=== PATIENT | male | born 1985 | race Hispanic/Latino ===

== ENCOUNTER 2018-03-24 07:32 | Emergency (ER) | payer SELFPAY ==
[2018-03-24 07:58] LABS: Absolute Lymphocytes (CBC) 1.4 K/uL (0.7-4.9); Absolute Monocytes 0.7 K/uL (0.1-1.3); Absolute Neutrophil 3.6 K/uL (1.8-8.0); Basophils % 1.1 % (0-1.3); Eosinophils % 0.4 % (0-4.4); Hematocrit 45.5 % (39.6-49.0); Lymphocytes % 23.5 % (15.3-44.8); MCH 34.8 pg (27.0-35.0); MCV 99.6 fL (80-100); MPV 9.4 fL (7.6-11.3); Monocytes % 12.2 % (3.3-12.3); RBC Red Blood Cell Count 4.57 M/uL (4.33-5.43)
[2018-03-24 08:22] LABS: ALT/SGPT 139 U/L (12-78); AST/SGOT 212 U/L (15-37); Albumin 3.9 g/dL (3.4-5.0); Alkaline Phosphatase 116 U/L (45-117); BUN Blood Urea Nitrogen 4 mg/dL (7-18); Bicarbonate 25 mmol/L (21-32); Bilirubin Direct < 0.1 mg/dL (0-0.2); Bilirubin Total 0.3 mg/dL (0.2-1.0); Glucose Level 118 mg/dL (74-106); Potassium 3.8 mmol/L (3.5-5.1); Protein, Total 8.6 g/dL (6.4-8.2); Sodium Level 140 mmol/L (136-145)
[2018-03-24 08:27] LABS: Protime INR 0.99
[2018-03-24 08:28] LABS: Barbiturates NEGATIVE (NEGATIVE); Benzodiazepines NEGATIVE (NEGATIVE); Cocaine NEGATIVE (NEGATIVE); METHAMPHETAM NEGATIVE (NEGATIVE); Methadone NEGATIVE (NEGATIVE); Opiates NEGATIVE (NEGATIVE); Phencyclidine NEGATIVE (NEGATIVE); THC Cannibis NEGATIVE (NEGATIVE)
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
[2018-03-24 08:38] LABS: Urine Blood 2+ (NEG); Urine Glucose NEGATIVE (NEG); Urine Protein 2+ (NEG); Urine pH 5.5 (5.0-7.0)
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
[2018-03-24] MEDS ORDERED: chlordiazePOXIDE HCl 25 MG CAP ONE (09:38)
[2018-03-24 10:41] LABS: Anisocytosis 1+; Blood Morphology Comment NOTED (NOT SEEN); Platelet Estimate DECR; Urine White Blood Cell Casts OK
[2018-03-24] MEDS ORDERED: ONDANSETRON 4 MG/2 ML VIAL ONE (18:49)
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
[2018-03-24] MEDS ORDERED: DIAZEPAM 5 MG TABLET ONE (19:11)
[2018-03-24 20:58] VITALS: TEMP 97.8
[2018-03-24 21:00] VITALS: BP 126/87; O2SAT 95
== END 2018-03-24 20:39 | disposition home or self-care (01) ==
LOC: ER 07:32
DX: S02.2XXA Fracture of nasal bones, initial encounter for closed fracture (principal); S02.80XA Fracture of other specified skull and facial bones, unspecified side, initial encounter for closed fracture; F10.229 Alcohol dependence with intoxication, unspecified; Y04.8XXA Assault by other bodily force, initial encounter; Y93.9 Activity, unspecified; Y92.9 Unspecified place or not applicable; I10 Essential (primary) hypertension
CPT/HCPCS: 36415; 70450; 70487; 71260; 72125; 74177; 76377; 80048; 80076; 80307; 80320; 80329; 81003; 85025; 85610; 85730; 86850; 86900; 86901; 96374; 99285; J2405; Q9967

== ENCOUNTER 2018-10-07 02:03 | Emergency (ER) | payer SELFPAY ==
[2018-10-07] MEDS ORDERED: NA CHLORIDE 0.9% 1,000 ML ONE (02:51)
[2018-10-07] MEDS ORDERED: LORazepam 2 MG/ML VIAL ONE ×2 (02:51→03:16)
[2018-10-07 03:11] LABS: Absolute Lymphocytes (CBC) 0.5 K/uL (0.7-4.9); Absolute Monocytes 0.4 K/uL (0.1-1.3); Absolute Neutrophil 4.2 K/uL (1.8-8.0); Basophils % 0.7 % (0-1.3); Eosinophils % 0.2 % (0-4.4); Hematocrit 39.7 % (39.6-49.0); Lymphocytes % 10.3 % (15.3-44.8); MPV 8.7 fL (7.6-11.3); Monocytes % 7.9 % (3.3-12.3); RBC Red Blood Cell Count 4.36 M/uL (4.33-5.43)
[2018-10-07 03:24] LABS: BUN Blood Urea Nitrogen 7 mg/dL (7-18); Bicarbonate 27 mmol/L (21-32); Creatine Phosphokinase 303 U/L (39-308); Glucose Level 89 mg/dL (74-106); Potassium 3.5 mmol/L (3.5-5.1); Sodium Level 139 mmol/L (136-145)
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
--- NOTE | 2018-10-07 03:48 | EDPHYS ---
Physician Documentation [facility] Name: Mehdi Ramos III Age: 33 yrs Sex: Male : 1985 Arrival Date: 10/07/2018 Time: 02:07 Bed 18 Private MD: ED Physician Sajan Harden HPI: 10/07 03:42 This 33 yrs old Male presents to ER via Law Enforcement with complaints of gs Alcohol Withdrawal. 03:42 The patient presents to the emergency department alcohol withdrawal, shakes. Associated gs signs and symptoms: Pertinent positives: tremor, Pertinent negatives: sz. Severity of symptoms: At their worst the symptoms were moderate in the emergency department the symptoms are unchanged. The patient has experienced similar episodes in the past, a few times. The patient has not recently seen a physician. Historical: - Allergies: 02:09 No Known Allergies; la1 - PMHx: 02:09 Alcoholism; Anxiety; Depression; Hypertension; liver enzymes/ jaundice- alcohol abuse; la1 - Immunization history:: Adult Immunizations up to date. - Social history:: Smoking status: Patient uses tobacco products, denies chronic smoking, but will smoke occasionally. - Ebola Screening: : No symptoms or risks identified at this time. ROS: 03:42 All other systems are negative. gs Exam: 03:42 Head/Face: Normocephalic, atraumatic. Eyes: Pupils equal round and reactive to light, gs extra-ocular motions intact. Lids and lashes normal. Conjunctiva and sclera are non-icteric and not injected. Cornea within normal limits. Periorbital areas with no swelling, redness, or edema. ENT: Nares patent. No nasal discharge, no septal abnormalities noted. Tympanic membranes are normal and external auditory canals are clear. Oropharynx with no redness, swelling, or masses, exudates, or evidence of obstruction, uvula midline. Mucous membranes moist. Neck: Trachea midline, no thyromegaly or masses palpated, and no cervical lymphadenopathy. Supple, full range of motion without nuchal rigidity, or vertebral point tenderness. No Meningismus. Chest/axilla: Normal chest wall appearance and motion. Nontender with no deformity. No lesions are appreciated. 03:42 Respiratory: Lungs have equal breath sounds bilaterally, clear to auscultation and percussion. No rales, rhonchi or wheezes noted. No increased work of breathing, no retractions or nasal flaring. Abdomen/GI: Soft, non-tender, with normal bowel sounds. No distension or tympany. No guarding or rebound. No evidence of tenderness throughout. Back: No spinal tenderness. No costovertebral tenderness. Full range of motion. Skin: Warm, dry with normal turgor. Normal color with no rashes, no lesions, and no evidence of cellulitis. MS/ Extremity: Pulses equal, no cyanosis. Neurovascular intact. Full, normal range of motion. 03:42 Constitutional: The patient appears alert, awake. 03:42 Cardiovascular: Rate: tachycardic, Rhythm: regular, Pulses: no pulse deficits are appreciated. 03:42 Neuro: Orientation: to person, place, time \T\ situation. Cranial nerves: CN II- XII are normal as tested, Motor: moves all fours, Sensation: no obvious gross deficits, Gait: is steady, Abnormal movements: resting tremor, is located in the right arm and left arm. Vital Signs: 02:09 BP 166 / 97; Pulse 113; Resp 22; Temp 98.9; Pulse Ox 98% on R/A; Weight 68.04 kg; la1 Height 5 ft. 6 in. (167.64 cm); 04:24 BP 123 / 83; Pulse 82; Resp 14; Pulse Ox 100% ; Pain 0/10; jl3 07:44 BP 129 / 83; Pulse 88; Resp 18; Pulse Ox 100% on R/A; sv 02:09 Body Mass Index 24.21 (68.04 kg, 167.64 cm) la1 MDM: 02:22 Patient medically screened. 03:42 Differential diagnosis: etoh withdrawal. Data reviewed: vital signs, nurses notes. Response to treatment: the patient's symptoms have markedly improved after treatment, the patient's condition has returned to base line, and as a result, I will discharge patient. 03:48 ED course: doesn't want to detox so will not supply valium. 10/07 02:23 Order name: CBC with Diff 10/07 02:23 Order name: Basic Metabolic Panel; Complete Time: 03:28 10/07 02:23 Order name: CPK; Complete Time: 03:28 10/07 03:27 Order name: CBC Smear Scan EDMS Administered Medications: 02:46 Drug: NS 0.9% 1000 ml Route: IV; Rate: 1 bolus; Site: left antecubital; la1 04:26 Follow up: Response: No adverse reaction; IV Status: Completed infusion; IV Intake: jl3 1000ml 02:46 Drug: Ativan 2 mg Route: IVP; Site: left antecubital; la1 03:12 Follow up: Response: No adverse reaction; Anxiety decreased jl3 03:12 Drug: Ativan 2 mg Route: IVP; Site: left antecubital; jl3 04:25 Follow up: Response: No adverse reaction; Anxiety decreased jl3 Disposition: 10/07/18 03:48 Discharged to Home. Impression: Alcohol dependence with withdrawal. - Condition is Stable. - Discharge Instructions: Alcohol Withdrawal, [id number]. - Medication Reconciliation Form, Thank You Letter, Antibiotic Education, Prescription Opioid Use form. - Follow up: Private Physician; When: 1 - 2 days; Reason: Re-evaluation by your physician. Signatures: Dispatcher [employer] Janett Casillas RN RN sv David Lloyd RN RN la1 Indra Cartagena RN RN jl3 Sajan Harden MD MD Corrections: (The following items were deleted from the chart) 07:59 03:48 10/07/2018 03:48 Discharged to Home. Impression: Alcohol dependence with sv withdrawal. Condition is Stable. Forms are Medication Reconciliation Form, Thank You Letter, Antibiotic Education, Prescription Opioid Use. Follow up: Private Physician; When: 1 - 2 days; Reason: Re-evaluation by your physician. gs
[2018-10-07 05:05] LABS: Platelet Estimate DECR; Urine White Blood Cell Casts OK
[2018-10-07 05:06] LABS: Blood Morphology Comment NOT SEEN (NOT SEEN)
[2018-10-07 08:06] VITALS: TEMP 98.9
[2018-10-07 08:07] VITALS: O2SAT 100
[2018-10-07 08:09] VITALS: BP 129/83
== END 2018-10-07 07:59 | disposition home or self-care (01) ==
LOC: ER 02:03
DX: F10.239 Alcohol dependence with withdrawal, unspecified (principal); I10 Essential (primary) hypertension; Z72.0 Tobacco use
CPT/HCPCS: 36415; 80048; 82550; 85025; 96361; 96374; 99284; J7030

== ENCOUNTER 2018-10-31 20:58 | Emergency (ER) | payer SELFPAY ==
[2018-11-01 00:35] LABS: Absolute Lymphocytes (CBC) 1.3 K/uL (0.7-4.9); Absolute Monocytes 0.3 K/uL (0.1-1.3); Absolute Neutrophil 2.1 K/uL (1.8-8.0); Basophils % 0.8 % (0-1.3); Eosinophils % 1.6 % (0-4.4); Hematocrit 42.5 % (39.6-49.0); Lymphocytes % 34.7 % (15.3-44.8); MPV 8.9 fL (7.6-11.3); Monocytes % 8.2 % (3.3-12.3)
[2018-11-01 00:38] LABS: Protime INR 0.9
[2018-11-01 00:47] LABS: Urine Blood TRACE (NEG); Urine Glucose NEGATIVE (NEG); Urine Protein 2+ (NEG); Urine pH 5.5 (5.0-7.0)
[2018-11-01 01:01] LABS: ALT/SGPT 52 U/L (12-78); AST/SGOT 72 U/L (15-37); Albumin 4.2 g/dL (3.4-5.0); Alkaline Phosphatase 131 U/L (45-117); BUN Blood Urea Nitrogen 8 mg/dL (7-18); Bicarbonate 25 mmol/L (21-32); Bilirubin Direct 0.1 mg/dL (0-0.2); Bilirubin Total 0.4 mg/dL (0.2-1.0); Glucose Level 94 mg/dL (74-106); Protein, Total 8.3 g/dL (6.4-8.2); Sodium Level 146 mmol/L (136-145)
[2018-11-01 01:02] LABS: Blood Morphology Comment NOT SEEN (NOT SEEN); Platelet Estimate DECR; Urine White Blood Cell Casts OK
[2018-11-01 01:16] LABS: METHAMPHETAM NEGATIVE (NEGATIVE)
[2018-11-01 01:17] LABS: Barbiturates NEGATIVE (NEGATIVE); Benzodiazepines NEGATIVE (NEGATIVE); Cocaine NEGATIVE (NEGATIVE)
[2018-11-01 01:19] LABS: Methadone NEGATIVE (NEGATIVE); Opiates NEGATIVE (NEGATIVE)
[2018-11-01 01:20] LABS: Phencyclidine NEGATIVE (NEGATIVE); THC Cannibis NEGATIVE (NEGATIVE)
[2018-11-01] MEDS ORDERED: NA CHLORIDE 0.9% 1,000 ML ONE (06:43)
--- NOTE | 2018-11-01 10:18 | ER ---
Nurse's Notes [facility] Name: Mehdi Ramos III Age: 33 yrs Sex: Male : 1985 Arrival Date: 10/31/2018 Time: 21:02 Bed 6 Private MD: Diagnosis: Alcohol abuse;Alcohol abuse with intoxication;Alcohol abuse, uncomplicated Presentation: 10/31 21:02 Presenting complaint: EMS states: pt has been drinking beer all day and wants "to see ca1 if he's diabetic. FSBS is 89. BP 144/82, HR 105. Transition of care: patient was not received from another setting of care. Onset of symptoms was October 31, 2018. Risk Assessment: Do you want to hurt yourself or someone else? Patient reports no desire to harm self or others. Initial Sepsis Screen: Does the patient meet any 2 criteria? No. Patient's initial sepsis screen is negative. Does the patient have a suspected source of infection? No. Patient's initial sepsis screen is negative. Care prior to arrival: Glucose check: 89. 21:02 Method Of Arrival: EMS: [facility] ca1 21:02 Acuity: BRANDON 4 ca1 Triage Assessment: 21:05 General: Appears in no apparent distress. Behavior is fussy, Smells of alcohol. Pain: ca1 Denies pain. Historical: - Allergies: 21:05 No Known Allergies; ca1 - PMHx: 21:05 Alcoholism; Anxiety; Depression; Hypertension; liver enzymes/ jaundice- alcohol abuse; ca1 - Immunization history:: Flu vaccine is up to date. - Social history:: Smoking status: Patient uses tobacco products, denies chronic smoking, but will smoke occasionally, Patient uses alcohol, on a daily basis. - Ebola Screening: : No symptoms or risks identified at this time. Screenin:10 Abuse screen: Denies threats or abuse. Denies injuries from another. Nutritional ca1 screening: No deficits noted. Tuberculosis screening: No symptoms or risk factors identified. 21:10 Fall Risk None identified. ca1 Assessment: 21:10 General: Appears in no apparent distress. Behavior is restless. Pain: Denies pain. ca1 Neuro: Level of Consciousness is awake, alert, obeys commands, Oriented to person, place, time, situation. Cardiovascular: Heart tones S1 S2 present Capillary refill < 3 seconds Patient's skin is warm and dry. Respiratory: Airway is patent Respiratory effort is even, unlabored, Respiratory pattern is regular, symmetrical, Breath sounds are clear bilaterally. GI: Abdomen is flat, non-distended, Bowel sounds present X 4 quads. Abd is soft and non tender X 4 quads. : No deficits noted. No signs and/or symptoms were reported regarding the genitourinary system. EENT: No deficits noted. No signs and/or symptoms were reported regarding the EENT system. Derm: Skin is intact, is healthy with good turgor, Skin is pink, warm \\T\\ dry. Musculoskeletal: Circulation, motion, and sensation intact. Capillary refill < 3 seconds. 22:00 Reassessment: Patient appears in no apparent distress at this time. Pt's eyes closed. ca1 Not in respiratory distress with equal and unlabored breathing. 23:00 Reassessment: Patient appears in no apparent distress at this time. No changes from ca1 previously documented assessment. 23:57 Reassessment: Patient appears in no apparent distress at this time. No changes from ca1 previously documented assessment. 11/01 00:28 Reassessment: Patient appears in no apparent distress at this time. Patient is alert, ca1 oriented x 3, equal unlabored respirations, skin warm/dry/pink. 02:47 Reassessment: Patient appears in no apparent distress at this time. Patient and/or ak1 family updated on plan of care and expected duration. Pain level reassessed. Patient is alert, oriented x 3, equal unlabored respirations, skin warm/dry/pink. pt informed of wait until morning when ETOH level is lowered. pt with pillow and blanket and vitals every 4 hours. will continue to monitor. . 04:27 Reassessment: Patient appears in no apparent distress at this time. No changes from ak1 previously documented assessment. 06:26 Reassessment: Patient appears in no apparent distress at this time. No changes from ak1 previously documented assessment. pt resting with eyes closed, resp even and unlabored. 06:58 Reassessment: report given to Thaddeus Potter RN and Pietro Rudd RN. ak1 07:00 Reassessment: RECD REPORT FROM ADELIA AYALA. 33YO HM P/W ETOH INTOXICATION. VS STABLE, NO bp APPARENT DISTRESS. 07:37 Reassessment: Patient appears in no apparent distress at this time. Patient and/or iw family updated on plan of care and expected duration. Pain level reassessed. Patient is alert, oriented x 3, equal unlabored respirations, skin warm/dry/pink. pt requests to call his mother Julienne . Mother states she can pick pt up at 10:30. Pt requesting something to eat. 09:28 Reassessment: Patient appears in no apparent distress at this time. Patient and/or sg family updated on plan of care and expected duration. Pain level reassessed. Patient is alert, oriented x 3, equal unlabored respirations, skin warm/dry/pink. awaiting pt mother for pickup at 1030, pt stated understanding. 10:15 Reassessment: pt mother here in a white [place]ib[place], pt ambulatory into ER [facility], out into sg the car, pt dc to home with his mom at this time. Vital Signs: 10/31 21:05 BP 133 / 97; Pulse 104; Resp 18; Temp 98.8; Pulse Ox 100% on R/A; Weight 68.04 kg; ca1 Height 5 ft. 6 in. (167.64 cm); Pain 0/10; 21:45 BP 124 / 73; Pulse 100; Resp 17 S; Pulse Ox 96% on R/A; ca1 22:46 BP 104 / 66; Pulse 84; Resp 17 S; Pulse Ox 97% on R/A; ca1 23:40 BP 93 / 62; Pulse 79; Resp 17 S; Pulse Ox 98% on R/A; ca1 04/12 00:28 BP 95 / 62; Pulse 77; Resp 19 S; Pulse Ox 97% on R/A; ca1 00:58 BP 120 / 86; Pulse 75; Resp 17 S; Pulse Ox 100% on R/A; ca1 02:01 BP 115 / 86; Pulse 75; Resp 18; Pulse Ox 98% on R/A; Pain 0/10; mg2 02:49 BP 134 / 97; Pulse 83; Resp 16; Temp 98.8; Pulse Ox 100% on R/A; ak1 04:27 BP 84 / 51; Pulse 73; Resp 14; Pulse Ox 98% ; ak1 06:26 BP 102 / 84; Pulse 78; Resp 14; Pulse Ox 99% on R/A; ak1 07:05 BP 115 / 88; Pulse 85; Resp 14; Pulse Ox 100% ; bp 10/31 21:05 Body Mass Index 24.21 (68.04 kg, 167.64 cm) ca1 ED Course: 10/31 21:02 Patient arrived in ED. ca1 21:04 Triage completed. ca1 21:05 Arm band placed on right wrist. ca1 21:10 Patient has correct armband on for positive identification. Placed in gown. Bed in low ca1 position. Call light in reach. Pulse ox on. NIBP on. Warm blanket given. 22:05 Columba Hutchinson RN is Primary Nurse. ca1 04 00:00 Real Preciado MD is Attending Physician. tw4 06:41 Lab(s) recollected, by me, sent to lab. IV is patent, Flushed left antecubital 20g ak1 placed prior to this nurse taking over pt care. 07:14 Attending Physician role handed off by Real Preciado MD kdr 07:14 Jonathan Blanchard MD is Attending Physician. kdr 08:28 Primary Nurse role handed off by Columba Hutchinson RN sg 08:28 Thaddeus Tellez RN is Primary Nurse. sg 10:20 No provider procedures requiring assistance completed. IV discontinued, intact, iw bleeding controlled, No redness/swelling at site. Pressure dressing applied. Administered Medications: 06:40 Not Given (Physician Discretion; new verbal orders given): Banana Bag - (NS 0.9% 1000 ak1 ml, foLIC Acid 1 mg, Thiamine 100 mg, Multivitamin 1 amp) IV at calculated rate once 06:40 Drug: NS 0.9% 1000 ml Route: IV; Rate: 1 bolus; Site: left antecubital; ak1 Outcome: 10:17 Discharge ordered by . kdr 10:20 Discharged to home ambulatory, with family. iw 10:20 Condition: good 10:20 Discharge instructions given to patient, Instructed on discharge instructions, follow up and referral plans. Demonstrated understanding of instructions, follow-up care. 10:20 Patient left the ED. iw Signatures: Thaddeus Tellez RN RN Jonathan Blanchard MD MD kdr Shahrzad Santiago RN RN iw Adelia Edgar RN RN ak1 Pietro Weems RN RN Real Preciado MD MD tw4 Jacek Tamayo RN RN [facility] [place] Columba Hutchinsno RN RN ca1 Corrections: (The following items were deleted from the chart) 10/31 22:11 21:10 BP 92 / 58; Pulse 77bpm; Resp 17bpm; Spontaneous; Pulse Ox 96% RA; ca1 ca1 11/01 00:01 10/31 21:02 Presenting complaint: EMS states: pt has been drinking beer all day and mg2 wants "to see if he's diabetic. FSBS is 889. BP 144/82, HR 105 ca1
--- NOTE | 2018-11-01 10:18 | EDPHYS ---
Physician Documentation [facility] Name: Mehdi Ramos III Age: 33 yrs Sex: Male : 1985 Arrival Date: 10/31/2018 Time: 21:02 Bed 6 Private MD: ED Physician Jonathan Blanchard HPI: 11/01 06:21 This 33 yrs old Male presents to ER via EMS with complaints of alcohol tw4 intoxication. 06:21 The patient presents to the emergency department after a known overdose, a result of tw4 recreational substance abuse. Context: Method: the patient has a confirmed or suspected ingestion, of alcohol, Time: the patient's OD/poisoning occurred at an unknown time, Extent: and was witnessed no one. Associated signs and symptoms: The patient has no apparent associated signs or symptoms. The patient has not experienced similar symptoms in the past. Pt states that " he wants to get his blood pressure checked to make sure he doesn't diabteres. Historical: - Allergies: 10/31 21:05 No Known Allergies; ca1 - PMHx: 21:05 Alcoholism; Anxiety; Depression; Hypertension; liver enzymes/ jaundice- alcohol abuse; ca1 - Immunization history:: Flu vaccine is up to date. - Social history:: Smoking status: Patient uses tobacco products, denies chronic smoking, but will smoke occasionally, Patient uses alcohol, on a daily basis. - Ebola Screening: : No symptoms or risks identified at this time. ROS: 11/01 06:21 Constitutional: Negative for fever, chills, and weight loss, Cardiovascular: Negative tw4 for chest pain, palpitations, and edema, Respiratory: Negative for shortness of breath, cough, wheezing, and pleuritic chest pain. Abdomen/GI: Negative for abdominal pain, nausea, vomiting, diarrhea, and constipation, MS/Extremity: Negative for injury and deformity. Abdomen/GI: Psych: Positive for alcohol dependence, Negative for suicide gesture, suicidal ideation. Exam: 06:21 Constitutional: This is a well developed, well nourished patient who is awake, alert, tw4 and in no acute distress. Head/Face: Normocephalic, atraumatic. Chest/axilla: Normal chest wall appearance and motion. Nontender with no deformity. No lesions are appreciated. Cardiovascular: Regular rate and rhythm with a normal S1 and S2. No gallops, murmurs, or rubs. Normal PMI, no JVD. No pulse deficits. Respiratory: Lungs have equal breath sounds bilaterally, clear to auscultation and percussion. No rales, rhonchi or wheezes noted. No increased work of breathing, no retractions or nasal flaring. Back: No spinal tenderness. No costovertebral tenderness. Full range of motion. MS/ Extremity: Pulses equal, no cyanosis. Neurovascular intact. Full, normal range of motion. 06:21 Neuro: Orientation: to person, place \\T\\ time. Mentation: able to follow commands, slow to respond, confused, Memory: is normal, Cranial nerves: CN II- XII are normal as tested, Motor: is normal, Sensation: is normal, Gait: is unsteady. Vital Signs: 10/31 21:05 BP 133 / 97; Pulse 104; Resp 18; Temp 98.8; Pulse Ox 100% on R/A; Weight 68.04 kg; ca1 Height 5 ft. 6 in. (167.64 cm); Pain 0/10; 21:45 BP 124 / 73; Pulse 100; Resp 17 S; Pulse Ox 96% on R/A; ca1 22:46 BP 104 / 66; Pulse 84; Resp 17 S; Pulse Ox 97% on R/A; ca1 23:40 BP 93 / 62; Pulse 79; Resp 17 S; Pulse Ox 98% on R/A; ca1 12 00:28 BP 95 / 62; Pulse 77; Resp 19 S; Pulse Ox 97% on R/A; ca1 00:58 BP 120 / 86; Pulse 75; Resp 17 S; Pulse Ox 100% on R/A; ca1 02:01 BP 115 / 86; Pulse 75; Resp 18; Pulse Ox 98% on R/A; Pain 0/10; mg2 02:49 BP 134 / 97; Pulse 83; Resp 16; Temp 98.8; Pulse Ox 100% on R/A; ak1 04:27 BP 84 / 51; Pulse 73; Resp 14; Pulse Ox 98% ; ak1 06:26 BP 102 / 84; Pulse 78; Resp 14; Pulse Ox 99% on R/A; ak1 07:05 BP 115 / 88; Pulse 85; Resp 14; Pulse Ox 100% ; bp 10/31 21:05 Body Mass Index 24.21 (68.04 kg, 167.64 cm) ca1 MDM: 00:01 Patient medically screened. tw4 06:21 Differential diagnosis: Ingestion/exposure to alcohol. Data reviewed: vital signs, tw4 nurses notes. Counseling: I had a detailed discussion with the patient and/or guardian regarding: the historical points, exam findings, and any diagnostic results supporting the discharge/admit diagnosis, lab results, radiology results. 11/01 00:01 Order name: Acetaminophen tw 11/01 00:01 Order name: Basic Metabolic Panel tw 11/01 00:01 Order name: CBC with Diff tw4 11/01 00:01 Order name: ETOH Level tw4 11/01 00:01 Order name: Hepatic Function tw 11/01 00:01 Order name: PT-INR tw 11/01 00:01 Order name: Ptt, Activated tw 11/01 00:01 Order name: Salicylate [facility] 11/01 00:01 Order name: Urine Drug Screen [facility] 11/01 00:15 Order name: Urine Dipstick--Ancillary (enter results) 6 11/01 00:37 Order name: CBC Smear Scan EDMT 11/01 06:25 Order name: Alcohol Level tw 11/01 00:01 Order name: EKG - Nurse/Tech; Complete Time: 00:28 [facility] 11/01 00:01 Order name: IV Saline Lock; Complete Time: 00:20 tw4 11/01 00:01 Order name: Labs collected and sent; Complete Time: 00:20 [facility] 11/01 00:01 Order name: Urine Dipstick-Ancillary (obtain specimen); Complete Time: 00:03 [facility] 11/01 07:35 Order name: Diet Regular; Complete Time: 07:35 iw EC:11 Rate is 73 beats/min. Rhythm is regular. QRS [place] is Normal. OR interval is normal. QRS tw4 interval is normal. QT interval is normal. No Q waves. T waves are Normal. No ST changes noted. Interpreted by me. Reviewed by me. Administered Medications: 06:40 Not Given (Physician Discretion; new verbal orders given): Banana Bag - (NS 0.9% 1000 ak1 ml, foLIC Acid 1 mg, Thiamine 100 mg, Multivitamin 1 amp) IV at calculated rate once 06:40 Drug: NS 0.9% 1000 ml Route: IV; Rate: 1 bolus; Site: left antecubital; ak1 Disposition: 11/01/18 10:17 Discharged to Home. Impression: Alcohol abuse, Alcohol abuse with intoxication, Alcohol abuse, uncomplicated. - Condition is Stable. - Discharge Instructions: Alcohol Use Disorder, Substance Use Disorder, Alcohol Abuse and Nutrition. - Medication Reconciliation Form, Thank You Letter form. - Follow up: Private Physician; When: 2 - 3 days; Reason: If symptoms return, Further diagnostic work-up, Recheck today's complaints, Continuance of care, Re-evaluation by your physician. - Problem is an acute exacerbation. - Symptoms have improved. Signatures: Dispatcher [employer] EDMS Jonathan Blanchard MD MD kdr Shahrzad Santiago RN RN iw Adelia Edgar RN RN ak1 Real Preciado MD MD tw4 Columba Hutchinson RN RN ca1 Corrections: (The following items were deleted from the chart) 10:20 10:17 11/01/2018 10:17 Discharged to Home. Impression: Alcohol abuse; Alcohol abuse iw with intoxication; Alcohol abuse, uncomplicated. Condition is Stable. Forms are Medication Reconciliation Form, Thank You Letter, Antibiotic Education, Prescription Opioid Use. Follow up: Private Physician; When: 2 - 3 days; Reason: If symptoms return, Further diagnostic work-up, Recheck today's complaints, Continuance of care, Re-evaluation by your physician. Problem is an acute exacerbation. Symptoms have improved. kdr
[2018-11-01 10:25] VITALS: TEMP 98.8
[2018-11-01 10:37] VITALS: BP 115/88; O2SAT 100
--- NOTE | 2018-11-02 09:48 | EKG ---
Test Date: 2018-11-01 Test Time: 00:26:01 Supervisor Pastry: DAYNE MEASUREMENT RESULTS: Intervals: Rate: 73 MS: 144 QRSD: 98 QT: 386 QTc: 425 [place]: P: 32 MS: 144 QRS: -15 T: 17 INTERPRETIVE STATEMENTS: Normal sinus rhythm Normal ECG Compared to ECG 08/15/2017 16:13:19 Sinus arrhythmia no longer present Left ventricular hypertrophy no longer present Electronically Signed On 11-02-18 09:43:24 CDT by Constantino Shine
== END 2018-11-01 10:20 | disposition home or self-care (01) ==
LOC: ER 20:58
DX: F10.229 Alcohol dependence with intoxication, unspecified (principal); I10 Essential (primary) hypertension; Z72.0 Tobacco use
CPT/HCPCS: 36415; 80048; 80076; 80307; 80320; 80329; 81003; 85025; 85610; 85730; 93005; 99284; J7030

== ENCOUNTER 2018-11-04 22:10 | Emergency (ER) | payer SELFPAY ==
[2018-11-04 23:20] LABS: Absolute Lymphocytes (CBC) 0.9 K/uL (0.7-4.9); Absolute Monocytes 0.4 K/uL (0.1-1.3); Basophils % 1.2 % (0-1.3); Eosinophils % 1.1 % (0-4.4); Hematocrit 43.5 % (39.6-49.0); Lymphocytes % 19.7 % (15.3-44.8); MPV 8.9 fL (7.6-11.3); Monocytes % 9.7 % (3.3-12.3); RBC Red Blood Cell Count 4.65 M/uL (4.33-5.43)
[2018-11-04 23:24] LABS: Protime INR 0.94
[2018-11-04 23:30] LABS: Barbiturates NEGATIVE (NEGATIVE); Benzodiazepines NEGATIVE (NEGATIVE); Cocaine NEGATIVE (NEGATIVE); METHAMPHETAM NEGATIVE (NEGATIVE); Methadone NEGATIVE (NEGATIVE); Opiates NEGATIVE (NEGATIVE); Phencyclidine NEGATIVE (NEGATIVE); THC Cannibis NEGATIVE (NEGATIVE)
[2018-11-04] MEDS ORDERED: NA CHLORIDE 0.9% 1,000 ML ONE (23:31)
[2018-11-04] MEDS ORDERED: THIAMINE 200 MG/2 ML INJ ONE (23:31)
[2018-11-04] MEDS ORDERED: FOLIC ACID 5 MG/ML VIAL ONE (23:32)
[2018-11-04] MEDS ORDERED: MULTIVITAMINS 10 ML VIAL (INJ) IV ONE (23:32)
[2018-11-04 23:35] LABS: Urine Blood 1+ (NEG); Urine Glucose NEGATIVE (NEG); Urine Protein 2+ (NEG); Urine Specific Gravity <1.005 (1.005-1.030)
[2018-11-04 23:44] LABS: ALT/SGPT 51 U/L (12-78); AST/SGOT 67 U/L (15-37); Albumin 4.4 g/dL (3.4-5.0); Alkaline Phosphatase 115 U/L (45-117); BUN Blood Urea Nitrogen 8 mg/dL (7-18); Bicarbonate 31 mmol/L (21-32); Bilirubin Direct 0.1 mg/dL (0-0.2); Bilirubin Total 0.4 mg/dL (0.2-1.0); Glucose Level 130 mg/dL (74-106); Potassium 4.1 mmol/L (3.5-5.1); Sodium Level 141 mmol/L (136-145)
[2018-11-05 00:17] LABS: Blood Morphology Comment NOT SEEN (NOT SEEN); Platelet Estimate DECR; Urine White Blood Cell Casts OK
[2018-11-05] MEDS ORDERED: CEFAZOLIN/SWI 1gm 1 GM/10 ML SYR ONE (03:38)
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
--- NOTE | 2018-11-05 07:14 | EDPHYS ---
Physician Documentation [facility] Name: Mehdi Ramos III Age: 33 yrs Sex: Male : 1985 Arrival Date: 11/04/2018 Time: 22:13 Bed 5 Private MD: ED Physician Jesus Colon HPI: 11/04 22:51 This 33 yrs old Male presents to ER via EMS with unknown complaint. pkl 22:51 The patient or guardian reports injury, a puncture wound, rock, swelling. The pkl complaints affect the right side face. Context of injury: resulted from a fall, from a standing position, hit right side of face on a rock. Onset: The symptoms/episode began/occurred just prior to arrival. Historical: - Allergies: 22:24 No Known Allergies; rv - Home Meds: 22:24 Unable to obtain [Active]; rv - PMHx: 22:24 Alcoholism; Anxiety; Depression; Hypertension; liver enzymes/ jaundice- alcohol abuse; rv - PSHx: 22:24 Unable to obtain; rv - Immunization history:: Adult Immunizations unknown. - Social history:: Smoking status: unknown. - Ebola Screening: : Patient negative for fever greater than or equal to 101.5 degrees Fahrenheit, and additional compatible Ebola Virus Disease symptoms Patient denies exposure to infectious person Patient denies travel to an Ebola-affected area in the 21 days before illness onset. ROS: 22:51 Eyes: Negative for injury, pain, redness, and discharge, ENT: Negative for injury, pkl pain, and discharge, Neck: Negative for injury, pain, and swelling, Cardiovascular: Negative for chest pain, palpitations, and edema, Respiratory: Negative for shortness of breath, cough, wheezing, and pleuritic chest pain, Abdomen/GI: Negative for abdominal pain, nausea, vomiting, diarrhea, and constipation, Back: Negative for injury and pain, : Negative for injury, bleeding, discharge, and swelling, MS/Extremity: Negative for injury and deformity, Skin: Negative for injury, rash, and discoloration. 22:51 Neuro: Negative for loss of consciousness. Exam: 22:51 Eyes: Pupils equal round and reactive to light, extra-ocular motions intact. Lids and pkl lashes normal. Conjunctiva and sclera are non-icteric and not injected. Cornea within normal limits. Periorbital areas with no swelling, redness, or edema. ENT: Nares patent. No nasal discharge, no septal abnormalities noted. Tympanic membranes are normal and external auditory canals are clear. Oropharynx with no redness, swelling, or masses, exudates, or evidence of obstruction, uvula midline. Mucous membranes moist. Neck: Trachea midline, no thyromegaly or masses palpated, and no cervical lymphadenopathy. Supple, full range of motion without nuchal rigidity, or vertebral point tenderness. No Meningismus. 22:51 Head/face: Noted is hematoma, that is moderate, of the right cheek, puncture wound noted right cheek. 22:51 Neck: Exam negative for obvious evidence of injury or deformity. 22:51 Chest/axilla: Exam negative for acute changes. 22:51 Cardiovascular: Rate: tachycardic, actual rate is 104 bpm, Rhythm: regular. 22:51 Respiratory: the patient does not display signs of respiratory distress, Respirations: normal, Breath sounds: are clear throughout. 22:51 Abdomen/GI: Bowel sounds: normal, Palpation: abdomen is soft and non-tender, in all quadrants. 22:51 Back: Exam negative for acute changes. 22:51 : Exam negative for acute changes. 22:51 Musculoskeletal/extremity: Exam is negative for acute changes. 22:51 Skin: Exam negative for rash. 22:51 Neuro: Orientation: is normal, Mentation: is normal, Cranial nerves: grossly normal, Motor: is normal. Vital Signs: 22:26 BP 121 / 82; Pulse 104; Resp 18 S; Temp 98.4; Pulse Ox 96% on R/A; Weight 72.57 kg; rv 23:25 BP 138 / 92; Pulse 84; Resp 19; Pulse Ox 95% on R/A; ca1 11/05 00:30 BP 118 / 108 LA Supine; Pulse 86; Resp 18 S; Pulse Ox 96% on R/A; rv 01:32 BP 130 / 94 LA Supine; Pulse 97; Resp 18 S; Pulse Ox 95% on R/A; rv 04:00 BP 112 / 80; Pulse 80; Resp 18; Pulse Ox 95% on R/A; ea MDM: 11/04 22:43 Patient medically screened. pkl 11/05 07:11 Data reviewed: vital signs, nurses notes, lab test result(s), EKG, radiologic studies, pkl CT scan. 11/04 22:48 Order name: Acetaminophen; Complete Time: 02:59 pkl 11/04 22:48 Order name: Basic Metabolic Panel; Complete Time: 02:59 pkl 11/04 22:48 Order name: CBC with Diff; Complete Time: 02:59 pkl 11/04 22:48 Order name: ETOH Level; Complete Time: 02:59 pkl 11/04 22:48 Order name: Hepatic Function; Complete Time: 02:59 pkl 11/04 22:48 Order name: PT-INR; Complete Time: 02:59 pkl 11/04 22:48 Order name: Ptt, Activated; Complete Time: 02:59 pkl 11/04 22:48 Order name: Salicylate; Complete Time: 02:59 pkl 11/04 22:48 Order name: Urine Drug Screen; Complete Time: 02:59 pkl 11/04 22:49 Order name: CT Head Brain wo Cont pkl 11/04 22:49 Order name: CT Facial Bones W/O Con pkl 11/04 23:17 Order name: Urine Dipstick--Ancillary (enter results); Complete Time: 02:59 ms 11/04 23:27 Order name: CBC Smear Scan; Complete Time: 02:59 EDMS 11/05 06:05 Order name: ETOH Level; Complete Time: 07:14 ak1 11/04 22:48 Order name: EKG - Nurse/Tech; Complete Time: 23:33 pkl 11/04 22:48 Order name: IV Saline Lock; Complete Time: 23:33 pkl 11/04 22:48 Order name: Labs collected and sent; Complete Time: 23:33 pkl 11/04 22:48 Order name: Urine Dipstick-Ancillary (obtain specimen); Complete Time: 23:33 pkl Administered Medications: 11/04 23:00 Drug: Banana Bag - (NS 0.9% 1000 ml, foLIC Acid 1 mg, Thiamine 100 mg, Multivitamin 1 rv amp) Route: IV; Rate: calculated rate; Site: right antecubital; 11/05 03:29 Follow up: IV Status: Completed infusion; IV Intake: 1000ml ak1 03:29 Drug: Ancef 1 grams Route: IVPB; Site: right antecubital; ak1 Disposition: 04/16/19 07:12 Discharged to Home. Impression: Alcohol intoxication. S/P Fall. Hematoma and puncture wound right cheek. - Condition is Stable. - Prescriptions for Keflex 500 mg Oral Capsule - take 1 capsule by ORAL route every 8 hours for 10 days; 30 capsule. - Medication Reconciliation Form, Thank You Letter, Antibiotic Education, Prescription Opioid Use form. - Follow up: Private Physician; When: 1 - 2 days; Reason: Re-evaluation by your physician. - Problem is new. - Symptoms have improved. Signatures: Dispatcher [employer] EDMS Chula Meehan Pin, MD MD pkl Adelia Edgar RN RN ak1 Ty Arellano RN RN rv Corrections: (The following items were deleted from the chart) 09:00 07:12 11/05/2018 07:12 Discharged to Home. Impression: Alcohol intoxication. S/P Fall. bd Hematoma and puncture wound right cheek. Condition is Stable. Forms are Medication Reconciliation Form, Thank You Letter, Antibiotic Education, Prescription Opioid Use. Follow up: Private Physician; When: 1 - 2 days; Reason: Re-evaluation by your physician. Problem is new. Symptoms have improved. pkl
[2018-11-05 09:09] VITALS: TEMP 98.4
[2018-11-05 09:13] VITALS: O2SAT 95
[2018-11-05 09:14] VITALS: BP 112/80
--- NOTE | 2018-11-05 11:15 | RAD REPORT ---
EXAM DESCRIPTION: CT - Facial Bones W/ Mpr - 11/05/2018 12:04 am CLINICAL HISTORY: The patient is 33 years old and is Male; fall TECHNIQUE: Axial computed tomography images of the head/brain and face with intravenous contrast. Sagittal and coronal reformatted images were created and reviewed. This CT exam was performed using one or more of the following dose reduction techniques: automated exposure control, adjustment of the mA and/or kV according to patient size, and/or use of iterative reconstruction technique. COMPARISON: None. FINDINGS: BRAIN: Prominence of the bifrontal sulci and CSF spaces. No hemorrhage. VENTRICLES: Unremarkable. No ventriculomegaly. BONES/JOINTS: Remote fracture deformity of the bilateral medial orbital mendoza. SOFT TISSUES: Right facial soft tissue swelling and subcutaneous emphysema involving the zygomatic , premaxillary and mesenteric soft tissues. SINUSES: Paranasal sinuses are clear. MASTOID AIR CELLS: Unremarkable as visualized. No mastoid effusion. ORBITS: Unremarkable as visualized. IMPRESSION: 1. No acute intracranial abnormality. 2. No facial fracture. 3. Cerebral volume loss, more than expected for patient's age. 4. Moderate right facial soft tissue swelling extending from the temporal region to the angle of th e mandible with scattered subcutaneous emphysema. 5. Chronic fracture deformities of the bilateral medial orbital mendoza Electronically signed by: Lele Figueroa DO 11/05/2018 12:11 AM CDT Due to temporary technical issues with the PACS/Fluency reporting system, reports are being signed by the in house radiologist as a courtesy to ensure prompt reporting. The interpreting radiologist is f ully responsible for the content of the report.
--- NOTE | 2018-11-05 11:16 | RAD REPORT ---
EXAM DESCRIPTION: CT - Head Brain Wo Cont - 11/05/2018 1:09 am CLINICAL HISTORY: The patient is 33 years old and is Male; fall TECHNIQUE: Axial computed tomography images of the head/brain and face with intravenous contrast. Sagittal and coronal reformatted images were created and reviewed. This CT exam was performed using one or more of the following dose reduction techniques: automated exposure control, adjustment of the mA and/or kV according to patient size, and/or use of iterative reconstruction technique. COMPARISON: None. FINDINGS: BRAIN: Prominence of the bifrontal sulci and CSF spaces. No hemorrhage. VENTRICLES: Unremarkable. No ventriculomegaly. BONES/JOINTS: Remote fracture deformity of the bilateral medial orbital mendoza. SOFT TISSUES: Right facial soft tissue swelling and subcutaneous emphysema involving the zygomatic , premaxillary and mesenteric soft tissues. SINUSES: Paranasal sinuses are clear. MASTOID AIR CELLS: Unremarkable as visualized. No mastoid effusion. ORBITS: Unremarkable as visualized. IMPRESSION: 1. No acute intracranial abnormality. 2. No facial fracture. 3. Cerebral volume loss, more than expected for patient's age. 4. Moderate right facial soft tissue swelling extending from the temporal region to the angle of th e mandible with scattered subcutaneous emphysema. 5. Chronic fracture deformities of the bilateral medial orbital mendoza Electronically signed by: Lele Figueroa DO 11/05/2018 12:11 AM CDT Due to temporary technical issues with the PACS/Fluency reporting system, reports are being signed by the in house radiologist as a courtesy to ensure prompt reporting. The interpreting radiologist is f ully responsible for the content of the report.
== END 2018-11-05 09:00 | disposition home or self-care (01) ==
LOC: ER 22:10
DX: S01.431A Puncture wound without foreign body of right cheek and temporomandibular area, initial encounter (principal); F10.229 Alcohol dependence with intoxication, unspecified; W19.XXXA Unspecified fall, initial encounter; Y93.89 Activity, other specified; Y92.9 Unspecified place or not applicable; I10 Essential (primary) hypertension
CPT/HCPCS: 36415; 70450; 70486; 76377; 80048; 80076; 80307; 80320; 80329; 81003; 85025; 85610; 85730; 96365; 96366; 96375; 99284; J0690; J3411; J7030

== ENCOUNTER 2019-11-15 09:29 | Emergency (ER) | payer SELFPAY ==
[2019-11-15] MEDS ORDERED: LORazepam 2 MG/ML VIAL ONE (09:54)
[2019-11-15] MEDS ORDERED: NA CHLORIDE 0.9% 1,000 ML ONE (09:54)
[2019-11-15 10:00] LABS: Protime INR 0.96
[2019-11-15] MEDS ORDERED: FOLIC ACID 1 MG, MULTIVITAMINS INJ 10 ML, THIAMINE HCL 100 MG in NA CHLORIDE 0.9% 1,000 ML IV ONE (10:00)
[2019-11-15 10:12] LABS: ALT/SGPT 42 U/L (12-78); AST/SGOT 75 U/L (15-37); Albumin 4.1 g/dL (3.4-5.0); Alkaline Phosphatase 114 U/L (45-117); BUN Blood Urea Nitrogen 13 mg/dL (7-18); Bicarbonate 23 mmol/L (21-32); Bilirubin Direct 0.2 mg/dL (0-0.2); Bilirubin Total 0.7 mg/dL (0.2-1.0); Glucose Level 95 mg/dL (74-106); Potassium 3.4 mmol/L (3.5-5.1); Protein, Total 8.2 g/dL (6.4-8.2); Sodium Level 137 mmol/L (136-145)
[2019-11-15 10:14] LABS: Absolute Lymphocytes (CBC) 0.9 K/uL (0.7-4.9); Basophils % 0.3 % (0-1.3); Hematocrit 42.2 % (39.6-49.0); Lymphocytes % 15.5 % (15.3-44.8); MPV 9.4 fL (7.6-11.3); RBC Red Blood Cell Count 4.78 M/uL (4.33-5.43)
[2019-11-15 11:12] LABS: Blood Morphology Comment NOT SEEN (NOT SEEN); Platelet Estimate DECR; Urine White Blood Cell Casts OK
--- NOTE | 2019-11-15 11:43 | ER ---
Nurse's Notes [facility] Name: Mehdi Ramos III Age: 34 yrs Sex: Male : 1985 Arrival Date: 11/15/2019 Time: 09:31 Bed 8 Private MD: Diagnosis: Alcohol dependence;Alcohol abuse with other alcohol-induced disorders Presentation: 11/14 09:42 Chief complaint: Alcohol withdrawl symptoms following 2 week long [place]. Pt reports hb drinking 40 oz bottles of malt liquor per day, last drink was at approx 1800 just prior to entering police custody. [place] PO at bedside, pt handcuffed. Coronavirus screen: Ebola Screen: No symptoms or risks identified at this time. Initial Sepsis Screen: Does the patient meet any 2 criteria? HR > 90 bpm. Yes Does the patient have a suspected source of infection? No. Patient's initial sepsis screen is negative. Risk Assessment: Do you want to hurt yourself or someone else? Patient reports no desire to harm self or others. Onset of symptoms was November 15, 2019. 09:42 Method Of Arrival: Ambulatory hb 09:42 Acuity: BRANDON 3 hb Historical: - Allergies: 09:45 No Known Allergies; hb - PMHx: 09:45 Alcoholism; Anxiety; Depression; Hypertension; liver enzymes/ jaundice- alcohol abuse; hb - PSHx: 09:45 Unable to obtain; hb - Immunization history:: Adult Immunizations up to date. - Social history:: Smoking status: Patient denies any tobacco usage or history of. Screenin:40 Abuse screen: Denies threats or abuse. Nutritional screening: No deficits noted. em Tuberculosis screening: No symptoms or risk factors identified. Fall Risk None identified. Assessment: 09:35 General: Appears in no apparent distress. uncomfortable, Behavior is cooperative, em anxious. Pain: Complains of pain in right eye Pain currently is 5 out of 10 on a pain scale. Neuro: Level of Consciousness is awake, alert, obeys commands, Oriented to person, place, time, situation, Appropriate for age. Cardiovascular: Capillary refill < 3 seconds Patient's skin is warm and dry. Respiratory: Airway is patent Respiratory effort is even, unlabored, Respiratory pattern is regular, symmetrical. GI: Abdomen is flat. Derm: Skin is intact, is healthy with good turgor, Skin is pink, warm \T\ dry. Bruising that is on right eye. Musculoskeletal: Capillary refill < 3 seconds, Range of motion: intact in all extremities. 10:20 Reassessment: Patient appears in no apparent distress at this time. Patient and/or em family updated on plan of care and expected duration. Pain level reassessed. Patient is alert, oriented x 3, equal unlabored respirations, skin warm/dry/pink. Patient states feeling better. Patient states symptoms have improved. 11:10 Reassessment: Patient appears in no apparent distress at this time. Patient and/or ph family updated on plan of care and expected duration. Pain level reassessed. Patient is alert, oriented x 3, equal unlabored respirations, skin warm/dry/pink. Vital Signs: 09:42 BP 161 / 95; Pulse 101; Resp 16; Temp 97.8; Pulse Ox 100% ; Weight 74.84 kg; Height 5 hb ft. 7 in. (170.18 cm); Pain 5/10; 10:30 BP 128 / 85; Pulse 87; Resp 20; Pulse Ox 100% on R/A; em 11:10 BP 115 / 79; Pulse 87; Resp 18; Pulse Ox 100% ; ph 09:42 Body Mass Index 25.84 (74.84 kg, 170.18 cm) hb ED Course: 09:31 Patient arrived in ED. hb 09:31 David Lloyd FNP-C is [facility]. la1 09:31 Glenn Conteh MD is Attending Physician. la1 09:34 Hector Angel, RN is Primary Nurse. em 09:40 Patient has correct armband on for positive identification. Call light in reach. Side em rails up X2. Adult w/ patient. officer at bedside, pt in [place] custody. 09:40 Initial lab(s) drawn, by tn, sent to lab. Inserted saline lock: 20 gauge in right em antecubital area, using aseptic technique. Blood collected. 09:45 Triage completed. hb 09:45 Arm band placed on. hb 10:20 EKG done, by ED staff, reviewed by David KELLEY. 5 11:54 No provider procedures requiring assistance completed. IV discontinued, intact, em bleeding controlled, No redness/swelling at site. Pressure dressing applied. Administered Medications: 09:39 Not Given (Other Intervention Used): Ativan 1 mg IVP once la1 09:50 Drug: NS 0.9% 1000 ml Route: IV; Rate: 1000 ml; Site: right antecubital; em 11:55 Follow up: IV Status: Completed infusion; IV Intake: 1000ml em 09:50 Drug: Ativan 2 mg Route: IVP; Site: right antecubital; em 10:20 Follow up: Response: No adverse reaction; Marked relief of symptoms em 10:08 Drug: Banana Bag - (NS 0.9% 1000 ml, foLIC Acid 1 mg, Thiamine 100 mg, Multivitamin 1 em amp) Route: IV; Rate: calculated rate; Site: right antecubital; 11:56 Follow up: Response: No adverse reaction; IV Status: Order to discontinue infusion; IV em Intake: 400ml Intake: 11:55 IV: 1000ml; Total: 1000ml. em 11:56 IV: 400ml; Total: 1400ml. em Outcome: 11:42 Discharge ordered by . la1 11:54 Discharged to Law Enforcement em 11:54 Condition: stable 11:54 Discharge instructions given to patient, police, Instructed on discharge instructions, follow up and referral plans. Demonstrated understanding of instructions, follow-up care. 11:58 Patient left the ED. em Signatures: Hector Angel RN David Cope, SENIOR PARTNER-C SENIOR PARTNER-[facility] Jacquelyn Lyles RN RN Maya Emery RN RN hb Martinez, [facility]
--- NOTE | 2019-11-15 11:44 | EDPHYS ---
Physician Documentation [facility] Name: Mehdi Ramos III Age: 34 yrs Sex: Male : 1985 Arrival Date: 11/15/2019 Time: 09:31 Bed 8 Private MD: ED Physician Glenn Conteh HPI: 11/14 09:40 This 34 yrs old Male presents to ER via Unassigned with complaints of ETOH la1 Withdraw. 09:40 The patient presents to the emergency department ETOH Withdraw. Associated signs and la1 symptoms: Pertinent positives: anxiety, tremors, Pertinent negatives: diaphoresis. Severity of symptoms: At their worst the symptoms were moderate. The patient has experienced similar episodes in the past, several times. pt reports for the last two weeks he has been drinking 4-5 "40s" at home, had his last drink last night at 1800. Pt is in police custody at this time, brought it for alcohol withdraw. Pt states he feels "awful" and that this is how he feels when he quits drinking. . Historical: - Allergies: 09:45 No Known Allergies; hb - PMHx: 09:45 Alcoholism; Anxiety; Depression; Hypertension; liver enzymes/ jaundice- alcohol abuse; hb - PSHx: 09:45 Unable to obtain; hb - Immunization history:: Adult Immunizations up to date. - Social history:: Smoking status: Patient denies any tobacco usage or history of. ROS: 09:43 Eyes: Negative for injury, pain, redness, and discharge, ENT: Negative for injury, la1 pain, and discharge, Cardiovascular: Negative for chest pain, palpitations, and edema, Respiratory: Negative for shortness of breath, cough, wheezing, and pleuritic chest pain, Abdomen/GI: + for nausea Back: Negative for injury and pain, MS/Extremity: + for tremor Skin: Negative for injury, rash, and discoloration, Neuro: Negative for headache, weakness, numbness, tingling, and seizure. 09:43 Constitutional: Positive for malaise. Exam: 09:44 Head/Face: Normocephalic, atraumatic. ENT: Nares patent. No nasal discharge, no la1 septal abnormalities noted. Tympanic membranes are normal and external auditory canals are clear. Oropharynx with no redness, swelling, or masses, exudates, or evidence of obstruction, uvula midline. Mucous membranes moist. Bruising noted around right eye Neck: Trachea midline,Supple, full range of motion without nuchal rigidity, or vertebral point tenderness. No Meningismus. Chest/axilla: Normal chest wall motion. Cardiovascular: Regular rate and rhythm with a normal S1 and S2. Respiratory: Lungs have equal breath sounds bilaterally, clear to auscultation Abdomen/GI: Soft, non-tender, with normal bowel sounds. Back: No spinal tenderness. No costovertebral tenderness. Full range of motion. Skin: Warm, dry with normal turgor. Normal color with no rashes, no lesions, and no evidence of cellulitis. MS/ Extremity: Pulses equal, no cyanosis. Neurovascular intact. Full, normal range of motion. pt with mild resting tremor. 09:44 Neuro: Awake and alert, GCS 15, oriented to person, place, time, and situation. Cranial nerves II-XII grossly intact. Motor strength 5/5 in all extremities. Sensory grossly intact. Cerebellar exam normal. Psych: Awake, alert, with orientation to person, place and time. pt appers anxious reports sleep disturbances 09:44 Constitutional: The patient appears anxious, appears dry 10:18 ECG was reviewed by the Attending Physician. la1 Vital Signs: 09:42 BP 161 / 95; Pulse 101; Resp 16; Temp 97.8; Pulse Ox 100% ; Weight 74.84 kg; Height 5 hb ft. 7 in. (170.18 cm); Pain 5/10; 10:30 BP 128 / 85; Pulse 87; Resp 20; Pulse Ox 100% on R/A; em 11:10 BP 115 / 79; Pulse 87; Resp 18; Pulse Ox 100% ; ph 09:42 Body Mass Index 25.84 (74.84 kg, 170.18 cm) hb MDM: 09:31 Patient medically screened. la1 10:29 Differential diagnosis: Ingestion/exposure to etoh polypharmacy. Data reviewed: vital la1 signs, nurses notes, lab test result(s), EKG, I have discussed the patient's presentation/case with the attending Emergency Department Physician; and as a result, I will discharge patient. Data interpreted: Pulse oximetry: on room air is 100 %. Interpretation: normal. Counseling: I had a detailed discussion with the patient and/or guardian regarding: the historical points, exam findings, and any diagnostic results supporting the discharge/admit diagnosis, the presence of at least one elevated blood pressure reading (>120/80) during this emergency department visit, lab results, radiology results, the need for outpatient follow up, a family practitioner, to return to the emergency department if symptoms worsen or persist or if there are any questions or concerns that arise at home. Medication response: ativan. Response to treatment: the patient's symptoms have markedly improved after treatment, patient is well hydrated. and as a result, I will discharge patient. Special discussion: Based on the patient's history, exam, and Dx evaluation, there is no indication for emergent intervention or inpatient Tx. It is understood by the patient/guardian that if the Sx's persist or worsen they need to return immediately for re-evaluation. pt educated on need to abstain from ETOH. ED course: pt tremors have greatly improved, pt states he is feeling better at this time, labs are ok with only mild elevation in AST. pt instructed no need to abstain from ETOH, will be released back to police custody.. 11/14 09:37 Order name: Acetaminophen; Complete Time: 10:11/14 09:37 Order name: Basic Metabolic Panel; Complete Time: :11/14 09:37 Order name: CBC with Diff 11/14 09:37 Order name: ETOH Level; Complete Time: 11:11/14 09:37 Order name: Hepatic Function; Complete Time: 10:11/14 09:37 Order name: PT-INR; Complete Time: :11/14 09:37 Order name: Ptt, Activated; Complete Time: :11/14 09:37 Order name: Salicylate; Complete Time: 11:11/14 11:13 Order name: CBC Smear Scan EDMS 11/14 09:37 Order name: EKG; Complete Time: 09:39 11/14 09:37 Order name: EKG - Nurse/Tech; Complete Time: :11/14 09:37 Order name: IV Saline Lock; Complete Time: :46 11/14 09:37 Order name: Labs collected and sent; Complete Time: : EC:18 Rate is 81 beats/min. Rhythm is regular. Left axis deviation noted. HI interval is la1 normal. QRS interval is normal. QT interval is prolonged at 455 msec. No Q waves. T waves are Inverted in leads III, aVR, V1. No ST changes noted. Clinical impression: NSR w/ Non-specific ST/T Changes. Interpreted by me. Reviewed by me. Administered Medications: 09:39 Not Given (Other Intervention Used): Ativan 1 mg IVP once la1 09:50 Drug: NS 0.9% 1000 ml Route: IV; Rate: 1000 ml; Site: right antecubital; em 11:55 Follow up: IV Status: Completed infusion; IV Intake: 1000ml em 09:50 Drug: Ativan 2 mg Route: IVP; Site: right antecubital; em 10:20 Follow up: Response: No adverse reaction; Marked relief of symptoms em 10:08 Drug: Banana Bag - (NS 0.9% 1000 ml, foLIC Acid 1 mg, Thiamine 100 mg, Multivitamin 1 em amp) Route: IV; Rate: calculated rate; Site: right antecubital; 11:56 Follow up: Response: No adverse reaction; IV Status: Order to discontinue infusion; IV em Intake: 400ml Disposition: 11/15/19 11:42 Discharged to Law Enforcement. Impression: Alcohol dependence, Alcohol abuse with other alcohol-induced disorders. - Condition is Stable. - Discharge Instructions: Alcohol Intoxication, Alcohol Withdrawal, Alcohol Use Disorder, Alcohol Abuse and Nutrition. - Medication Reconciliation Form, Thank You Letter form. - Follow up: Private Physician; When: 2 - 3 days; Reason: Recheck today's complaints, Re-evaluation by your physician. - Problem is an ongoing problem. - Symptoms have improved. Addendum: 11/17/2019 09:53 Co-signature as Attending Physician, Glenn Conteh MD I agree with the assessment and c levine plan of care. Signatures: Dispatcher [employer] Glenn Nix MD MD cha Munoz, Edgar, RN RN em David Lloyd, CD MIXER HELPER-C CD MIXER HELPER-Cla1 Maya Emery RN RN Corrections: (The following items were deleted from the chart) 11/14 11:58 11:42 11/15/2019 11:42 Discharged to Law Enforcement. Impression: Alcohol dependence; em Alcohol abuse with other alcohol-induced disorders. Condition is Stable. Forms are Medication Reconciliation Form, Thank You Letter, Antibiotic Education, Prescription Opioid Use. Follow up: Private Physician; When: 2 - 3 days; Reason: Recheck today's complaints, Re-evaluation by your physician. Problem is an ongoing problem. Symptoms have improved. la1
[2019-11-15 12:04] VITALS: TEMP 97.8; O2SAT 100
[2019-11-15 12:07] VITALS: BP 115/79
--- NOTE | 2019-11-16 06:50 | EKG ---
Test Date: 2019-11-15 Test Time: 10:17:47 Train Operations Supervisor: GINNY MEASUREMENT RESULTS: Intervals: Rate: 81 [place]: 148 QRSD: 102 QT: 392 QTc: 455 [place]: P: 33 [place]: 148 QRS: -9 T: 19 INTERPRETIVE STATEMENTS: Normal sinus rhythm Incomplete right bundle branch block Borderline ECG Compared to ECG 11/01/2018 00:26:01 Incomplete right bundle-branch block now present Electronically Signed On 11-16-19 06:48:43 CDT by Constantino Shine
== END 2019-11-15 11:58 ==
LOC: ER 09:29
DX: F10.288 Alcohol dependence with other alcohol-induced disorder (principal); I10 Essential (primary) hypertension
CPT/HCPCS: 36415; 80048; 80076; 80320; 80329; 85025; 85610; 85730; 93005; 96365; 96366; 96375; 99284; J3411; J7030

== ENCOUNTER 2021-07-10 20:34 | Emergency (ER) | payer SELFPAY ==
--- OUTSIDE RECORDS SUMMARY | 2021-07-10 20:39 | XMS REPORT | Continuity of Care Document ---
:1985 Author Organization [facility] t Address [address] [place] [address] Care Team Providers Name Role Phone DR RICHARD COOPER Attending Clinician Unavailable DR JILLIAN Attending Clinician Unavailable JOSE RAMON, Attending Clinician Unavailable DR Jesús COWATR Attending Clinician Unavailable Physician, Primary or Family Admitting Clinician UnavailDR Veronica Borden Admitting Clinician Unavailable DR JILLIAN Admitting Clinician Unavailable DR JOSE RAMON Admitting Clinician Unavailable DR Jesús COWART Admitting Clinician Unavailable Payers Payer Name Policy Type Policy Number Effective Date Expiration Date S ource Problems This patient has no known problems. Allergies, Adverse Reactions, Alerts Allergy Allergy Status Severity Reaction(s) Onset Inactive Treating Comm ents Source Name Type Date Date Clinician No Known DA Active U 2019-07 [facility]- [facility] 00:00: [facility] [address] [facility] No Known DA Active U 2019-07 [facility]- [facility] [address] [facility] No Known DA Active U [facility] 18 [facility] [address] [facility] No Known DA Active U [facility] 418 [facility] [address] [facility] Medications This patient has no known medications. Procedures This patient has no known procedures. Encounters Start End Encounter Admission Attending Care Care Encounter Source Date/Time Date/Time Type Type Clinicians Facility Department ID 2020-05-01 Inpatient HCANW WADE [id number] [facility] 06:33:00 [facility] are [facility] st 2020-04-30 Inpatient HCANW WADE [id number] [facility] 13:14:00 [facility] are [facility] 2019-11-03 2019-11-04 Emergency E RICHARD COOPER [facility] [id number] [place] 21:18:00 15:38:00 [facility] [place] 2019-09-19 2019-09-21 Emergency E JILLIAN, [facility] [id number] [place] 18:38:00 15:50:00 [facility] 2019-09-16 2019-09-16 Emergency E JOSE RAMON, [facility] [id number] [place] 00:16:00 22:00:00 [facility]AT[facility] [place] 2019-07-25 2019-07-27 Emergency E SUPA, [facility] [id number] [place] 15:36:00 11:45:00 [facility] Results Test Description Test Time Test Comments Results Result Comments Source CBC W/AUTO DIFF 2020-05-02 06:30:00 Test Item Value Reference Range Interpretation Comme nts WHITE BLOOD CELL (test code = 5.1 x10 3/uL 3.2-11.5 N WBC) RED BLOOD CELL (test code = 4.82 x10(6)/m 4.20-5.70 N RBC) HEMOGLOBIN (test code = HGB) 14.1 g/dL 12.9-17.3 N HEMATOCRIT (test code = HCT) 43.2 % 38.7-51.0 N MEAN CELL VOLUME (test code = 90 fL 80-100 N MCV) MEAN CELL HGB (test code = MCH) 29.3 pg 26.7-33.3 N MEAN CELL HGB CONCENTRATION 32.6 g/dL 30.0-34.0 N (test code = MCHC) RED CELL DISTRIBUTION WIDTH 12.7 % 11.3-14.5 N (test code = RDW) PLATELET COUNT (test code = 46 x10 3/uL 130-408 LL Critical Value reported PLT) toFirst Name:MARIA ANTONIA REYES Last Name:EDER POTTER READ BACK AND JENNY Baker N.LAB.IBT, on , @ 0401. MEAN PLATELET VOLUME (test code 11.0 fL 8.6-12.6 N = MPV) NEUTROPHIL % (test code = NT%) 67.8 % 40.0-70.0 N IMMATURE GRANULOCYTE % (test 0.4 % 0.0-2.0 N code = IG%) LYMPHOCYTE % (test code = LY%) 22.1 % 20-40 N MONOCYTE % (test code = MO%) 6.7 % 1-10 N EOSINOPHIL % (test code = EO%) 2.8 % 0.0-5.0 N BASOPHIL % (test code = BA%) 0.2 % 0.0-1.0 N NUCLEATED RBC % (test code = 0.0 % 0.0-0.9 N NRBC%) NEUTROPHIL # (test code = NT#) 3.4 x10 3/uL 1.6-7.2 N LYMPHOCYTE # (test code = LY#) 1.12 x10 3/uL 1.1-2.7 N MONOCYTE # (test code = MO#) 0.3 x10 3/uL 0.3-0.8 N EOSINOPHIL # (test code = EO#) 0.1 x10 3/uL 0.0-0.5 N BASOPHIL # (test code = BA#) 0.0 x10 3/uL 0.0-0.1 N DIFFERENTIAL [id number] 06:30:00 Test Item Value Reference Range Interpretation Comments PLATELET MORPHOLOGY (test code = NORM NORMAL PLTMORPH) BASIC METABOLIC [id number] 04:10:00 Test Item Value Reference Range Interpretation Comments SODIUM (test code 137 mmol/L 135-145 N = NA) POTASSIUM (test 4.0 mmol/L 3.6-5.0 N code = K) CHLORIDE (test 104 mmol/L 101-111 N code = CL) CARBON DIOXIDE 25 mmol/L 21-31 N (test code = CO2) GLUCOSE (test code 88 mg/dl 70-100 N = GLU) BLOOD UREA 6 mg/dl 6-20 N NITROGEN (test code = BUN) GLOMERULAR >=60 max >60 The estimated FILTRATION RATE estimate glomerular (test code = GFR) filtration rate is computed usingpatient ra ce, age (>18), sex, and serum creatinin e. If anyof the neede d data elements a re missing the Laboratory jordy ot compute an estimation of t he glomerular filtration rate . CREATININE (test 0.73 mg/dL 0.64-1.27 N code = CREAT) CALCIUM (test code 8.5 mg/dL 8.5-10.5 N = CA) Comments to Phleb: Repeat Serum K level in AM if not already ordered.Spec Comments: Repeat Serum Magnesium level in AM if not alreadyComments to Phleb: ordered.[id number] 04:10:00 Test Item Value Reference Range Interpretation Comments PHOSPHOROUS (test code = PHOS) 3.0 mg/dl 2.5-4.6 N Comments to Phleb: Repeat Serum K level in AM if not already ordered.Spec Comments: Repeat Serum Magnesium level in AM if not alreadyComments to Phleb: ordered.[id number] 04:10:00 Test Item Value Reference Range Interpretation Comments MAGNESIUM (test code = MAG) 2.6 mg/dl 1.8-2.5 H Comments to Phleb: Repeat Serum K level in AM if not already ordered.Spec Comments: Repeat Serum Magnesium level in AM if not alreadyComments to Phleb: ordered.CBC W/AUTO [id number] 04:01:00 Test Item Value Reference Range Interpretation Comments WHITE BLOOD CELL (test 5.1 x10 3/uL 3.2-11.5 N code = WBC) RED BLOOD CELL (test 4.82 x10(6)/m 4.20-5.70 N code = RBC) HEMOGLOBIN (test code 14.1 g/dL 12.9-17.3 N = HGB) HEMATOCRIT (test code 43.2 % 38.7-51.0 N = HCT) MEAN CELL VOLUME (test 90 fL 80-100 N code = MCV) MEAN CELL HGB (test 29.3 pg 26.7-33.3 N code = MCH) MEAN CELL HGB 32.6 g/dL 30.0-34.0 N CONCENTRATION (test code = MCHC) RED CELL DISTRIBUTION 12.7 % 11.3-14.5 N WIDTH (test code = RDW) PLATELET COUNT (test 46 x10 3/uL 130-408 LL Critica l Value code = PLT) reported toFvikram t Name:FAUSTINO raphael Name:EDER MIRANDA S READ BACK AND VERIFIEDby N.LAB.IBT, on 05/02/20, @ 040 1. MEAN PLATELET VOLUME 11.0 fL 8.6-12.6 N (test code = MPV) NEUTROPHIL % (test 67.8 % 40.0-70.0 N code = NT%) IMMATURE GRANULOCYTE % 0.4 % 0.0-2.0 N (test code = IG%) LYMPHOCYTE % (test 22.1 % 20-40 N code = LY%) MONOCYTE % (test code 6.7 % 1-10 N = MO%) EOSINOPHIL % (test 2.8 % 0.0-5.0 N code = EO%) BASOPHIL % (test code 0.2 % 0.0-1.0 N = BA%) NUCLEATED RBC % (test 0.0 % 0.0-0.9 N code = NRBC%) NEUTROPHIL # (test 3.4 x10 3/uL 1.6-7.2 N code = NT#) LYMPHOCYTE # (test 1.12 x10 3/uL 1.1-2.7 N code = LY#) MONOCYTE # (test code 0.3 x10 3/uL 0.3-0.8 N = MO#) EOSINOPHIL # (test 0.1 x10 3/uL 0.0-0.5 N code = EO#) BASOPHIL # (test code 0.0 x10 3/uL 0.0-0.1 N = BA#) DIFFERENTIAL [id number] 04:01:00 Test Item Value Reference Range Interpretation Comments PLATELET MORPHOLOGY (test code = NORMAL PLTMORPH) CBC W/AUTO [id number] 04:01:00 Test Item Value Reference Range Interpretation Comments WHITE BLOOD CELL (test 5.1 x10 3/uL 3.2-11.5 N code = WBC) RED BLOOD CELL (test 4.82 x10(6)/m 4.20-5.70 N code = RBC) HEMOGLOBIN (test code 14.1 g/dL 12.9-17.3 N = HGB) HEMATOCRIT (test code 43.2 % 38.7-51.0 N = HCT) MEAN CELL VOLUME (test 90 fL 80-100 N code = MCV) MEAN CELL HGB (test 29.3 pg 26.7-33.3 N code = MCH) MEAN CELL HGB 32.6 g/dL 30.0-34.0 N CONCENTRATION (test code = MCHC) RED CELL DISTRIBUTION 12.7 % 11.3-14.5 N WIDTH (test code = RDW) PLATELET COUNT (test 46 x10 3/uL 130-408 LL Critica l Value code = PLT) reported toFirs t Name:FAUSTINO raphael Name:EDER MIRANDA S READ BACK AND VERIFIEDby N.LAB.IBT, on 05/02/20, @ 040 1. MEAN PLATELET VOLUME 11.0 fL 8.6-12.6 N (test code = MPV) NEUTROPHIL % (test 67.8 % 40.0-70.0 N code = NT%) IMMATURE GRANULOCYTE % 0.4 % 0.0-2.0 N (test code = IG%) LYMPHOCYTE % (test 22.1 % 20-40 N code = LY%) MONOCYTE % (test code 6.7 % 1-10 N = MO%) EOSINOPHIL % (test 2.8 % 0.0-5.0 N code = EO%) BASOPHIL % (test code 0.2 % 0.0-1.0 N = BA%) NUCLEATED RBC % (test 0.0 % 0.0-0.9 N code = NRBC%) NEUTROPHIL # (test 3.4 x10 3/uL 1.6-7.2 N code = NT#) LYMPHOCYTE # (test 1.12 x10 3/uL 1.1-2.7 N code = LY#) MONOCYTE # (test code 0.3 x10 3/uL 0.3-0.8 N = MO#) EOSINOPHIL # (test 0.1 x10 3/uL 0.0-0.5 N code = EO#) BASOPHIL # (test code 0.0 x10 3/uL 0.0-0.1 N = BA#) DIFFERENTIAL [id number] 04:01:00 Test Item Value Reference Range Interpretation Comments PLATELET MORPHOLOGY (test code = NORMAL PLTMORPH) CALCIUM [id number] 03:55:00 Test Item Value Reference Range Interpretation Comments CALCIUM IONIZED (test code = SHAYAN) 1.11 mmol/L 1.13-1.32 L [id number] 00:21:00 Test Item Value Reference Range Interpretation Comments GLUBED (test code = GLUBED) 111 MG/DL 70-105 H [id number] 17:18:00 Test Item Value Reference Range Interpretation Comments GLUBED (test code = GLUBED) 71 MG/DL 70-105 N [id number] 13:55:00 Test Item Value Reference Range Interpretation Comments AMMONIA (test code = AMM) 35 umol/L 11-35 N [id number] 13:55:00 Test Item Value Reference Range Interpretation Comments LIPASE (test code = LIP) 61 IU/L 22-51 H [id number] 12:17:00 Test Item Value Reference Range Interpretation Comments GLUBED (test code = GLUBED) 88 MG/DL 70-105 N DRUGS OF ABUSE SCREEN [id number] 10:41:00 Test Item Value Reference Range Interpretation Comments UR COCAINE (test code NEGATIVE NEGATIVE This i s a toxicology = COCAU) qualitative scr eening test only, whic hmay detect parent c ompound or metabolite or relatedsubstanc e. If confirmatory te sting is desired, please request drug screen con firmation. These results a re unconfirmed and should be used only for m edical purposes. Cut- off concentration f or Cocaine is 300 ng/mLRec ommended screening cut-o ff concentrations by thebstance Ab use and [facility]. UR CANABINOIDS (test NEGATIVE NEGATIVE This is a toxicology code = CANU) qualitative scr eening test only which may detect parent compound or metabolite or relatedsubstanc e. If confirmatory te sting is desired, please request drug screen con firmation. These results areunconfirmed and should be used only fo r medical purposes. Cut-o ff concentration f or THC is 50 ng/mLRecomme nded screening cut-o ff concentrations by thebstance Ab use and Mental Health S ervices Administration. UR AMPHETAMINE (test NEGATIVE NEGATIVE The ing estion of natural code = AMPHU) herbal and rodríguez nt productscontain ing Ephedra/Ephedra -Metabolit es can produce in urineone or mor e substances capa ble of cross-reacting withAmphetamine /Methamphe tamine immunoas says. This testprovid es a preliminary res ult only. A more specificalterna tive chemical method must be used to obtain aconfirmed analytical resu lt. This is a toxicology qualitative scr eening test only which may detect parent compund or metabolite or relatedsubstanc e. If confirmatory te sting is desired, please request drug screen con firmation. These results areunconfirmed and should be used only fo r medical purposes. Cut-o ff concentration f or Amphetamines is 1000 ng/mLRecommende d screening cut-o ff concentrations by thebstance Ab use and [facility] Administration. UR BARBITURATE (test NEGATIVE NEGATIVE This is a toxicology code = BARBQLU) qualitative screening test only which may detect parent compund or metabolite or relatedsubstanc e. If confirmatory te sting is desired, please request drug screen con firmation. These results areunconfirmed and should be used only fo r medical purposes. Cut-o ff concentration f or Barbiturates is 200 ng/mLRecommende d screening cut-o ff concentrations by thebstance Ab use and [facility]. UR BENZODIAZEPINE NEGATIVE NEGATIVE This is a toxicology (test code = BENZU) qualitat sabiha screening test only which may detect parent compound or metabolite or relatedsubstanc e. If confirmatory te sting is desired, please request drug screen con firmation. These results areunconfirmed and should be used only fo r medical purposes. Cut-o ff concentration f or Benzodiazepines is 200 ng/mLRecommende d screening cut-o ff concentrations by the[facility] Ab use and [facility] Administration. UR OPIATES QUAL (test NEGATIVE NEGATIVE This i s a toxicology code = OPIAQLU) qualitative screening test only which may detect parent compound or metabolite or relatedsubstanc e. If confirmatory te sting is desired, please request drug screen con firmation. These results areunconfirmed and should be used only fo r medical purposes. Cut-o ff concentration f or Opiates is 300 ng/mLRec ommended screening cut-o ff concentrations by [facility] Ab use and [facility] Administration. UR PHENCYCLIDINE NEGATIVE NEGATIVE This is a t oxicology (PCP) (test code = qualitati ve screening PHENCU) test only which may detect parent compund or metabolite or relatedsubstanc e. If confirmatory te sting is desired, please request drug screen con firmation. These results areunconfirmed and should be used only fo r medical purposes. Cut-o ff concentration f or PCP is 25 ng/mLRecomme nded screening cut-o ff concentrations by the[facility] Ab use and Mental Health S ervices Administration. URINALYSIS [id number] 10:29:00 Test Item Value Reference Range Interpretation Comments UA COLOR (test code = COLU) Straw YELLOW UA APPEARANCE (test code = APPU) Clear CLEAR UA GLUCOSE DIPSTICK (test code = NEGATIVE NEGATIVE DGLUU) UA BILIRUBIN DIPSTICK (test code = NEGATIVE NEGATIVE BILU) UA KETONE DIPSTICK (test code = Trace NEGATIVE A KETU) UA SPECIFIC GRAVITY (test code = 1.012 1.001-1.030 SGU) UA BLOOD DIPSTICK (test code = TYLER) NEGATIVE NEGATIVE UA PH DIPSTICK (test code = MIRELLA) 7.0 5.0-9.0 UA PROTEIN DIPSTICK (test code = NEGATIVE NEGATIVE PROU) UA UROBILINOGEN DIPSTICK (test code NEGATIVE <=1.0 = URO) UA NITRITE DIPSTICK (test code = NEGATIVE NEGATIVE PETER) UA ASCORBIC ACID DIPSTICK (test NEGATIVE code = AAU) UA LEUKOCYTE ESTERASE DIPSTICK NEGATIVE NEGATIVE (test code = LEUU) UA WBC (test code = WBCU) None /HPF 0-5 UA RBC (test code = RBCU) None /HPF 0-5 UA EPITHELIAL CELLS (test code = None /LPF NONE-FEW EPIU) UA BACTERIA (test code = BACU) None /HPF NONE SEEN UA MUCUS (test code = MUCU) 1+ /LPF NONE SEEN COVID 19 INHOUSE [id number] 08:52:00 Test Item Value Reference Range Interpretation Comments COVID 19 INHOUSE AG NEGATIVE Negative Negative results should (test code = be treated as p resumptive [id number]) andconfirmed wi th a molecular assay , if necessary for patientmanageme nt. Negative result s do not rule out COVID- 19 andshould not b e used as the sole basis for treatment orpat ient management deci sions, including infec tion controldecision s. Negative result s should be considered i n thecontext of a patient's recent exposure s, history and thepresence of clnical signs a nd symptoms consis tent withCOVID-19. CBC W/AUTO [id number] 08:19:00 Test Item Value Reference Range Interpretation Comments WHITE BLOOD CELL (test code = 6.1 x10 3/uL 3.2-11.5 N WBC) RED BLOOD CELL (test code = 4.51 x10(6)/m 4.20-5.70 N RBC) HEMOGLOBIN (test code = HGB) 13.2 g/dL 12.9-17.3 N HEMATOCRIT (test code = HCT) 41.5 % 38.7-51.0 N MEAN CELL VOLUME (test code = 92 fL 80-100 N MCV) MEAN CELL HGB (test code = MCH) 29.3 pg 26.7-33.3 N MEAN CELL HGB CONCENTRATION 31.8 g/dL 30.0-34.0 N (test code = MCHC) RED CELL DISTRIBUTION WIDTH 13.2 % 11.3-14.5 N (test code = RDW) PLATELET COUNT (test code = 50 x10 3/uL 130-408 L PLT) MEAN PLATELET VOLUME (test code 10.9 fL 8.6-12.6 N = MPV) NEUTROPHIL % (test code = NT%) 56.6 % 40.0-70.0 N IMMATURE GRANULOCYTE % (test 0.5 % 0.0-2.0 N code = IG%) LYMPHOCYTE % (test code = LY%) 34.0 % 20-40 N MONOCYTE % (test code = MO%) 6.8 % 1-10 N EOSINOPHIL % (test code = EO%) 1.8 % 0.0-5.0 N BASOPHIL % (test code = BA%) 0.3 % 0.0-1.0 N NUCLEATED RBC % (test code = 0.0 % 0.0-0.9 N NRBC%) NEUTROPHIL # (test code = NT#) 3.5 x10 3/uL 1.6-7.2 N LYMPHOCYTE # (test code = LY#) 2.09 x10 3/uL 1.1-2.7 N MONOCYTE # (test code = MO#) 0.4 x10 3/uL 0.3-0.8 N EOSINOPHIL # (test code = EO#) 0.1 x10 3/uL 0.0-0.5 N BASOPHIL # (test code = BA#) 0.0 x10 3/uL 0.0-0.1 N DIFFERENTIAL [id number] 08:19:00 Test Item Value Reference Range Interpretation Comments PLATELET MORPHOLOGY (test code = NORMAL NORMAL PLTMORPH) BASIC METABOLIC [id number] 07:49:00 Test Item Value Reference Range Interpretation Comments SODIUM (test code 141 mmol/L 135-145 N = NA) POTASSIUM (test 3.2 mmol/L 3.6-5.0 L code = K) CHLORIDE (test 102 mmol/L 101-111 N code = CL) CARBON DIOXIDE 23 mmol/L 21-31 N (test code = CO2) GLUCOSE (test code 100 mg/dl 70-100 N = GLU) BLOOD UREA 6 mg/dl 6-20 N NITROGEN (test code = BUN) GLOMERULAR >=60 max >60 The estimated FILTRATION RATE estimate glomerular (test code = GFR) filtration rate is computed usingpatient ra ce, age (>18), sex, and serum creatinin e. If anyof the neede d data elements a re missing the Laboratory jordy ot compute an estimation of t he glomerular filtration rate . CREATININE (test 0.72 mg/dL 0.64-1.27 N code = CREAT) CALCIUM (test code 8.2 mg/dL 8.5-10.5 L = CA) COMPREHENSIVE METABOLIC [id number] 07:49:00 Test Item Value Reference Range Interpretation Comments TOTAL PROTEIN (test code = PROT) 7.5 g/dL 6.7-8.2 N ALBUMIN (test code = ALB) 4.2 g/dL 3.2-5.5 N BILIRUBIN TOTAL (test code = BILT) 1.30 mg/dL 0.2-1.3 N SGOT/AST (test code = AST) 92 U/L 10-42 H SGPT/ALT (test code = ALT) 68 U/L 10-60 H ALKALINE PHOSPHATASE (test code = 94 U/L 42-121 N ALKP) LIVER FUNCTION [id number] 07:49:00 Test Item Value Reference Range Interpretation Comments BILIRUBIN DIRECT (test code = BILD) 0.2 mg/dL 0.00-0.20 N [id number] 07:49:00 Test Item Value Reference Range Interpretation Comments ALCOHOL (test code = 100 mg/dl Interpr etive Data:il: ALC) Ethanol Level To convert into le gal units, divide r esult by 1,000 CBC W/AUTO [id number] 07:46:00 Test Item Value Reference Range Interpretation Comments WHITE BLOOD CELL (test code = 6.1 x10 3/uL 3.2-11.5 N WBC) RED BLOOD CELL (test code = 4.51 x10(6)/m 4.20-5.70 N RBC) HEMOGLOBIN (test code = HGB) 13.2 g/dL 12.9-17.3 N HEMATOCRIT (test code = HCT) 41.5 % 38.7-51.0 N MEAN CELL VOLUME (test code = 92 fL 80-100 N MCV) MEAN CELL HGB (test code = MCH) 29.3 pg 26.7-33.3 N MEAN CELL HGB CONCENTRATION 31.8 g/dL 30.0-34.0 N (test code = MCHC) RED CELL DISTRIBUTION WIDTH 13.2 % 11.3-14.5 N (test code = RDW) PLATELET COUNT (test code = 50 x10 3/uL 130-408 L PLT) MEAN PLATELET VOLUME (test code 10.9 fL 8.6-12.6 N = MPV) NEUTROPHIL % (test code = NT%) 56.6 % 40.0-70.0 N IMMATURE GRANULOCYTE % (test 0.5 % 0.0-2.0 N code = IG%) LYMPHOCYTE % (test code = LY%) 34.0 % 20-40 N MONOCYTE % (test code = MO%) 6.8 % 1-10 N EOSINOPHIL % (test code = EO%) 1.8 % 0.0-5.0 N BASOPHIL % (test code = BA%) 0.3 % 0.0-1.0 N NUCLEATED RBC % (test code = 0.0 % 0.0-0.9 N NRBC%) NEUTROPHIL # (test code = NT#) 3.5 x10 3/uL 1.6-7.2 N LYMPHOCYTE # (test code = LY#) 2.09 x10 3/uL 1.1-2.7 N MONOCYTE # (test code = MO#) 0.4 x10 3/uL 0.3-0.8 N EOSINOPHIL # (test code = EO#) 0.1 x10 3/uL 0.0-0.5 N BASOPHIL # (test code = BA#) 0.0 x10 3/uL 0.0-0.1 N DIFFERENTIAL [id number] 07:46:00 Test Item Value Reference Range Interpretation Comments PLATELET MORPHOLOGY (test code = NORMAL PLTMORPH) CBC W/AUTO [id number] 07:46:00 Test Item Value Reference Range Interpretation Comments WHITE BLOOD CELL (test code = 6.1 x10 3/uL 3.2-11.5 N WBC) RED BLOOD CELL (test code = 4.51 x10(6)/m 4.20-5.70 N RBC) HEMOGLOBIN (test code = HGB) 13.2 g/dL 12.9-17.3 N HEMATOCRIT (test code = HCT) 41.5 % 38.7-51.0 N MEAN CELL VOLUME (test code = 92 fL 80-100 N MCV) MEAN CELL HGB (test code = MCH) 29.3 pg 26.7-33.3 N MEAN CELL HGB CONCENTRATION 31.8 g/dL 30.0-34.0 N (test code = MCHC) RED CELL DISTRIBUTION WIDTH 13.2 % 11.3-14.5 N (test code = RDW) PLATELET COUNT (test code = 50 x10 3/uL 130-408 L PLT) MEAN PLATELET VOLUME (test code 10.9 fL 8.6-12.6 N = MPV) NEUTROPHIL % (test code = NT%) 56.6 % 40.0-70.0 N IMMATURE GRANULOCYTE % (test 0.5 % 0.0-2.0 N code = IG%) LYMPHOCYTE % (test code = LY%) 34.0 % 20-40 N MONOCYTE % (test code = MO%) 6.8 % 1-10 N EOSINOPHIL % (test code = EO%) 1.8 % 0.0-5.0 N BASOPHIL % (test code = BA%) 0.3 % 0.0-1.0 N NUCLEATED RBC % (test code = 0.0 % 0.0-0.9 N NRBC%) NEUTROPHIL # (test code = NT#) 3.5 x10 3/uL 1.6-7.2 N LYMPHOCYTE # (test code = LY#) 2.09 x10 3/uL 1.1-2.7 N MONOCYTE # (test code = MO#) 0.4 x10 3/uL 0.3-0.8 N EOSINOPHIL # (test code = EO#) 0.1 x10 3/uL 0.0-0.5 N BASOPHIL # (test code = BA#) 0.0 x10 3/uL 0.0-0.1 N DIFFERENTIAL [id number] 07:46:00 Test Item Value Reference Range Interpretation Comments PLATELET MORPHOLOGY (test code = NORMAL PLTMORPH) CBC W/AUTO [id number] 07:30:00 Test Item Value Reference Range Interpretation Comments WHITE BLOOD CELL (test code = 6.1 x10 3/uL 3.2-11.5 N WBC) RED BLOOD CELL (test code = 4.51 x10(6)/m 4.20-5.70 N RBC) HEMOGLOBIN (test code = HGB) 13.2 g/dL 12.9-17.3 N HEMATOCRIT (test code = HCT) 41.5 % 38.7-51.0 N MEAN CELL VOLUME (test code = 92 fL 80-100 N MCV) MEAN CELL HGB (test code = MCH) 29.3 pg 26.7-33.3 N MEAN CELL HGB CONCENTRATION 31.8 g/dL 30.0-34.0 N (test code = MCHC) RED CELL DISTRIBUTION WIDTH % 11.3-14.5 (test code = RDW) PLATELET COUNT (test code = x10 3/uL 130-408 PLT) MEAN PLATELET VOLUME (test code 10.9 fL 8.6-12.6 N = MPV) NEUTROPHIL % (test code = NT%) % 40.0-70.0 LYMPHOCYTE % (test code = LY%) % 20-40 MONOCYTE % (test code = MO%) % 1-10 EOSINOPHIL % (test code = EO%) % 0.0-5.0 BASOPHIL % (test code = BA%) % 0.0-1.0 NUCLEATED RBC % (test code = % 0.0-0.9 NRBC%) NEUTROPHIL # (test code = NT#) x10 3/uL 1.6-7.2 LYMPHOCYTE # (test code = LY#) x10 3/uL 1.1-2.7 MONOCYTE # (test code = MO#) x10 3/uL 0.3-0.8 EOSINOPHIL # (test code = EO#) x10 3/uL 0.0-0.5 CBC W/AUTO [id number] 15:09:00 Test Item Value Reference Range Interpretation Comments WHITE BLOOD CELL (test code = 6.3 x10 3/uL 3.2-11.5 N WBC) RED BLOOD CELL (test code = 4.75 x10(6)/m 4.20-5.70 N RBC) HEMOGLOBIN (test code = HGB) 14.0 g/dL 12.9-17.3 N HEMATOCRIT (test code = HCT) 42.1 % 38.7-51.0 N MEAN CELL VOLUME (test code = 89 fL 80-100 N MCV) MEAN CELL HGB (test code = MCH) 29.5 pg 26.7-33.3 N MEAN CELL HGB CONCENTRATION 33.3 g/dL 30.0-34.0 N (test code = MCHC) RED CELL DISTRIBUTION WIDTH 13.2 % 11.3-14.5 N (test code = RDW) PLATELET COUNT (test code = 58 x10 3/uL 130-408 L PLT) MEAN PLATELET VOLUME (test code 10.5 fL 8.6-12.6 N = MPV) NEUTROPHIL % (test code = NT%) 64.4 % 40.0-70.0 N IMMATURE GRANULOCYTE % (test 0.3 % 0.0-2.0 N code = IG%) LYMPHOCYTE % (test code = LY%) 26.3 % 20-40 N MONOCYTE % (test code = MO%) 6.5 % 1-10 N EOSINOPHIL % (test code = EO%) 2.2 % 0.0-5.0 N BASOPHIL % (test code = BA%) 0.3 % 0.0-1.0 N NUCLEATED RBC % (test code = 0.0 % 0.0-0.9 N NRBC%) NEUTROPHIL # (test code = NT#) 4.0 x10 3/uL 1.6-7.2 N LYMPHOCYTE # (test code = LY#) 1.65 x10 3/uL 1.1-2.7 N MONOCYTE # (test code = MO#) 0.4 x10 3/uL 0.3-0.8 N EOSINOPHIL # (test code = EO#) 0.1 x10 3/uL 0.0-0.5 N BASOPHIL # (test code = BA#) 0.0 x10 3/uL 0.0-0.1 N PLATELET ESTIMATE (test code = DECREASED ADEQUATE PLTEST) DIFFERENTIAL [id number] 15:09:00 Test Item Value Reference Range Interpretation Comments PLATELET MORPHOLOGY (test code = NORMAL NORMAL PLTMORPH) - CT MAXIFAC W/O [id number] 14:17:00Patient Name: NATA BALLARD Unit No: [id number] EXAMS: CPT: [id number] CT MAXIFAC W/O CONTRAST [id number] EXAM TYPE: CT maxillofacial without INDICATION: Trauma TECHNIQUE: Contiguous axial images were obtained through the face. Coronal and Sagittal reconstruction was performed. CT radiation dose optimization is achieved for this examination by the use of a CT protocol in accordance with ACR practice guidelines and adherence to database marketing analyst's recommendations. One or more of the following dose reduction techniques were used: Automated exposure control, adjustment of the mA and/or KV according to patient size, and/or utilization of iterative reconstruction technique. DLP: 1198 mGy*cm COMPARISON: CT maxillofacial 11/06/16 FINDINGS: No acute fractures identified. Old depressed right lamina preparation fracture. No osseous erosion. Mild soft tissue swelling overlying the frontal sinuses. Mild mucosal thickening within the bilateral ethmoid sinuses. The bilateral globes are normal. The visualized brain is unremarkable. IMPRESSION: 1. No acute facial bone fractures. 2. Mild soft tissue swelling overlying the frontal sinus. at 1417 Reported and signed by: LE MACK MD CC: Nuno Hannah MD Technologist: Brent Martin CTDI: 18.95 DLP: 390.61 Trscr Dt/Tm: 04/30/2020 (5127) by:PauPXAi Orig Print D/T: S: 04/30/2020 (0967) BATCH NO: N/A Name: NATA BALLARD [facility] Phys: CONNIE.Poncho - Nuno Hannah [address] [facility] : 1985 Age: 34 Sex: [place] [id number] Loc: N.ERS Exam Date: 04/30/2020 Status: PRE ER PH: FAX: PAGE 1 Signed Report- CT HEAD/BRAIN W/O [id number] 14:12:00Patient Name: NATA BALLARD Unit No: [id number] EXAMS: CPT: [id number] CT HEAD/BRAIN W/O CONT 26052 Clinical History: Trauma Comparison: CT head 11/06/2018 Technique: Noncontrast 2.5 mm contiguous axial images were obtained from the skull base through the vertex. Coronal and sagittal reformats are provided. CT radiation dose optimization is achieved for this examination by the use of a CT protocol in accordance with ACR practiceguidelines and adherence to database marketing analyst's recommendations. One or more of the following dose reduction techniques were used: Automated exposure control, adjustment of the mA and/or KV according to patient size, and/or utilization of iterative reconstruction technique. DLP: 1198 mGy*cm Findings: No evidence of acute infarctions. The junior-white matter junction is maintained. No masses, extra-axial collections, or hydrocephalus.There is no intracranial hemorrhage, mass effect, or midline shift. The basal cisterns are patent. The bone windows of the skull are unremarkable. Visualized portions of the paranasal sinuses are unremarkable. Impression: No acute intracranial abnormalities. at 1412 Reported and signed by: LE MACK MD CC: Nuno Hannah MD Technologist: Brent Martin CTDI: 44.19 DLP: 807.65 Trscr Dt/Tm: 04/30/2020 (1412) by:PauPXB Orig Print D/T: S: 04/30/2020 (1415) BATCH NO: N/A Name: NATA BALLARD [facility] Phys: Nuno La [address] [facility] : 1985 Age: 34 Sex: [place] [id number] Loc: N.ERS Exam Date: 04/30/2020 Status: PRE ER PH: FAX: PAGE 1 Signed ReportCOMPREHENSIVE METABOLIC [id number] 14:02:00 Test Item Value Reference Range Interpretation Comments SODIUM (test code = 143 mmol/L 135-145 N NA) POTASSIUM (test 3.5 mmol/L 3.6-5.0 L code = K) CHLORIDE (test code 106 mmol/L 101-111 N = CL) CARBON DIOXIDE 24 mmol/L 21-31 N (test code = CO2) GLUCOSE (test code 115 mg/dl 70-100 H = GLU) BLOOD UREA NITROGEN 8 mg/dl 6-20 N (test code = BUN) GLOMERULAR >=60 max >60 The estimated FILTRATION RATE estimate glomerular (test code = GFR) filtration rate is computed usingpatient ra ce, age (>18), sex, and serum creatinin e. If anyof the ne eded data elements a re missing the Laboratory jordy ot compute an estimation of t he glomerular filtration rate . CREATININE (test 0.79 mg/dL 0.64-1.27 N code = CREAT) TOTAL PROTEIN (test 7.9 g/dL 6.7-8.2 N code = PROT) ALBUMIN (test code 4.3 g/dL 3.2-5.5 N = ALB) CALCIUM (test code 8.7 mg/dL 8.5-10.5 N = CA) BILIRUBIN TOTAL 0.60 mg/dL 0.2-1.3 N (test code = BILT) SGOT/AST (test code 109 U/L 10-42 H = AST) SGPT/ALT (test code 73 U/L 10-60 H = ALT) ALKALINE 108 U/L 42-121 N PHOSPHATASE (test code = ALKP) [id number] 14:02:00 Test Item Value Reference Range Interpretation Comments MAGNESIUM (test code = MAG) 2.1 mg/dl 1.8-2.5 N [id number] 14:02:00 Test Item Value Reference Range Interpretation Comments ALCOHOL (test code = 430 mg/dl Interpr etive Data:il: ALC) Ethanol Level To convert into le gal units, divide r esult by 1,000 CBC W/AUTO [id number] 13:58:00 Test Item Value Reference Range Interpretation Comments WHITE BLOOD CELL (test code = 6.3 x10 3/uL 3.2-11.5 N WBC) RED BLOOD CELL (test code = 4.75 x10(6)/m 4.20-5.70 N RBC) HEMOGLOBIN (test code = HGB) 14.0 g/dL 12.9-17.3 N HEMATOCRIT (test code = HCT) 42.1 % 38.7-51.0 N MEAN CELL VOLUME (test code = 89 fL 80-100 N MCV) MEAN CELL HGB (test code = MCH) 29.5 pg 26.7-33.3 N MEAN CELL HGB CONCENTRATION 33.3 g/dL 30.0-34.0 N (test code = MCHC) RED CELL DISTRIBUTION WIDTH 13.2 % 11.3-14.5 N (test code = RDW) PLATELET COUNT (test code = 58 x10 3/uL 130-408 L PLT) MEAN PLATELET VOLUME (test code 10.5 fL 8.6-12.6 N = MPV) NEUTROPHIL % (test code = NT%) 64.4 % 40.0-70.0 N IMMATURE GRANULOCYTE % (test 0.3 % 0.0-2.0 N code = IG%) LYMPHOCYTE % (test code = LY%) 26.3 % 20-40 N MONOCYTE % (test code = MO%) 6.5 % 1-10 N EOSINOPHIL % (test code = EO%) 2.2 % 0.0-5.0 N BASOPHIL % (test code = BA%) 0.3 % 0.0-1.0 N NUCLEATED RBC % (test code = 0.0 % 0.0-0.9 N NRBC%) NEUTROPHIL # (test code = NT#) 4.0 x10 3/uL 1.6-7.2 N LYMPHOCYTE # (test code = LY#) 1.65 x10 3/uL 1.1-2.7 N MONOCYTE # (test code = MO#) 0.4 x10 3/uL 0.3-0.8 N EOSINOPHIL # (test code = EO#) 0.1 x10 3/uL 0.0-0.5 N BASOPHIL # (test code = BA#) 0.0 x10 3/uL 0.0-0.1 N DIFFERENTIAL [id number] 13:58:00 Test Item Value Reference Range Interpretation Comments PLATELET MORPHOLOGY (test code = NORMAL PLTMORPH) CBC W/AUTO [id number] 13:58:00 Test Item Value Reference Range Interpretation Comments WHITE BLOOD CELL (test code = 6.3 x10 3/uL 3.2-11.5 N WBC) RED BLOOD CELL (test code = 4.75 x10(6)/m 4.20-5.70 N RBC) HEMOGLOBIN (test code = HGB) 14.0 g/dL 12.9-17.3 N HEMATOCRIT (test code = HCT) 42.1 % 38.7-51.0 N MEAN CELL VOLUME (test code = 89 fL 80-100 N MCV) MEAN CELL HGB (test code = MCH) 29.5 pg 26.7-33.3 N MEAN CELL HGB CONCENTRATION 33.3 g/dL 30.0-34.0 N (test code = MCHC) RED CELL DISTRIBUTION WIDTH 13.2 % 11.3-14.5 N (test code = RDW) PLATELET COUNT (test code = 58 x10 3/uL 130-408 L PLT) MEAN PLATELET VOLUME (test code 10.5 fL 8.6-12.6 N = MPV) NEUTROPHIL % (test code = NT%) 64.4 % 40.0-70.0 N IMMATURE GRANULOCYTE % (test 0.3 % 0.0-2.0 N code = IG%) LYMPHOCYTE % (test code = LY%) 26.3 % 20-40 N MONOCYTE % (test code = MO%) 6.5 % 1-10 N EOSINOPHIL % (test code = EO%) 2.2 % 0.0-5.0 N BASOPHIL % (test code = BA%) 0.3 % 0.0-1.0 N NUCLEATED RBC % (test code = 0.0 % 0.0-0.9 N NRBC%) NEUTROPHIL # (test code = NT#) 4.0 x10 3/uL 1.6-7.2 N LYMPHOCYTE # (test code = LY#) 1.65 x10 3/uL 1.1-2.7 N MONOCYTE # (test code = MO#) 0.4 x10 3/uL 0.3-0.8 N EOSINOPHIL # (test code = EO#) 0.1 x10 3/uL 0.0-0.5 N BASOPHIL # (test code = BA#) 0.0 x10 3/uL 0.0-0.1 N DIFFERENTIAL [id number] 13:58:00 Test Item Value Reference Range Interpretation Comments PLATELET MORPHOLOGY (test code = NORMAL PLTMORPH) COMPREHENSIVE METABOLIC [id number] 13:57:00 Test Item Value Reference Range Interpretation Comments SODIUM (test code = 143 mmol/L 135-145 N NA) POTASSIUM (test 3.5 mmol/L 3.6-5.0 L code = K) CHLORIDE (test code 106 mmol/L 101-111 N = CL) CARBON DIOXIDE 24 mmol/L 21-31 N (test code = CO2) GLUCOSE (test code 115 mg/dl 70-100 H = GLU) BLOOD UREA NITROGEN 8 mg/dl 6-20 N (test code = BUN) GLOMERULAR >=60 max >60 The estimated FILTRATION RATE estimate glomerular (test code = GFR) filtration rate is computed usingpatient ra ce, age (>18), sex, and serum creatinin e. If anyof the ne eded data elements a re missing the Laboratory jordy ot compute an estimation of t he glomerular filtration rate . CREATININE (test 0.79 mg/dL 0.64-1.27 N code = CREAT) TOTAL PROTEIN (test g/dL 6.7-8.2 code = PROT) ALBUMIN (test code g/dL 3.2-5.5 = ALB) CALCIUM (test code 8.7 mg/dL 8.5-10.5 N = CA) BILIRUBIN TOTAL mg/dL 0.2-1.3 (test code = BILT) SGOT/AST (test code U/L 10-42 = AST) SGPT/ALT (test code U/L 10-60 = ALT) ALKALINE U/L 42-121 PHOSPHATASE (test code = ALKP) [id number] 13:57:00 Test Item Value Reference Range Interpretation Comments MAGNESIUM (test code = MAG) mg/dl 1.8-2.5 [id number] 13:57:00 Test Item Value Reference Range Interpretation Comments ALCOHOL (test code = ALC) mg/dl COMPREHENSIVE METABOLIC [id number] 13:57:00 Test Item Value Reference Range Interpretation Comments SODIUM (test code = 143 mmol/L 135-145 N NA) POTASSIUM (test 3.5 mmol/L 3.6-5.0 L code = K) CHLORIDE (test code 106 mmol/L 101-111 N = CL) CARBON DIOXIDE 24 mmol/L 21-31 N (test code = CO2) GLUCOSE (test code 115 mg/dl 70-100 H = GLU) BLOOD UREA NITROGEN 8 mg/dl 6-20 N (test code = BUN) GLOMERULAR >=60 max >60 The estimated FILTRATION RATE estimate glomerular (test code = GFR) filtration rate is computed usingpatient ra ce, age (>18), sex, and serum creatinin e. If anyof the ne eded data elements a re missing the Laboratory jordy ot compute an estimation of t he glomerular filtration rate . CREATININE (test 0.79 mg/dL 0.64-1.27 N code = CREAT) TOTAL PROTEIN (test 7.9 g/dL 6.7-8.2 N code = PROT) ALBUMIN (test code 4.3 g/dL 3.2-5.5 N = ALB) CALCIUM (test code 8.7 mg/dL 8.5-10.5 N = CA) BILIRUBIN TOTAL mg/dL 0.2-1.3 (test code = BILT) SGOT/AST (test code U/L 10-42 = AST) SGPT/ALT (test code U/L 10-60 = ALT) ALKALINE U/L 42-121 PHOSPHATASE (test code = ALKP) [id number] 13:57:00 Test Item Value Reference Range Interpretation Comments MAGNESIUM (test code = MAG) mg/dl 1.8-2.5 [id number] 13:57:00 Test Item Value Reference Range Interpretation Comments ALCOHOL (test code = ALC) mg/dl CBC W/AUTO [id number] 13:45:00 Test Item Value Reference Range Interpretation Comments WHITE BLOOD CELL (test code = 6.3 x10 3/uL 3.2-11.5 N WBC) RED BLOOD CELL (test code = 4.75 x10(6)/m 4.20-5.70 N RBC) HEMOGLOBIN (test code = HGB) 14.0 g/dL 12.9-17.3 N HEMATOCRIT (test code = HCT) 42.1 % 38.7-51.0 N MEAN CELL VOLUME (test code = 89 fL 80-100 N MCV) MEAN CELL HGB (test code = MCH) 29.5 pg 26.7-33.3 N MEAN CELL HGB CONCENTRATION 33.3 g/dL 30.0-34.0 N (test code = MCHC) RED CELL DISTRIBUTION WIDTH % 11.3-14.5 (test code = RDW) PLATELET COUNT (test code = x10 3/uL 130-408 PLT) MEAN PLATELET VOLUME (test code 10.5 fL 8.6-12.6 N = MPV) NEUTROPHIL % (test code = NT%) % 40.0-70.0 LYMPHOCYTE % (test code = LY%) % 20-40 MONOCYTE % (test code = MO%) % 1-10 EOSINOPHIL % (test code = EO%) % 0.0-5.0 BASOPHIL % (test code = BA%) % 0.0-1.0 NUCLEATED RBC % (test code = % 0.0-0.9 NRBC%) NEUTROPHIL # (test code = NT#) x10 3/uL 1.6-7.2 LYMPHOCYTE # (test code = LY#) x10 3/uL 1.1-2.7 MONOCYTE # (test code = MO#) x10 3/uL 0.3-0.8 EOSINOPHIL # (test code = EO#) x10 3/uL 0.0-0.5 ALCOHOL BLOOD (ETOH)2019-11-04 15:16:00 Test Item Value Reference Range Interpretation Comments ETOH (test code = HALC) ETHANOL The result is to be used only for medical purposes ALCOHOL (test code = 87 mg/dL <=10 H 56A) ALCOHOL BLOOD (ETOH)2019-11-04 10:15:00 Test Item Value Reference Range Interpretation Comments ETOH (test code = HALC) ETHANOL The result is to be used only for medical purposes ALCOHOL (test code = 188 mg/dL <=10 H 56A) ALCOHOL BLOOD (ETOH)2019-11-03 22:26:00 Test Item Value Reference Range Interpretation Comments ETOH (test code = HALC) ETHANOL The result is to be used only for medical purposes ALCOHOL (test code = 393 mg/dL <=10 H 56A) COMPREHENSIVE METABOLIC [id number] 22:25:00 Test Item Value Reference Range Interpretation Comments GLUCOSE (test code = 123 mg/dL 75-100 H 06D) SODIUM (test code = 147 mmol/L 136-145 H 01A) POTASSIUM (test code = 3.9 mmol/L 3.6-5.1 01B) CHLORIDE (test code = 111 mmol/L 98-107 H 04A) CO2 (test code = 02A) 32 mmol/L 22-32 ANION GAP (test code = 7.9 mmol/L ANG) BUN (test code = 05D) 9 mg/dL 7-18 CREATININE (test code 0.9 mg/dL 0.7-1.3 = 03E) GFR (test code = GFR) 111 mL/min/1.73m\S\2 >=90 GFR 129 mL/min/1.73m\S\2 >=90 (test code = GFRAA) EGFR (test code = eGFR BY CKD-EPI EGFR) CALCULATION IS NOT RECOMMENDED FOR PATIENTS UNDER 18 YEARS OF AGE. BUN/CREA (test code = 10 12-20 L BCR) CALCIUM (test code = 8.3 mg/dL 8.3-9.5 09D) BILI TOTAL (test code 0.2 mg/dL 0.2-1.0 = 11A) PROTEIN (test code = 7.6 g/dL 6.4-8.2 07D) ALBUMIN (test code = 3.9 g/dL 3.5-4.8 08D) GLOBULIN (test code = 3.7 g/dL 1.5-3.8 GLB) ALB/GLOB (test code = 1.1 1.0-2.6 AGRR) ALK PHOS (test code = 122 IU/L 42-121 H 35A) AST (test code = 30A) 23 IU/L <=42 ALT (test code = 31A) 22 IU/L <=78 PRO TIME AND [id number] 22:18:00 Test Item Value Reference Range Interpretation Comments PT (test code = 10.6 s 9.8-13.6 TT) INR (test code = 0.9 INR) INRH (test code = SUGGESTED INRH) THERAPEUTIC RANGE FOR INR: 2.5 - 3.5 For Patients with Prosthetic Valves or Patients with recurrent Thromboembolic Events 2.0 - 3.0 For Most Other Applications PTT (test code = 30.2 s 20.2-38.0 PTT) PTTH (test code = To monitor the PTTH) effectiveness of heparin, we offer the Anti-Xa (Heparin Assay). It can be used for either unfractionated or LMW Heparin. Order Code is ANTI-XA CBC (INCLUDES AUTOMATED DIFFERENTIAL)2019-11-03 22:06:00 Test Item Value Reference Range Interpretation Comments WBC (test code = WBC) 7.1 10\S\3/uL 4.5-11.0 RBC (test code = RBC) 5.24 10\S\6/uL 4.30-5.70 HGB (test code = HBG) 15.9 g/dL 14.0-18.0 HCT (test code = HCT) 46.8 % 35.0-46.0 H MCV (test code = MCV) 89.3 fL 80.0-94.0 MCH (test code = MCH) 30.3 pg 27.0-31.0 MCHC (test code = MCHC) 34.0 g/dL 32.0-36.0 RDW (test code = RDW) 13.2 % 11.5-14.5 PLT (test code = PLT) 202 10\S\3/uL 130-400 MPV (test code = MPV) 10.6 fL 9.4-12.4 NEUTROP # (test code = NE#) 3.3 10\S\3/uL 2.0-8.0 LYMPH # (test code = LY#) 2.9 10\S\3/uL 1.2-4.0 MONOCYTE # (test code = MO#) 0.4 10\S\3/uL 0.0-1.1 EOSINOPH # (test code = EO#) 0.3 10\S\3/uL 0.0-0.7 BASOPHIL # (test code = BA#) 0.1 10\S\3/uL 0.0-0.3 IG # (test code = IG#) 0.03 10\S\3/uL 0.00-0.06 NRBC # (test code = NRBC#) 0.00 10\S\3/uL 0.00-0.01 NEUTROPH % (test code = NE%) 47.0 % 35.0-73.0 LYMPH % (test code = LY%) 41.6 % 20.0-55.0 MONO % (test code = MO%) 5.5 % 2.5-10.0 EOSINOPH % (test code = EO%) 4.8 % 0.0-5.0 BASOPHIL % (test code = BA%) 0.7 % 0.0-2.0 IG % (test code = IG%) 0.4 % 0.0-0.8 NRBC% (test code = NRBC%) 0.0 % 0.0-0.2 MANDIFF (test code = MDIFF) NO NO RBC MORPH (test code = RBCMOR) NORMAL AMMONIA [id number] 14:21:00 Test Item Value Reference Range Interpretation Comments AMMONIA (test code = 54A) 27 umol/L 11-32 ALCOHOL BLOOD (ETOH)2019-09-20 08:37:00 Test Item Value Reference Range Interpretation Comments ETOH (test code = HALC) ETHANOL The result is to be used only for medical purposes ALCOHOL (test code = 51 mg/dL <=10 H 56A) ALCOHOL BLOOD (ETOH)2019-09-20 06:52:00 Test Item Value Reference Range Interpretation Comments ETOH (test code = HALC) ETHANOL The result is to be used only for medical purposes ALCOHOL (test code = 87 mg/dL <=10 H 56A) ALCOHOL BLOOD (ETOH)2019-09-20 01:54:00 Test Item Value Reference Range Interpretation Comments ETOH (test code = HALC) ETHANOL The result is to be used only for medical purposes ALCOHOL (test code = 194 mg/dL <=10 H 56A) [id number] 20:48:00 Test Item Value Reference Range Interpretation Comments ACETAMINPH (test code = 94M) <2.0 ug/mL 10.0-30.0 L ALCOHOL BLOOD (ETOH)2019-09-19 20:46:00 Test Item Value Reference Range Interpretation Comments ETOH (test code = HALC) ETHANOL The result is to be used only for medical purposes ALCOHOL (test code = 326 mg/dL <=10 H 56A) COMPREHENSIVE METABOLIC [id number] 20:36:00 Test Item Value Reference Range Interpretation Comments GLUCOSE (test code = 91 mg/dL 75-100 06D) SODIUM (test code = 143 mmol/L 136-145 01A) POTASSIUM (test code = 3.9 mmol/L 3.6-5.1 01B) CHLORIDE (test code = 109 mmol/L 98-107 H 04A) CO2 (test code = 02A) 31 mmol/L 22-32 ANION GAP (test code = 6.9 mmol/L ANG) BUN (test code = 05D) 10 mg/dL 7-18 CREATININE (test code 0.8 mg/dL 0.7-1.3 = 03E) GFR (test code = GFR) 113 mL/min/1.73m\S\2 >=90 GFR 131 mL/min/1.73m\S\2 >=90 (test code = GFRAA) EGFR (test code = eGFR BY CKD-EPI EGFR) CALCULATION IS NOT RECOMMENDED FOR PATIENTS UNDER 18 YEARS OF AGE. BUN/CREA (test code = 12 12-20 BCR) CALCIUM (test code = 8.6 mg/dL 8.3-9.5 09D) BILI TOTAL (test code 0.3 mg/dL 0.2-1.0 = 11A) PROTEIN (test code = 8.7 g/dL 6.4-8.2 H 07D) ALBUMIN (test code = 4.1 g/dL 3.5-4.8 08D) GLOBULIN (test code = 4.6 g/dL 1.5-3.8 H GLB) ALB/GLOB (test code = 0.9 1.0-2.6 L AGRR) ALK PHOS (test code = 126 IU/L 42-121 H 35A) AST (test code = 30A) 33 IU/L <=42 ALT (test code = 31A) 29 IU/L <=78 [id number] 20:26:00 Test Item Value Reference Range Interpretation Comments SALICYLATE (test code = 94B) 1.9 mg/dL 2.8-20.0 L URINALYSIS WITH [id number] 20:13:00 Test Item Value Reference Range Interpretation Comments COLOR (test code = COLU) YELLOW YELLOW CLARITY (test code = CLA) CLEAR CLEAR GLUCOSE UR (test code = UA GLUCOSE) NEGATIVE NEGATIVE BILI UR (test code = BILE) NEGATIVE NEGATIVE KETONES UR (test code = CHARLINE) NEGATIVE NEGATIVE SP GRAVITY (test code = SPGR) 1.027 1.005-1.030 PH UR (test code = PH) 7.0 4.5-8.0 PROTEIN UR (test code = PU) 1+ NEGATIVE A UROBIL UR (test code = UROQ) 0.2 EU/dL 0.2-1.0 NITRITE UR (test code = NITRITE) NEGATIVE NEGATIVE BLOOD UR (test code = UA BLOOD) NEGATIVE NEGATIVE LEUK ES UR (test code = LEUK) NEGATIVE NEGATIVE WBC UR (test code = UWBC) 2 /HPF 0-3 RBC UR (test code = URBC) 0 /HPF 0-2 EPITH UR (test code = UEPC) FEW /LPF NONE A BACTERIA UR (test code = UBACT) NONE /HPF NONE CAST UR (test code = CAST) /LPF NONE CRYSTAL UR (test code = CRYU) / LPF NONE MUCUS UR (test code = MUC) FEW / HPF NONE A AMORPH UR (test code = DARRELL) / HPF NONE TRICH UR (test code = UTRICH) /HPF NONE YEAST UR (test code = UY) /HPF NONE SPERM UR (test code = USPERM) /HPF NONE AMMONIA [id number] 20:12:00 Test Item Value Reference Range Interpretation Comments AMMONIA (test code = 54A) 48 umol/L 11-32 H DRUGS OF [id number] 20:06:00 Test Item Value Reference Range Interpretation Comments DRUG SCRN (test code URINE DRUG SCREEN = HDOA) This is an unconfirmed screening result and should not be used for non-medical purposes CANNABINOD (test code Negative NEGATIVE = 88C) AMPHETAMINE (test Negative NEGATIVE code = 84A) BENZODIAZP (test code POSITIVE NEGATIVE A = 86A) BARBITURAT (test code Negative NEGATIVE = 85A) OPIATES (test code = Negative NEGATIVE 92B) COCAINE (test code = Negative NEGATIVE 87A) PHENCYCLID (test code Negative NEGATIVE = 66A) METHADONE (test code Negative NEGATIVE = 64A) DOAH (test code = DOAH.) *URINE DRUG SCREEN Cut-off values are as follows: Cannabinoids 50 ng/mL Cocaine 300 ng/mL Amphetamines 1000 ng/mL Phencyclidine 25 ng/mL Benzodiazepines 200 ng.mL Methadone 300 ng/mL Barbiturates 200 ng/mL Opiates 2000 ng/mL CBC (INCLUDES AUTOMATED DIFFERENTIAL)2019-09-19 20:02:00 Test Item Value Reference Range Interpretation Comments WBC (test code = WBC) 7.1 10\S\3/uL 4.5-11.0 RBC (test code = RBC) 5.11 10\S\6/uL 4.30-5.70 HGB (test code = HBG) 15.5 g/dL 14.0-18.0 HCT (test code = HCT) 45.6 % 35.0-46.0 MCV (test code = MCV) 89.2 fL 80.0-94.0 MCH (test code = MCH) 30.3 pg 27.0-31.0 MCHC (test code = MCHC) 34.0 g/dL 32.0-36.0 RDW (test code = RDW) 13.8 % 11.5-14.5 PLT (test code = PLT) 200 10\S\3/uL 130-400 MPV (test code = MPV) 10.3 fL 9.4-12.4 NEUTROP # (test code = NE#) 4.1 10\S\3/uL 2.0-8.0 LYMPH # (test code = LY#) 2.2 10\S\3/uL 1.2-4.0 MONOCYTE # (test code = MO#) 0.4 10\S\3/uL 0.0-1.1 EOSINOPH # (test code = EO#) 0.3 10\S\3/uL 0.0-0.7 BASOPHIL # (test code = BA#) 0.1 10\S\3/uL 0.0-0.3 IG # (test code = IG#) 0.04 10\S\3/uL 0.00-0.06 NRBC # (test code = NRBC#) 0.00 10\S\3/uL 0.00-0.01 NEUTROPH % (test code = NE%) 58.1 % 35.0-73.0 LYMPH % (test code = LY%) 31.5 % 20.0-55.0 MONO % (test code = MO%) 5.6 % 2.5-10.0 EOSINOPH % (test code = EO%) 3.5 % 0.0-5.0 BASOPHIL % (test code = BA%) 0.7 % 0.0-2.0 IG % (test code = IG%) 0.6 % 0.0-0.8 NRBC% (test code = NRBC%) 0.0 % 0.0-0.2 MANDIFF (test code = MDIFF) NO NO RBC MORPH (test code = RBCMOR) NORMAL ALCOHOL BLOOD (ETOH) 2019-09-16 21:34:00 Test Item Value Reference Range Interpretation Comments ETOH (test code = HALC) ETHANOL The result is to be used only for medical purposes ALCOHOL (test code = 47 mg/dL <=10 H 56A) ALCOHOL BLOOD (ETOH) 2019-09-16 18:27:00 Test Item Value Reference Range Interpretation Comments ETOH (test code = HALC) ETHANOL The result is to be used only for medical purposes ALCOHOL (test code = 118 mg/dL <=10 H 56A) ALCOHOL BLOOD (ETOH) 2019-09-16 11:08:00 Test Item Value Reference Range Interpretation Comments ETOH (test code = HALC) ETHANOL The result is to be used only for medical purposes ALCOHOL (test code = 263 mg/dL <=10 H 56A) DRUGS OF ABUSE 2019-09-16 11:08:00 Test Item Value Reference Range Interpretation Comments DRUG SCRN (test code URINE DRUG SCREEN = HDOA) This is an unconfirmed screening result and should not be used for non-medical purposes CANNABINOD (test code Negative NEGATIVE = 88C) AMPHETAMINE (test Negative NEGATIVE code = 84A) BENZODIAZP (test code POSITIVE NEGATIVE A = 86A) BARBITURAT (test code Negative NEGATIVE = 85A) OPIATES (test code = Negative NEGATIVE 92B) COCAINE (test code = Negative NEGATIVE 87A) PHENCYCLID (test code Negative NEGATIVE = 66A) METHADONE (test code Negative NEGATIVE = 64A) DOAH (test code = DOAH.) *URINE DRUG SCREEN Cut-off values are as follows: Cannabinoids 50 ng/mL Cocaine 300 ng/mL Amphetamines 1000 ng/mL Phencyclidine 25 ng/mL Benzodiazepines 200 ng.mL Methadone 300 ng/mL Barbiturates 200 ng/mL Opiates 2000 ng/mL URINALYSIS 2019-09-16 10:59:00 Test Item Value Reference Range Interpretation Comments COLOR (test code = COLU) YELLOW YELLOW CLARITY (test code = CLA) CLEAR CLEAR GLUCOSE UR (test code = UA GLUCOSE) NEGATIVE NEGATIVE BILI UR (test code = BILE) NEGATIVE NEGATIVE KETONES UR (test code = CHARLINE) NEGATIVE NEGATIVE SP GRAVITY (test code = SPGR) 1.020 1.005-1.030 PH UR (test code = PH) 6.0 4.5-8.0 PROTEIN UR (test code = PU) NEGATIVE NEGATIVE UROBIL UR (test code = UROQ) 0.2 EU/dL 0.2-1.0 NITRITE UR (test code = NITRITE) NEGATIVE NEGATIVE BLOOD UR (test code = UA BLOOD) NEGATIVE NEGATIVE LEUK ES UR (test code = LEUK) NEGATIVE NEGATIVE AUAM (test code = WAUAM) NO NO COMPREHENSIVE METABOLIC SOLARES 2019-09-16 02:04:00 Test Item Value Reference Range Interpretation Comments GLUCOSE (test code = 06D) 135 mg/dL 75-100 H SODIUM (test code = 01A) 145 mmol/L 136-145 POTASSIUM (test code = 01B) 3.7 mmol/L 3.6-5.1 CHLORIDE (test code = 04A) 110 mmol/L 98-107 H CO2 (test code = 02A) 27 mmol/L 22-32 ANION GAP (test code = ANG) 11.7 mmol/L BUN (test code = 05D) 11 mg/dL 7-18 CREATININE (test code = 03E) 0.8 mg/dL 0.7-1.3 BUN/CREA (test code = BCR) 14 12-20 CALCIUM (test code = 09D) 7.9 mg/dL 8.3-9.5 L BILI TOTAL (test code = 11A) 0.2 mg/dL 0.2-1.0 PROTEIN (test code = 07D) 7.9 g/dL 6.4-8.2 ALBUMIN (test code = 08D) 3.7 g/dL 3.5-4.8 GLOBULIN (test code = GLB) 4.2 g/dL 1.5-3.8 H ALB/GLOB (test code = AGRR) 0.9 1.0-2.6 L ALK PHOS (test code = 35A) 138 IU/L 42-121 H AST (test code = 30A) 20 IU/L <=42 ALT (test code = 31A) 22 IU/L <=78 ALCOHOL BLOOD (ETOH) 2019-09-16 02:04:00 Test Item Value Reference Range Interpretation Comments ETOH (test code = HALC) ETHANOL The result is to be used only for medical purposes ALCOHOL (test code = 456 mg/dL <=10 H 56A) ACETAMINOPHEN 2019-09-16 02:04:00 Test Item Value Reference Range Interpretation Comments ACETAMINPH (test code = 94M) <2.0 ug/mL 10.0-30.0 L SALICYLATES 2019-09-16 01:55:00 Test Item Value Reference Range Interpretation Comments SALICYLATE (test code = 94B) <1.7 mg/dL 2.8-20.0 L CBC (INCLUDES AUTOMATED DIFFERENTIAL)*[id number] 01:41:00 Test Item Value Reference Range Interpretation Comments WBC (test code = WBC) 5.7 10\S\3/uL 4.5-11.0 RBC (test code = RBC) 4.78 10\S\6/uL 4.30-5.70 HGB (test code = HBG) 14.6 g/dL 14.0-18.0 HCT (test code = HCT) 43.3 % 35.0-46.0 MCV (test code = MCV) 90.6 fL 80.0-94.0 MCH (test code = MCH) 30.5 pg 27.0-31.0 MCHC (test code = MCHC) 33.7 g/dL 32.0-36.0 RDW (test code = RDW) 13.2 % 11.5-14.5 PLT (test code = PLT) 171 10\S\3/uL 130-400 MPV (test code = MPV) 10.2 fL 9.4-12.4 NEUTROP # (test code = NE#) 3.1 10\S\3/uL 2.0-8.0 LYMPH # (test code = LY#) 1.7 10\S\3/uL 1.2-4.0 MONOCYTE # (test code = MO#) 0.4 10\S\3/uL 0.0-1.1 EOSINOPH # (test code = EO#) 0.4 10\S\3/uL 0.0-0.7 BASOPHIL # (test code = BA#) 0.1 10\S\3/uL 0.0-0.3 IG # (test code = IG#) 0.02 10\S\3/uL 0.00-0.06 NRBC # (test code = NRBC#) 0.00 10\S\3/uL 0.00-0.01 NEUTROPH % (test code = NE%) 54.7 % 35.0-73.0 LYMPH % (test code = LY%) 30.2 % 20.0-55.0 MONO % (test code = MO%) 7.0 % 2.5-10.0 EOSINOPH % (test code = EO%) 6.8 % 0.0-5.0 H BASOPHIL % (test code = BA%) 0.9 % 0.0-2.0 IG % (test code = IG%) 0.4 % 0.0-0.8 NRBC% (test code = NRBC%) 0.0 % 0.0-0.2 MANDIFF (test code = WMDIFF) NO NO RBC MORPH (test code = NORMAL WRBCMOR) ALCOHOL BLOOD (ETOH) 2019-07-26 11:13:00 Test Item Value Reference Range Interpretation Comments ETOH (test code = HALC) ETHANOL The result is to be used only for medical purposes ALCOHOL (test code = 80 mg/dL <=10 H 56A) ALCOHOL BLOOD (ETOH) 2019-07-26 06:06:00 Test Item Value Reference Range Interpretation Comments ETOH (test code = HALC) ETHANOL The result is to be used only for medical purposes ALCOHOL (test code = 168 mg/dL <=10 H 56A) ACETAMINOPHEN 2019-07-25 17:05:00 Test Item Value Reference Range Interpretation Comments ACETAMINPH (test code = 94M) <2.0 ug/mL 10.0-30.0 L ALCOHOL BLOOD (ETOH) 2019-07-25 17:02:00 Test Item Value Reference Range Interpretation Comments ETOH (test code = HALC) ETHANOL The result is to be used only for medical purposes ALCOHOL (test code = 428 mg/dL <=10 H 56A) AMYLASE AND LIPASE *WW*2019-07-25 17:01:00 Test Item Value Reference Range Interpretation Comments AMYLASE (test code = 10A) 74 U/L 28-100 LIPASE (test code = 60A) 238 IU/L 73-393 SALICYLATES WW2019-07-25 16:55:00 Test Item Value Reference Range Interpretation Comments SALICYLATE (test code = 94B) <1.7 mg/dL 2.8-20.0 L COMPREHENSIVE METABOLIC SOLARES *WW*2019-07-25 16:52:00 Test Item Value Reference Range Interpretation Comments GLUCOSE (test code = 06D) 101 mg/dL 75-100 H SODIUM (test code = 01A) 138 mmol/L 136-145 POTASSIUM (test code = 01B) 3.1 mmol/L 3.6-5.1 L CHLORIDE (test code = 04A) 103 mmol/L 98-107 CO2 (test code = 02A) 27 mmol/L 22-32 ANION GAP (test code = ANG) 11.1 mmol/L BUN (test code = 05D) 6 mg/dL 7-18 L CREATININE (test code = 03E) 0.8 mg/dL 0.7-1.3 BUN/CREA (test code = BCR) 8 12-20 L CALCIUM (test code = 09D) 7.9 mg/dL 8.3-9.5 L BILI TOTAL (test code = 11A) 0.4 mg/dL 0.2-1.0 PROTEIN (test code = 07D) 7.8 g/dL 6.4-8.2 ALBUMIN (test code = 08D) 4.1 g/dL 3.5-4.8 GLOBULIN (test code = GLB) 3.7 g/dL 1.5-3.8 ALB/GLOB (test code = AGRR) 1.1 1.0-2.6 ALK PHOS (test code = 35A) 116 IU/L 42-121 AST (test code = 30A) 20 IU/L <=42 ALT (test code = 31A) 23 IU/L <=78 DRUGS OF ABUSE *WW*2019-07-25 16:43:00 Test Item Value Reference Range Interpretation Comments DRUG SCRN (test code URINE DRUG SCREEN = HDOA) This is an unconfirmed screening result and should not be used for non-medical purposes CANNABINOD (test code Negative NEGATIVE = 88C) AMPHETAMINE (test Negative NEGATIVE code = 84A) BENZODIAZP (test code Negative NEGATIVE = 86A) BARBITURAT (test code Negative NEGATIVE = 85A) OPIATES (test code = Negative NEGATIVE 92B) COCAINE (test code = Negative NEGATIVE 87A) PHENCYCLID (test code Negative NEGATIVE = 66A) METHADONE (test code Negative NEGATIVE = 64A) DOAH (test code = DOAH.) *URINE DRUG SCREEN Cut-off values are as follows: Cannabinoids 50 ng/mL Cocaine 300 ng/mL Amphetamines 1000 ng/mL Phencyclidine 25 ng/mL Benzodiazepines 200 ng.mL Methadone 300 ng/mL Barbiturates 200 ng/mL Opiates 2000 ng/mL URINALYSIS 2019-07-25 16:37:00 Test Item Value Reference Range Interpretation Comments COLOR (test code = COLU) YELLOW YELLOW CLARITY (test code = CLA) CLEAR CLEAR GLUCOSE UR (test code = UA GLUCOSE) TRACE NEGATIVE A BILI UR (test code = BILE) NEGATIVE NEGATIVE KETONES UR (test code = CHARLINE) NEGATIVE NEGATIVE SP GRAVITY (test code = SPGR) <=1.005 1.005-1.030 PH UR (test code = PH) 6.0 4.5-8.0 PROTEIN UR (test code = PU) NEGATIVE NEGATIVE UROBIL UR (test code = UROQ) 0.2 EU/dL 0.2-1.0 NITRITE UR (test code = NITRITE) NEGATIVE NEGATIVE BLOOD UR (test code = UA BLOOD) NEGATIVE NEGATIVE LEUK ES UR (test code = LEUK) NEGATIVE NEGATIVE AUAM (test code = WAUAM) NO NO CBC (INCLUDES AUTOMATED DIFFERENTIAL)*[id number] 16:33:00 Test Item Value Reference Range Interpretation Comments WBC (test code = WBC) 9.8 10\S\3/uL 4.5-11.0 RBC (test code = RBC) 4.84 10\S\6/uL 4.30-5.70 HGB (test code = HBG) 14.6 g/dL 14.0-18.0 HCT (test code = HCT) 42.3 % 35.0-46.0 MCV (test code = MCV) 87.4 fL 80.0-94.0 MCH (test code = MCH) 30.2 pg 27.0-31.0 MCHC (test code = MCHC) 34.5 g/dL 32.0-36.0 RDW (test code = RDW) 12.7 % 11.5-14.5 PLT (test code = PLT) 204 10\S\3/uL 130-400 MPV (test code = MPV) 10.1 fL 9.4-12.4 NEUTROP # (test code = NE#) 6.5 10\S\3/uL 2.0-8.0 LYMPH # (test code = LY#) 2.2 10\S\3/uL 1.2-4.0 MONOCYTE # (test code = MO#) 0.8 10\S\3/uL 0.0-1.1 EOSINOPH # (test code = EO#) 0.2 10\S\3/uL 0.0-0.7 BASOPHIL # (test code = BA#) 0.1 10\S\3/uL 0.0-0.3 IG # (test code = IG#) 0.07 10\S\3/uL 0.00-0.06 H NRBC # (test code = NRBC#) 0.00 10\S\3/uL 0.00-0.01 NEUTROPH % (test code = NE%) 66.6 % 35.0-73.0 LYMPH % (test code = LY%) 22.6 % 20.0-55.0 MONO % (test code = MO%) 8.0 % 2.5-10.0 EOSINOPH % (test code = EO%) 1.5 % 0.0-5.0 BASOPHIL % (test code = BA%) 0.6 % 0.0-2.0 IG % (test code = IG%) 0.7 % 0.0-0.8 NRBC% (test code = NRBC%) 0.0 % 0.0-0.2 MANDIFF (test code = WMDIFF) NO NO RBC MORPH (test code = NORMAL WRBCMOR)
[2021-07-10 21:15] LABS: Urine Blood Negative (Negative); Urine Glucose Negative (Negative); Urine Protein Negative (Negative); Urine Specific Gravity 1.015 (1.005-1.030)
[2021-07-10] MEDS ORDERED: NA CHLORIDE 0.9% 1,000 ML ONE ×2 (21:17→22:45)
[2021-07-10 21:32] LABS: Absolute Lymphocytes (CBC) 2.6 K/uL (0.7-4.9); Basophils % 0.6 % (0-1.3); Hematocrit 47.3 % (39.6-49.0); Lymphocytes % 34.3 % (15.3-44.8); MPV 8.5 fL (7.6-11.3); RBC Red Blood Cell Count 5.37 M/uL (4.33-5.43)
[2021-07-10 21:36] LABS: Protime INR 0.84
[2021-07-10 21:43] LABS: Barbiturates NEGATIVE (NEGATIVE); Benzodiazepines NEGATIVE (NEGATIVE); Cocaine NEGATIVE (NEGATIVE); METHAMPHETAM NEGATIVE (NEGATIVE); Methadone NEGATIVE (NEGATIVE); Opiates NEGATIVE (NEGATIVE); Phencyclidine NEGATIVE (NEGATIVE); THC Cannibis NEGATIVE (NEGATIVE)
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
--- NOTE | 2021-07-10 21:51 | RAD REPORT ---
EXAM DESCRIPTION: Ar[facility] Single View07/10/2021 9:17 pm CLINICAL HISTORY: Tachycardia COMPARISON: 2014 FINDINGS: The lungs appear clear of acute infiltrate. The heart is normal size IMPRESSION: No acute abnormalities displayed
[2021-07-10 21:54] LABS: ALT/SGPT 39 U/L (12-78); AST/SGOT 43 U/L (15-37); Albumin 3.9 g/dL (3.4-5.0); Alkaline Phosphatase 130 U/L (45-117); BUN Blood Urea Nitrogen 10 mg/dL (7-18); Bicarbonate 27 mmol/L (21-32); Bilirubin Direct 0.1 mg/dL (0-0.2); Bilirubin Total 0.5 mg/dL (0.2-1.0); Creatine Phosphokinase 150 U/L (39-308); Glucose Level 101 mg/dL (74-106); Potassium 3.9 mmol/L (3.5-5.1); Protein, Total 8.5 g/dL (6.4-8.2); Sodium Level 144 mmol/L (136-145); Troponin (Emerg Dept Use Only) < 0.02 ng/mL (0.0-0.045)
[2021-07-10] MEDS ORDERED: THIAMINE 200 MG/2 ML INJ ONE (22:44)
[2021-07-10] MEDS ORDERED: MULTIVITAMINS 10 ML VIAL (INJ) IV ONE ×2 (22:45→22:51)
[2021-07-10] MEDS ORDERED: FOLIC ACID 5 MG/ML VIAL ONE ×2 (22:48→22:51)
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
[2021-07-11 00:16] VITALS: TEMP 98.9
[2021-07-11 00:25] VITALS: BP 125/95; O2SAT 97
--- NOTE | 2021-07-11 08:10 | EKG ---
Test Date: 2021-07-10 Test Time: 20:38:37 Paraprofessional Aide: NICK MEASUREMENT RESULTS: Intervals: Rate: 99 ID: [id number] QRSD: 102 QT: 332 QTc: 426 [place]: P: 35 ID: [id number] QRS: -40 T: 53 INTERPRETIVE STATEMENTS: Normal sinus rhythm Left axis deviation Incomplete right bundle branch block Abnormal ECG Compared to ECG 11/15/2019 10:17:47 Left-axis deviation now present Electronically Signed On 07-11-21 08:08:48 PULPER TENDER by Constantino Shine
== END 2021-07-11 00:12 | disposition home or self-care (01) ==
LOC: ER 20:34
DX: F10.229 Alcohol dependence with intoxication, unspecified (principal); S00.83XA Contusion of other part of head, initial encounter
CPT/HCPCS: 36415; 70450; 71045; 72125; 80048; 80076; 80307; 80320; 80329; 81003; 82140; 82550; 84484; 85025; 85610; 85730; 93005; 96361; 96374; 99284; J3411; J7030

== ENCOUNTER 2021-09-07 02:14 | Inpatient (IN) | payer SELFPAY ==
--- OUTSIDE RECORDS SUMMARY | 2021-09-07 02:19 | XMS REPORT | Continuity of Care Document ---
:1985 Author Organization [facility] t Address [address] [place] [address] Care Team Providers Name Role Phone STOCK, SAM GUARDADO Attending Clinician Unavailable AMROSS Attending Clinician Unavailable MARICARMEN FRANCO Attending Clinician Unavailable DR Veronica COOPER Attending Clinician Unavailable DR JILLIAN Attending Clinician Unavailable DR JOSE RAMON Attending Clinician Unavailable DR Jesús COWART Attending Clinician Unavailable Physician, Primary or Family Admitting Clinician Unavailarturo GARCIA Admitting Clinician Unavailable DR Veronica COOPER Admitting Clinician Unavailable DR JILLIAN Admitting Clinician [...] DA Active U 2019-07 [facility] [place] [facility] 00 are [facility] No Known DA Active U 2019-07 [facility]- [place] s 00:00: [facility] 00 are [facility] No Known DA Active U [facility] 11-07 [place] s 00:00: Health 00 are [facility] No Known DA Active U [facility] 11[facility]07 [place] [facility] 00:00: Health 00 are [facility] NO KNOWN Allergy Active [facility] No Known DA Active [facility] Medications This patient has no known medications. Vital Signs Vital Name Observation Time Observation Value Comments Source HEIGHT 2021-07-19 23:00:00 167.6 cm WEIGHT 2021-07-19 23:00:00 72.576 kg HEIGHT 2021-07-19 23:00:00 167.6 cm WEIGHT 2021-07-19 23:00:00 72.576 kg Height 2019-11-03 21:20:00 160.02 CM Weight 2019-11-03 21:20:00 65.77 KG Height 2019-09-19 18:54:00 167.64 CM Weight 2019-09-19 18:54:00 70.3 KG Height 2019-09-16 00:16:00 167.64 CM Weight 2019-09-16 00:16:00 68.03 KG Height 2019-07-25 15:40:00 167.64 CM Weight 2019-07-25 15:40:00 72.57 KG Procedures This patient has no known procedures. Encounters Start End Encounter Admission Attending Care Care Encounter Source Date/Time Date/Time Type Type Clinicians Facility Department ID 2020-05-01 Inpatient HCANW WADE [id number] [facility] 06:33:00 [facility] are [facility] 2020-04-30 Inpatient HCANW WADE [id number] [facility] 13:14:00 [facility] are [facility] 2021-07-28 2021-07-28 [facility] [id number] [facility] 00[facility]00:00 00:00:00 [facility] 2021-07-19 2021-07-24 [facility] Internal [id number] [facility] 22[facility]55:00 15:50:00 [facility] 2019-11-03 2019-11-04 Emergency E RICHARD COOPER [facility] ECC [id number] [place] 21:18:00 15:38:00 [facility] [place] 2019-09-19 2019-09-21 Emergency E JILLIAN [facility] [id number] [place] 18:38:00 15:50:00 [facility] [place] 2019-09-16 2019-09-16 Emergency E JOSE RAMON [facility] [id number] [place] 00:16:00 22:00:00 [facility] [place] 2019-07-25 2019-07-27 Emergency E SUPA [facility] [id number] [place] 15:36:00 11:45:00 [facility] Results Test Description Test Time Test Comments Results Result Comments Source BASIC METABOLIC PANEL 2021-07-24 04:58:26 Test Item Value Reference Range Interpretation Comme nts SODIUM (BEAKER) (test code 140 meq/L 135-148 = 381) POTASSIUM (BEAKER) (test 3.5 meq/L 3.5-5.5 code = 379) CHLORIDE (BEAKER) (test 107 meq/L 98-106 H code = 382) CO2 (BEAKER) (test code = 22 meq/L 20-31 355) BLOOD UREA NITROGEN 12 mg/dL 10-26 (BEAKER) (test code = 354) CREATININE (BEAKER) (test 0.90 mg/dL 0.50-1.20 code = 358) GLUCOSE RANDOM (BEAKER) 93 mg/dL 70-110 (test code = 652) CALCIUM (BEAKER) (test code 8.8 mg/dL 8.5-10.5 = 697) EGFR (BEAKER) (test code = 95 mL/min/1.73 sq m ESTIMATED GFR IS NOT 1092) ACCURATE CRE ATININE CLEARANCE IN [place] EDICTING GLOMERULAR FILT RATION RATE. ESTIMATED GFR IS NOT APPLICABLE FOR DIALYSIS PATIENTS. System Safety Manager ID - [id number] W/PLT COUNT & AUTO [id number] 04:34:19 Test Item Value Reference Range Interpretation Comments WHITE BLOOD CELL COUNT (BEAKER) 5.0 K/ L 4.0-10.0 (test code = 775) RED BLOOD CELL COUNT (BEAKER) 4.15 M/ L 4.20-5.80 L (test code = 761) HEMOGLOBIN (BEAKER) (test code = 12.4 GM/DL 13.0-16.8 L 410) HEMATOCRIT (BEAKER) (test code = 36.7 % 36.0-50.0 411) MEAN CORPUSCULAR VOLUME (BEAKER) 88.4 fL 82.0-99.0 (test code = 753) MEAN CORPUSCULAR HEMOGLOBIN 29.9 pg 27.0-33.0 (BEAKER) (test code = 751) MEAN CORPUSCULAR HEMOGLOBIN CONC 33.8 GM/DL 32.0-36.0 (BEAKER) (test code = 752) RED CELL DISTRIBUTION WIDTH 13.4 % 12.0-15.0 (BEAKER) (test code = 412) PLATELET COUNT (BEAKER) (test code 85 K/CU MM 150-430 L = 756) MEAN PLATELET VOLUME (BEAKER) 11.2 fL 6.0-11.5 (test code = 754) NUCLEATED RED BLOOD CELLS (BEAKER) 0 /100 WBC 0-0 (test code = 413) NEUTROPHILS RELATIVE PERCENT 48 % (BEAKER) (test code = 429) LYMPHOCYTES RELATIVE PERCENT 34 % (BEAKER) (test code = 430) MONOCYTES RELATIVE PERCENT 14 % (BEAKER) (test code = 431) EOSINOPHILS RELATIVE PERCENT 4 % (BEAKER) (test code = 432) BASOPHILS RELATIVE PERCENT 0 % (BEAKER) (test code = 437) NEUTROPHILS ABSOLUTE COUNT 2.37 K/ L 1.80-8.00 (BEAKER) (test code = 670) LYMPHOCYTES ABSOLUTE COUNT 1.68 K/ L 1.48-4.50 (BEAKER) (test code = 414) MONOCYTES ABSOLUTE COUNT (BEAKER) 0.68 K/ L 0.00-1.30 (test code = 415) EOSINOPHILS ABSOLUTE COUNT 0.21 K/ L 0.00-0.50 (BEAKER) (test code = 416) BASOPHILS ABSOLUTE COUNT (BEAKER) 0.02 K/ L 0.00-0.20 (test code = 417) IMMATURE GRANULOCYTES-RELATIVE 0 % 0-0 PERCENT (BEAKER) (test code = 2801) VITAMIN B12 AND [id number] 16:24:49 Test Item Value Reference Range Interpretation Comments VITAMIN B12 (BEAKER) 470 pg/mL 211-911 (test code = 774) FOLATE (BEAKER) > ng/mL See_Comment [Automated message] The (test code = 362) system [employer] generated this result tra nsmitted reference range : >=5.40. The reference r alicia was not used to int erpret this result as normal/abnormal . System Safety Manager ID - [id number] 16:11:30 Test Item Value Reference Range Interpretation Comments FERRITIN (BEAKER) (test code = 927.88 ng/mL 22.00-322.00 H 361) System Safety Manager ID - VATIRON, TIBC, % SAT. (WITHOUT FERRITIN)2021-07-21 15:42:57 Test Item Value Reference Range Interpretation Comments IRON (BEAKER) (test code = 547) 65.0 ug/dL 35.0-175.0 TOTAL IRON BINDING CAPACITY 347 ug/dL 250-550 (BEAKER) (test code = 769) IRON % SATURATION (2) (BEAKER) 19 % 20-55 L (test code = 2590) System Safety Manager ID - VATU/S, ABDOMINAL, [id number] 08:48:00Reason for exam:- >possible portal hypertension, thrombocytopenia [facility] 1985 Sex: MFINAL REPORT Abdominal ultrasound Clinical History: Portal hypertension Discussion: Sonographic evaluation of the the abdomen is performed. The liver has normal size and measures 13.6 cm in length. The left lobe was not well seen. The liver echotexture is normal, withoutfocal mass. There is no intra or extrahepatic biliary dilatation. The common bile duct measures 2 mm. The gallbladder has normal appearance, without wall thickening, stones, or pericholecystic fluid. The main portal vein diameter is normal, measuring 9 mm. The pancreas was not well seen secondary tobowel gas. There is no ascites. The right and the left kidney measure 11.2 and 8.1 cm in length respectively and are normal in size. There is no renal mass, hydronephrosis, or shadowing renal calculus.The spleen measures 9.2 cm in length and is normal in echotexture. Segments of the inferior vena cava and aorta visualized demonstrate no abnormality. Impression: 1. Unremarkable abdominal ultrasound without sonographic evidence of portal hypertension. Signed: [facility] Verified Date/Time: 07/21/2021 08:48:30 Reading Location: [facility] Radiology Reading Room [id number] 04:41:59 Test Item Value Reference Range Interpretation Comments LIPASE (BEAKER) (test code = 749) 48 U/L 8-78 System Safety Manager ID - [id number] 04:41:58 Test Item Value Reference Range Interpretation Comments MAGNESIUM (BEAKER) (test code = 2.1 mg/dL 1.5-3.0 627) System Safety Manager ID - [id number] 04:41:58 Test Item Value Reference Range Interpretation Comments PHOSPHORUS (BEAKER) (test code = 2.2 mg/dL 2.5-4.5 L 604) System Safety Manager ID - [id number] METABOLIC [id number] 04:41:57 Test Item Value Reference Range Interpretation Comments TOTAL PROTEIN 7.4 gm/dL 6.0-8.5 (BEAKER) (test code = 770) ALBUMIN (BEAKER) 4.1 g/dL 3.5-5.0 (test code = 1145) ALKALINE PHOSPHATASE 94 U/L 30-115 (BEAKER) (test code = 346) BILIRUBIN TOTAL 1.7 mg/dL 0.1-1.3 H (BEAKER) (test code = 377) SODIUM (BEAKER) (test 136 meq/L 135-148 code = 381) POTASSIUM (BEAKER) 3.5 meq/L 3.5-5.5 (test code = 379) CHLORIDE (BEAKER) 101 meq/L 98-106 (test code = 382) CO2 (BEAKER) (test 24 meq/L 20-31 code = 355) BLOOD UREA NITROGEN 12 mg/dL 10-26 (BEAKER) (test code = 354) CREATININE (BEAKER) 0.81 mg/dL 0.50-1.20 (test code = 358) GLUCOSE RANDOM 90 mg/dL 70-110 (BEAKER) (test code = 652) CALCIUM (BEAKER) 9.0 mg/dL 8.5-10.5 (test code = 697) AST (SGOT) (BEAKER) 86 U/L 5-40 H (test code = 353) ALT (SGPT) (BEAKER) 85 U/L 6-50 H (test code = 347) EGFR (BEAKER) (test 107 ESTIMATE D GFR IS code = 1092) mL/min/1.73 sq NOT ACCURA TE m CREATININE CLEARANCE IN PREDICTING GLOMERULAR FILTRATION RATE . ESTIMATED GFR I S NOT APPLICABLE FOR DIALYSIS PATIEN TS. System Safety Manager ID - [id number] W/PLT COUNT & AUTO [id number] 04:25:52 Test Item Value Reference Range Interpretation Comments WHITE BLOOD CELL COUNT (BEAKER) 5.6 K/ L 4.0-10.0 (test code = 775) RED BLOOD CELL COUNT (BEAKER) 4.37 M/ L 4.20-5.80 (test code = 761) HEMOGLOBIN (BEAKER) (test code = 13.0 GM/DL 13.0-16.8 410) HEMATOCRIT (BEAKER) (test code = 38.3 % 36.0-50.0 411) MEAN CORPUSCULAR VOLUME (BEAKER) 87.6 fL 82.0-99.0 (test code = 753) MEAN CORPUSCULAR HEMOGLOBIN 29.7 pg 27.0-33.0 (BEAKER) (test code = 751) MEAN CORPUSCULAR HEMOGLOBIN CONC 33.9 GM/DL 32.0-36.0 (BEAKER) (test code = 752) RED CELL DISTRIBUTION WIDTH 13.0 % 12.0-15.0 (BEAKER) (test code = 412) PLATELET COUNT (BEAKER) (test code 28 K/CU MM 150-430 L = 756) MEAN PLATELET VOLUME (BEAKER) 11.3 fL 6.0-11.5 (test code = 754) NUCLEATED RED BLOOD CELLS (BEAKER) 0 /100 WBC 0-0 (test code = 413) NEUTROPHILS RELATIVE PERCENT 81 % (BEAKER) (test code = 429) LYMPHOCYTES RELATIVE PERCENT 10 % (BEAKER) (test code = 430) MONOCYTES RELATIVE PERCENT 6 % (BEAKER) (test code = 431) EOSINOPHILS RELATIVE PERCENT 2 % (BEAKER) (test code = 432) BASOPHILS RELATIVE PERCENT 0 % (BEAKER) (test code = 437) NEUTROPHILS ABSOLUTE COUNT 4.57 K/ L 1.80-8.00 (BEAKER) (test code = 670) LYMPHOCYTES ABSOLUTE COUNT 0.55 K/ L 1.48-4.50 L (BEAKER) (test code = 414) MONOCYTES ABSOLUTE COUNT (BEAKER) 0.36 K/ L 0.00-1.30 (test code = 415) EOSINOPHILS ABSOLUTE COUNT 0.10 K/ L 0.00-0.50 (BEAKER) (test code = 416) BASOPHILS ABSOLUTE COUNT (BEAKER) 0.01 K/ L 0.00-0.20 (test code = 417) IMMATURE GRANULOCYTES-RELATIVE 1 % 0-0 H PERCENT (BEAKER) (test code = 2801) PERIPHERAL BLOOD SMEAR - PATH REVIEW LAB [id number] 12:53:01 Test Item Value Reference Range Interpretation Comments PERIPHERAL SMR Thrombocytopenia REVIEW (BEAKER) confirmed on smear (test code = 2640) review. No schistocytes seen. WBC and RBC morphology unremarkable. No blast forms seen. [id number] Mychal Thurston M.D. 5 (BEAKER) (test (electronic signature) code = 2793) (MANUAL DIFFERENTIAL)2021-07-20 12:50:15 Test Item Value Reference Range Interpretation Comments NEUTROPHILS - REL (DIFF) (BEAKER) 88 % (test code = 1359) LYMPHOCYTES - REL (DIFF) (BEAKER) 6 % (test code = 1360) MONOCYTES - REL (DIFF) (BEAKER) 3 % (test code = 1361) BANDS - REL (DIFF) (BEAKER) (test 3 % 0-10 code = 1348) NEUTROPHILS - ABS (DIFF) (BEAKER) 6.25 K/ L 1.80-8.00 (test code = 1365) LYMPHOCYTES - ABS (DIFF) (BEAKER) 0.43 K/ L 1.48-4.50 L (test code = 1366) MONOCYTES - ABS (DIFF) (BEAKER) 0.21 K/ L 0.00-1.30 (test code = 1367) BANDS-ABS (DIFF) (BEAKER) (test 0.2 K/ L 0.0-0.8 code = 1349) TOTAL COUNTED (BEAKER) (test code = 100 1351) BANDS + SEGMENTED NEUTROPHILS 6.46 (BEAKER) (test code = 1352) WBC MORPHOLOGY (BEAKER) (test code Normal = 487) RBC MORPHOLOGY (BEAKER) (test code Normal = 762) GIANT PLATELETS (BEAKER) (test code Present = 313) CBC W/PLT COUNT & AUTO [id number] 01:08:30 Test Item Value Reference Range Interpretation Comments WHITE BLOOD CELL COUNT (BEAKER) 7.1 K/ L 4.0-10.0 (test code = 775) RED BLOOD CELL COUNT (BEAKER) 4.57 M/ L 4.20-5.80 (test code = 761) HEMOGLOBIN (BEAKER) (test code = 13.6 GM/DL 13.0-16.8 410) HEMATOCRIT (BEAKER) (test code = 39.1 % 40.0-50.0 L 411) MEAN CORPUSCULAR VOLUME (BEAKER) 85.6 fL 82.0-98.0 (test code = 753) MEAN CORPUSCULAR HEMOGLOBIN 29.8 pg 27.0-33.0 (BEAKER) (test code = 751) MEAN CORPUSCULAR HEMOGLOBIN CONC 34.8 GM/DL 32.0-36.0 (BEAKER) (test code = 752) RED CELL DISTRIBUTION WIDTH 13.0 % 12.0-15.0 (BEAKER) (test code = 412) PLATELET COUNT (BEAKER) (test code 35 K/CU MM 150-430 L = 756) MEAN PLATELET VOLUME (BEAKER) 10.6 fL 6.5-11.5 (test code = 754) NUCLEATED RED BLOOD CELLS (BEAKER) 0 /100 WBC 0-0 (test code = 413) SARS-COV2/RT-PCR ([facility])2021-07-20 00:20:06 Test Item Value Reference Range Interpretation Comments SARS-COV2/RT-PCR Negative Negative The SARS-Co V-2 target (test code = nucleic acids a re not 1919807) detected in thi s specimen. Negative result s do not preclude SARS-C oV-2 infection and s hould not be used as the liudmila e basis for patient managem ent decisions. Nega tive results must be combine d with clinical observ ations, patient history , and epidemiological information. A false negativ e result may occur if a spec imen is improperly eduard ected, transported or handled. This SARS CoV-2 test is a rapid, real-srinivasa e RT-PCR test intended for e qualitative detection of nu cleic acid from SARS-CoV-2 in a nasopharyngeal swab specimen collected from individuals suspected of CO VID-19 by their healthcar e provider. This test has been authorized by FDA under an EUA for use by authorized laboratories. This test is only authorized for the duration of the declaration that circumstances exist justifying the authorization of emergency use of in vitro diagnostic tests for detection and/or diagnosis of COVID-19 under Section 564(b)(1) of the Federal Food, Drug and Cosmetic Act, 21 U.S.C. 360bbb- 3(b)(1), unless the authorization is terminated or revoked sooner. Fact Sheet for Healthcare Providers: https://www.[employer]/Documents/Xpert%20Xpress%20SARS%20CoV-2/Fact%20Sheets/3023802%20SARS-COV -2%20HEALTHCARE%20PROVIDERS%20FACT%20SHEET.pdf Fact Sheet for Healthcare Patients: https://www.[employer]/Documents/Xpert %20Xpress%20SARS%20CoV-2/Fact%20Sheets/3023801%52EKTI-DVD-7%20PATIENT%20FACT%20 SHEET.pdfRAD, CHEST, 1 VIEW, NON [id number] 00:12:00Reason for exam:- >ADDICTION PROBLEMShould this be performed at the bedside?->Yes [facility] 1985 Sex: MFINAL REPORT EXAM/TECHNIQUE: Single view frontal radiograph of the chest. INDICATION: Addiction. COMPARISON: None. FINDINGS: Devices/Objects: None. Lungs: No focal consolidation. No pleural effusion. No pneumothorax. Heart/Mediastinum: No cardiomegaly. No interstitial thickening. Osseous: No acute osseous process. No suspicious osseous lesion. Upper abdomen: Unremarkable . Impression: No acute cardiopulmonary process. Signed: Gareth Cruz Verified Date/Time: 07/20/2021 00:12:24 CT, BRAIN, WITHOUT IV [id number] 00:01:00Unlisted Reason for Exam - Click Yes and Enter Reason Below->No [facility] 1985 Sex: MFINAL REPORT EXAM/TECHNIQUE: Noncontrast CT of the head. Dose modulation, iterative reconstruction, and/or weight based adjustment of the mA/kV was utilized to reduce the radiation dose to as low as reasonably achievable. INDICATION: Trauma. COMPARISON: None. FINDINGS: Delarosa-white differentiation is preserved. No acute intracranial hemorrhage. No extra-axial fluid collection. Ventricles are normal in appearance. Basal cisterns are patent. No midline shift. Cerebellar tonsils are normal in appearance. Bilateral medial orbital wall fractures. Paranasal sinuses are clear.Mastoid air cells are clear. No acute osseous processes or suspicious osseous lesion. Midline struct ures are normal. Visualized face and neck are unremarkable. Impression: No acute intracranial process. Signed: Gareth Cruz MDRlavinia Verified Date/Time: 07/20/2021 00:01:11 COMPREHENSIVE METABOLIC [id number] 00:00:27 Test Item Value Reference Range Interpretation Comments TOTAL PROTEIN 8.2 gm/dL 6.0-8.5 (BEAKER) (test code = 770) ALBUMIN (BEAKER) 4.4 g/dL 3.5-5.0 (test code = 1145) ALKALINE PHOSPHATASE 154 U/L 30-115 H (BEAKER) (test code = 346) BILIRUBIN TOTAL 1.0 mg/dL 0.1-1.2 (BEAKER) (test code = 377) SODIUM (BEAKER) (test 137 meq/L 135-148 code = 381) POTASSIUM (BEAKER) 3.6 meq/L 3.6-5.5 (test code = 379) CHLORIDE (BEAKER) 98 meq/L 98-106 (test code = 382) CO2 (BEAKER) (test 23 meq/L 24-32 L code = 355) BLOOD UREA NITROGEN 14 mg/dL 10-26 (BEAKER) (test code = 354) CREATININE (BEAKER) 0.87 mg/dL 0.50-1.20 (test code = 358) GLUCOSE RANDOM 123 mg/dL 70-110 H (BEAKER) (test code = 652) CALCIUM (BEAKER) 8.2 mg/dL 8.5-10.5 L (test code = 697) AST (SGOT) (BEAKER) 153 U/L 5-40 H (test code = 353) ALT (SGPT) (BEAKER) 115 U/L 5-50 H (test code = 347) EGFR (BEAKER) (test 99 mL/min/1.73 ESTIMA SONDRA GFR IS code = 1092) sq m NOT ACCURATE CREATININE CLEARANCE IN PREDICTING GLOMERULAR FILTRATION RATE . ESTIMATED GFR I S NOT APPLICABLE FOR DIALYSIS PATIEN TS. [id number] 00:00:01 Test Item Value Reference Range Interpretation Comments ETHANOL (BEAKER) 197 mg/dL See_Comment H [Automated message] The (test code = 400) system i generated this result tra nsmitted reference range : <=10. The reference r alicia was not used to int erpret this result as normal/abnormal . [id number] 23:54:29 Test Item Value Reference Range Interpretation Comments MAGNESIUM (BEAKER) (test code = 1.8 mg/dL 1.5-3.0 627) [id number] 23:54:29 Test Item Value Reference Range Interpretation Comments LIPASE (BEAKER) (test code = 749) 300 U/L 40-240 H RAPID DRUG SCREEN, [id number] 23:47:22 Test Item Value Reference Range Interpretation Comments METHAMPHETAMINE SCREEN (BEAKER) Negative Negative (test code = 1435) BARBITURATE URINE (BEAKER) (test Negative Negative code = 725) BENZODIAZEPINE SCREEN URINE (BEAKER) Negative Negative (test code = 726) COCAINE (METAB.) SCREEN (BEAKER) Negative Negative (test code = 1164) METHADONE SCREEN (BEAKER) (test code Negative Negative = 1436) OPIATE SCREEN URINE (BEAKER) (test Negative Negative code = 734) CANNABINOID SCREEN URINE (BEAKER) Negative Negative (test code = 727) TRICYCLIC SCREEN (BEAKER) (test code Negative Negative = 1437) AMPHETAMINE SCREEN URINE (BEAKER) Negative Negative (test code = 399) PHENCYCLIDINE SCREEN URINE (BEAKER) Negative Negative (test code = 608) PH UA (BEAKER) (test code = 467) 6.0 5.0-8.0 DRUG CUTOFF CONC.Methamphetamine 1000 ng/mLCocaine 300 ng/mLCannabinoid 50 ng/mLBenzodiazepine 300 ng/mLTricyclic 1000 ng/mCEihfihsikrb714 ng/mLPhencyclidine 25 ng/mLAmphetamine 1000 ng/mLOpiate 300 ng/mLMethadone 300 ng/mLThis assay provides an unconfirmed qualitative test result for the clinical management of patients in emergency situations. Chain of custody not maintained. Some pqnh-jww-sgjavfh medications, as well as adulterants, may cause inaccurate results. Clinical correlation should be applied. A more comprehensive drug screen or confirmation of a detected drug may be performed uponrequest.CBC W/AUTO [id number] 06:30:00 Test Item Value Reference Range Interpretation [...] PLT) reported toFirs t Name:FAUSTINO raphael Name:EDER ULKandy S READ BACK AND VERIFIEDby N.LAB.IBT, on [...] x10 3/uL 0.0-0.1 N = BA#) DIFFERENTIAL [id number] 06:30:00 Test Item Value Reference Range Interpretation Comments PLATELET MORPHOLOGY (test code = NORM NORMAL PLTMORPH) BASIC METABOLIC [id number] 04:10:00 Test Item Value Reference Range Interpretation [...] in AM if not alreadyComments to Phleb: ordered.[id number] 04:10:00 Test Item Value Reference Range Interpretation Comments PHOSPHOROUS (test code = PHOS) 3.0 mg/dl 2.5-4.6 N Comments to Phleb: Repeat Serum K level in AM if not already ordered.Spec Comments: Repeat Serum Magnesium level in AM if not alreadyComments to Phleb: ordered.[id number] 04:10:00 Test Item Value Reference Range Interpretation Comments MAGNESIUM (test code = MAG) 2.6 mg/dl 1.8-2.5 H Comments to Phleb: Repeat Serum K level in AM if not already ordered.Spec Comments: Repeat Serum Magnesium level in AM if not alreadyComments to Phleb: ordered.CBC W/AUTO [id number] 04:01:00 Test Item Value Reference Range Interpretation [...] PLT) reported toFirs t Name:FAUSTINO raphael Name:EDER RUBEN S READ BACK AND VERIFIEDby N.LAB.IBT, on [...] x10 3/uL 0.0-0.1 N = BA#) DIFFERENTIAL [id number] 04:01:00 Test Item Value Reference Range Interpretation Comments PLATELET MORPHOLOGY (test code = NORMAL PLTMORPH) CBC W/AUTO [id number] 04:01:00 Test Item Value Reference Range Interpretation [...] x10 3/uL 0.0-0.1 N = BA#) DIFFERENTIAL [id number] 04:01:00 Test Item Value Reference Range Interpretation Comments PLATELET MORPHOLOGY (test code = NORMAL PLTMORPH) CALCIUM [id number] 03:55:00 Test Item Value Reference Range Interpretation Comments CALCIUM IONIZED (test code = SHAYAN) 1.11 mmol/L 1.13-1.32 L [id number] 00:21:00 Test Item Value Reference Range Interpretation Comments GLUBED (test code = GLUBED) 111 MG/DL 70-105 H [id number] 17:18:00 Test Item Value Reference Range Interpretation Comments GLUBED (test code = GLUBED) 71 MG/DL 70-105 N [id number] 13:55:00 Test Item Value Reference Range Interpretation Comments AMMONIA (test code = AMM) 35 umol/L 11-35 N [id number] 13:55:00 Test Item Value Reference Range Interpretation Comments LIPASE (test code = LIP) 61 IU/L 22-51 H [id number] 12:17:00 Test Item Value Reference Range Interpretation Comments GLUBED (test code = GLUBED) 88 MG/DL 70-105 N DRUGS OF ABUSE SCREEN [id number] 10:41:00 Test Item Value Reference Range Interpretation [...] ng/mLRec ommended screening cut-o ff concentrations by [facility] Ab use and Mental Health [facility]. UR CANABINOIDS (test NEGATIVE NEGATIVE This is [...] concentrations by thebstance Ab use and Mental [facility]. UR AMPHETAMINE (test NEGATIVE NEGATIVE The ing estion of natural code = AMPHU) herbal and rodríguez nt productscontain ing Ephedra/Ephedra -Metabolit es can produce in urineone or mor e substances capa ble of cross-reacting withAmphetamine /Methamphe tiffany salazar says. This testprovid es a preliminary res [...] ng/mLRecommende d screening cut-o ff concentrations by [facility]. UR BARBITURATE (test NEGATIVE NEGATIVE This [...] ng/mLRecommende d screening cut-o ff concentrations by [facility]. UR BENZODIAZEPINE NEGATIVE NEGATIVE This [...] concentrations by thebstance Ab use and Mental [facility] Administration. UR OPIATES QUAL (test NEGATIVE NEGATIVE [...] ng/mLRec ommended screening cut-o ff concentrations by [facility] and [facility]. UR PHENCYCLIDINE NEGATIVE NEGATIVE This is a [...] ng/mLRecomme nded screening cut-o ff concentrations by [facility]. URINALYSIS [id number] 10:29:00 Test Item Value Reference Range Interpretation [...] 1+ /LPF NONE SEEN COVID 19 INHOUSE [id number] 08:52:00 Test Item Value Reference Range Interpretation Comments COVID 19 INHOUSE AG NEGATIVE Negative Negative results should (test code = be treated as p resumptive [id number]) andconfirmed wi th a molecular assay , [...] nd symptoms consis tent withCOVID-19. CBC W/AUTO [id number] 08:19:00 Test Item Value Reference Range Interpretation [...] BA#) 0.0 x10 3/uL 0.0-0.1 N DIFFERENTIAL [id number] 08:19:00 Test Item Value Reference Range Interpretation Comments PLATELET MORPHOLOGY (test code = NORMAL NORMAL PLTMORPH) BASIC METABOLIC [id number] 07:49:00 Test Item Value Reference Range Interpretation [...] mg/dL 8.5-10.5 L = CA) COMPREHENSIVE METABOLIC [id number] 07:49:00 Test Item Value Reference Range Interpretation [...] 94 U/L 42-121 N ALKP) LIVER FUNCTION [id number] 07:49:00 Test Item Value Reference Range Interpretation Comments BILIRUBIN DIRECT (test code = BILD) 0.2 mg/dL 0.00-0.20 N [id number] 07:49:00 Test Item Value Reference Range Interpretation Comments ALCOHOL (test code = 100 mg/dl Interpr etive Data:il: ALC) Ethanol Level To convert into le gal units, divide r esult by 1,000 CBC W/AUTO [id number] 07:46:00 Test Item Value Reference Range Interpretation [...] BA#) 0.0 x10 3/uL 0.0-0.1 N DIFFERENTIAL [id number] 07:46:00 Test Item Value Reference Range Interpretation Comments PLATELET MORPHOLOGY (test code = NORMAL PLTMORPH) CBC W/AUTO [id number] 07:46:00 Test Item Value Reference Range Interpretation [...] BA#) 0.0 x10 3/uL 0.0-0.1 N DIFFERENTIAL [id number] 07:46:00 Test Item Value Reference Range Interpretation Comments PLATELET MORPHOLOGY (test code = NORMAL PLTMORPH) CBC W/AUTO [id number] 07:30:00 Test Item Value Reference Range Interpretation [...] = EO#) x10 3/uL 0.0-0.5 CBC W/AUTO [id number] 15:09:00 Test Item Value Reference Range Interpretation [...] (test code = DECREASED ADEQUATE PLTEST) DIFFERENTIAL [id number] 15:09:00 Test Item Value Reference Range Interpretation Comments PLATELET MORPHOLOGY (test code = NORMAL NORMAL PLTMORPH) - CT MAXIFAC W/O [id number] 14:17:00Patient Name: NATA BALLARD Unit No: [id number] EXAMS: CPT: [id number] CT MAXIFAC W/O CONTRAST 73375 EXAM TYPE: CT maxillofacial without INDICATION: Trauma TECHNIQUE: Contiguous axial images were obtained through the face. Coronal and Sagittal reconstruction was performed. CT radiation dose optimization is achieved for this examination by the use of a CT protocol in accordance with ACR practice guidelines and adherence to preboarder's recommendations. One or more of the following [...] CTDI: 18.95 DLP: 390.61 Trscr Dt/Tm: 04/30/2020 (1417) by:Debra Orig Print D/T: S: 04/30/2020 (1420) BATCH NO: N/A Name: NATA BALLARD [facility] Phys: CONNIE. - Nuno Hannah Joseph [address] : 1985 Age: 34 Sex: [place] [id number] Loc: N.ERS Exam Date: 04/30/2020 Status: PRE ER PH: FAX: PAGE 1 Signed Report- CT HEAD/BRAIN W/O [id number] 14:12:00Patient Name: NATA BALLARD Unit No: [id number] EXAMS: CPT: [id number] CT HEAD/BRAIN W/O CONT [id number] Clinical History: Trauma Comparison: CT head 11/06/2018 Technique: Noncontrast 2.5 mm contiguous axial images were obtained from the skull base through the vertex. Coronal and sagittal reformats are provided. CT radiation dose optimization is achieved for this examination by the use of a CT protocol in accordance with ACR practiceguidelines and adherence to preboarder's recommendations. One or more of the following dose reduction techniques were used: Automated exposure control, adjustment of the mA and/or KV according to patient size, and/or utilization of iterative reconstruction technique. DLP: 1198 mGy*cm Findings: No evidence of acute infarctions. The delarosa-white matter junction is maintained. No masses, extra-axial [...] 44.19 DLP: 807.65 Trscr Dt/Tm: 04/30/2020 (1412) by:Debra Orig Print D/T: S: 04/30/2020 (1415) BATCH NO: N/A Name: NATA BALLARD [facility] ED Phys: Nuno aL [address] : 1985 Age: 34 Sex: [place] [id number] Loc: N.ERS Exam Date: 04/30/2020 Status: PRE ER PH: FAX: PAGE 1 Signed ReportCOMPREHENSIVE METABOLIC [id number] 14:02:00 Test Item Value Reference Range Interpretation [...] 42-121 N PHOSPHATASE (test code = ALKP) [id number] 14:02:00 Test Item Value Reference Range Interpretation Comments MAGNESIUM (test code = MAG) 2.1 mg/dl 1.8-2.5 N [id number] 14:02:00 Test Item Value Reference Range Interpretation Comments ALCOHOL (test code = 430 mg/dl Interpr etive Data:il: ALC) Ethanol Level To convert into le gal units, divide r esult by 1,000 CBC W/AUTO [id number] 13:58:00 Test Item Value Reference Range Interpretation [...] BA#) 0.0 x10 3/uL 0.0-0.1 N DIFFERENTIAL [id number] 13:58:00 Test Item Value Reference Range Interpretation Comments PLATELET MORPHOLOGY (test code = NORMAL PLTMORPH) CBC W/AUTO [id number] 13:58:00 Test Item Value Reference Range Interpretation [...] BA#) 0.0 x10 3/uL 0.0-0.1 N DIFFERENTIAL [id number] 13:58:00 Test Item Value Reference Range Interpretation Comments PLATELET MORPHOLOGY (test code = NORMAL PLTMORPH) COMPREHENSIVE METABOLIC [id number] 13:57:00 Test Item Value Reference Range Interpretation [...] U/L 42-121 PHOSPHATASE (test code = ALKP) [id number] 13:57:00 Test Item Value Reference Range Interpretation Comments MAGNESIUM (test code = MAG) mg/dl 1.8-2.5 [id number] 13:57:00 Test Item Value Reference Range Interpretation Comments ALCOHOL (test code = ALC) mg/dl COMPREHENSIVE METABOLIC [id number] 13:57:00 Test Item Value Reference Range Interpretation [...] U/L 42-121 PHOSPHATASE (test code = ALKP) [id number] 13:57:00 Test Item Value Reference Range Interpretation Comments MAGNESIUM (test code = MAG) mg/dl 1.8-2.5 [id number] 13:57:00 Test Item Value Reference Range Interpretation Comments ALCOHOL (test code = ALC) mg/dl CBC W/AUTO [id number] 13:45:00 Test Item Value Reference Range Interpretation [...] 393 mg/dL <=10 H 56A) COMPREHENSIVE METABOLIC [id number] 22:25:00 Test Item Value Reference Range Interpretation [...] 31A) 22 IU/L <=78 PRO TIME AND [id number] 22:18:00 Test Item Value Reference Range Interpretation [...] MORPH (test code = RBCMOR) NORMAL AMMONIA [id number] 14:21:00 Test Item Value Reference Range Interpretation [...] code = 194 mg/dL <=10 H 56A) [id number] 20:48:00 Test Item Value Reference Range Interpretation Comments ACETAMINPH (test code = 94M) <2.0 ug/mL 10.0-30.0 L ALCOHOL BLOOD (ETOH)2019-09-19 20:46:00 Test Item Value Reference Range Interpretation Comments ETOH (test code = HALC) ETHANOL The result is to be used only for medical purposes ALCOHOL (test code = 326 mg/dL <=10 H 56A) COMPREHENSIVE METABOLIC [id number] 20:36:00 Test Item Value Reference Range Interpretation [...] (test code = 31A) 29 IU/L <=78 [id number] 20:26:00 Test Item Value Reference Range Interpretation Comments SALICYLATE (test code = 94B) 1.9 mg/dL 2.8-20.0 L URINALYSIS WITH [id number] 20:13:00 Test Item Value Reference Range Interpretation [...] (test code = USPERM) /HPF NONE AMMONIA [id number] 20:12:00 Test Item Value Reference Range Interpretation Comments AMMONIA (test code = 54A) 48 umol/L 11-32 H DRUGS OF [id number] 20:06:00 Test Item Value Reference Range Interpretation [...] mg/dL <=10 H 56A) ALCOHOL BLOOD (ETOH) *WW*2019-09-16 11:08:00 Test Item Value Reference Range Interpretation [...] = WAUAM) NO NO COMPREHENSIVE METABOLIC SOLARES *WW*2019-09-16 02:04:00 Test Item Value Reference Range Interpretation [...] 31A) 22 IU/L <=78 ALCOHOL BLOOD (ETOH) *WW*2019-09-16 02:04:00 Test Item Value Reference Range Interpretation Comments ETOH (test code = HALC) ETHANOL The result is to be used only for medical purposes ALCOHOL (test code = 456 mg/dL <=10 H 56A) ACETAMINOPHEN *WW*2019-09-16 02:04:00 Test Item Value Reference Range Interpretation Comments ACETAMINPH (test code = 94M) <2.0 ug/mL 10.0-30.0 L SALICYLATES WW2019-09-16 01:55:00 Test Item Value Reference Range Interpretation Comments SALICYLATE (test code = 94B) <1.7 mg/dL 2.8-20.0 L CBC (INCLUDES AUTOMATED DIFFERENTIAL)*[id number] 01:41:00 Test Item Value Reference Range Interpretation [...] Barbiturates 200 ng/mL Opiates 2000 ng/mL URINALYSIS *WW*2019-07-25 16:37:00 Test Item Value Reference Range Interpretation [...] = WAUAM) NO NO CBC (INCLUDES AUTOMATED DIFFERENTIAL)*[id number] 16:33:00 Test Item Value Reference Range Interpretation [...]
[2021-09-07] MEDS ORDERED: FAMOTIDINE 20 MG/2 ML VIAL IV ONE (02:36)
[2021-09-07] MEDS ORDERED: THIAMINE 200 MG/2 ML INJ ONE (02:36)
[2021-09-07] MEDS ORDERED: NA CHLORIDE 0.9% 1,000 ML ONE (02:36)
[2021-09-07] MEDS ORDERED: LORazepam 2 MG/ML VIAL ONE ×2 (02:36→03:10)
[2021-09-07] MEDS ORDERED: ONDANSETRON 4 MG/2 ML VIAL ONE (02:36)
[2021-09-07] MEDS ORDERED: FOLIC ACID 5 MG/ML VIAL ONE (02:37)
[2021-09-07] MEDS ORDERED: MULTIVITAMINS 10 ML VIAL (INJ) IV ONE (02:37)
--- NOTE | 2021-09-07 03:05 | EDPHYS ---
Physician Documentation [facility] Name: Mehdi Ramos III Age: 36 yrs Sex: Male : 1985 Arrival Date: 09/07/2021 Time: 02:15 Bed 24 Private MD: ED Physician Glenn Conteh HPI: 09/07 02:56 This 36 yrs old Male presents to ER via EMS with complaints of Withdrawals. nura 02:56 ETOH WITHDRAWAL. The patient presents with confusion, trouble concentrating. Onset: The nura symptoms/episode began/occurred yesterday. Possible causes: alcohol. Associated signs and symptoms: Pertinent positives: confusion. Onset: The symptoms/episode began/occurred 1 day(s) ago. Current symptoms: In the emergency department the patient's symptoms have improved. Patient's baseline: Neuro: alert and fully oriented. Severity of symptoms: At their worst the symptoms were moderate in the emergency department the symptoms are unchanged. The patient has experienced similar episodes in the past, several times. Historical: - Allergies: 02:25 No Known Allergies; mk - Home Meds: 02:25 None [Active]; mk - PMHx: 02:25 Alcoholism; mk - Immunization history:: Adult Immunizations up to date. - Social history:: Smoking status: Patient denies any tobacco usage or history of. Patient uses alcohol. - Family history:: not pertinent. ROS: 02:56 Constitutional: Negative for fever, chills, and weight loss, Eyes: Negative for injury, nura pain, redness, and discharge, ENT: Negative for injury, pain, and discharge, Neck: Negative for injury, pain, and swelling, Respiratory: Negative for shortness of breath, cough, wheezing, and pleuritic chest pain, Abdomen/GI: Negative for abdominal pain, nausea, vomiting, diarrhea, and constipation, Back: Negative for injury and pain, : Negative for injury, bleeding, discharge, and swelling, MS/Extremity: Negative for injury and deformity, Skin: Negative for injury, rash, and discoloration, Psych: Negative for depression, anxiety, suicide ideation, homicidal ideation, and hallucinations, Allergy/Immunology: Negative for hives, rash, and allergies, Endocrine: Negative for neck swelling, polydipsia, polyuria, polyphagia, and marked weight changes, Hematologic/Lymphatic: Negative for swollen nodes, abnormal bleeding, and unusual bruising. 02:56 Cardiovascular: Positive for palpitations. 02:56 Neuro: Positive for dizziness. 02:56 Psych: Positive for anxiety. Exam: 02:56 Constitutional: This is a well developed, well nourished patient who is awake, alert, nura and in no acute distress. Head/Face: Normocephalic, atraumatic. Eyes: Pupils equal round and reactive to light, extra-ocular motions intact. Lids and lashes normal. Conjunctiva and sclera are non-icteric and not injected. Cornea within normal limits. Periorbital areas with no swelling, redness, or edema. ENT: Nares patent. No nasal discharge, no septal abnormalities noted. Tympanic membranes are normal and external auditory canals are clear. Oropharynx with no redness, swelling, or masses, exudates, or evidence of obstruction, uvula midline. Mucous membranes moist. Neck: Trachea midline, no thyromegaly or masses palpated, and no cervical lymphadenopathy. Supple, full range of motion without nuchal rigidity, or vertebral point tenderness. No Meningismus. Chest/axilla: Normal chest wall appearance and motion. Nontender with no deformity. No lesions are appreciated. Respiratory: Lungs have equal breath sounds bilaterally, clear to auscultation and percussion. No rales, rhonchi or wheezes noted. No increased work of breathing, no retractions or nasal flaring. Abdomen/GI: Soft, non-tender, with normal bowel sounds. No distension or tympany. No guarding or rebound. No evidence of tenderness throughout. Back: No spinal tenderness. No costovertebral tenderness. Full range of motion. Male : Normal genitalia with no discharge or lesions. Skin: Warm, dry with normal turgor. Normal color with no rashes, no lesions, and no evidence of cellulitis. MS/ Extremity: Pulses equal, no cyanosis. Neurovascular intact. Full, normal range of motion. Neuro: Awake and alert, GCS 15, oriented to person, place, time, and situation. Cranial nerves II-XII grossly intact. Motor strength 5/5 in all extremities. Sensory grossly intact. Cerebellar exam normal. Normal gait. Psych: Awake, alert, with orientation to person, place and time. Behavior, mood, and affect are within normal limits. 02:56 Cardiovascular: Rate: tachycardic, Rhythm: regular, Pulses: Pulses are 4+ in bilateral radial, brachial, femoral, popliteal, posterior tibial and and dorsalis pedis arteries.. Heart sounds: normal, murmur, not appreciated, rub, not appreciated, gallop, not appreciated, JVD: is not appreciated. 02:56 ECG was reviewed by the Attending Physician. Vital Signs: 02:21 BP 174 / 107; Pulse 89; Resp 24; Pulse Ox 99% on R/A; mk 02:25 Temp 98.5(O); Weight 74.39 kg (M); Height 5 ft. 6 in. (167.64 cm) (R); mk 03:46 BP 134 / 96; Pulse 86; Resp 23 S; Pulse Ox 94% on R/A; as6 04:15 BP 123 / 69; Pulse 62; Resp 18; Pulse Ox 96% on R/A; mk 04:46 BP 134 / 89; Pulse 96; Resp 18; Pulse Ox 96% on R/A; mk 05:15 BP 132 / 79; Pulse 95; Resp 18; Pulse Ox 98% on R/A; mk 05:45 BP 133 / 92; Pulse 111; Resp 18; Pulse Ox 94% on R/A; mk 02:25 Body Mass Index 26.47 (74.39 kg, 167.64 cm) Daksha Coma Score: 04:15 Eye Response: spontaneous(4). Verbal Response: oriented(5). Motor Response: obeys mk commands(6). Total: 15. 04:46 Eye Response: spontaneous(4). Verbal Response: oriented(5). Motor Response: obeys mk commands(6). Total: 15. 05:15 Eye Response: spontaneous(4). Verbal Response: oriented(5). Motor Response: obeys mk commands(6). Total: 15. 05:45 Eye Response: spontaneous(4). Verbal Response: oriented(5). Motor Response: obeys mk commands(6). Total: 15. MDM: 02:24 Patient medically screened. nura 03:00 Differential Diagnosis altered mental status. Differential Diagnosis: alcohol nura intoxication, hypoglycemia, overdose. Data reviewed: vital signs, nurses notes, lab test result(s), EKG, radiologic studies, CT scan, plain films. Data interpreted: monitoring engineer: rate is 89 beats/min, rhythm is regular, Pulse oximetry: on room air is 99 %. Test interpretation: by ED physician or midlevel provider: ECG. Counseling: I had a detailed discussion with the patient and/or guardian regarding: the historical points, exam findings, and any diagnostic results supporting the discharge/admit diagnosis, lab results, radiology results, the need for further work-up and treatment in the hospital. 09/07 02:21 Order name: Acetaminophen 09/07 02:21 Order name: Basic Metabolic Panel 09/07 02:21 Order name: CBC with Diff 09/07 02:21 Order name: ETOH Level 09/07 02:21 Order name: Hepatic Function 09/07 02:21 Order name: PT-INR 09/07 02:21 Order name: Ptt, Activated 09/07 02:21 Order name: Urine Drug Screen 09/07 02:21 Order name: Magnesium 09/07 02:21 Order name: NT PRO-BNP; Complete Time: 05:30 09/07 02:21 Order name: Troponin HS; Complete Time: 05:30 09/07 02:21 Order name: Acetaminophen Level; Complete Time: 05:30 EDMS 09/07 02:21 Order name: Basic Metabolic Panel; Complete Time: 05:30 EDMS 09/07 02:21 Order name: XRAY Chest (1 view) 09/07 02:21 Order name: CBC with Automated Diff; Complete Time: 04:37 MS 09/07 02:22 Order name: Alcohol Serum/Plasma; Complete Time: 05:30 MS 09/07 02:22 Order name: Liver (Hepatic) Function; Complete Time: 05:30 EDMS 09/07 02:22 Order name: Protime (+INR); Complete Time: 04:37 MS 09/07 02:22 Order name: PTT, Activated Partial Thromb; Complete Time: 04:37 MS 09/07 02:22 Order name: Salicylates Level; Complete Time: 05:30 EDMS 09/07 02:22 Order name: Urine Drug Screen; Complete Time: 05:30 EDMS 09/07 02:22 Order name: Magnesium; Complete Time: 05:30 EDMS 09/07 02:22 Order name: COVID-19 SARS RT PCR (Document "Date of Onset" if Symptomatic); Complete Time: 04:37 09/07 04:17 Order name: Urine Dipstick-Ancillary; Complete Time: 04:37 EDMS 09/07 02:21 Order name: EKG; Complete Time: 02:22 09/07 02:21 Order name: EKG - Nurse/Tech; Complete Time: 02:30 09/07 02:21 Order name: IV Saline Lock; Complete Time: 02:30 09/07 02:21 Order name: Labs collected and sent; Complete Time: 02:09/07 02:21 Order name: Suicide Screening ([place]); Complete Time: 02:30 09/07 02:21 Order name: Cardiac monitoring; Complete Time: :09/07 02:21 Order name: O2 Per Protocol; Complete Time: :09/07 02:21 Order name: O2 Sat Monitoring; Complete Time: : EC:56 Rate is 89 beats/min. Rhythm is regular. QRS [place] is Normal. [place] interval is normal. QRS nura interval is normal. QT interval is normal. No Q waves. T waves are Normal. No ST changes noted. Clinical impression: NSR w/ Non-specific ST/T Changes and No evidence of ischemia. Interpreted by me. Reviewed by me. Administered Medications: 02:24 CANCELLED (Other Intervention Used): Banana Bag - (NS 0.9% 1000 ml, foLIC Acid 1 mg, la1 Thiamine 100 mg, Multivitamin 1 amp) IV at calculated rate once 02:40 Drug: Ativan (LORazepam) 2 mg Route: IVP; Site: right antecubital; as6 03:47 Follow up: Response: No adverse reaction as6 02:40 Drug: Thiamine 100 mg Route: IV; Rate: bolus; Site: right antecubital; as6 03:47 Follow up: Response: No adverse reaction; IV Status: Completed infusion; IV Intake: [id number] 02:40 Drug: foLIC Acid 1 mg Route: IVPB; Site: right antecubital; as6 03:48 Follow up: Response: No adverse reaction; IV Status: Completed infusion; IV Intake: [id number] 02:40 Drug: Zofran (Ondansetron) 4 mg Route: IVP; Site: right antecubital; as6 03:48 Follow up: Response: No adverse reaction as6 02:40 Drug: Banana Bag - (NS 0.9% 1000 ml, foLIC Acid 1 mg, Thiamine 100 mg, Multivitamin 1 as6 amp) Route: IV; Rate: 500 ml/hr; Site: right antecubital; 03:48 Follow up: IV Status: Infusion continued upon admission as6 02:40 Drug: Pepcid (famotidine) 20 mg Route: IVP; Site: right antecubital; as6 03:48 Follow up: Response: No adverse reaction as6 03:13 Drug: Ativan (LORazepam) 2 mg Route: IVP; Site: right antecubital; as6 03:48 Follow up: Response: No adverse reaction as6 Disposition: 03:01 Critical Care:. nura Disposition Summary: 09/07/21 03:04 Hospitalization Ordered Hospitalization Status: Inpatient Admission nura Condition: Fair nura Problem: new nura Symptoms: have improved nura Bed/Room Type: Standard [facility] Location: Intensive Care Unit(09/07/21 03:05) nura Provider: Eduardo Figueroa(09/07/21 03:05) nura Room Assignment: 1-(09/07/21 03:53) Diagnosis - Alcohol abuse with intoxication nura - Alcohol dependence with withdrawal nura - Essential (primary) hypertension nura Forms: - Medication Reconciliation Form nura - SBAR form nura Critical care time excluding procedures: 03:01 Critical care time: Bedside Care: 20 minutes, Family Intervention: 5 minutes. Total nura time: 25 minutes Signatures: Dispatcher [employer] EDMS Leandra Pierre RN RN mw Anderson, Corey, MD MD cha Attema, Lee, INSTRUCTIONAL DESIGNER-C INSTRUCTIONAL DESIGNER-Cla1 Pastor Palafox RN RN as6 Michelle Live RN RN mk Corrections: (The following items were deleted from the chart) 02:24 02:24 Banana Bag - (Multivitamin 1 amp, NS 0.9% 1000 ml, Thiamine 100 mg, foLIC Acid 1 la1 mg) IV at calculated rate once ordered. la1 02:34 02:22 SALICYLATE+C.LAB.BRZ ordered. EDWA EDMS 03:05 03:04 Royer Canas cha, cha 03:05 03:04 Telemetry/MedSurg (Inpatient) nura nura 03:05 03:04 nura nura 03:53 03:05 [facility]
--- NOTE | 2021-09-07 03:05 | ER ---
Nurse's Notes [facility] Name: Mehdi Ramos III Age: 36 yrs Sex: Male : 1985 Arrival Date: 09/07/2021 Time: 02:15 Bed 24 Private MD: Diagnosis: Alcohol abuse with intoxication;Alcohol dependence with withdrawal;Essential (primary) hypertension Presentation: 09/07 02:21 Chief complaint: Patient states: Reports "I'm scared I'm going to have a seizure, I am mk in withdrawals", pt shaking, states last consumption of EtOH was during the daytime (unsure of the hour). hx EtOH abuse w/ seizures and HTN. Coronavirus screen: Vaccine status:. Ebola Screen: Patient negative for fever greater than or equal to 101.5 degrees Fahrenheit, and additional compatible Ebola Virus Disease symptoms. Initial Sepsis Screen: Does the patient meet any 2 criteria? No. Patient's initial sepsis screen is negative. Does the patient have a suspected source of infection? No. Patient's initial sepsis screen is negative. Risk Assessment: Do you want to hurt yourself or someone else? Patient reports no desire to harm self or others. Onset of symptoms was September 07, 2021. 02:21 Method Of Arrival: EMS: [facility] 02:21 Acuity: BRANDON 3 Historical: - Allergies: 02:25 No Known Allergies; - Home Meds: 02:25 None [Active]; - PMHx: 02:25 Alcoholism; - Immunization history:: Adult Immunizations up to date. - Social history:: Smoking status: Patient denies any tobacco usage or history of. Patient uses alcohol. - Family history:: not pertinent. Screenin:23 Abuse screen: Denies threats or abuse. Nutritional screening: No deficits noted. Tuberculosis screening: No symptoms or risk factors identified. Fall Risk No fall in past 12 months (0 pts). Secondary diagnosis (15 points) seizures, IV access (20 points). Ambulatory Aid- None/Bed Rest/Nurse Assist (0 pts). Gait- Normal/Bed Rest/Wheelchair (0 pts) Mental Status- Overestimates/Forgets Limitations (15 pts.). Total Kaufman Fall Scale indicates Low Risk Score (25-44 pts). Fall prevention measures have been instituted. Side Rails Up X 2 Placed close to Nursing Station Frequent Obs/Assesments occuring. Assessment: 02:20 General: Appears unkempt, Behavior is agitated, anxious, restless. Pain: Denies pain. mk Neuro: Level of Consciousness is awake, alert, obeys commands, Oriented to person, place, time, situation, Simonizer are equal bilaterally Gait is unsteady, Speech is slurred, noted shaking in hands . Seizure activity hx of seizure once while detoxing but states 'it's only because I went cold turkey'. Cardiovascular: Heart tones S1 S2 Capillary refill < 3 seconds in bilateral fingers toes JVD is absent Patient's skin is warm and dry. Pulses are 3+ in right radial artery, right dorsalis pedis artery, left radial artery and left dorsalis pedis artery Rhythm is sinus rhythm. Respiratory: Airway is patent Trachea midline Respiratory effort is even, unlabored, Respiratory pattern is regular, symmetrical, Breath sounds are clear. GI: No signs and/or symptoms were reported involving the gastrointestinal system. : No signs and/or symptoms were reported regarding the genitourinary system. Derm: Skin is intact, is healthy with good turgor, Skin is diaphoretic, Skin temperature is warm. Musculoskeletal: Circulation, motion, and sensation intact. Capillary refill < 3 seconds, Range of motion: intact in all extremities. 02:30 General: Appears uncomfortable, Behavior is anxious, restless. General: pt shaking . as6 Pain: Denies pain. Neuro: Level of Consciousness is awake, alert, obeys commands, Oriented to person, place, time, situation. Derm: Skin is diaphoretic. 03:30 Reassessment: Patient and/or family updated on plan of care and expected duration. Pain mk level reassessed. Patient is alert, oriented x 3, equal unlabored respirations, skin warm/dry/pink. Patient states symptoms have improved. 04:49 Reassessment: Patient and/or family updated on plan of care and expected duration. Pain mk level reassessed. Patient is alert, oriented x 3, equal unlabored respirations, skin warm/dry/pink. Patient states symptoms have improved. pt less shaky, asking when the next time he can have ativan is . Vital Signs: 02:21 BP 174 / 107; Pulse 89; Resp 24; Pulse Ox 99% on R/A; mk 02:25 Temp 98.5(O); Weight 74.39 kg (M); Height 5 ft. 6 in. (167.64 cm) (R); mk 03:46 BP 134 / 96; Pulse 86; Resp 23 S; Pulse Ox 94% on R/A; as6 04:15 BP 123 / 69; Pulse 62; Resp 18; Pulse Ox 96% on R/A; mk 04:46 BP 134 / 89; Pulse 96; Resp 18; Pulse Ox 96% on R/A; mk 05:15 BP 132 / 79; Pulse 95; Resp 18; Pulse Ox 98% on R/A; mk 05:45 BP 133 / 92; Pulse 111; Resp 18; Pulse Ox 94% on R/A; mk 02:25 Body Mass Index 26.47 (74.39 kg, 167.64 cm) mk Hegins Coma Score: 04:15 Eye Response: spontaneous(4). Verbal Response: oriented(5). Motor Response: obeys mk commands(6). Total: 15. 04:46 Eye Response: spontaneous(4). Verbal Response: oriented(5). Motor Response: obeys mk commands(6). Total: 15. 05:15 Eye Response: spontaneous(4). Verbal Response: oriented(5). Motor Response: obeys mk commands(6). Total: 15. 05:45 Eye Response: spontaneous(4). Verbal Response: oriented(5). Motor Response: obeys mk commands(6). Total: 15. ED Course: 02:15 Patient arrived in ED. wm 02:19 Pastor Palafox, JAMIE is Primary Nurse. as6 02:20 satellite project site monitor on. Pulse ox on. NIBP on. mk 02:23 Triage completed. mk 02:24 Glenn Conteh MD is Attending Physician. nura 02:24 Patient has correct armband on for positive identification. Placed in gown. Bed in low mk position. Call light in reach. Side rails up X 1. satellite project site monitor on. Pulse ox on. NIBP on. 02:24 Arm band placed on Patient placed in the treatment room. EKG completed in triage. mk Results shown to . 02:25 Inserted saline lock: 18 gauge in right antecubital area, using aseptic technique. as6 Blood collected. 02:29 Acetaminophen Level Sent. mk 02:29 Basic Metabolic Panel Sent. mk 02:29 Protime (+INR) Sent. mk 02:29 Liver (Hepatic) Function Sent. mk 02:29 Alcohol Serum/Plasma Sent. mk 02:29 Magnesium Sent. mk 02:29 CBC with Automated Diff Sent. mk 02:29 NT PRO-BNP Sent. mk 02:29 Troponin HS Sent. mk 02:33 Magnesium Sent. mk 02:33 Acetaminophen Sent. mk 02:33 Basic Metabolic Panel Sent. mk 02:33 CBC with Diff Sent. mk 02:33 ETOH Level Sent. mk 02:33 Hepatic Function Sent. mk 02:33 PT-INR Sent. mk 02:33 Ptt, Activated Sent. mk 02:33 Urine Drug Screen Sent. mk 02:35 XRAY Chest (1 view) In Process Unspecified. EDMS 03:02 Royer Canas MD is Hospitalizing Provider. nura 03:05 Eduardo Figueroa MD is Hospitalizing Provider. nura 03:46 No provider procedures requiring assistance completed. as6 03:47 Patient admitted, IV remains in place. as6 Administered Medications: 02:24 CANCELLED (Other Intervention Used): Banana Bag - (NS 0.9% 1000 ml, foLIC Acid 1 mg, la1 Thiamine 100 mg, Multivitamin 1 amp) IV at calculated rate once 02:40 Drug: Ativan (LORazepam) 2 mg Route: IVP; Site: right antecubital; as6 03:47 Follow up: Response: No adverse reaction as6 02:40 Drug: Thiamine 100 mg Route: IV; Rate: bolus; Site: right antecubital; as6 03:47 Follow up: Response: No adverse reaction; IV Status: Completed infusion; IV Intake: [id number] 02:40 Drug: foLIC Acid 1 mg Route: IVPB; Site: right antecubital; as6 03:48 Follow up: Response: No adverse reaction; IV Status: Completed infusion; IV Intake: [id number] 02:40 Drug: Zofran (Ondansetron) 4 mg Route: IVP; Site: right antecubital; as6 03:48 Follow up: Response: No adverse reaction as6 02:40 Drug: Banana Bag - (NS 0.9% 1000 ml, foLIC Acid 1 mg, Thiamine 100 mg, Multivitamin 1 as6 amp) Route: IV; Rate: 500 ml/hr; Site: right antecubital; 03:48 Follow up: IV Status: Infusion continued upon admission as6 02:40 Drug: Pepcid (famotidine) 20 mg Route: IVP; Site: right antecubital; as6 03:48 Follow up: Response: No adverse reaction as6 03:13 Drug: Ativan (LORazepam) 2 mg Route: IVP; Site: right antecubital; as6 03:48 Follow up: Response: No adverse reaction as6 Intake: 03:47 IV: 10ml; Total: 10ml. as6 03:48 IV: 10ml; Total: 20ml. as6 Outcome: 03:04 Decision to Hospitalize by Provider. [facility] 03:47 Admitted to ER Hold. Please see [facility] for further documentation. as 03:47 Condition: stable 03:47 Instructed on the need for admit. 05:52 Admitted to ICU accompanied by nurse, via wheelchair, on monitor, with chart, Report mk called to accepting RN 05:52 Patient left the ED. Signatures: Dispatcher [employer] EDRI Glenn Conteh MD MD cha Marsh, Wendy wm Slawson, Ashby, RN RN as6 Michelle Live, RN RN David [id number]-[email or web address] Corrections: (The following items were deleted from the chart) 04:50 02:20 Neuro: Level of Consciousness is awake, alert, obeys commands, Oriented to person, place, time, situation, Simonizer are equal bilaterally Gait is unsteady, Speech is slurred, Seizure activity hx of seizure once while detoxing but states 'it's only because I went cold turkey' 04:50 03:30 Reassessment: No changes from previously documented assessment. Patient and/or mk family updated on plan of care and expected duration. Pain level reassessed. Patient is alert, oriented x 3, equal unlabored respirations, skin warm/dry/pink.
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
[2021-09-07 03:47] LABS: Protime INR 0.91
[2021-09-07 04:16] LABS: Urine Blood Negative (Negative); Urine Glucose Negative (Negative); Urine Protein 1+ (Negative); Urine pH 7.5 (5.0-7.0)
[2021-09-07 04:25] LABS: Absolute Lymphocytes (CBC) 0.5 K/uL (0.7-4.9); Hematocrit 41.2 % (39.6-49.0); Lymphocytes % 11.3 % (15.3-44.8); MPV 8.1 fL (7.6-11.3); RBC Red Blood Cell Count 4.48 M/uL (4.33-5.43)
[2021-09-07 04:43] LABS: Barbiturates NEGATIVE (NEGATIVE); Benzodiazepines NEGATIVE (NEGATIVE); Cocaine NEGATIVE (NEGATIVE); METHAMPHETAM NEGATIVE (NEGATIVE); Methadone NEGATIVE (NEGATIVE); Opiates NEGATIVE (NEGATIVE); Phencyclidine NEGATIVE (NEGATIVE); THC Cannibis NEGATIVE (NEGATIVE)
[2021-09-07 04:59] LABS: ALT/SGPT 64 U/L (12-78); AST/SGOT 63 U/L (15-37); Albumin 3.8 g/dL (3.4-5.0); Alkaline Phosphatase 106 U/L (45-117); BUN Blood Urea Nitrogen 8 mg/dL (7-18); Bicarbonate 27 mmol/L (21-32); Bilirubin Direct 0.2 mg/dL (0-0.2); Bilirubin Total 0.6 mg/dL (0.2-1.0); Glucose Level 92 mg/dL (74-106); NT PRO-BNP 12 pg/mL (<125); Potassium 3.9 mmol/L (3.5-5.1); Protein, Total 7.6 g/dL (6.4-8.2); Sodium Level 138 mmol/L (136-145)
[2021-09-07] MEDS ORDERED: FLUMAZENIL 0.1 MG/ML (5 mL VIAL) IV PRN (05:52)
[2021-09-07] MEDS: LORazepam 2 MG/ML VIAL IV PRN ×8 (06:01→23:52)
[2021-09-07] MEDS: ENOXAPARIN 40 MG/0.4 ML SQ SCH (08:23)
[2021-09-07] MEDS: FOLIC ACID 1 MG, MULTIVITAMINS INJ 10 ML, THIAMINE HCL 100 MG in NA CHLORIDE 0.9% 1,000 ML IV SCH (08:24)
--- NOTE | 2021-09-07 08:41 | RAD REPORT ---
EXAM DESCRIPTION: Arben Single View09/07/2021 2:35 am CLINICAL HISTORY: Hypertension/tachycardia COMPARISON: 2020 FINDINGS: The lungs appear clear of acute infiltrate. The heart is normal size IMPRESSION: No acute abnormalities displayed
[2021-09-07] MEDS: ONDANSETRON 4 MG/2 ML VIAL IV PRN ×2 (08:49→19:41)
[2021-09-07] MEDS: LORazepam 2 MG/ML VIAL IV SCH ×3 (09:52→22:20)
--- NOTE | 2021-09-07 14:34 | P.PN ---
Subjective Date of Service: 09/07/21 Chief Complaint: Alcohol withdrawal Subjective: No new changes Physical Examination - Vital Signs Temperature: 97.4 F Blood Pressure: 127/90 Pulse: 81 Respirations: 18 Pulse Ox (%): 99 Assessment And Plan Physician Review: Patient Assessed, Agree with Above Assessment and Plan Physician Review Additional Text: 09/07/21 14:33 - Physical Exam General: Alert, In no apparent distress, Oriented x3, Other (Anxious, tremulous) HEENT: Atraumatic, PERRLA, Mucous membr. moist/pink, EOMI, Sclerae nonicteric Neck: Supple, 2+ carotid pulse no bruit, No LAD, Without JVD or thyroid abnormality Respiratory: Clear to auscultation bilaterally, Normal air movement Cardiovascular: Regular rate/rhythm (Sinus tachycardia 105), Normal S1 S2 Capillary refill: <2 Seconds Gastrointestinal: Normal bowel sounds, No tenderness Musculoskeletal: No tenderness Integumentary: No rashes Neurological: Normal speech, Normal strength at 5/5 x4 extr, Normal tone, Normal affect Assessment and Plan - Plan Assessment: Acute alcohol withdrawal with underlying alcoholism Plan: -Still mild tremors as well as tachycardia, continue oral medication Continue ICU stay Continue IV potassium bicarb gentle IV fluid hydration Acute possible transfer to floor in a.m. DVT PPX: Lovenox Code status: Full Discharge Plan: Home Plan to discharge in: Greater than 2 days Code Status Assessed: Yes (Full code)
[2021-09-07] MEDS ORDERED: TRAZODONE 50 MG TABLET PO PRN (19:37)
[2021-09-07] MEDS: HYDROCODONE/APAP 5/325 MG TAB PO PRN (22:20)
[2021-09-08] MEDS: LORazepam 2 MG/ML VIAL IV SCH ×5 (01:49→21:33)
[2021-09-08] MEDS: ONDANSETRON 4 MG/2 ML VIAL IV PRN (04:13)
[2021-09-08] MEDS: LORazepam 2 MG/ML VIAL IV PRN ×5 (04:13→16:54)
[2021-09-08 05:03] LABS: Absolute Lymphocytes (CBC) 0.9 K/uL (0.7-4.9); Hematocrit 40.6 % (39.6-49.0); Lymphocytes % 21.9 % (15.3-44.8); MPV 8.6 fL (7.6-11.3); RBC Red Blood Cell Count 4.37 M/uL (4.33-5.43)
[2021-09-08 05:21] LABS: Albumin 3.8 g/dL (3.4-5.0); Bilirubin Total 0.9 mg/dL (0.2-1.0); Magnesium 2.2 mg/dL (1.8-2.4); Phosphorus 2.2 mg/dL (2.5-4.9); Potassium 3.8 mmol/L (3.5-5.1); Protein, Total 7.6 g/dL (6.4-8.2)
[2021-09-08] MEDS ORDERED: POTASSIUM CL SA 10 MEQ TAB PO ONE ×2 (05:46→08:01)
[2021-09-08] MEDS ORDERED: THIAMINE 200 MG/2 ML INJ ONE (08:14)
[2021-09-08] MEDS ORDERED: NA CHLORIDE 0.9% 1,000 ML ONE (08:14)
[2021-09-08] MEDS: POTASS/SODIUM PHOSPHATE 1 PKT POWD.PACK PO SCH ×3 (08:16→09:08)
[2021-09-08] MEDS: ENOXAPARIN 40 MG/0.4 ML SQ SCH (08:17)
[2021-09-08] MEDS: FOLIC ACID 1 MG, MULTIVITAMINS INJ 10 ML, THIAMINE HCL 100 MG in NA CHLORIDE 0.9% 1,000 ML IV SCH (08:22)
--- NOTE | 2021-09-08 09:14 | P.PN ---
Subjective Date of Service: 09/08/21 Chief Complaint: Alcohol withdrawal Subjective: No new changes, No C/O voiced Physical Examination - Vital Signs Temperature: 98.2 F Blood Pressure: 120/74 Pulse: 70 Respirations: 20 Pulse Ox (%): 98 Assessment And Plan Physician Review: Patient Assessed, Agree with Above Assessment and Plan Physician Review Additional Text: 09/07/21 14:33 - Physical Exam General: Alert, In no apparent distress, Oriented x3, mild tremors - worsen when talking to patient HEENT: Atraumatic, PERRLA, Mucous membr. moist/pink, EOMI, Sclerae nonicteric Neck: Supple, 2+ carotid pulse no bruit, No LAD, Without JVD or thyroid abnormality Respiratory: Clear to auscultation bilaterally, Normal air movement Cardiovascular: Regular rate/rhythm , Normal S1 S2 Capillary refill: <2 Seconds Gastrointestinal: Normal bowel sounds, No tenderness Musculoskeletal: No tenderness Integumentary: No rashes Neurological: Normal speech, Normal strength at 5/5 x4 extr, Normal tone, Normal affect Assessment and Plan - Plan Assessment: Acute alcohol withdrawal with underlying alcoholism Plan: -Still mild tremors , resolved tachycardia -will reduce ativan to 2 mg q4h -Report patient reportedly asking for Ativan every hour Patient seems to exhibit more tremulousness when he has been observed I suspect his anxiety may be contributing to his alcohol withdrawal symptoms Start him on anxiolytic medication Transfer him to floor today We will replete phosphorus DVT PPX: Lovenox Code status: Full Discharge Plan: Home Plan to discharge in: Greater than 2 days Code Status Assessed: Yes (Full code) 09/08/21 09:12
[2021-09-08] MEDS ORDERED: POTASS/SODIUM PHOSPHATE 1 PKT POWD.PACK PO ONE (09:15)
[2021-09-08] MEDS: SERTRALINE HCL 50 MG TAB PO SCH (09:43)
[2021-09-08] MEDS: HYDROCODONE/APAP 5/325 MG TAB PO PRN (14:32)
[2021-09-08] MEDS ORDERED: ZIPRASIDONE MESYLA 20 MG/VIAL IM ONE (15:43)
[2021-09-08] MEDS ORDERED: WATER FOR INJ,STERILE 10 ML IM PRN (15:43)
[2021-09-08 21:21] VITALS: O2SAT 97
[2021-09-09] MEDS: LORazepam 2 MG/ML VIAL IV PRN ×2 (00:12→08:04)
[2021-09-09] MEDS: LORazepam 2 MG/ML VIAL IV SCH (01:52)
[2021-09-09] MEDS ORDERED: LORazepam 2 MG/ML VIAL IV SCH (04:00)
[2021-09-09 04:19] VITALS: BMI 25.6
[2021-09-09 05:07] LABS: Absolute Lymphocytes (CBC) 0.6 K/uL (0.7-4.9); Hematocrit 42.7 % (39.6-49.0); Lymphocytes % 8.3 % (15.3-44.8); MPV 8.6 fL (7.6-11.3)
[2021-09-09 05:30] LABS: ALT/SGPT 72 U/L (12-78); AST/SGOT 72 U/L (15-37); Albumin 3.8 g/dL (3.4-5.0); Alkaline Phosphatase 79 U/L (45-117); BUN Blood Urea Nitrogen 9 mg/dL (7-18); Bicarbonate 25 mmol/L (21-32); Glucose Level 86 mg/dL (74-106); Magnesium 2.3 mg/dL (1.8-2.4); Phosphorus 2.5 mg/dL (2.5-4.9); Potassium 4.3 mmol/L (3.5-5.1); Protein, Total 7.9 g/dL (6.4-8.2); Sodium Level 135 mmol/L (136-145)
[2021-09-09] MEDS: ENOXAPARIN 40 MG/0.4 ML SQ SCH (08:04)
[2021-09-09] MEDS: SERTRALINE HCL 50 MG TAB PO SCH (08:04)
[2021-09-09] MEDS: FOLIC ACID 1 MG, MULTIVITAMINS INJ 10 ML, THIAMINE HCL 100 MG in NA CHLORIDE 0.9% 1,000 ML IV SCH (08:06)
--- NOTE | 2021-09-09 12:10 | P.DS ---
Admission Date: 09/07/21 Discharge Date: 09/09/21 Disposition: ROUTINE DISCHARGE Discharge Condition: FAIR Reason for Admission: Alcohol withdrawal Hospital Course: Hospital course Patient with history of heavy alcohol abuse, depression admitted for recent alcohol binge and with withdrawal symptoms. Patient was markedly tremulous on prior admission. He was started on high doses of Ativan as per withdrawal protocol. Patient was initially requiring escalating doses of Ativan to improve after added Geodon to regimen. He admits to prior history of anxiety and depression and was previously on the medication but states he stopped taking it due to some side effects. He is unable to recall the name of the medication or the side effect that he had. He said he has tried hydroxyzine before for his anxiety control. His tremulousness and tachycardia markedly resolved with IV fluid banana bag as well as Ativan doses. He is ambulating well now with minimal assist. He is nontremulous and conversant. He is agreeable to doing trial of an anxiolytic again. He will be discharged home with a short course of Ativan as well as initiation of citalopram for anxiety control. He has been advised to follow-up with primary at the [facility] in [place] in the next 1 to 2 weeks - Physical Exam General: Alert, In no apparent distress, Oriented x3, no tremors on outstretched hand elicited HEENT: Atraumatic, PERRLA, Mucous membr. moist/pink, EOMI, Sclerae nonicteric Neck: Supple, 2+ carotid pulse no bruit, No LAD, Without JVD or thyroid abnormality Respiratory: Clear to auscultation bilaterally, Normal air movement Cardiovascular: Regular rate/rhythm , Normal S1 S2 Capillary refill: <2 Seconds Gastrointestinal: Normal bowel sounds, No tenderness Musculoskeletal: No tenderness Integumentary: No rashes Neurological: Normal speech, Normal strength at 5/5 x4 extr, Normal tone, Normal affect Vital Signs/Physical Exam: Temp Pulse Resp BP Pulse Ox 98.7 F 80 19 125/92 H 97 09/09/21 08:00 09/09/21 11:00 09/09/21 11:00 09/09/21 11:00 09/09/21 06:00 Laboratory Data at Discharge: WBC 6.60 K/uL (4.3-10.9) D 09/09/21 04:14 Hgb 14.1 g/dL (13.6-17.9) 09/09/21 04:14 Hct 42.7 % (39.6-49.0) 09/09/21 04:14 Plt Count 125 K/uL (152-406) L 09/09/21 04:14 PT 10.4 SECONDS (9.5-12.5) 09/07/21 04:00 INR 0.91 09/07/21 04:00 APTT 27.6 SECONDS (24.3-36.9) 09/07/21 04:00 Sodium 135 mmol/L (136-145) L 09/09/21 04:14 Potassium 4.3 mmol/L (3.5-5.1) 09/09/21 04:14 BUN 9 mg/dL (7-18) 09/09/21 04:14 Creatinine 0.86 mg/dL (0.55-1.3) 09/09/21 04:14 Glucose 86 mg/dL (74-106) 09/09/21 04:14 Phosphorus 2.5 mg/dL (2.5-4.9) 09/09/21 04:14 Magnesium 2.3 mg/dL (1.8-2.4) 09/09/21 04:14 Total Bilirubin 1.0 mg/dL (0.2-1.0) 09/09/21 04:14 AST 72 U/L (15-37) H 09/09/21 04:14 ALT 72 U/L (12-78) 09/09/21 04:14 Alkaline Phosphatase 79 U/L (45-117) 09/09/21 04:14 Home Medications: Citalopram Hydrobromide [Celexa] 20 mg PO DAILY #30 tablet 09/09/21 Lorazepam [Ativan] 1 mg PO Q6H #12 tablet 09/09/21 Thiamine HCl 100 mg PO DAILY #30 tablet 09/09/21 New Medications: Lorazepam [Ativan] 1 mg PO Q6H #12 tablet Citalopram Hydrobromide [Celexa] 20 mg PO DAILY #30 tablet Thiamine HCl 100 mg PO DAILY #30 tablet Diet: Regular Followup: NONE,NONE [Primary Care Provider] - Physician Review: Patient Assessed, Agree with Above Assessment and Plan Time spent managing pt's care (in minutes): 35
[2021-09-09 12:19] VITALS: BP 150/101; TEMP 98.6
== END 2021-09-09 14:00 | disposition home or self-care (01) | DRG 897 ==
LOC: ER 02:14 → ERHOLD 03:37 → 3RD-ICU 05:12
PROVIDERS: ADMIT Internal Medicine; ATTEND Internal Medicine
DX: F10.239 Alcohol dependence with withdrawal, unspecified (principal); F10.229 Alcohol dependence with intoxication, unspecified; I10 Essential (primary) hypertension; F41.9 Anxiety disorder, unspecified; R00.0 Tachycardia, unspecified; Z79.899 Other long term (current) drug therapy; Z20.822 Contact with and (suspected) exposure to COVID-19
CPT/HCPCS: 36415; 71045; 80048; 80053; 80076; 80307; 80320; 80329; 81003; 83735; 83880; 84100; 84484; 85025; 85610; 85730; 93005; 96365; 96367; 96368; 96375; 99285; J1650; J2405; J3411; J3486; J7030; U0003

== ENCOUNTER 2021-11-27 23:04 | Emergency (ER) | payer SELFPAY ==
--- OUTSIDE RECORDS SUMMARY | 2021-11-27 23:10 | XMS REPORT | Continuity of Care Document ---
:1985 Author Organization [facility] t Address [address] [place] [address] Care Team Providers Name Role Phone STOCK, [...] Known DA Active U 2019-07 [facility] Allergie 0-10 [facility] 00:[facility]: [facility] 00 are [facility]ly [facility] No Known DA Active U 2019-07 [facility] Allergie 0-10 [facility] s 00:00: [facility] 00 are [facility] No Known DA Active U [facility] Allergie 11-07 [facility] s 00:00: [facility] 00 are [facility]ly [facility] No Known DA Active U [facility] Allergie 11-07 [facility] s 00:00: [facility] 00 are [facility]ly [facility] NO KNOWN Allergy Active NPI:118 ALLERGIE [id number] S No Known DA Active NPI:170 Allergie [id number] s Medications This patient has no known medications. [...] Facility Department ID 2020-05-01 Inpatient HCANW WADE [id number] [facility] 06:33:00 [facility] are [facility]ly [facility] 2020-04-30 Inpatient HCANW WADE [id number] [facility] 13:14:00 [facility] are [facility] 2021-07-28 2021-07-28 Outpatient SHREYAS [facility] [id number] NPI:118 00:00:00 00:00:00 SAM [id number] 2021-07-19 2021-07-24 [facility] Internal [id number] [facility] 22[facility]55:00 15:50:00 [facility] [place] 2019-11-03 2019-11-04 Emergency E [facility] [id number] NPI:170 21:18:00 15:38:00 [id number] 2019-09-19 2019-09-21 Emergency E JILLIAN [facility] [id number] NPI:170 18:38:00 15:50:00 STARR [id number] 2019-09-16 2019-09-16 Emergency E JOSE [facility] [id number] NPI:170 00:16:00 22:00:00 KATJA [id number] 2019-07-25 2019-07-27 Emergency E SUPA, [facility] [id number] NPI:170 15:36:00 11:45:00 BRENNAN [id number] Results Test Description Test Time Test Comments [...] NOT 1092) ACCURATE CRE ATININE CLEARANCE IN ND EDICTING GLOMERULAR FILT RATION RATE. ESTIMATED GFR IS NOT APPLICABLE FOR DIALYSIS PATIENTS. [employer] Coordinator ID - [id number] W/PLT COUNT & AUTO [id number] 04:34:19 Test Item Value Reference Range Interpretation [...] (test code = 2801) VITAMIN B12 AND [id number] 16:24:49 Test Item Value Reference Range Interpretation Comments VITAMIN B12 (BEAKER) 470 pg/mL 211-911 (test code = 774) FOLATE (BEAKER) > ng/mL See_Comment [Automated message] The (test code = 362) system [employer] generated this result tra nsmitted reference range : >=5.40. The reference r alicia was not used to int erpret this result as normal/abnormal . [employer] Coordinator ID - [id number] 16:11:30 Test Item Value Reference Range Interpretation Comments FERRITIN (BEAKER) (test code = 927.88 ng/mL 22.00-322.00 H 361) [employer] Coordinator ID - VATIRON, TIBC, % SAT. (WITHOUT FERRITIN)2021-07-21 15:42:57 Test Item Value Reference Range Interpretation Comments IRON (BEAKER) (test code = 547) 65.0 ug/dL 35.0-175.0 TOTAL IRON BINDING CAPACITY 347 ug/dL 250-550 (BEAKER) (test code = 769) IRON % SATURATION (2) (BEAKER) 19 % 20-55 L (test code = 2590) [employer] Coordinator ID - VATU/S, ABDOMINAL, [id number] 08:48:00Reason for exam:- >possible portal hypertension, thrombocytopenia [facility]ENTER[facility] : 1985 Sex: MFINAL [...] sonographic evidence of portal hypertension. Signed: Noe Marley MDReport Verified Date/Time: 07/21/2021 08:48:30 Reading Location: [facility] Radiology Reading Room [id number] 04:41:59 Test Item Value Reference Range Interpretation Comments LIPASE (BEAKER) (test code = 749) 48 U/L 8-78 [employer] Coordinator ID - [id number] 04:41:58 Test Item Value Reference Range Interpretation Comments MAGNESIUM (BEAKER) (test code = 2.1 mg/dL 1.5-3.0 627) [employer] Coordinator ID - [id number] 04:41:58 Test Item Value Reference Range Interpretation Comments PHOSPHORUS (BEAKER) (test code = 2.2 mg/dL 2.5-4.5 L 604) [employer] Coordinator ID - [id number] METABOLIC [id number] 04:41:57 Test Item Value Reference Range Interpretation [...] S NOT APPLICABLE FOR DIALYSIS PATIEN TS. [employer] Coordinator ID - [id number] W/PLT COUNT & AUTO [id number] 04:25:52 Test Item Value Reference Range Interpretation [...] PERIPHERAL BLOOD SMEAR - PATH REVIEW LAB [id number] 12:53:01 Test Item Value Reference Range Interpretation Comments PERIPHERAL SMR Thrombocytopenia REVIEW (BEAKER) confirmed on smear (test code = 2640) review. No schistocytes seen. WBC and RBC morphology unremarkable. No blast forms seen. [id number] Mychal Thurston M.D. 5 (BEAKER) (test (electronic [...] = 313) CBC W/PLT COUNT & AUTO [id number] 01:08:30 Test Item Value Reference Range Interpretation [...] 0-0 (test code = 413) SARS-COV2/RT-PCR ([facility])2021-07-20 00:20:06 Test Item Value Reference Range Interpretation Comments SARS-COV2/RT-PCR Negative Negative The SARS-Co V-2 target (test code = nucleic acids a re not [id number]) detected in thi s specimen. Negative result [...] rapid, real-srinivasa e RT-PCR test intended for th e qualitative detection of nu cleic acid [...] revoked sooner. Fact Sheet for Healthcare Providers: https://www.[employer]/Documents/Xpert%20Xpress%20SARS%20CoV-2/Fact%20Sheets/3023802%20SARS-COV -2%20HEALTHCARE%20PROVIDERS%20FACT%20SHEET.pdf Fact Sheet for Healthcare Patients: https://www.[employer]/Documents/Xpert %20Xpress%20SARS%20CoV-2/Fact%20Sheets/302-3801%69UOAT-LNA-1%20PATIENT%20FACT%20 SHEET.pdfRAD, CHEST, 1 VIEW, NON [id number] 00:12:00Reason for exam:- >ADDICTION PROBLEMShould this be performed at the bedside?->Yes [facility] 1985 Sex: MFINAL [...] Date/Time: 07/20/2021 00:12:24 CT, BRAIN, WITHOUT IV [id number] 00:01:00Unlisted Reason for Exam - Click Yes and Enter Reason Below->No [facility] CENTERName: [facility] : 1985 Sex: MFINAL [...] No acute intracranial process. Signed: Gareth Cruz Verified Date/Time: 07/20/2021 00:01:11 COMPREHENSIVE METABOLIC [id number] 00:00:27 Test Item Value Reference Range Interpretation [...] S NOT APPLICABLE FOR DIALYSIS PATIEN TS. [id number] 00:00:01 Test Item Value Reference Range Interpretation Comments ETHANOL (BEAKER) 197 mg/dL See_Comment H [Automated message] The (test code = 400) system [facility] generated this result tra nsmitted reference range : <=10. The reference r alicia was not used to int erpret this result as normal/abnormal . [id number] 23:54:29 Test Item Value Reference Range Interpretation Comments MAGNESIUM (BEAKER) (test code = 1.8 mg/dL 1.5-3.0 627) [id number] 23:54:29 Test Item Value Reference Range Interpretation Comments LIPASE (BEAKER) (test code = 749) 300 U/L 40-240 H RAPID DRUG SCREEN, [id number] 23:47:22 Test Item Value Reference Range Interpretation [...] 300 ng/mLCannabinoid 50 ng/mLBenzodiazepine 300 ng/mLTricyclic 1000 ng/tPSweocvuybuw278 ng/mLPhencyclidine 25 ng/mLAmphetamine 1000 ng/mLOpiate 300 ng/mLMethadone 300 ng/mLThis assay provides an unconfirmed qualitative test result for the clinical management of patients in emergency situations. Chain of custody not maintained. Some wwqq-gtw-jcimkmn medications, as well as adulterants, may cause inaccurate results. Clinical correlation should be applied. A more comprehensive drug screen or confirmation of a detected drug may be performed uponrequest.CBC W/AUTO [id number] 06:30:00 Test Item Value Reference Range Interpretation [...] x10 3/uL 0.0-0.1 N = BA#) DIFFERENTIAL [id number] 06:30:00 Test Item Value Reference Range Interpretation Comments PLATELET MORPHOLOGY (test code = NORM NORMAL PLTMORPH) BASIC METABOLIC [id number] 04:10:00 Test Item Value Reference Range Interpretation [...] in AM if not alreadyComments to Phleb: ordered.[id number] 04:10:00 Test Item Value Reference Range Interpretation Comments PHOSPHOROUS (test code = PHOS) 3.0 mg/dl 2.5-4.6 N Comments to Phleb: Repeat Serum K level in AM if not already ordered.Spec Comments: Repeat Serum Magnesium level in AM if not alreadyComments to Phleb: ordered.[id number] 04:10:00 Test Item Value Reference Range Interpretation Comments MAGNESIUM (test code = MAG) 2.6 mg/dl 1.8-2.5 H Comments to Phleb: Repeat Serum K level in AM if not already ordered.Spec Comments: Repeat Serum Magnesium level in AM if not alreadyComments to Phleb: ordered.CBC W/AUTO [id number] 04:01:00 Test Item Value Reference Range Interpretation [...] x10 3/uL 0.0-0.1 N = BA#) DIFFERENTIAL [id number] 04:01:00 Test Item Value Reference Range Interpretation Comments PLATELET MORPHOLOGY (test code = NORMAL PLTMORPH) CBC W/AUTO [id number] 04:01:00 Test Item Value Reference Range Interpretation [...] code = PLT) reported toFirs t Name:FAUSTINO Lang t Name:EDER MIRANDA S READ BACK AND VERIFIEDby [...] x10 3/uL 0.0-0.1 N = BA#) DIFFERENTIAL [id number] 04:01:00 Test Item Value Reference Range Interpretation Comments PLATELET MORPHOLOGY (test code = NORMAL PLTMORPH) CALCIUM [id number] 03:55:00 Test Item Value Reference Range Interpretation Comments CALCIUM IONIZED (test code = SHAYAN) 1.11 mmol/L 1.13-1.32 L [id number] 00:21:00 Test Item Value Reference Range Interpretation Comments GLUBED (test code = GLUBED) 111 MG/DL 70-105 H [id number] 17:18:00 Test Item Value Reference Range Interpretation Comments GLUBED (test code = GLUBED) 71 MG/DL 70-105 N [id number] 13:55:00 Test Item Value Reference Range Interpretation Comments AMMONIA (test code = AMM) 35 umol/L 11-35 N [id number] 13:55:00 Test Item Value Reference Range Interpretation Comments LIPASE (test code = LIP) 61 IU/L 22-51 H [id number] 12:17:00 Test Item Value Reference Range Interpretation Comments GLUBED (test code = GLUBED) 88 MG/DL 70-105 N DRUGS OF ABUSE SCREEN [id number] 10:41:00 Test Item Value Reference Range Interpretation [...] Chronically Ill Ab use and Mental Health [facility]. UR CANABINOIDS (test NEGATIVE NEGATIVE [...] ng/mLRecomme nded screening cut-o ff concentrations [facility]. UR AMPHETAMINE (test NEGATIVE NEGATIVE [...] screening cut-o ff concentrations by [facility]. UR BARBITURATE (test NEGATIVE NEGATIVE [...] screening cut-o ff concentrations by [facility] and [facility]. UR BENZODIAZEPINE NEGATIVE NEGATIVE This [...] ff concentrations by thebstance Ab use and [facility]. UR OPIATES QUAL (test NEGATIVE [...] ng/mLRec ommended screening cut-o ff concentrations [facility] and [facility]. UR PHENCYCLIDINE NEGATIVE NEGATIVE This is a [...] ng/mLRecomme nded screening cut-o ff concentrations by [facility] Ab use and [facility]. URINALYSIS [id number] 10:29:00 Test Item Value Reference Range Interpretation [...] 1+ /LPF NONE SEEN COVID 19 INHOUSE [id number] 08:52:00 Test Item Value Reference Range Interpretation Comments COVID 19 INHOUSE AG NEGATIVE Negative Negative results should (test code = be treated as p resumptive [id number]) andconfirmed wi th a molecular assay , [...] nd symptoms consis tent withCOVID-19. CBC W/AUTO [id number] 08:19:00 Test Item Value Reference Range Interpretation [...] BA#) 0.0 x10 3/uL 0.0-0.1 N DIFFERENTIAL [id number] 08:19:00 Test Item Value Reference Range Interpretation Comments PLATELET MORPHOLOGY (test code = NORMAL NORMAL PLTMORPH) BASIC METABOLIC [id number] 07:49:00 Test Item Value Reference Range Interpretation [...] mg/dL 8.5-10.5 L = CA) COMPREHENSIVE METABOLIC [id number] 07:49:00 Test Item Value Reference Range Interpretation [...] 94 U/L 42-121 N ALKP) LIVER FUNCTION [id number] 07:49:00 Test Item Value Reference Range Interpretation Comments BILIRUBIN DIRECT (test code = BILD) 0.2 mg/dL 0.00-0.20 N [id number] 07:49:00 Test Item Value Reference Range Interpretation Comments ALCOHOL (test code = 100 mg/dl Interpr etive Data:il: ALC) Ethanol Level To convert into le gal units, divide r esult by 1,000 CBC W/AUTO [id number] 07:46:00 Test Item Value Reference Range Interpretation [...] BA#) 0.0 x10 3/uL 0.0-0.1 N DIFFERENTIAL [id number] 07:46:00 Test Item Value Reference Range Interpretation Comments PLATELET MORPHOLOGY (test code = NORMAL PLTMORPH) CBC W/AUTO [id number] 07:46:00 Test Item Value Reference Range Interpretation [...] BA#) 0.0 x10 3/uL 0.0-0.1 N DIFFERENTIAL [id number] 07:46:00 Test Item Value Reference Range Interpretation Comments PLATELET MORPHOLOGY (test code = NORMAL PLTMORPH) CBC W/AUTO [id number] 07:30:00 Test Item Value Reference Range Interpretation [...] = EO#) x10 3/uL 0.0-0.5 CBC W/AUTO [id number] 15:09:00 Test Item Value Reference Range Interpretation [...] (test code = DECREASED ADEQUATE PLTEST) DIFFERENTIAL [id number] 15:09:00 Test Item Value Reference Range Interpretation Comments PLATELET MORPHOLOGY (test code = NORMAL NORMAL PLTMORPH) - CT MAXIFAC W/O [id number] 14:17:00Patient Name: NATA BALLARD Unit No: [id number] EXAMS: CPT: [id number] CT MAXIFAC W/O CONTRAST 91345 EXAM TYPE: CT maxillofacial without INDICATION: Trauma TECHNIQUE: Contiguous axial images were obtained through the face. Coronal and Sagittal reconstruction was performed. CT radiation dose optimization is achieved for this examination by the use of a CT protocol in accordance with ACR practice guidelines and adherence to psychologist research assistant's recommendations. One or more of the following [...] 18.95 DLP: 390.61 Trscr Dt/Tm: 04/30/2020 (1417) by:PauPXB Orig Print D/T: S: 04/30/2020 (9275) BATCH NO: N/A Name: NATA BALLARD [facility] Phys: CONNIE.01 - Nuno Hannah M [address] [place] : 1985 Age: 34 Sex: [place] [id number] Loc: N.ERS Exam Date: 04/30/2020 Status: PRE ER PH: FAX: PAGE 1 Signed Report- CT HEAD/BRAIN W/O [id number] 14:12:00Patient Name: NATA BALLARD Unit No: [id number] EXAMS: CPT: [id number] CT HEAD/BRAIN W/O CONT 09482 Clinical History: Trauma Comparison: CT head 11/06/2018 Technique: Noncontrast 2.5 mm contiguous axial images were obtained from the skull base through the vertex. Coronal and sagittal reformats are provided. CT radiation dose optimization is achieved for this examination by the use of a CT protocol in accordance with ACR practiceguidelines and adherence to psychologist research assistant's recommendations. One or more of the following [...] 44.19 DLP: 807.65 Trscr Dt/Tm: 04/30/2020 (1412) by:Chaka.PXB Orig Print D/T: S: 04/30/2020 (1415) BATCH NO: N/A Name: NATA BALLARD [facility] ED Phys: CONNIEAnna Marie Nuno Hannah : 1985 Age: 34 Sex: [place] [address] Loc: N.ERS Exam Date: 04/30/2020 Status: PRE ER PH: FAX: PAGE 1 Signed ReportCOMPREHENSIVE METABOLIC [id number] 14:02:00 Test Item Value Reference Range Interpretation [...] 42-121 N PHOSPHATASE (test code = ALKP) [id number] 14:02:00 Test Item Value Reference Range Interpretation Comments MAGNESIUM (test code = MAG) 2.1 mg/dl 1.8-2.5 N [id number] 14:02:00 Test Item Value Reference Range Interpretation Comments ALCOHOL (test code = 430 mg/dl Interpr etive Data:il: ALC) Ethanol Level To convert into le gal units, divide r esult by 1,000 CBC W/AUTO [id number] 13:58:00 Test Item Value Reference Range Interpretation [...] BA#) 0.0 x10 3/uL 0.0-0.1 N DIFFERENTIAL [id number] 13:58:00 Test Item Value Reference Range Interpretation Comments PLATELET MORPHOLOGY (test code = NORMAL PLTMORPH) CBC W/AUTO [id number] 13:58:00 Test Item Value Reference Range Interpretation [...] BA#) 0.0 x10 3/uL 0.0-0.1 N DIFFERENTIAL [id number] 13:58:00 Test Item Value Reference Range Interpretation Comments PLATELET MORPHOLOGY (test code = NORMAL PLTMORPH) COMPREHENSIVE METABOLIC [id number] 13:57:00 Test Item Value Reference Range Interpretation [...] U/L 42-121 PHOSPHATASE (test code = ALKP) [id number] 13:57:00 Test Item Value Reference Range Interpretation Comments MAGNESIUM (test code = MAG) mg/dl 1.8-2.5 [id number] 13:57:00 Test Item Value Reference Range Interpretation Comments ALCOHOL (test code = ALC) mg/dl COMPREHENSIVE METABOLIC [id number] 13:57:00 Test Item Value Reference Range Interpretation [...] U/L 42-121 PHOSPHATASE (test code = ALKP) [id number] 13:57:00 Test Item Value Reference Range Interpretation Comments MAGNESIUM (test code = MAG) mg/dl 1.8-2.5 [id number] 13:57:00 Test Item Value Reference Range Interpretation Comments ALCOHOL (test code = ALC) mg/dl CBC W/AUTO [id number] 13:45:00 Test Item Value Reference Range Interpretation [...] 393 mg/dL <=10 H 56A) COMPREHENSIVE METABOLIC [id number] 22:25:00 Test Item Value Reference Range Interpretation [...] 31A) 22 IU/L <=78 PRO TIME AND [id number] 22:18:00 Test Item Value Reference Range Interpretation [...] MORPH (test code = RBCMOR) NORMAL AMMONIA [id number] 14:21:00 Test Item Value Reference Range Interpretation [...] code = 194 mg/dL <=10 H 56A) [id number] 20:48:00 Test Item Value Reference Range Interpretation Comments ACETAMINPH (test code = 94M) <2.0 ug/mL 10.0-30.0 L ALCOHOL BLOOD (ETOH)2019-09-19 20:46:00 Test Item Value Reference Range Interpretation Comments ETOH (test code = HALC) ETHANOL The result is to be used only for medical purposes ALCOHOL (test code = 326 mg/dL <=10 H 56A) COMPREHENSIVE METABOLIC [id number] 20:36:00 Test Item Value Reference Range Interpretation [...] (test code = 31A) 29 IU/L <=78 [id number] 20:26:00 Test Item Value Reference Range Interpretation Comments SALICYLATE (test code = 94B) 1.9 mg/dL 2.8-20.0 L URINALYSIS WITH [id number] 20:13:00 Test Item Value Reference Range Interpretation [...] (test code = USPERM) /HPF NONE AMMONIA [id number] 20:12:00 Test Item Value Reference Range Interpretation Comments AMMONIA (test code = 54A) 48 umol/L 11-32 H DRUGS OF [id number] 20:06:00 Test Item Value Reference Range Interpretation [...] Barbiturates 200 ng/mL Opiates 2000 ng/mL URINALYSIS *WW*2019-09-16 10:59:00 Test Item Value Reference Range Interpretation [...] <1.7 mg/dL 2.8-20.0 L CBC (INCLUDES AUTOMATED DIFFERENTIAL)*[id number] 01:41:00 Test Item Value Reference Range Interpretation [...] = 168 mg/dL <=10 H 56A) ACETAMINOPHEN *WW*2019-07-25 17:05:00 Test Item Value Reference Range Interpretation [...] = WAUAM) NO NO CBC (INCLUDES AUTOMATED DIFFERENTIAL)*[id number] 16:33:00 Test Item Value Reference Range Interpretation [...]
[2021-11-27 23:50] LABS: Urine Blood Trace-lysed (Negative); Urine Glucose Negative (Negative); Urine Protein Trace (Negative); Urine Specific Gravity 1.015 (1.005-1.030)
[2021-11-28] MEDS ORDERED: NA CHLORIDE 0.9% 2,000 ML ONE
[2021-11-28] MEDS ORDERED: THIAMINE 200 MG/2 ML INJ ONE
[2021-11-28] MEDS ORDERED: FOLIC ACID 5 MG/ML VIAL ONE (00:01)
[2021-11-28] MEDS ORDERED: MULTIVITAMINS 10 ML VIAL (INJ) IV ONE (00:01)
[2021-11-28 00:07] LABS: Absolute Lymphocytes (CBC) 2.6 K/uL (0.7-4.9); Hematocrit 44.7 % (39.6-49.0); Lymphocytes % 38.5 % (15.3-44.8); MPV 8.5 fL (7.6-11.3); RBC Red Blood Cell Count 5.11 M/uL (4.33-5.43)
[2021-11-28 00:15] LABS: Barbiturates NEGATIVE (NEGATIVE); Benzodiazepines NEGATIVE (NEGATIVE); Cocaine NEGATIVE (NEGATIVE); METHAMPHETAM NEGATIVE (NEGATIVE); Methadone NEGATIVE (NEGATIVE); Opiates NEGATIVE (NEGATIVE); Phencyclidine NEGATIVE (NEGATIVE); THC Cannibis NEGATIVE (NEGATIVE)
[2021-11-28 00:21] LABS: Protime INR 0.88
[2021-11-28 00:25] LABS: ALT/SGPT 26 U/L (12-78); AST/SGOT 39 U/L (15-37); Alkaline Phosphatase 156 U/L (45-117); BUN Blood Urea Nitrogen 16 mg/dL (7-18); Bicarbonate 28 mmol/L (21-32); Bilirubin Direct 0.1 mg/dL (0-0.2); Bilirubin Total 0.4 mg/dL (0.2-1.0); Glucose Level 109 mg/dL (74-106); Potassium 4.1 mmol/L (3.5-5.1); Protein, Total 8.1 g/dL (6.4-8.2); Sodium Level 142 mmol/L (136-145)
[2021-11-28] MEDS ORDERED: LORazepam 2 MG/ML VIAL ONE ×2 (01:20)
[2021-11-28 01:24] LABS: Troponin High Sensitivity 5.5 pg/mL (<58.9)
--- NOTE | 2021-11-28 06:49 | ER ---
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 Coronavirus screen: At this time, the client does not indicate any symptoms associated with coronavirus-19. Ebola Screen: No symptoms or risks identified at this time. Initial Sepsis Screen: Does the patient meet any 2 criteria? No. Patient's initial sepsis screen is negative. Does the patient have a suspected source of infection? No. Patient's initial sepsis screen is negative. Risk Assessment: Do you want to hurt yourself or someone else? Patient reports no desire to harm self or others. Onset of symptoms was November 27, 2021. 23:09 Method Of Arrival: EMS: [facility] as6 23:09 Acuity: BRANDON 2 as6 Historical: - Allergies: 23:14 No Known Allergies; as6 - Home Meds: 23:14 None [Active]; as6 - PMHx: 23:14 Alcoholism; as6 - Immunization history:: Adult Immunizations unknown. - Social history:: Smoking status: Patient denies any tobacco usage or history of. Patient uses alcohol. Screenin/09 00:05 Abuse screen: Denies threats or abuse. Denies injuries from another. Nutritional as6 screening: No deficits noted. Tuberculosis screening: No symptoms or risk factors identified. Fall Risk None identified. Assessment: 11/27 23:14 General: Appears in no apparent distress. Behavior is cooperative, anxious. General: as6 Smells of alcohol. General: pt shaking . Pain: Denies pain. Neuro: Level of Consciousness is awake, alert, obeys commands, Oriented to person, place, time, situation. Cardiovascular: JVD is absent Patient's skin is warm and dry. Rhythm is sinus tachycardia. Respiratory: Respiratory effort is even, unlabored, Respiratory pattern is regular, symmetrical. 11/28 00:23 General: speech is rambling . as6 01:43 General: Behavior is anxious, restless. as6 03:51 Reassessment: Patient appears in no apparent distress at this time. General: pt as6 sleeping . 06:38 Reassessment: No changes from previously documented assessment. Patient is alert, as6 oriented x 3, equal unlabored respirations, skin warm/dry/pink. 07:00 Reassessment: D/C ON HOLD 2/2 PT SOMNOLENCE. REPORT FROM PASTOR AYALA, 36YO HM P/W ETOH bp INTOXICATION, H/O CHRONIC ALCOHOLISM. 08:47 Reassessment: PT D/C HOME VIA W/C, DX WITH ETOH ABUSE. bp Vital Signs: 11/27 23:09 BP 161 / 127; Pulse 141; Resp 20 S; Temp 98.1(O); Pulse Ox 96% on R/A; Weight 74.84 kg as6 (R); Height 5 ft. 6 in. (167.64 cm) (R); 11/28 00:23 BP 141 / 100; Pulse 123; Resp 30 S; Pulse Ox 94% on R/A; as6 01:43 BP 130 / 95; Pulse 129; Resp 23 S; Pulse Ox 94% on R/A; as6 02:30 BP 164 / 80; Pulse 129; Resp 22 S; Pulse Ox 95% on R/A; as6 03:51 BP 113 / 78; Pulse 95; Resp 20 S; Pulse Ox 92% on R/A; as6 05:43 BP 118 / 86; Pulse 80; Resp 16 S; Pulse Ox 96% on R/A; as6 06:38 BP 109 / 79; Pulse 80; Resp 18 S; Pulse Ox 94% on R/A; as6 07:00 BP 113 / 78; Pulse 97; Resp 17; Pulse Ox 98% ; bp 11/27 23:09 Body Mass Index 26.63 (74.84 kg, 167.64 cm) as6 ED Course: 11/27 23:06 Patient arrived in ED. mw2 23:14 Triage completed. as6 23:14 Pastor Palafox, JAMIE is Primary Nurse. as6 23:14 Arm band placed on. as6 23:27 Neftaly Andersen MD is Attending Physician. mh7 23:50 Inserted saline lock: 18 gauge in right antecubital area, using aseptic technique. as6 Blood collected. 05/09 00:05 Bed in low position. Call light in reach. Side rails up X2. Client placed on continuous as6 cardiac and pulse oximetry monitoring. NIBP monitoring applied. 03:00 Placed in gown. Cleaned of incontinence. Linen changed. 07:21 Primary Nurse role handed off by Pastor Palafox, JAMIE bp 07:21 Pietro Weems, RN is Primary Nurse. bp 08:47 No provider procedures requiring assistance completed. IV discontinued, intact, bp bleeding controlled, No redness/swelling at site. Pressure dressing applied. Administered Medications: 00:04 Drug: NS 0.9% 1000 ml Route: IV; Rate: 1000 ml; Site: right antecubital; as6 04:03 Follow up: Response: No adverse reaction; IV Status: Completed infusion; IV Intake: as6 1000ml 00:04 Drug: Ativan (LORazepam) 1 mg Route: IVP; Site: right antecubital; as6 04:03 Follow up: Response: No adverse reaction as6 00:04 Drug: Banana Bag - (NS 0.9% 1000 ml, foLIC Acid 1 mg, Thiamine 100 mg, Multivitamin 1 as6 amp) Route: IV; Rate: calculated rate; Site: right antecubital; 04:03 Follow up: Response: No adverse reaction; IV Status: Completed infusion; IV Intake: as6 1000ml 01:18 Drug: Ativan (LORazepam) 1 mg Route: IVP; Site: right antecubital; as6 04:03 Follow up: Response: No adverse reaction as6 Intake: 04:03 IV: 1000ml; Total: 1000ml. as6 04:03 IV: 1000ml; Total: 2000ml. as6 Outcome: 06:48 Discharge ordered by . jameson 08:47 Discharged to home via wheelchair. bp 08:47 Condition: stable 08:47 Discharge instructions given to patient, Instructed on discharge instructions, follow up and referral plans. Demonstrated understanding of instructions, follow-up care. 08:48 Patient left the ED. bp Signatures: Pietro Weems, RN RN Aline Whittaker2 Neftaly Andersen MD MD 7 Hannah Perez Pastor Palafox RN RN as6
--- NOTE | 2021-11-28 06:49 | EDPHYS ---
Physician Documentation [facility] Name: Mehdi Ramos III Age: 36 yrs Sex: Male : 1985 Arrival Date: 11/27/2021 Time: 23:06 Bed 8 Private MD: ED Physician Neftaly Andersen HPI: 11/27 23:50 This 36 yrs old Male presents to ER via EMS with complaints of Alcohol mh7 Intoxication. 23:50 The patient presents to the emergency department. mh7 23:50 The patient presents to the emergency department Alcohol Intoxication. Context: Method: mh7 the patient has a confirmed or suspected ingestion, of alcohol, Time: today, Extent: moderate ingestion, approximately 20 cups/bottles of beer, the OD/poisoning occurred at at home, and was witnessed no one, Psychiatric history: none, Previous OD/poisoning history: none. 23:50 Associated signs and symptoms: Pertinent positives: anxiety, Pertinent negatives: mh7 apnea, auditory hallucinations, burning of skin, decreased level of consciousness, depression, diaphoresis, diarrhea, dizziness, incontinence, loss of consciousness, nausea, palpitations, shortness of breath, tearfulness, visual hallucinations, vomiting. Severity of symptoms: At their worst the symptoms were moderate today, in the emergency department the symptoms are unchanged. The patient has experienced similar episodes in the past, chronically. Historical: - Allergies: 23:14 No Known Allergies; as6 - Home Meds: 23:14 None [Active]; as6 - PMHx: 23:14 Alcoholism; as6 - Immunization history:: Adult Immunizations unknown. - Social history:: Smoking status: Patient denies any tobacco usage or history of. Patient uses alcohol. ROS: 23:50 Constitutional: Negative for fever, chills, and weight loss, Eyes: Negative for injury, mh7 pain, redness, and discharge, ENT: Negative for injury, pain, and discharge, Neck: Negative for injury, pain, and swelling, Cardiovascular: Negative for chest pain, palpitations, and edema, Respiratory: Negative for shortness of breath, cough, wheezing, and pleuritic chest pain, Abdomen/GI: Negative for abdominal pain, nausea, vomiting, diarrhea, and constipation, Back: Negative for injury and pain, : Negative for injury, bleeding, discharge, and swelling, MS/Extremity: Negative for injury and deformity, Skin: Negative for injury, rash, and discoloration, Neuro: Negative for headache, weakness, numbness, tingling, and seizure, Psych: Negative for depression, anxiety, suicide ideation, homicidal ideation, and hallucinations, Allergy/Immunology: Negative for hives, rash, and allergies, Endocrine: Negative for neck swelling, polydipsia, polyuria, polyphagia, and marked weight changes, Hematologic/Lymphatic: Negative for swollen nodes, abnormal bleeding, and unusual bruising. Exam: 23:50 Head/Face: Normocephalic, atraumatic. Eyes: Pupils equal round and reactive to light, mh7 extra-ocular motions intact. Lids and lashes normal. Conjunctiva and sclera are non-icteric and not injected. Cornea within normal limits. Periorbital areas with no swelling, redness, or edema. Neck: Trachea midline, no thyromegaly or masses palpated, and no cervical lymphadenopathy. Supple, full range of motion without nuchal rigidity, or vertebral point tenderness. No Meningismus. Chest/axilla: Normal chest wall appearance and motion. Nontender with no deformity. No lesions are appreciated. 23:50 Respiratory: Lungs have equal breath sounds bilaterally, clear to auscultation and percussion. No rales, rhonchi or wheezes noted. No increased work of breathing, no retractions or nasal flaring. Abdomen/GI: Soft, non-tender, with normal bowel sounds. No distension or tympany. No guarding or rebound. No evidence of tenderness throughout. Back: No spinal tenderness. No costovertebral tenderness. Full range of motion. Skin: Warm, dry with normal turgor. Normal color with no rashes, no lesions, and no evidence of cellulitis. MS/ Extremity: Pulses equal, no cyanosis. Neurovascular intact. Full, normal range of motion. 23:50 Psych: Awake, alert, with orientation to person, place and time. Behavior, mood, and affect are within normal limits. 23:50 Constitutional: The patient appears in no acute distress, alert, awake, anxious, smells of alcohol, ETOH, Appears intoxicated 23:50 Cardiovascular: Rate: tachycardic, Rhythm: regular, Pulses: no pulse deficits are appreciated, Heart sounds: normal, normal S1and S2, Edema: is not appreciated, JVD: is not appreciated. 23:50 Neuro: Orientation: is normal, Mentation: is normal, Memory: is normal, Cranial nerves: unable to test, the patient is clinically intoxicated, Cerebellar function: unable to test, the patient is clinically intoxicated, Motor: is normal, Sensation: no obvious gross deficits, Gait: not tested. seizure activity, is not displayed by the patient, Abnormal movements: there are no abnormal movements. Vital Signs: 23:09 BP 161 / 127; Pulse 141; Resp 20 S; Temp 98.1(O); Pulse Ox 96% on R/A; Weight 74.84 kg as6 (R); Height 5 ft. 6 in. (167.64 cm) (R); 11/28 00:23 BP 141 / 100; Pulse 123; Resp 30 S; Pulse Ox 94% on R/A; as6 01:43 BP 130 / 95; Pulse 129; Resp 23 S; Pulse Ox 94% on R/A; as6 02:30 BP 164 / 80; Pulse 129; Resp 22 S; Pulse Ox 95% on R/A; as6 03:51 BP 113 / 78; Pulse 95; Resp 20 S; Pulse Ox 92% on R/A; as6 05:43 BP 118 / 86; Pulse 80; Resp 16 S; Pulse Ox 96% on R/A; as6 06:38 BP 109 / 79; Pulse 80; Resp 18 S; Pulse Ox 94% on R/A; as6 07:00 BP 113 / 78; Pulse 97; Resp 17; Pulse Ox 98% ; bp 11/27 23:09 Body Mass Index 26.63 (74.84 kg, 167.64 cm) as6 MDM: 06:46 Differential diagnosis: Ingestion/exposure to ETOH polypharmacy, over medication, mh7 hypoglycemia. Data reviewed: vital signs, nurses notes, EMS record, old medical records, lab test result(s), CBC, drug level(s), acetaminophen, alcohol, salicylate, electrolytes, EKG. Data interpreted: Pulse oximetry: on room air is 96 %. Interpretation: normal. Counseling: I had a detailed discussion with the patient and/or guardian regarding: the historical points, exam findings, and any diagnostic results supporting the discharge/admit diagnosis, lab results, the need for outpatient follow up, to return to the emergency department if symptoms worsen or persist or if there are any questions or concerns that arise at home. Response to treatment: the patient's symptoms have markedly improved after treatment. 06:48 Patient medically screened. 11/27 23:21 Order name: Acetaminophen; Complete Time: 00:46 11/27 23:21 Order name: Basic Metabolic Panel; Complete Time: 00:46 11/27 23:21 Order name: CBC with Diff; Complete Time: 00:46 11/27 23:21 Order name: ETOH Level; Complete Time: 00:46 11/27 23:21 Order name: Hepatic Function; Complete Time: 00:46 11/27 23:21 Order name: PT-INR; Complete Time: 00:46 11/27 23:21 Order name: Ptt, Activated; Complete Time: 00:46 11/27 23:21 Order name: Salicylate; Complete Time: 00:46 11/27 23:21 Order name: Urine Drug Screen; Complete Time: 00:46 11/27 23:22 Order name: COVID-19 SARS RT PCR (Document "Date of Onset" if Symptomatic); Complete Time: 00:11/27 23:50 Order name: Urine Dipstick-Ancillary; Complete Time: 00:46 [facility] 11/28 00:47 Order name: Troponin High Sensitivity; Complete Time: 01:47 11/28 00:47 Order name: CPK; Complete Time: 01:47 11/27 23:21 Order name: EKG; Complete Time: 23:22 11/27 23:21 Order name: EKG - Nurse/Tech; Complete Time: 23:49 11/27 23:21 Order name: IV Saline Lock; Complete Time: 23:49 11/27 23:21 Order name: Labs collected and sent; Complete Time: 23:50 11/27 23:21 Order name: Suicide Screening ([place]); Complete Time: 23:50 11/27 23:21 Order name: Urine Dipstick-Ancillary (obtain specimen); Complete Time: 23:50 Administered Medications: 00:04 Drug: NS 0.9% 1000 ml Route: IV; Rate: 1000 ml; Site: right antecubital; 6 04:03 Follow up: Response: No adverse reaction; IV Status: Completed infusion; IV Intake: as6 1000ml 00:04 Drug: Ativan (LORazepam) 1 mg Route: IVP; Site: right antecubital; as6 04:03 Follow up: Response: No adverse reaction as6 00:04 Drug: Banana Bag - (NS 0.9% 1000 ml, foLIC Acid 1 mg, Thiamine 100 mg, Multivitamin 1 as6 amp) Route: IV; Rate: calculated rate; Site: right antecubital; 04:03 Follow up: Response: No adverse reaction; IV Status: Completed infusion; IV Intake: as6 1000ml 01:18 Drug: Ativan (LORazepam) 1 mg Route: IVP; Site: right antecubital; as6 04:03 Follow up: Response: No adverse reaction as6 Disposition Summary: 11/28/21 06:48 Discharge Ordered Location: Home [facility] Problem: chronic mh Symptoms: have improved mh7 Condition: Stable 7 Diagnosis - Alcohol abuse with intoxication, uncomplicated mh7 Followup: 7 - With: Private Physician - When: 1 - 2 days - Reason: Worsening of condition, Recheck today's complaints, Continuance of care, Re-evaluation by your physician Discharge Instructions: - Discharge Summary Sheet 7 - Alcohol Use Disorder mh7 - Alcohol Intoxication, [id number] Forms: - Medication Reconciliation Form 7 - Thank You Letter 7 - Antibiotic Education 7 - Prescription Opioid Use [facility] Signatures: Dispatcher [employer] Neftaly Zarate MD MD 7 Pastor Palafox RN RN [email or web address] [place] PA PA [id number]
[2021-11-28 08:54] VITALS: TEMP 98.1
--- NOTE | 2021-11-28 08:56 | EKG ---
Test Date: 2021-11-27 Test Time: 23:33:14 Cable Swager: MEASUREMENT RESULTS: Intervals: Rate: 113 W[place]: 140 QRSD: 94 QT: 314 QTc: 430 [place]: P: 26 W[place]: 140 QRS: -33 T: 7 INTERPRETIVE STATEMENTS: Sinus tachycardia Left axis deviation Incomplete right bundle branch block Minimal voltage criteria for LVH, may be normal variant Abnormal ECG Compared to ECG 09/07/2021 02:22:45 Left-axis deviation now present Left ventricular hypertrophy now present Sinus rhythm no longer present Electronically Signed On 11-28-21 08:55:27 CDT by Constantino Shine
[2021-11-28 09:03] VITALS: BP 113/78; O2SAT 98
== END 2021-11-28 08:48 | disposition home or self-care (01) ==
LOC: ER 23:04
DX: F10.229 Alcohol dependence with intoxication, unspecified (principal); Z20.822 Contact with and (suspected) exposure to COVID-19
CPT/HCPCS: 36415; 80048; 80076; 80307; 80320; 80329; 81003; 82550; 84484; 85025; 85610; 85730; 93005; 96365; 96366; 96375; 99285; U0003

== ENCOUNTER 2021-12-03 13:27 | Emergency (ER) | payer SELFPAY ==
--- OUTSIDE RECORDS SUMMARY | 2021-12-03 13:32 | XMS REPORT | Continuity of Care Document ---
:1985 Author Organization [facility] t Address [address] [place] [address] Care Team Providers Name Role Phone STOCK, [...] DA Active U 2019-07 [facility] [place] [facility] No Known DA Active U 2019-07 [facility] [place] [facility] 00:[facility] 00 [facility] No Known DA Active U [facility] 11[facility]07 [place] [facility] 00 [facility] No Known DA Active [facility]07 [place] [facility] 00:[facility] 00 are [facility] NO KNOWN Allergy Active [facility] No Known DA Active [facility] Medications This patient has no known medications. [...] Facility Department ID 2020-05-01 Inpatient HCANW WADE [id number] [facility] 06:33:00 [facility] 2020-04-30 Inpatient HCANW WADE [id number] [facility] 13:14:00 [facility] 2021-07-28 2021-07-28 Outpatient [facility] [id number] [facility] 00:00:00 00:00:00 [facility] 2021-07-19 2021-07-24 Inpatient ER AMR[facility], [facility] Internal [id number] [facility] 22:55:00 15:50:00 [facility] 2019-11-03 2019-11-04 Emergency E RICHARD COOPER [facility] E[facility] 1000 [id number] [facility] 21:18:00 15:38:00 [facility] [place] 2019-09-19 2019-09-21 Emergency E JILLIAN [facility] ECC [id number] [facility] 18:38:00 15:50:00 [facility] [place] 2019-09-16 2019-09-16 Emergency E JOSE RAMON [facility] [id number] [facility] 00:16:00 22:00:00 [facility] [place] 2019-07-25 2019-07-27 Emergency E SUPA [facility] [id number] [facility] 15:36:00 11:45:00 [facility] Results Test Description Test Time Test Comments [...] NOT 1092) ACCURATE CRE ATININE CLEARANCE IN [place] EDICTING GLOMERULAR FILT RATION RATE. ESTIMATED GFR IS NOT APPLICABLE FOR DIALYSIS PATIENTS. [employer] ID - [id number] W/PLT COUNT & AUTO [id number] 04:34:19 Test Item Value Reference Range Interpretation [...] (test code = 2801) VITAMIN B12 AND [id number] 16:24:49 Test Item Value Reference Range Interpretation Comments VITAMIN B12 (BEAKER) 470 pg/mL 211-911 (test code = 774) FOLATE (BEAKER) > ng/mL See_Comment [Automated message] The (test code = 362) system [employer] generated this result tra nsmitted reference range : >=5.40. The reference r alicia was not used to int erpret this result as normal/abnormal . [employer] ID - [id number] 16:11:30 Test Item Value Reference Range Interpretation Comments FERRITIN (BEAKER) (test code = 927.88 ng/mL 22.00-322.00 H 361) [employer] ID - [id number], TIBC, % SAT. (WITHOUT FERRITIN)2021-07-21 15:42:57 Test Item Value Reference Range Interpretation Comments IRON (BEAKER) (test code = 547) 65.0 ug/dL 35.0-175.0 TOTAL IRON BINDING CAPACITY 347 ug/dL 250-550 (BEAKER) (test code = 769) IRON % SATURATION (2) (BEAKER) 19 % 20-55 L (test code = 2590) [employer] ID - VATU/S, ABDOMINAL, [id number] 08:48:00Reason for exam:- >possible portal hypertension, thrombocytopenia [facility] : 1985 Sex: [...] evidence of portal hypertension. Signed: Noe Marley Verified Date/Time: 07/21/2021 08:48:30 Reading Location: [facility] Radiology Reading Room [id number] 04:41:59 Test Item Value Reference Range Interpretation Comments LIPASE (BEAKER) (test code = 749) 48 U/L 8-78 [employer] ID - [id number] 04:41:58 Test Item Value Reference Range Interpretation Comments MAGNESIUM (BEAKER) (test code = 2.1 mg/dL 1.5-3.0 627) [employer] ID - [id number] 04:41:58 Test Item Value Reference Range Interpretation Comments PHOSPHORUS (BEAKER) (test code = 2.2 mg/dL 2.5-4.5 L 604) [employer] ID - [id number] METABOLIC [id number] 04:41:57 Test Item Value Reference Range Interpretation [...] S NOT APPLICABLE FOR DIALYSIS PATIEN TS. [employer] ID - [id number] W/PLT COUNT & AUTO [id number] 04:25:52 Test Item Value Reference Range Interpretation [...] PERIPHERAL BLOOD SMEAR - PATH REVIEW LAB [id number] 12:53:01 Test Item Value Reference Range Interpretation Comments PERIPHERAL SMR Thrombocytopenia REVIEW (BEAKER) confirmed on smear (test code = 2640) review. No schistocytes seen. WBC and RBC morphology unremarkable. No blast forms seen. [id number] Mychal Thurston M.D. 5 (BEAKER) (test (electronic [...] = 313) CBC W/PLT COUNT & AUTO [id number] 01:08:30 Test Item Value Reference Range Interpretation [...] WBC 0-0 (test code = 413) SARS-COV2/RT-PCR ([facility])2021-07-20 00:20:06 Test Item Value Reference Range Interpretation Comments SARS-COV2/RT-PCR Negative Negative The SARS-Co V-2 target (test code = nucleic acids a re not [id number]) detected in thi s specimen. Negative result [...] revoked sooner. Fact Sheet for Healthcare Providers: https://www.MYFX/Documents/Xpert%20Xpress%20SARS%20CoV-2/Fact%20Sheets/3023802%20SARS-COV -2%20HEALTHCARE%20PROVIDERS%20FACT%20SHEET.pdf Fact Sheet for Healthcare Patients: https://www.TravelSite.com/Documents/Xpert %20Xpress%20SARS%20CoV-2/Fact%20Sheets/3023801%09XFSL-QAW-9%20PATIENT%20FACT%20 SHEET.pdfRAD, CHEST, 1 VIEW, NON [id number] 00:12:00Reason for exam:- >ADDICTION PROBLEMShould this be performed at the bedside?->Yes [facility] 1985 Sex: MFINAL [...] Date/Time: 07/20/2021 00:12:24 CT, BRAIN, WITHOUT IV [id number] 00:01:00Unlisted Reason for Exam - Click Yes and Enter Reason Below->No [facility] : 1985 Sex: [...] No acute intracranial process. Signed: Gareth Cruz MDRpaulaort Verified Date/Time: 07/20/2021 00:01:11 COMPREHENSIVE METABOLIC [id number] 00:00:27 Test Item Value Reference Range Interpretation [...] S NOT APPLICABLE FOR DIALYSIS PATIEN TS. [id number] 00:00:01 Test Item Value Reference Range Interpretation Comments ETHANOL (BEAKER) 197 mg/dL See_Comment H [Automated message] The (test code = 400) system i generated this result tra nsmitted reference range : <=10. The reference r alicia was not used to int erpret this result as normal/abnormal . [id number] 23:54:29 Test Item Value Reference Range Interpretation Comments MAGNESIUM (BEAKER) (test code = 1.8 mg/dL 1.5-3.0 627) [id number] 23:54:29 Test Item Value Reference Range Interpretation Comments LIPASE (BEAKER) (test code = 749) 300 U/L 40-240 H RAPID DRUG SCREEN, [id number] 23:47:22 Test Item Value Reference Range Interpretation [...] 300 ng/mLCannabinoid 50 ng/mLBenzodiazepine 300 ng/mLTricyclic 1000 ng/cXQoqcozzgbdr444 ng/mLPhencyclidine 25 ng/mLAmphetamine 1000 ng/mLOpiate 300 ng/mLMethadone 300 ng/mLThis assay provides an unconfirmed qualitative test result for the clinical management of patients in emergency situations. Chain of custody not maintained. Some ozsk-hki-yyrajmx medications, as well as adulterants, may cause inaccurate results. Clinical correlation should be applied. A more comprehensive drug screen or confirmation of a detected drug may be performed uponrequest.CBC W/AUTO [id number] 06:30:00 Test Item Value Reference Range Interpretation [...] reported toFirs t Name:FAUSTINO Lang t Name:EDER ULKandy S READ BACK AND VERIFIEDby [...] x10 3/uL 0.0-0.1 N = BA#) DIFFERENTIAL [id number] 06:30:00 Test Item Value Reference Range Interpretation Comments PLATELET MORPHOLOGY (test code = NORM NORMAL PLTMORPH) BASIC METABOLIC [id number] 04:10:00 Test Item Value Reference Range Interpretation [...] in AM if not alreadyComments to Phleb: ordered.[id number] 04:10:00 Test Item Value Reference Range Interpretation Comments PHOSPHOROUS (test code = PHOS) 3.0 mg/dl 2.5-4.6 N Comments to Phleb: Repeat Serum K level in AM if not already ordered.Spec Comments: Repeat Serum Magnesium level in AM if not alreadyComments to Phleb: ordered.[id number] 04:10:00 Test Item Value Reference Range Interpretation Comments MAGNESIUM (test code = MAG) 2.6 mg/dl 1.8-2.5 H Comments to Phleb: Repeat Serum K level in AM if not already ordered.Spec Comments: Repeat Serum Magnesium level in AM if not alreadyComments to Phleb: ordered.CBC W/AUTO [id number] 04:01:00 Test Item Value Reference Range Interpretation [...] x10 3/uL 0.0-0.1 N = BA#) DIFFERENTIAL [id number] 04:01:00 Test Item Value Reference Range Interpretation Comments PLATELET MORPHOLOGY (test code = NORMAL PLTMORPH) CBC W/AUTO [id number] 04:01:00 Test Item Value Reference Range Interpretation [...] x10 3/uL 0.0-0.1 N = BA#) DIFFERENTIAL [id number] 04:01:00 Test Item Value Reference Range Interpretation Comments PLATELET MORPHOLOGY (test code = NORMAL PLTMORPH) CALCIUM [id number] 03:55:00 Test Item Value Reference Range Interpretation Comments CALCIUM IONIZED (test code = SHAYAN) 1.11 mmol/L 1.13-1.32 L [id number] 00:21:00 Test Item Value Reference Range Interpretation Comments GLUBED (test code = GLUBED) 111 MG/DL 70-105 H [id number] 17:18:00 Test Item Value Reference Range Interpretation Comments GLUBED (test code = GLUBED) 71 MG/DL 70-105 N [id number] 13:55:00 Test Item Value Reference Range Interpretation Comments AMMONIA (test code = AMM) 35 umol/L 11-35 N [id number] 13:55:00 Test Item Value Reference Range Interpretation Comments LIPASE (test code = LIP) 61 IU/L 22-51 H [id number] 12:17:00 Test Item Value Reference Range Interpretation Comments GLUBED (test code = GLUBED) 88 MG/DL 70-105 N DRUGS OF ABUSE SCREEN [id number] 10:41:00 Test Item Value Reference Range Interpretation [...] ng/mLRec ommended screening cut-o ff concentrations by [facility] Ab use and Mental Health [facility]. UR CANABINOIDS (test NEGATIVE NEGATIVE This is [...] ng/mLRecomme nded screening cut-o ff concentrations by theSubstance Ab use and Mental [facility]. UR AMPHETAMINE (test NEGATIVE NEGATIVE The ing estion of natural code = AMPHU) herbal and rodríguez nt productscontain ing Ephedra/Ephedra -Metabolit es can produce in urineone or mor e substances capa ble of cross-reacting withAmphetamine /Methamphe tamfrancesca immunoas says. This testprovid es a preliminary [...] concentrations by thebstance Ab use and Mental [facility]. UR BARBITURATE (test NEGATIVE NEGATIVE This [...] ff concentrations by thebstance Ab use and [facility]. UR BENZODIAZEPINE NEGATIVE NEGATIVE This is [...] ng/mLRecommende d screening cut-o ff concentrations by theSubstance Ab use and Mental Health S ervices Administration. UR OPIATES QUAL (test NEGATIVE NEGATIVE [...] ng/mLRec ommended screening cut-o ff concentrations by [facility] Ab use and [facility]. UR PHENCYCLIDINE NEGATIVE NEGATIVE This is [...] ng/mLRecomme nded screening cut-o ff concentrations by [facility] use [facility]. URINALYSIS [id number] 10:29:00 Test Item Value Reference Range Interpretation [...] 1+ /LPF NONE SEEN COVID 19 INHOUSE [id number] 08:52:00 Test Item Value Reference Range Interpretation Comments COVID 19 INHOUSE AG NEGATIVE Negative Negative results should (test code = be treated as p resumptive [id number]) andconfirmed wi th a molecular assay , [...] nd symptoms consis tent withCOVID-19. CBC W/AUTO [id number] 08:19:00 Test Item Value Reference Range Interpretation [...] BA#) 0.0 x10 3/uL 0.0-0.1 N DIFFERENTIAL [id number] 08:19:00 Test Item Value Reference Range Interpretation Comments PLATELET MORPHOLOGY (test code = NORMAL NORMAL PLTMORPH) BASIC METABOLIC [id number] 07:49:00 Test Item Value Reference Range Interpretation [...] mg/dL 8.5-10.5 L = CA) COMPREHENSIVE METABOLIC [id number] 07:49:00 Test Item Value Reference Range Interpretation [...] 94 U/L 42-121 N ALKP) LIVER FUNCTION [id number] 07:49:00 Test Item Value Reference Range Interpretation Comments BILIRUBIN DIRECT (test code = BILD) 0.2 mg/dL 0.00-0.20 N [id number] 07:49:00 Test Item Value Reference Range Interpretation Comments ALCOHOL (test code = 100 mg/dl Interpr etive Data:il: ALC) Ethanol Level To convert into le gal units, divide r esult by 1,000 CBC W/AUTO [id number] 07:46:00 Test Item Value Reference Range Interpretation [...] BA#) 0.0 x10 3/uL 0.0-0.1 N DIFFERENTIAL [id number] 07:46:00 Test Item Value Reference Range Interpretation Comments PLATELET MORPHOLOGY (test code = NORMAL PLTMORPH) CBC W/AUTO [id number] 07:46:00 Test Item Value Reference Range Interpretation [...] BA#) 0.0 x10 3/uL 0.0-0.1 N DIFFERENTIAL [id number] 07:46:00 Test Item Value Reference Range Interpretation Comments PLATELET MORPHOLOGY (test code = NORMAL PLTMORPH) CBC W/AUTO [id number] 07:30:00 Test Item Value Reference Range Interpretation [...] = EO#) x10 3/uL 0.0-0.5 CBC W/AUTO [id number] 15:09:00 Test Item Value Reference Range Interpretation [...] (test code = DECREASED ADEQUATE PLTEST) DIFFERENTIAL [id number] 15:09:00 Test Item Value Reference Range Interpretation Comments PLATELET MORPHOLOGY (test code = NORMAL NORMAL PLTMORPH) - CT MAXIFAC W/O [id number] 14:17:00Patient Name: NATA BALLARD Unit No: [id number] EXAMS: CPT: [id number] CT MAXIFAC W/O CONTRAST 26492 EXAM TYPE: CT maxillofacial without INDICATION: Trauma TECHNIQUE: Contiguous axial images were obtained through the face. Coronal and Sagittal reconstruction was performed. CT radiation dose optimization is achieved for this examination by the use of a CT protocol in accordance with ACR practice guidelines and adherence to glass technologist's recommendations. One or more of the following [...] (1420) BATCH NO: N/A Name: NATA BALLARD [facility] Phys: CONNIE. - Nuno Hannah [address] [place] : 1985 Age: 34 Sex: [place] [address] Loc: N.ERS Exam Date: 04/30/2020 Status: PRE ER PH: FAX: PAGE 1 Signed Report- CT HEAD/BRAIN W/O [id number] 14:12:00Patient Name: NATA BALLARD Unit No: [id number] EXAMS: CPT: [id number] CT HEAD/BRAIN W/O CONT 71507 Clinical History: Trauma Comparison: CT head 11/06/2018 Technique: Noncontrast 2.5 mm contiguous axial images were obtained from the skull base through the vertex. Coronal and sagittal reformats are provided. CT radiation dose optimization is achieved for this examination by the use of a CT protocol in accordance with ACR practiceguidelines and adherence to glass technologist's recommendations. One or more of the following [...] (1415) BATCH NO: N/A Name: NATA BALLARD [facility] ED Phys: CONNIEAnna Marie - Nuno Hannah : 1985 Age: 34 Sex: [place] [address] Loc: N.ERS Exam Date: 04/30/2020 Status: PRE ER PH: FAX: PAGE 1 Signed ReportCOMPREHENSIVE METABOLIC [id number] 14:02:00 Test Item Value Reference Range Interpretation [...] 42-121 N PHOSPHATASE (test code = ALKP) [id number] 14:02:00 Test Item Value Reference Range Interpretation Comments MAGNESIUM (test code = MAG) 2.1 mg/dl 1.8-2.5 N [id number] 14:02:00 Test Item Value Reference Range Interpretation Comments ALCOHOL (test code = 430 mg/dl Interpr etive Data:il: ALC) Ethanol Level To convert into le gal units, divide r esult by 1,000 CBC W/AUTO [id number] 13:58:00 Test Item Value Reference Range Interpretation [...] BA#) 0.0 x10 3/uL 0.0-0.1 N DIFFERENTIAL [id number] 13:58:00 Test Item Value Reference Range Interpretation Comments PLATELET MORPHOLOGY (test code = NORMAL PLTMORPH) CBC W/AUTO [id number] 13:58:00 Test Item Value Reference Range Interpretation [...] BA#) 0.0 x10 3/uL 0.0-0.1 N DIFFERENTIAL [id number] 13:58:00 Test Item Value Reference Range Interpretation Comments PLATELET MORPHOLOGY (test code = NORMAL PLTMORPH) COMPREHENSIVE METABOLIC [id number] 13:57:00 Test Item Value Reference Range Interpretation [...] U/L 42-121 PHOSPHATASE (test code = ALKP) [id number] 13:57:00 Test Item Value Reference Range Interpretation Comments MAGNESIUM (test code = MAG) mg/dl 1.8-2.5 [id number] 13:57:00 Test Item Value Reference Range Interpretation Comments ALCOHOL (test code = ALC) mg/dl COMPREHENSIVE METABOLIC [id number] 13:57:00 Test Item Value Reference Range Interpretation [...] U/L 42-121 PHOSPHATASE (test code = ALKP) [id number] 13:57:00 Test Item Value Reference Range Interpretation Comments MAGNESIUM (test code = MAG) mg/dl 1.8-2.5 [id number] 13:57:00 Test Item Value Reference Range Interpretation Comments ALCOHOL (test code = ALC) mg/dl CBC W/AUTO [id number] 13:45:00 Test Item Value Reference Range Interpretation [...] 393 mg/dL <=10 H 56A) COMPREHENSIVE METABOLIC [id number] 22:25:00 Test Item Value Reference Range Interpretation [...] 31A) 22 IU/L <=78 PRO TIME AND [id number] 22:18:00 Test Item Value Reference Range Interpretation [...] MORPH (test code = RBCMOR) NORMAL AMMONIA [id number] 14:21:00 Test Item Value Reference Range Interpretation [...] code = 194 mg/dL <=10 H 56A) [id number] 20:48:00 Test Item Value Reference Range Interpretation Comments ACETAMINPH (test code = 94M) <2.0 ug/mL 10.0-30.0 L ALCOHOL BLOOD (ETOH)2019-09-19 20:46:00 Test Item Value Reference Range Interpretation Comments ETOH (test code = HALC) ETHANOL The result is to be used only for medical purposes ALCOHOL (test code = 326 mg/dL <=10 H 56A) COMPREHENSIVE METABOLIC [id number] 20:36:00 Test Item Value Reference Range Interpretation [...] (test code = 31A) 29 IU/L <=78 [id number] 20:26:00 Test Item Value Reference Range Interpretation Comments SALICYLATE (test code = 94B) 1.9 mg/dL 2.8-20.0 L URINALYSIS WITH [id number] 20:13:00 Test Item Value Reference Range Interpretation [...] (test code = USPERM) /HPF NONE AMMONIA [id number] 20:12:00 Test Item Value Reference Range Interpretation Comments AMMONIA (test code = 54A) 48 umol/L 11-32 H DRUGS OF [id number] 20:06:00 Test Item Value Reference Range Interpretation [...] <1.7 mg/dL 2.8-20.0 L CBC (INCLUDES AUTOMATED DIFFERENTIAL)*[id number] 01:41:00 Test Item Value Reference Range Interpretation [...] = WAUAM) NO NO CBC (INCLUDES AUTOMATED DIFFERENTIAL)*[id number] 16:33:00 Test Item Value Reference Range Interpretation [...]
[2021-12-03 14:39] LABS: Urine Blood 2+ (Negative); Urine Glucose Trace (Negative); Urine Protein 3+ (Negative); Urine Specific Gravity >=1.030 (1.005-1.030)
[2021-12-03] MEDS ORDERED: DIAZEPAM 10 MG/2 ML INJ SYRINGE ONE (15:08)
[2021-12-03 15:09] LABS: Hematocrit 42.2 % (39.6-49.0); MPV 8.1 fL (7.6-11.3)
[2021-12-03 15:24] LABS: Albumin 4.2 g/dL (3.4-5.0); Bilirubin Total 0.6 mg/dL (0.2-1.0); Potassium 3.6 mmol/L (3.5-5.1); Protein, Total 8.4 g/dL (6.4-8.2)
[2021-12-03] MEDS ORDERED: FOLIC ACID 1 MG, THIAMINE HCL 100 MG, MULTIVITAMINS INJ 10 ML in NA CHLORIDE 0.9% 1,000 ML IV ONE (16:00)
--- NOTE | 2021-12-03 17:41 | EDPHYS ---
Physician Documentation [facility] Name: Mehdi Ramos III Age: 36 yrs Sex: Male : 1985 Arrival Date: 12/03/2021 Time: 13:28 Bed 23 Private MD: ED Physician Silvio Vital HPI: 12/03 14:27 This 36 yrs old Male presents to ER via Ambulatory with complaints of Alcohol ma2 Withdrawal, Facial Injury. 14:27 Patient presents with alcohol withdrawal seizure, he has been binge drinking for the ma2 last 2 weeks, stop drinking last night had a seizure this morning, patient states he had a facial trauma and lost his frontal teeth 3 days ago. Denies facial pain or any symptom at this time no teeth bleeding. Or tooth ache. He had similar symptoms in the past where he was admitted for alcohol withdrawal. Patient states he would like to quit alcohol . Historical: - Allergies: 14:05 No Known Allergies; iw - Home Meds: 14:05 None [Active]; iw - PMHx: 14:05 Alcoholism; iw - Social history:: Patient uses alcohol, Patient/guardian denies using street drugs, IV drugs, caffeine, The patient lives with family. ROS: 14:27 Constitutional: Negative for fever, chills, and weight loss. ma2 14:27 All other systems are negative. Exam: 14:27 Constitutional: Patient is restless agitated, has tremor, This is a well developed, ma2 well nourished patient who is awake, alert, and in no acute distress. Head/Face: Normocephalic, atraumatic. Eyes: Pupils equal round and reactive to light, extra-ocular motions intact. Lids and lashes normal. Conjunctiva and sclera are non-icteric and not injected. Cornea within normal limits. Periorbital areas with no swelling, redness, or edema. ENT: Nares patent. No nasal discharge, no septal abnormalities noted. Tympanic membranes are normal and external auditory canals are clear. Oropharynx with no redness, swelling, or masses, exudates, or evidence of obstruction, uvula midline. Mucous membranes moist. Neck: Trachea midline, no thyromegaly or masses palpated, and no cervical lymphadenopathy. Supple, full range of motion without nuchal rigidity, or vertebral point tenderness. No Meningismus. Chest/axilla: Normal chest wall appearance and motion. Nontender with no deformity. No lesions are appreciated. Cardiovascular: Regular rate and rhythm with a normal S1 and S2. No gallops, murmurs, or rubs. Normal PMI, no JVD. No pulse deficits. Respiratory: Lungs have equal breath sounds bilaterally, clear to auscultation and percussion. No rales, rhonchi or wheezes noted. No increased work of breathing, no retractions or nasal flaring. Abdomen/GI: Soft, non-tender, with normal bowel sounds. No distension or tympany. No guarding or rebound. No evidence of tenderness throughout. Skin: Warm, dry with normal turgor. Normal color with no rashes, no lesions, and no evidence of cellulitis. MS/ Extremity: Pulses equal, no cyanosis. Neurovascular intact. Full, normal range of motion. Neuro: Awake and alert, GCS 15, oriented to person, place, time, and situation. Cranial nerves II-XII grossly intact. Motor strength 5/5 in all extremities. Sensory grossly intact. Cerebellar exam normal. Normal gait. Vital Signs: 14:06 BP 138 / 101; Pulse 113; Resp 18 S; Temp 98.1; Pulse Ox 98% on R/A; iw 15:53 BP 120 / 86; Pulse 98; Resp 16; Pulse Ox 99% on 2 lpm NC; iw [place] Coma Score: 17:39 Eye Response: spontaneous(4). Verbal Response: oriented(5). Motor Response: obeys ma2 commands(6). Total: 15. MDM: 14:27 Differential diagnosis: Alcohol withdrawal, versus delirium tremens versus alcoholic ma2 seizure. 14:30 Patient medically screened. ma2 17:39 Data reviewed: vital signs, nurses notes, EMS record, halfway records. Counseling: ma2 I had a detailed discussion with the patient and/or guardian regarding: the historical points, exam findings, and any diagnostic results supporting the discharge/admit diagnosis, the presence of at least one elevated blood pressure reading (>120/80) during this emergency department visit, the need for outpatient follow up. Response to treatment: the patient's symptoms have markedly improved after treatment. 12/03 14:27 Order name: CMP; Complete Time: 17:00 [facility] 12/03 14:27 Order name: SARS-COV-2 RT PCR (Document "Date of Onset" if Symptomatic); Complete Time: ma2 17:00 12/03 14:27 Order name: CBC with Diff; Complete Time: 17:00 mn2 12/03 14:39 Order name: Urine Dipstick-Ancillary; Complete Time: 17:00 ED[facility] 12/03 14:27 Order name: EKG - Nurse/Tech; Complete Time: 15:26 ma2 12/03 14:27 Order name: IV Saline Lock; Complete Time: 15:01 ma2 Administered Medications: 15:10 Drug: Valium (diazepam) 10 mg Route: IVP; Site: left antecubital; iw 15:40 Follow up: Response: No adverse reaction iw 15:52 Drug: Banana Bag - (NS 0.9% 1000 ml, foLIC Acid 1 mg, Thiamine 100 mg, Multivitamin 1 iw amp) Route: IV; Rate: calculated rate; Site: left antecubital; 16:45 Follow up: IV Status: IV converted to saline lock iw Disposition Summary: 12/03/21 17:40 Discharge Ordered Location: Home ma2 Condition: Stable ma2 Diagnosis - Alcohol dependence ma2 - Alcohol abuse, uncomplicated ma2 Followup: ma2 - With: Private Physician - When: Tomorrow - Reason: If symptoms return, Continuance of care Discharge Instructions: - Discharge Summary Sheet ma2 - Finding Treatment for Addiction ma2 - Alcohol Use Disorder ma2 Forms: - Medication Reconciliation Form ma2 - Thank You Letter ma2 - Antibiotic Education ma2 - Prescription Opioid Use ma2 Signatures: Dispatcher [employer] Shahrzad Ojeda RN RN Silvio Vital MD MD ma2
--- NOTE | 2021-12-03 17:41 | ER ---
Nurse's Notes [facility] Name: Mehdi Ramos III Age: 36 yrs Sex: Male : 1985 Arrival Date: 12/03/2021 Time: 13:28 Bed 23 Private MD: Diagnosis: Alcohol dependence;Alcohol abuse, uncomplicated Presentation: 12/03 14:04 Chief complaint: Patient states: started heavily drinking over past 3 weeks , has been iw drinking beer from the time he wakes up until he falls asleep, had a seizure the other night, thinks he had a seizure this morning because he bit his tongue and peed himself, last drink was 0800 this morning. 14:04 Acuity: BRANDON 3 iw 14:04 Method Of Arrival: Ambulatory iw 14:30 Coronavirus screen: At this time, the client does not indicate any symptoms associated iw with coronavirus-19. Ebola Screen: Patient negative for fever greater than or equal to 101.5 degrees Fahrenheit, and additional compatible Ebola Virus Disease symptoms Patient denies exposure to infectious person. Patient denies travel to an Ebola-affected area in the 21 days before illness onset. No symptoms or risks identified at this time. Initial Sepsis Screen: Does the patient meet any 2 criteria? No. Patient's initial sepsis screen is negative. Does the patient have a suspected source of infection? No. Patient's initial sepsis screen is negative. Risk Assessment: Do you want to hurt yourself or someone else? Patient reports no desire to harm self or others. Onset of symptoms was December 03, 2021. Historical: - Allergies: 14:05 No Known Allergies; iw - Home Meds: 14:05 None [Active]; iw - PMHx: 14:05 Alcoholism; iw - Social history:: Patient uses alcohol, Patient/guardian denies using street drugs, IV drugs, caffeine, The patient lives with family. Screenin:30 Abuse screen: Denies threats or abuse. Denies injuries from another. Nutritional iw screening: No deficits noted. Tuberculosis screening: No symptoms or risk factors identified. Fall Risk None identified. Assessment: 14:23 General: Appears in no apparent distress. Behavior is calm, cooperative. Pain: Denies iw pain. Neuro: Level of Consciousness is awake, alert, obeys commands. 15:52 Reassessment: Patient appears in no apparent distress at this time. Patient and/or iw family updated on plan of care and expected duration. Pain level reassessed. pt appears more calm after valium , HR down to 96. 16:40 Reassessment: pt states he wants to leave, threatening to pull out his IV, states he iw will ride the bus home or he will call his mom, I d/c the IV, pt walked out of department, I told pt to wait in lobby for a bus pass. Vital Signs: 14:06 BP 138 / 101; Pulse 113; Resp 18 S; Temp 98.1; Pulse Ox 98% on R/A; iw 15:53 BP 120 / 86; Pulse 98; Resp 16; Pulse Ox 99% on 2 lpm NC; iw [place] Coma Score: 17:39 Eye Response: spontaneous(4). Verbal Response: oriented(5). Motor Response: obeys ma2 commands(6). Total: 15. ED Course: 13:28 Patient arrived in ED. as 14:05 Triage completed. iw 14:06 Arm band placed on. iw 14:13 Shahrzad Santiago, RN is Primary Nurse. iw 14:18 Silvio Vital MD is Attending Physician. ma2 15:02 Initial lab(s) drawn, by me, sent to lab. Inserted saline lock: 20 gauge in left em1 antecubital area, using aseptic technique. Blood collected. 16:00 No provider procedures requiring assistance completed. iw 17:00 IV discontinued, intact, bleeding controlled, No redness/swelling at site. Pressure iw dressing applied. Administered Medications: 15:10 Drug: Valium (diazepam) 10 mg Route: IVP; Site: left antecubital; iw 15:40 Follow up: Response: No adverse reaction iw 15:52 Drug: Banana Bag - (NS 0.9% 1000 ml, foLIC Acid 1 mg, Thiamine 100 mg, Multivitamin 1 iw amp) Route: IV; Rate: calculated rate; Site: left antecubital; 16:45 Follow up: IV Status: IV converted to saline lock iw Outcome: 17:40 Discharge ordered by . ma2 17:50 Discharged to home ambulatory. iw 17:50 Condition: improved 17:50 Discharge instructions given to pt left before signing d/c instructions Instructed on safety practices. 17:51 Patient left the ED. iw Signatures: Leanna Lopez as Shahrzad Santiago, RN RN Rohith Robison em1 Silvio Vital MD MD ma2
[2021-12-03 21:28] VITALS: TEMP 98.1
[2021-12-03 21:30] VITALS: BP 120/86; O2SAT 99
--- NOTE | 2021-12-05 10:07 | EKG ---
Test Date: 2021-12-03 Test Time: 15:11:08 [employer] Teacher: MICHEL MEASUREMENT RESULTS: Intervals: Rate: 107 WY: 138 QRSD: 102 QT: 346 QTc: 461 [place]: P: 34 WY: 138 QRS: -24 T: 5 INTERPRETIVE STATEMENTS: Sinus tachycardia Incomplete right bundle branch block Borderline ECG Compared to ECG 11/27/2021 23:33:14 Left-axis deviation no longer present Left ventricular hypertrophy no longer present Electronically Signed On 12-05-21 10:02:56 CDT by Constantino Shine
== END 2021-12-03 17:51 | disposition home or self-care (01) ==
LOC: ER 13:27
DX: F10.20 Alcohol dependence, uncomplicated (principal); Z20.822 Contact with and (suspected) exposure to COVID-19
CPT/HCPCS: 36415; 80053; 81003; 85025; 93005; 96365; 96375; 99283; J3360; J3411; J7030; U0003

== ENCOUNTER 2024-04-16 00:18 | Emergency (ER) | payer SELFPAY ==
[2024-04-16] MEDS ORDERED: Ringers Lactate 1,000 ML IV ONE (00:46)
[2024-04-16] MEDS ORDERED: LORazepam 2 MG/ML VIAL ONE (00:46)
[2024-04-16] MEDS ORDERED: cloNIDine HCL 0.1 MG TAB ONE (00:46)
[2024-04-16 01:18] LABS: Absolute Lymphocytes (CBC) 1.3 K/uL (0.7-4.9); Absolute Monocytes 0.4 K/uL (0.1-1.3); Basophils % 0.3 % (0-1.3); Eosinophils % 0.5 % (0-4.4); Hematocrit 42.6 % (39.6-49.0); Hemoglobin 13.9 g/dL (13.6-17.9); Lymphocytes % 23.2 % (15.3-44.8); MCH 29.2 pg (27.0-35.0); MCHC 32.7 g/dL (32.0-36.0); MCV 89.3 fL (80-100); MPV 9.1 fL (7.6-11.3); Monocytes % 6.2 % (3.3-12.3); Neutrophils % 69.8 % (41.7-73.7); Nucleated Red Blood Cells % 0.1 % (0-0); Platelets 52 thou/uL (152-406); RBC Red Blood Cell Count 4.77 M/uL (4.33-5.43); Red Cell Distribution Width 14.9 % (12.1-15.2)
[2024-04-16 01:22] LABS: Barbiturates NEGATIVE (NEGATIVE); Benzodiazepines NEGATIVE (NEGATIVE); Cocaine NEGATIVE (NEGATIVE); METHAMPHETAM NEGATIVE (NEGATIVE); Methadone NEGATIVE (NEGATIVE); Opiates NEGATIVE (NEGATIVE); Phencyclidine NEGATIVE (NEGATIVE); THC Cannibis NEGATIVE (NEGATIVE)
[2024-04-16 01:35] LABS: Albumin 3.6 g/dL (3.4-5.0); Albumin/Globulin Ratio 0.8 (1.1-1.8); Anion Gap 13.2 mEq/L (5.0-15.0); Bilirubin Direct 0.2 mg/dL (0-0.2); Bilirubin Indirect, Calculated 0.2 mg/dL (0.2-0.8); Bilirubin Total 0.4 mg/dL (0.2-1.0); Globulin 4.4 g/dL (2.3-3.5); Potassium 3.2 mEq/L (3.5-5.1)
[2024-04-16 01:50] LABS: Blood Morphology Comment NOT SEEN (NOT SEEN); Platelet Estimate DECR; White Blood Cell Scan OK (OK)
--- NOTE | 2024-04-16 01:54 | ER ---
Nurse's Notes [facility] Name: Mehdi Ramos III Age: 38 yrs Sex: Male : 1985 Arrival Date: 04/16/2024 Time: 00:18 Bed 6 Private MD: Diagnosis: Alcohol intoxication Presentation: 04/16 00:41 Chief complaint: Patient states: I am shaking and I think I am going through vc1 withdrawals. I binge drink every night and drank this morning. Coronavirus screen: Vaccine status: Patient reports receiving the 2nd dose of the covid vaccine. Client denies travel out of the [place] in the last 14 days. At this time, the client does not indicate any symptoms associated with coronavirus-19. Ebola Screen: Patient negative for fever greater than or equal to 101.5 degrees Fahrenheit, and additional compatible Ebola Virus Disease symptoms Patient denies exposure to infectious person. Patient denies travel to an Ebola-affected area in the 21 days before illness onset. No symptoms or risks identified at this time. Initial Sepsis Screen: Does the patient meet any 2 criteria? No. Patient's initial sepsis screen is negative. Does the patient have a suspected source of infection? No. Patient's initial sepsis screen is negative. Risk Assessment: Do you want to hurt yourself or someone else? Patient reports no desire to harm self or others. Onset of symptoms was April 16, 2024. 00:41 Method Of Arrival: Ambulatory vc1 00:41 Acuity: BRANDON 3 vc1 02:07 Care prior to arrival: None. Mechanism of Injury: Fall from standing position. Trauma cp4 event details: Injury occurred in the [facility]. Trauma Activation: Not Applicable Physician: ED Physician; Name: ; Notified At: ; Arrived At: Physician: General Surgeon; Name: ; Notified At: ; Arrived At: Physician: Radiology; Name: ; Notified At: ; Arrived At: Physician: Respiratory; Name: ; Notified At: ; Arrived At: Physician: Lab; Name: ; Notified At: ; Arrived At: Historical: - Allergies: 00:51 No Known Allergies; vc1 - Home Meds: 00:51 hydroxyzine HCl 25 mg Oral tablet every 4 hours for anxiety [Active]; vc1 - PMHx: 00:51 Alcoholism; Anxiety; vc1 - PSHx: 00:51 None; vc1 - Immunization history:: Client reports receiving the 2nd dose of the Covid vaccine. - Infectious Disease History:: Denies. - Immunization history: Last tetanus immunization: - up to date. - Social history:: Smoking status: Patient denies any tobacco usage or history of. Patient uses alcohol, on a daily basis. patient/guardian reports chronic longstanding heavy alcohol consumption. patient/guardian reports recent binge of alcohol consumption. Screenin:54 [facility] ED Fall Risk Assessment (Adult) History of falling in the last 3 months, vc1 including since admission Yes- fall prone (multiple falls) (3 pts) Confusion or Disorientation No (0 pts) Intoxicated or Sedated Yes (3 pts) Impaired Gait No (0 pts) Mobility Assist Device Used No (0 pt) Altered Elimination No (0 pt) Score/Fall Risk Level 3 or more points = High Risk Oriented to surroundings, Maintained a safe environment, Educated pt \T\ family on fall prevention, incl call for assistance when getting out of bed. Abuse screen: Denies threats or abuse. Nutritional screening: No deficits noted. Tuberculosis screening: No symptoms or risk factors identified. Primary Survey: 02:06 NO uncontrolled hemorrhage observed. A: The client is awake and alert. The airway is cp4 patent. Breathing/Chest: Spontaneous respiratory effort, equal unlabored respirations, breath sounds clear bilaterally, regular pattern, symmetrical chest rise and fall. Circulation: No external hemorrhage present. Regular and strong central pulse, skin warm/dry/normal color. Disability Pupils are equal, round, reactive to light and accommodation. Client is alert. Exposure/Environment: A warming method has been applied: A warm blanket has been provided to the patient. Reassessment Alertness and Airway: Awake and alert. The airway is patent. Breathing: Spontaneous respiratory effort, equal unlabored respirations, breath sounds clear bilaterally, regular pattern with symmetrical chest rise and fall. Circulation: No external hemorrhage noted. Regular and strong central pulse, skin warm/dry/normal color. Disability: Pupils Pupils are equal, round, reactive to light and accomodation. Assessment: 00:58 General: Appears in no apparent distress. uncomfortable, Behavior is cooperative, cp4 appropriate for age, anxious. Pain: Denies pain. Neuro: Level of Consciousness is awake, alert, obeys commands, Oriented to person, place, time, situation. Cardiovascular: Patient's skin is warm and dry. Respiratory: Airway is patent Respiratory effort is even, unlabored. GI: No signs and/or symptoms were reported involving the gastrointestinal system. : No signs and/or symptoms were reported regarding the genitourinary system. EENT: No signs and/or symptoms were reported regarding the EENT system. Derm: No signs and/or symptoms reported regarding the dermatologic system. Musculoskeletal: No signs and/or symptoms reported regarding the musculoskeletal system. Vital Signs: 00:41 BP 171 / 115; Pulse 130; Resp 20; Temp 98.2; Pulse Ox 96% ; Weight 68.04 kg; Height 5 vc1 ft. 6 in. ; 01:00 BP 163 / 104; Pulse 102; Resp 18; Pulse Ox 96% ; vc1 02:05 BP 154 / 99; Pulse 97; Resp 18; Pulse Ox 98% ; cp4 00:41 Body Mass Index 24.21 (68.04 kg, 167.64 cm) vc1 [place] Coma Score: 02:05 Eye Response: spontaneous(4). Motor Response: obeys commands(6). Verbal Response: cp4 oriented(5). Total: 15. Trauma Score (Adult): 02:05 Eye Response: spontaneous(1); Verbal Response: oriented(1); Motor Response: obeys cp4 commands(2); Systolic BP: > 89 mm Hg(4); Respiratory Rate: 10 to 29 per min(4); [place] Score: 15; Trauma Score: 12 ED Course: 00:23 Patient arrived in ED. gm2 00:24 Lupillo Robbins MD is Attending Physician. sp3 00:39 Francia Mckeon is Primary Nurse. cp4 00:43 Inserted saline lock: 18 gauge in right forearm, using aseptic technique. Flushed with rv1 10 mL NS. 00:51 Triage completed. vc1 00:54 Arm band placed on right wrist. vc1 00:58 No provider procedures requiring assistance completed. cp4 00:58 Bed in low position. Call light in reach. Side rails up X2. Provided Education on:. cp4 01:30 CT Head Brain wo Cont In Process Unspecified. EDMS 02:06 intact, bleeding controlled, No redness/swelling at site. Pressure dressing applied. cp4 02:07 Patient maintains SpO2 saturation greater than 95% on room air. cp4 02:07 Thermoregulation: warm blanket given to patient. cp4 Administered Medications: 00:58 Drug: Ativan IVP 2 mg IVP once Route: IVP; Site: right forearm; cp4 01:25 Follow up: Response: No adverse reaction cp4 00:58 Drug: Lactated Ringers Solution IV 1000 ml IV at 1000 ml/hr bolus Route: IV; Rate: 1000 cp4 ml/hr; Site: right forearm; 02:04 Follow up: Response: No adverse reaction; IV Status: Completed infusion cp4 00:58 Drug: cloNIDine PO 0.2 mg PO once Route: PO; cp4 01:25 Follow up: Response: No adverse reaction; Blood pressure is lowered cp4 Medication: 00:58 VIS not applicable for this client. cp4 Intake: 02:05 PO: 0ml; Total: 0ml. cp4 Output: 02:05 Urine: 300ml (Voided); Total: 300ml. cp4 Outcome: 01:53 Discharge ordered by . sp3 02:06 Discharged to home via wheelchair, cp4 02:06 Condition: stable 02:06 Discharge instructions given to patient, Instructed on discharge instructions, follow up and referral plans. Demonstrated understanding of instructions, follow-up care, 02:07 Patient's length of stay was not longer than 2 hours. cp4 02:08 Patient left the ED. cp4 Signatures: Dispatcher [employer] Lupillo Garcia MD MD sp3 Yesenia Molina RN RN 1 Anali Morales Christina cp4 Chantelle Chun [facility]
--- NOTE | 2024-04-16 01:54 | EDPHYS ---
Physician Documentation [facility] Name: Mehdi Ramos III Age: 38 yrs Sex: Male : 1985 Arrival Date: 04/16/2024 Time: 00:18 Bed 6 Private MD: ED Physician Lupillo Robbins HPI: 04/16 00:39 This 38 yrs old Male presents to ER via Unassigned with complaints of Alcohol sp3 Withdrawal. 00:41 38-year-old male with a history of anxiety and alcoholism now presents with chief sp3 complaint "withdrawal" was last drink early a.m. today. Patient also states he fell yesterday and hit his head. He denies any other symptoms including current headache, neck pain, chest pain, shortness of breath abdominal pain, vomiting, diarrhea, syncope, rash, or any other signs or symptoms on ROS at this time.. Historical: - Allergies: 00:51 No Known Allergies; vc1 - Home Meds: 00:51 hydroxyzine HCl 25 mg Oral tablet every 4 hours for anxiety [Active]; vc1 - PMHx: 00:51 Alcoholism; Anxiety; vc1 - PSHx: 00:51 None; vc1 - Immunization history:: Client reports receiving the 2nd dose of the Covid vaccine. - Infectious Disease History:: Denies. - Immunization history: Last tetanus immunization: - up to date. - Social history:: Smoking status: Patient denies any tobacco usage or history of. Patient uses alcohol, on a daily basis. patient/guardian reports chronic longstanding heavy alcohol consumption. patient/guardian reports recent binge of alcohol consumption. ROS: 00:42 Constitutional: Negative for fever, chills, and weight loss, Eyes: Negative for injury, sp3 pain, redness, and discharge, ENT: Negative for injury, pain, and discharge, Neck: Negative for injury, pain, and swelling, Respiratory: Negative for shortness of breath, cough, wheezing, and pleuritic chest pain, Abdomen/GI: Negative for abdominal pain, nausea, vomiting, diarrhea, and constipation, Back: Negative for injury and pain, MS/Extremity: Negative for injury and deformity, Skin: Negative for injury, rash, and discoloration, Neuro: Negative for headache, weakness, numbness, tingling, and seizure, Allergy/Immunology: Negative for hives, rash, and allergies, Endocrine: Negative for neck swelling, polydipsia, polyuria, polyphagia, and marked weight changes, Hematologic/Lymphatic: Negative for swollen nodes, abnormal bleeding, and unusual bruising, 00:42 All other systems are negative, Exam: 00:42 Constitutional: This is a well developed, well nourished patient who is awake, alert, sp3 and in no acute distress. Head/Face: Normocephalic, atraumatic. Eyes: Pupils equal round and reactive to light, extra-ocular motions intact. Lids and lashes normal. Conjunctiva and sclera are non-icteric and not injected. Cornea within normal limits. Periorbital areas with no swelling, redness, or edema. ENT: Nares patent. No nasal discharge, no septal abnormalities noted. External auditory canals are clear. Oropharynx with no redness, swelling, or masses, exudates, or evidence of obstruction, uvula midline. Mucous membranes moist. Neck: Trachea midline, no thyromegaly or masses palpated, and no cervical lymphadenopathy. Supple, full range of motion without nuchal rigidity, or vertebral point tenderness. No Meningismus. Chest/axilla: Normal chest wall appearance and motion. Nontender with no deformity. No lesions are appreciated. Respiratory: Lungs have equal breath sounds bilaterally, clear to auscultation and percussion. No rales, rhonchi or wheezes noted. No increased work of breathing, no retractions or nasal flaring. Abdomen/GI: Soft, non-tender, with normal bowel sounds. No distension or tympany. No guarding or rebound. No evidence of tenderness throughout. Back: No spinal tenderness. No costovertebral tenderness. Full range of motion. Skin: Warm, dry with normal turgor. Normal color with no rashes, no lesions, and no evidence of cellulitis. MS/ Extremity: Pulses equal, no cyanosis. Neurovascular intact. Full, normal range of motion. Neuro: Awake and alert, GCS 15, oriented to person, place, time, and situation. Cranial nerves II-XII grossly intact. Motor strength 5/5 in all extremities. Sensory grossly intact. Cerebellar exam normal. Normal gait. 00:42 Cardiovascular: Patient tachycardic to 130, 00:42 Psych: Patient quite anxious. Vital Signs: 00:41 BP 171 / 115; Pulse 130; Resp 20; Temp 98.2; Pulse Ox 96% ; Weight 68.04 kg; Height 5 vc1 ft. 6 in. ; 01:00 BP 163 / 104; Pulse 102; Resp 18; Pulse Ox 96% ; vc1 02:05 BP 154 / 99; Pulse 97; Resp 18; Pulse Ox 98% ; cp4 00:41 Body Mass Index 24.21 (68.04 kg, 167.64 cm) vc1 [place] Coma Score: 02:05 Eye Response: spontaneous(4). Motor Response: obeys commands(6). Verbal Response: cp4 oriented(5). Total: 15. Trauma Score (Adult): 02:05 Eye Response: spontaneous(1); Verbal Response: oriented(1); Motor Response: obeys cp4 commands(2); Systolic BP: > 89 mm Hg(4); Respiratory Rate: 10 to 29 per min(4); [place] Score: 15; Trauma Score: 12 MDM: 00:30 Patient medically screened. sp3 00:42 Data reviewed: vital signs, nurses notes, old medical records, lab test result(s), sp3 radiologic studies. ED course: 38-year-old male with self diagnosis of alcohol withdrawal. Given his last drink earlier this morning I am not highly suspicious that patient is withdrawing however patient is tachycardic. Will obtain laboratory values including alcohol level and administer Ativan and clonidine. CT scan of the head due to head injury and likely poor historian secondary to alcoholism. Disposition pending workup and patient course with further intervention as indicated. Lactated Ringer's also given IV.. 01:48 ED course: Alcohol level of 399. Vital signs are now normal. Patient will be discharged sp3 home since he can find a ride.. 04/16 00:38 Order name: Basic Metabolic Panel; Complete Time: 01:48 sp3 04/16 00:38 Order name: CBC with Diff; Complete Time: 01:53 sp3 04/16 00:38 Order name: ETOH Level; Complete Time: 01:48 sp3 04/16 00:38 Order name: Hepatic Function; Complete Time: 01:48 sp3 04/16 00:38 Order name: Urine Drug Screen; Complete Time: 01:48 sp3 04/16 01:21 Order name: CBC Smear Scan; Complete Time: 01:53 EDMS 04/16 00:41 Order name: CT Head Brain wo Cont sp3 04/16 00:38 Order name: IV Saline Lock; Complete Time: 00:43 sp3 04/16 00:38 Order name: Labs collected and sent; Complete Time: 00:43 sp3 04/16 00:38 Order name: NPO; Complete Time: 00:43 sp3 Administered Medications: 00:58 Drug: Ativan IVP 2 mg IVP once Route: IVP; Site: right forearm; cp4 01:25 Follow up: Response: No adverse reaction cp4 00:58 Drug: Lactated Ringers Solution IV 1000 ml IV at 1000 ml/hr bolus Route: IV; Rate: 1000 cp4 ml/hr; Site: right forearm; 02:04 Follow up: Response: No adverse reaction; IV Status: Completed infusion cp4 00:58 Drug: cloNIDine PO 0.2 mg PO once Route: PO; cp4 01:25 Follow up: Response: No adverse reaction; Blood pressure is lowered cp4 Disposition Summary: 04/16/24 01:53 Discharge Ordered Notes: Location: Home sp3 Condition: Stable sp3 Diagnosis - Alcohol intoxication sp3 Followup: sp3 - With: Private Physician - When: Upon discharge from the Emergency Department - Reason: Continuance of care Forms: - Medication Reconciliation Form sp3 - Antibiotic Education sp3 - Prescription Opioid Use sp3 - Patient Portal Instructions sp3 - Leadership Thank You Letter sp3 Signatures: Dispatcher [employer] EDLupillo Kohler MD MD sp3 Yesenia Molina RN RN Francia De La Rosa cp4 Corrections: (The following items were deleted from the chart) 01:04 00:38 Corea ordered. sp3 cp4
--- NOTE | 2024-04-16 02:15 | RAD REPORT ---
PROCEDURE: CT Head Without Intravenous Contrast CLINICAL INDICATION: The patient is 38 years old and is Male; Trauma. TECHNIQUE: Axial computed tomography images of the head/brain without intravenous contrast. Sagittal and coron al reformatted images were created and reviewed. This CT exam was performed using one or more of the following dose reduction techniques: automated exposure control, adjustment of the mA and/or kV according to patient size, and/or use of iterative reconstruction technique. COMPARISON: CT Head and Cervical Spine 07/10/2021. FINDINGS: BRAIN: No extra-axial fluid collection. No intracranial hemorrhage. No transtentorial herniation. N o focal junior-white matter differentiation abnormality. MIDLINE SHIFT: None. VENTRICLES: Unremarkable No ventriculomegaly. BONES/JOINTS: Small dehiscences of the left and right lamina papyracea are redemonstrated. Age-inde terminate nondepressed fracture of the left nasal bone. No calvarial or definite acute visualized facial fracture. SOFT TISSUES: Small superior left of midline frontal scalp contusion suspected. SINUSES: No masses, bony erosion or evidence of acute sinusitis. MASTOID AIR CELLS: Unremarkable as visualized. No mastoid effusion. IMPRESSION: 1. Small superior left of midline frontal scalp contusion suspected. 2. Age-indeterminate nondepressed fracture of the left nasal bone. Recommend correlation with point tenderness. 3. No acute intracranial abnormality. No fracture of the calvarium. No definite acute fracture of t he visualized facial bones. Electronically signed by: Jose C Smith MD 04/16/2024 02:11 AM CDT Due to temporary technical issues with the PACS/[employer] reporting system, reports are being joce d by the in-house radiologist without review as a courtesy to ensure prompt reporting the interpreting radiologist is fully responsible for the content of the report. Transcribed Date/Time: 04/16/2024 2:14 AM
[2024-04-16 02:27] VITALS: TEMP 98.2
[2024-04-16 02:33] VITALS: BP 154/99; O2SAT 98
== END 2024-04-16 02:08 | disposition home or self-care (01) ==
LOC: ER 00:18
DX: F10.239 Alcohol dependence with withdrawal, unspecified (principal)
CPT/HCPCS: 36415; 70450; 80048; 80076; 80307; 82077; 85025; 96361; 96374; 99284; J7120

== ENCOUNTER 2024-09-12 17:54 | Emergency (ER) | payer SELFPAY ==
[2024-09-12] MEDS ORDERED: METOCLOPRAMIDE 10 MG/2mL INJ ONE (18:34)
[2024-09-12] MEDS ORDERED: NA CHLORIDE 0.9% 1,000 ML ONE ×2 (18:34→21:06)
[2024-09-12] MEDS ORDERED: DIAZEPAM 10 MG/2 ML INJ SYRINGE ONE (18:34)
--- NOTE | 2024-09-12 19:12 | RAD REPORT ---
EXAM: Chest Single View HISTORY: PALPITATIONS COMPARISON: None. FINDINGS: LUNGS/PLEURA: The lungs are clear. No pleural effusions or pneumothorax. No pulmonary edema. MEDIASTINUM: The mediastinal silhouette is within normal limits. CARDIAC: The cardiac silhouette is within normal limits. UPPER ABDOMEN: No significant abnormality. BONES: No acute abnormality. LINES/TUBES/OTHER: N/A IMPRESSION: No evidence of acute cardiopulmonary disease.
[2024-09-12 19:33] LABS: Barbiturates NEGATIVE (NEGATIVE); Benzodiazepines NEGATIVE (NEGATIVE); Cocaine NEGATIVE (NEGATIVE); METHAMPHETAM NEGATIVE (NEGATIVE); Methadone NEGATIVE (NEGATIVE); Opiates NEGATIVE (NEGATIVE); Phencyclidine NEGATIVE (NEGATIVE); THC Cannibis NEGATIVE (NEGATIVE)
[2024-09-12 19:38] LABS: Specific Gravity < 1.005 (1.005-1.030); Sqamous Epithelial None Seen /HPF (None Seen); Urine Bacteria None Seen /HPF (<20); Urine Bilirubin NEGATIVE (Negative); Urine Blood Negative (Negative); Urine Clarity Clear (Clear); Urine Color Colorless (Yellow); Urine Culture Reflex Order NOT NEEDED; Urine Glucose 3+ (Negative); Urine Ketones NEGATIVE (Negative); Urine Micro Reflex YN NO BILL MICROSCOPIC; Urine Nitrite NEGATIVE (Negative); Urine Protein NEGATIVE (Negative); Urine RBC <5 /HPF (None Seen); Urine Urobilinogen Normal (Normal); Urine WBC None Seen /HPF (<5)
[2024-09-12 20:20] LABS: Absolute Lymphocytes (CBC) 0.9 K/uL (0.7-4.9); Absolute Monocytes 0.3 K/uL (0.1-1.3); Absolute Neutrophil 5.1 K/uL (1.8-8.0); Basophils % 0.2 % (0-1.3); Eosinophils % 0.1 % (0-4.4); Hematocrit 46.6 % (39.6-49.0); Hemoglobin 15.4 g/dL (13.6-17.9); Lymphocytes % 14.8 % (15.3-44.8); MCH 28.9 pg (27.0-35.0); MCV 87.6 fL (80-100); MPV 8.6 fL (7.6-11.3); Monocytes % 4.6 % (3.3-12.3); Neutrophils % 80.3 % (41.7-73.7); Nucleated Red Blood Cells % 0.1 % (0-0); PT Prothrombin Time 10.2 SECONDS (10.0-13.0); Platelets 73 thou/uL (152-406); Protime INR 0.89; RBC Red Blood Cell Count 5.32 M/uL (4.33-5.43); Red Cell Distribution Width 14.2 % (12.1-15.2)
[2024-09-12 20:33] LABS: Albumin 3.6 g/dL (3.4-5.0); Albumin/Globulin Ratio 0.8 (1.1-1.8); Anion Gap 11.2 mEq/L (5.0-15.0); Bilirubin Direct 0.2 mg/dL (0-0.2); Bilirubin Indirect, Calculated 0.5 mg/dL (0.2-0.8); Bilirubin Total 0.7 mg/dL (0.2-1.0); Globulin 4.6 g/dL (2.3-3.5); Magnesium 2.3 mg/dL (1.6-2.4); Potassium 3.2 mEq/L (3.5-5.1); Protein, Total 8.2 g/dL (6.4-8.2); Troponin High Sensitivity 4.8 pg/mL (<58.9)
[2024-09-12] MEDS ORDERED: THIAMINE 200 MG/2 ML INJ ONE (21:05)
[2024-09-12] MEDS ORDERED: MULTIVITAMINS 10 ML VIAL (INJ) IV ONE (21:05)
[2024-09-12] MEDS ORDERED: FOLIC ACID 5 MG/ML VIAL ONE (21:05)
[2024-09-12] MEDS ORDERED: POTASSIUM 25 MEQ EFFERV TAB ONE (21:05)
--- NOTE | 2024-09-12 22:19 | ER ---
Nurse's Notes [facility] Name: Mehdi Ramos III Age: 39 yrs Sex: Male : 1985 Arrival Date: 09/12/2024 Time: 17:54 Bed 7 Private MD: Diagnosis: Alcohol dependence with intoxication Presentation: 09/12 18:12 Chief complaint: Patient states: he has been binge drinking for approx 2 weeks, about ap3 20 beers/day. patient states his last drink was this morning. patient states he hit his head last night by falling on the floor. patient reports he has withdrawn before, and has a history of hallucinating. Coronavirus screen: At this time, the client does not indicate any symptoms associated with coronavirus-19. Ebola Screen: No symptoms or risks identified at this time. Initial Sepsis Screen: Does the patient meet any 2 criteria? No. Patient's initial sepsis screen is negative. Does the patient have a suspected source of infection? No. Patient's initial sepsis screen is negative. Risk Assessment: Do you want to hurt yourself or someone else? Patient reports no desire to harm self or others. Onset of symptoms is unknown. 18:12 Method Of Arrival: Ambulatory ap3 18:12 Acuity: BRANDON 2 ap3 Triage Assessment: 18:16 General: Appears distressed, Behavior is anxious, restless. Pain: Complains of pain in ap3 head Pain currently is 5 out of 10 on a pain scale. Neuro: Level of Consciousness is awake, alert, obeys commands, Oriented to person, place, time, situation. Cardiovascular: Patient's skin is warm and dry. Respiratory: Airway is patent Respiratory effort is even, unlabored, Respiratory pattern is regular, symmetrical. Historical: - Allergies: 18:16 No Known Allergies; ap3 - PMHx: 18:16 Alcoholism; Anxiety; ap3 - Immunization history:: Client reports receiving the 2nd dose of the Covid vaccine, Flu vaccine is not up to date. - Infectious Disease History:: Denies. - Social history:: Smoking status: Patient denies any tobacco usage or history of. Patient uses alcohol, on a daily basis. patient/guardian reports recent binge of alcohol consumption. Screenin:17 Abuse screen: Denies threats or abuse. Nutritional screening: No deficits noted. ap3 Tuberculosis screening: No symptoms or risk factors identified. 19:00 [facility] ED Fall Risk Assessment (Adult) History of falling in the last 3 months, vc1 including since admission Yes- fall prone (multiple falls) (3 pts) Confusion or Disorientation No (0 pts) Intoxicated or Sedated Yes (3 pts) Impaired Gait No (0 pts) Mobility Assist Device Used No (0 pt) Altered Elimination Yes (1 pt) Score/Fall Risk Level 3 or more points = High Risk Oriented to surroundings, Maintained a safe environment, Educated pt \T\ family on fall prevention, incl call for assistance when getting out of bed, Assessed \T\ reinforced patient's understanding of fall precautions, Provided non-skid footwear, Hourly rounding (assess needs \T\ fall precautionary measures) done, Offered frequent toileting (1:1 observation). Assessment: 19:41 Reassessment: No changes from previously documented assessment. Patient and/or family vc1 updated on plan of care and expected duration. Pain level reassessed. General: Appears in no apparent distress. Behavior is anxious. 21:03 Reassessment: Patient appears in no apparent distress at this time. Patient and/or vc1 family updated on plan of care and expected duration. Pain level reassessed. Patient is alert, oriented x 3, equal unlabored respirations, skin warm/dry/pink. 22:28 Reassessment: Patient and/or family updated on plan of care and expected duration. Pain vc1 level reassessed. Patient is alert, oriented x 3, equal unlabored respirations, skin warm/dry/pink. Patient denies pain at this time. Patient states feeling better. Patient states symptoms have improved. Vital Signs: 18:12 BP 172 / 123; Pulse 119; Resp 19; Temp 98.7; Pulse Ox 98% ; Weight 77.11 kg; Pain 5/10; ap3 19:39 BP 132 / 91; Pulse 111; Resp 24; Pulse Ox 98% ; vc1 21:02 BP 119 / 83; Pulse 74; Resp 15; Pulse Ox 97% ; vc1 22:25 BP 141 / 97; Pulse 102; Resp 15; Pulse Ox 98% ; vc1 18:12 Pain Scale: Adult ap3 ED Course: 17:58 Patient arrived in ED. im 18:08 Glenn Hdez PA is PHCP. cp 18:08 Jayy Figueroa MD is Attending Physician. cp 18:15 Triage completed. ap3 18:17 Arm band placed on left wrist. ap3 18:40 EKG done, by ED staff, reviewed by Glenn ALDANA. ap3 19:00 Patient has correct armband on for positive identification. Bed in low position. Call vc1 light in reach. quality assurance monitor body on. Pulse ox on. NIBP on. 19:04 Lipase Sent. ko1 19:04 UDS Sent. ko1 19:04 ETOH Level Sent. ko1 19:04 Urinalysis W/Microscopic Sent. ko1 19:04 Basic Metabolic Panel Sent. ko1 19:04 CBC with Diff Sent. ko1 19:04 LFT's Sent. ko1 19:04 Magnesium Sent. ko1 19:04 PT-INR Sent. ko1 19:04 Troponin HS Sent. ko1 19:08 XRAY Chest (1 view) In Process Unspecified. EDMS 19:22 Missed attempt(s): 20 gauge in right antecubital area. vk 19:22 Missed attempt(s): 22 gauge in left forearm. vk 19:38 Yesenia Molina, RN is Primary Nurse. vc1 22:27 No provider procedures requiring assistance completed. IV discontinued, intact, vc1 bleeding controlled, No redness/swelling at site. Pressure dressing applied. 22:28 Provided Education on: potassium rich food. vc1 Administered Medications: 19:30 Drug: NS 0.9% IV 1000 ml IV at 1 bolus Per protocol; to be given as a bolus over 60 vc1 minutes Route: IV; Rate: 1 bolus; Site: right antecubital; 22:30 Follow up: IV Status: Completed infusion; IV Intake: 1000ml vc1 19:30 Drug: Diazepam IVP 5 mg IVP once Route: IVP; Site: right antecubital; vc1 22:30 Follow up: Response: No adverse reaction; Marked relief of symptoms vc1 19:30 Drug: metoCLOPramide IVP 10 mg IVP once; over 1 to 2 minutes Route: IVP; Site: right vc1 antecubital; 22:30 Follow up: Response: No adverse reaction; Marked relief of symptoms vc1 21:20 Drug: Banana Bag - (Multivitamin IV 1 amp, NS 0.9% IV 1000 ml, Thiamine IV 100 mg, vc1 foLIC Acid IVPB 1 mg) IV at 250 ml/hr once Route: IV; Rate: 250 ml/hr; Site: right antecubital; :29 Follow up: IV Status: Completed infusion; IV Intake: 500ml vc1 21:21 Drug: Potassium PO Effervescent Tablet 50 mEq PO once; dissolve in 4 ounces of water or vc1 juice Route: PO; :29 Follow up: Response: No adverse reaction; Marked relief of symptoms vc1 Medication: 22: VIS not applicable for this client. vc1 Intake: :29 IV: 500ml; Total: 500ml. vc1 22:30 IV: 1000ml; Total: 1500ml. vc1 Outcome: 22:19 Discharge ordered by MD. cp 22:28 Discharged to home ambulatory, mother picking up vc1 : Condition: stable 22: Discharge instructions given to patient, Instructed on discharge instructions, follow up and referral plans. medication usage, Demonstrated understanding of instructions, follow-up care, :29 Patient left the ED. vc1 Signatures: Dispatcher [employer] EDMS Glenn Hdez PA PA cp Prokisch, Amanda RN RN ap3 Yesenia Molina RN RN vc1 Kenzie Gallegos RN RN ko1 Alondra Avery Vivian vk
--- NOTE | 2024-09-12 22:19 | EDPHYS ---
Physician Documentation [facility] Name: Mehdi Ramos III Age: 39 yrs Sex: Male : 1985 Arrival Date: 09/12/2024 Time: 17:54 Bed 7 Private MD: ED Physician Jayy Figueroa HPI: 09/12 18:30 This 39 yrs old Male presents to ER via Ambulatory with complaints of Alcohol cp Withdrawal. 18:30 The patient presents to the emergency department with anxiety, over a relationship, a cp history of substance abuse, Type: alcohol, daily. 18:30 Past psychiatric history: Prior diagnosis: addiction history, alcohol. Associated signs cp and symptoms: Pertinent negatives: abdominal pain, chest pain, fever, hallucinations, homicidal ideation, suicide ideation. Patient admits to last consuming alcohol this morning. Historical: - Allergies: 18:16 No Known Allergies; ap3 - PMHx: 18:16 Alcoholism; Anxiety; ap3 - Immunization history:: Client reports receiving the 2nd dose of the Covid vaccine, Flu vaccine is not up to date. - Infectious Disease History:: Denies. - Social history:: Smoking status: Patient denies any tobacco usage or history of. Patient uses alcohol, on a daily basis. patient/guardian reports recent binge of alcohol consumption. ROS: 18:33 Psych: Positive for anxiety, alcohol dependence, cp 18:33 Cardiovascular: Negative for chest pain, edema, palpitations, cp 18:33 Respiratory: Negative for cough, shortness of breath, wheezing, 18:33 Eyes: Negative for injury, pain, redness, and discharge, cp 18:33 Constitutional: Negative for body aches, chills, fever, 18:33 Abdomen/GI: Negative for abdominal pain, nausea, vomiting, and diarrhea, 18:33 All other systems are negative, cp Exam: 18:33 ECG was reviewed by the Attending Physician. cp 18:40 Constitutional: The patient appears in no acute distress, alert, awake, cp non-diaphoretic, non-toxic, well developed, well nourished, smells of alcohol, 18:40 Head/Face: Normocephalic, atraumatic. cp 18:40 Eyes: Periorbital structures: appear normal, Conjunctiva: normal, no exudate, no injection, Sclera: no appreciated abnormality, Lids and lashes: appear normal, bilaterally, 18:40 ENT: External ear(s): are unremarkable, Nose: is normal, Mouth: Lips: moist, Oral mucosa: moist, Posterior pharynx: Airway: no evidence of obstruction, patent, 18:40 Neck: ROM/movement: is normal, is supple, without pain, no range of motions limitations, 18:40 Chest/axilla: Inspection: normal, 18:40 Cardiovascular: Rate: tachycardic, Rhythm: regular, 18:40 Respiratory: the patient does not display signs of respiratory distress, Respirations: normal, no use of accessory muscles, no retractions, labored breathing, is not present, Breath sounds: are clear throughout, no decreased breath sounds, no stridor, no wheezing, 18:40 Abdomen/GI: Inspection: abdomen appears normal, Palpation: abdomen is soft and non-tender, in all quadrants, 18:40 Neuro: Orientation: to person, place \T\ time. Mentation: able to follow commands, Motor: moves all fours, strength is normal, Gait: is steady, 18:40 Psych: Affect is animated, Patient has no thoughts/intents to harm self or others. Delusions/hallucinations are not present. Vital Signs: 18:12 BP 172 / 123; Pulse 119; Resp 19; Temp 98.7; Pulse Ox 98% ; Weight 77.11 kg; Pain 5/10; ap3 19:39 BP 132 / 91; Pulse 111; Resp 24; Pulse Ox 98% ; vc1 21:02 BP 119 / 83; Pulse 74; Resp 15; Pulse Ox 97% ; vc1 22:25 BP 141 / 97; Pulse 102; Resp 15; Pulse Ox 98% ; vc1 18:12 Pain Scale: Adult ap3 MDM: 18:28 Medical Screening Exam initiated cp 19:00 Differential diagnosis: drug withdrawal. acute psychotic break, depression, psychosis cp secondary to non-compliance. 22:18 Data reviewed: vital signs, nurses notes, lab test result(s), EKG, radiologic studies, cp plain films, and as a result, I will discharge patient. 22:18 I considered the following discharge prescriptions or medication management in the emergency department Medications were administered in the Emergency Department. See MAR. 22:18 Independent interpretation of the following test(s) in the Emergency Department EKG: cp See my EKG interpretation above. 22:18 Counseling: I had a detailed discussion with the patient and/or guardian regarding the cp historical points, exam findings, and any diagnostic results supporting the discharge/admit diagnosis, lab results, to return to the emergency department if symptoms worsen or persist or if there are any questions or concerns that arise at home. Response to treatment: the patient's symptoms have mildly improved after treatment, and as a result, I will discharge patient. 09/12 18:23 Order name: Basic Metabolic Panel; Complete Time: 20:50 cp / 20:51 Interpretation: Normal except: K 3.2; BUN 6. cp / 18:23 Order name: CBC with Diff; Complete Time: 20:50 cp /21 20:51 Interpretation: Normal except: PLT 73; MARLENE% 80.3; LYM% 14.8. cp / 18:23 Order name: LFT's; Complete Time: 20:50 cp /21 20:51 Interpretation: Normal except: AST 80; ALT 63; ALK 131; GLOB 4.6; A/G 0.8. cp 09/12 18:23 Order name: Magnesium; Complete Time: 20:50 cp 09/12 18:23 Order name: PT-INR; Complete Time: 20:50 cp / 18:23 Order name: Troponin HS; Complete Time: 20:50 cp / 18:23 Order name: Urinalysis W/Microscopic; Complete Time: 19:57 cp /21 19:58 Interpretation: Normal except: Urine SG < 1.005; UGLUC 3+. cp 09/12 18:23 Order name: UDS; Complete Time: 19:57 cp /21 19:57 Interpretation: Reviewed. cp 09/12 18:23 Order name: ETOH Level; Complete Time: 20:50 cp 02/21 20:51 Interpretation: Abnormal: ETOH 271. cp / 18:23 Order name: Lipase; Complete Time: 20:50 cp / 18:23 Order name: XRAY Chest (1 view); Complete Time: 19:57 cp / 18:23 Order name: Cardiac monitoring; Complete Time: 18:40 cp / 18:23 Order name: EKG - Nurse/Tech; Complete Time: 18:40 cp 09/12 18:23 Order name: IV Saline Lock; Complete Time: 19:23 cp 09/12 18:23 Order name: Labs collected and sent; Complete Time: 19:04 cp 09/12 18:23 Order name: O2 Per Protocol; Complete Time: 18:40 cp 09/12 18: Order name: O2 Sat Monitoring; Complete Time: 18:40 cp EC:33 Rate is 115 beats/min. Rhythm is regular. [place] interval is normal. QRS interval is cp normal. QT interval is normal. T waves are Inverted in lead aVR. Interpreted by me. Reviewed by me. Administered Medications: 19:30 Drug: NS 0.9% IV 1000 ml IV at 1 bolus Per protocol; to be given as a bolus over 60 vc1 minutes Route: IV; Rate: 1 bolus; Site: right antecubital; 22:30 Follow up: IV Status: Completed infusion; IV Intake: 1000ml vc1 19:30 Drug: Diazepam IVP 5 mg IVP once Route: IVP; Site: right antecubital; vc1 22:30 Follow up: Response: No adverse reaction; Marked relief of symptoms vc1 19:30 Drug: metoCLOPramide IVP 10 mg IVP once; over 1 to 2 minutes Route: IVP; Site: right vc1 antecubital; 22:30 Follow up: Response: No adverse reaction; Marked relief of symptoms vc1 21:20 Drug: Banana Bag - (Multivitamin IV 1 amp, NS 0.9% IV 1000 ml, Thiamine IV 100 mg, vc1 foLIC Acid IVPB 1 mg) IV at 250 ml/hr once Route: IV; Rate: 250 ml/hr; Site: right antecubital; 22:29 Follow up: IV Status: Completed infusion; IV Intake: 500ml vc1 21:21 Drug: Potassium PO Effervescent Tablet 50 mEq PO once; dissolve in 4 ounces of water or vc1 juice Route: PO; 22:29 Follow up: Response: No adverse reaction; Marked relief of symptoms vc1 Disposition Summary: 09/12/24 22:19 Discharge Ordered Notes: Location: Home cp Problem: new cp Symptoms: have improved cp Condition: Stable cp Diagnosis - Alcohol dependence with intoxication cp Followup: cp - With: Private Physician - When: 2 - 3 days - Reason: Recheck today's complaints Discharge Instructions: - Discharge Summary Sheet cp - Alcohol Intoxication cp - Alcohol Use Disorder cp - Alcohol Abuse and Nutrition cp - Alcohol Abuse and Dependence Information, Adult cp Forms: - Medication Reconciliation Form cp - Antibiotic Education cp - Prescription Opioid Use cp - Patient Portal Instructions cp - Leadership Thank You Letter cp Signatures: Dispatcher [employer] EDMS Glenn Hdez PA PA cp Prokisch, Amanda, RN RN ap3 Yesenia Molina RN RN vc1 Corrections: (The following items were deleted from the chart) 18:24 18:23 BASIC METABOLIC PANEL+C.LAB.BRZ ordered. EDMS EDMS 18:24 18:23 CBC+H.LAB.BRZ ordered. EDMS EDMS 18:24 18:23 HEPATIC FUNCTION+C.LAB.BRZ ordered. EDMS EDMS 18:24 18:23 MAGNESIUM+C.LAB.BRZ ordered. EDMS EDMS 18:24 18:23 PROTIME (+INR)+COAG.LAB.BRZ ordered. EDMS EDMS 18:24 18:24 Troponin High Sensitivity+C.LAB.BRZ ordered. EDMS EDMS 18:24 18:24 Urinalysis W/Microscopic+U.LAB.BRZ ordered. EDMS EDMS 18:24 18:24 URINE DRUG SCREEN+UC.LAB.BRZ ordered. EDMS EDMS 18:24 18:24 ETHANOL+C.LAB.BRZ ordered. EDMS EDMS 18:24 18:24 LIPASE+C.LAB.BRZ ordered. EDMS EDMS 18:24 18:24 Chest Single View+RAD.RAD.BRZ ordered. EDMS EDMS
[2024-09-13 10:07] VITALS: TEMP 98.7
[2024-09-13 10:12] VITALS: BP 141/97; O2SAT 98
--- NOTE | 2024-09-15 12:05 | EKG ---
Test Date: 2024-09-12 Test Time: 18:25:18 Guest Specialist: ALP MEASUREMENT RESULTS: Intervals: Rate: 115 FL: 124 QRSD: 96 QT: 320 QTc: 442 [place]: P: 52 FL: 124 QRS: -49 T: 40 INTERPRETIVE STATEMENTS: Sinus tachycardia Left axis deviation Pulmonary disease pattern Incomplete right bundle branch block Abnormal ECG Compared to ECG 02/15/2024 02:09:11 Left-axis deviation now present Incomplete right bundle-branch block now present Sinus rhythm no longer present Electronically Signed On 09-15-24 12:04:21 ELEMENTARY READING SPECIALIST by William Beach
== END 2024-09-12 22:29 | disposition home or self-care (01) ==
LOC: ER 17:54
DX: F10.229 Alcohol dependence with intoxication, unspecified (principal)
CPT/HCPCS: 36415; 71045; 80048; 80076; 80307; 81001; 82077; 83690; 83735; 84484; 85025; 85610; 93005; 96361; 96365; 96375; 99285; J2765; J3360; J3411; J7030

== ENCOUNTER 2024-09-13 02:41 | Emergency (ER) | payer SELFPAY ==
[2024-09-13] MEDS ORDERED: ONDANSETRON 4 MG/2 ML VIAL ONE (03:11)
[2024-09-13] MEDS ORDERED: DIAZEPAM 10 MG/2 ML INJ SYRINGE ONE ×2 (03:11→04:32)
[2024-09-13] MEDS ORDERED: NA CHLORIDE 0.9% 1,000 ML ONE (03:11)
[2024-09-13 03:33] LABS: Absolute Lymphocytes (CBC) 1.2 K/uL (0.7-4.9); Absolute Monocytes 0.4 K/uL (0.1-1.3); Absolute Neutrophil 3.3 K/uL (1.8-8.0); Basophils % 0.6 % (0-1.3); Eosinophils % 0.4 % (0-4.4); Hematocrit 42.7 % (39.6-49.0); Hemoglobin 14.6 g/dL (13.6-17.9); Lymphocytes % 24.6 % (15.3-44.8); MCH 29.6 pg (27.0-35.0); MCHC 34.2 g/dL (32.0-36.0); MCV 86.5 fL (80-100); MPV 8.5 fL (7.6-11.3); Monocytes % 7.4 % (3.3-12.3); Nucleated Red Blood Cells % 0.1 % (0-0); Platelets 63 thou/uL (152-406); RBC Red Blood Cell Count 4.93 M/uL (4.33-5.43); Red Cell Distribution Width 13.9 % (12.1-15.2)
[2024-09-13 03:45] LABS: Albumin 3.7 g/dL (3.4-5.0); Albumin/Globulin Ratio 0.8 (1.1-1.8); Anion Gap 12.4 mEq/L (5.0-15.0); Bilirubin Total 0.8 mg/dL (0.2-1.0); Globulin 4.4 g/dL (2.3-3.5); Protein, Total 8.1 g/dL (6.4-8.2)
[2024-09-13 03:46] LABS: Potassium 3.4 mEq/L (3.5-5.1)
[2024-09-13 04:14] LABS: Blood Morphology Comment NOT SEEN (NOT SEEN); Platelet Estimate DECR; White Blood Cell Scan OK (OK)
--- NOTE | 2024-09-13 04:17 | ER ---
Nurse's Notes [facility] Name: Mehdi Ramos III Age: 39 yrs Sex: Male : 1985 Arrival Date: 09/13/2024 Time: 02:41 Bed 7 Private MD: Diagnosis: Alcohol abuse Presentation: 09/13 03:01 Chief complaint: Patient states: PT STATES HE IS TRYING TO DETOX HIMSELF FROM br2 ETOH...C/O HALLUCINATION, LEGS FEEL HEAVY, ANXIOUS. Coronavirus screen: Client denies travel out of the [place] in the last 14 days. Ebola Screen: Patient denies exposure to infectious person. Initial Sepsis Screen: Does the patient meet any 2 criteria? No. Patient's initial sepsis screen is negative. Does the patient have a suspected source of infection? No. Patient's initial sepsis screen is negative. Risk Assessment: Do you want to hurt yourself or someone else? Patient reports no desire to harm self or others. Onset of symptoms was September 12, 2024. 03:01 Method Of Arrival: Ambulatory br2 03:01 Acuity: BRANDON 3 br2 Triage Assessment: 03:07 General: Appears uncomfortable, Behavior is anxious. br2 Historical: - PMHx: 03:07 Alcoholism; Anxiety; br2 - Immunization history:: Adult Immunizations not up to date. - Infectious Disease History:: Denies. - Social history:: Smoking status: Patient reports the use of cigarette tobacco products, denies chronic smoking, but will smoke occasionally, Patient uses alcohol, patient/guardian reports recent binge of alcohol consumption. - Family history:: not pertinent. Screenin:22 [facility] [place] ED Fall Risk Assessment (Adult) History of falling in the last 3 months, ay including since admission No falls in past 3 months (0 pts) Confusion or Disorientation No (0 pts) Intoxicated or Sedated No (0 pts) Impaired Gait No (0 pts) Mobility Assist Device Used No (0 pt) Altered Elimination No (0 pt) Score/Fall Risk Level 0 - 2 = Low Risk Oriented to surroundings, Maintained a safe environment, Educated pt \T\ family on fall prevention, incl call for assistance when getting out of bed. Abuse screen: Denies threats or abuse. Nutritional screening: No deficits noted. Tuberculosis screening: No symptoms or risk factors identified. 03:31 Clinical [place] Withdrawal Assessment for Alcohol, revised (CIWA-Ar): ay Nausea/Vomitin - Intermittent nausea with dry heaves Headache: 2 - Mild Paroxysmal Sweats: 0 - No sweats visible Anxiety: 4 - Moderately anxious, guarded Agitation: 1 - Somewhat more than normal activity Tremor: 1 - Not visible, but can be felt at fingertips Auditory Disturbances: 0 - Not present Visual Disturbances: 1 - Very mild photosensitivity Tactile Disturbances: 0 - None Orientation and Clouding of Sensorium: 0 - Oriented and can do serial additions Total Score: 10 to 15: Mild Withdrawal. Assessment: 03:22 General: Appears in no apparent distress. uncomfortable, Behavior is cooperative, ay restless. Pain: Complains of pain in chest. Neuro: Level of Consciousness is awake, alert, obeys commands, Oriented to person, place, time, situation, Speech is normal. Cardiovascular: Reports chest pain, nausea, Rhythm is sinus tachycardia. Respiratory: Airway is patent Respiratory effort is even, unlabored, Respiratory pattern is regular, symmetrical. GI: Reports nausea. : No signs and/or symptoms were reported regarding the genitourinary system. EENT: No signs and/or symptoms were reported regarding the EENT system. 04:38 Reassessment: Patient appears in no apparent distress at this time. Patient and/or bm8 family updated on plan of care and expected duration. Pain level reassessed. Patient is alert, oriented x 3, equal unlabored respirations, skin warm/dry/pink. Patient denies pain at this time. Patient states feeling better. Patient states symptoms have improved. Vital Signs: 03:01 BP 162 / 111; Pulse 112; Resp 22; Temp 98.7(TE); Pulse Ox 98% on R/A; Weight 72.57 kg; br2 Height 5 ft. 6 in. ; Pain 10/10; 03:22 BP 153 / 108; Pulse 113; Resp 20; Pulse Ox 98% on R/A; ay 04:38 BP 133 / 75; Pulse 100; Resp 20; Temp 98.7; Pulse Ox 98% ; Pain 0/10; bm8 03:01 Body Mass Index 25.82 (72.57 kg, 167.64 cm) br2 03:01 Pain Scale: Adult br2 04:38 Pain Scale: Adult bm8 [place] Coma Score: 03:22 Eye Response: spontaneous(4). Motor Response: obeys commands(6). Verbal Response: ay oriented(5). Total: 15. 04:38 Eye Response: spontaneous(4). Motor Response: obeys commands(6). Verbal Response: bm8 oriented(5). Total: 15. ED Course: 02:42 Patient arrived in ED. [id number] 02:42 Ruy Robison MD is Attending Physician. rt 03:07 Triage completed. br2 03:07 Arm band placed on right wrist. br2 03:21 Dianna Bowman, JAMIE is Primary Nurse. ay 03:22 Inserted saline lock: 20 gauge in right antecubital area, using aseptic technique. ay 04:38 Patient has correct armband on for positive identification. Placed in gown. Bed in low bm8 position. Side rails up X 1. Adult w/ patient. Provided Education on: post er care. Client placed on continuous cardiac and pulse oximetry monitoring. NIBP monitoring applied. director information on. Pulse ox on. NIBP on. Door closed. Noise minimized. Visitors limited. Verbal reassurance given. Head of bed. 04:38 No provider procedures requiring assistance completed. IV discontinued, intact, bm8 bleeding controlled, No redness/swelling at site. Pressure dressing applied. Patient maintains SpO2 saturation greater than 95% on room air. Administered Medications: 03:21 Drug: Ondansetron IVP 4 mg IVP once; over 2 minutes Route: IVP; Site: right antecubital;ay 04:38 Follow up: Response: No adverse reaction bm8 03:21 Drug: Diazepam IVP 10 mg IVP once Route: IVP; Site: right antecubital; ay 04:38 Follow up: Response: No adverse reaction bm8 03:22 Drug: NS 0.9% IV 1000 ml IV at 1000 ml once; to be given as a bolus over 60 minutes ay Route: IV; Rate: 1000 ml; Site: right antecubital; 04:38 Follow up: Response: No adverse reaction; IV Status: Completed infusion bm8 04:38 Drug: Diazepam IVP 5 mg IVP once Route: IVP; Site: right antecubital; bm8 04:38 Follow up: Response: No adverse reaction; Medication Administered at Departure bm8 Medication: 04:38 VIS not applicable for this client. bm8 Outcome: 04:16 Discharge ordered by . rt 04:38 Discharged to home ambulatory, bm8 04:38 Condition: stable 04:38 Discharge instructions given to patient, Instructed on discharge instructions, follow up and referral plans. safety practices, Demonstrated understanding of instructions, follow-up care, medications, Prescriptions given X 2, 04:40 Patient left the ED. bm8 Signatures: Angelique Celis [email or web address] Ruy Robison MD MD rt Thanh Chacko RN RN bm8 Haylee Wells RN RN br2 Dianna Bowman, RN RN ay
--- NOTE | 2024-09-13 04:17 | EDPHYS ---
Physician Documentation [facility] Name: Mehdi Ramos III Age: 39 yrs Sex: Male : 1985 Arrival Date: 09/13/2024 Time: 02:41 Bed 7 Private MD: ED Physician Ruy Robison HPI: 09/13 03:22 This 39 yrs old Male presents to ER via Ambulatory with complaints of Alcohol rt Withdrawal. 03:22 Patient with history of alcohol abuse presents to the ED with reported alcohol rt withdrawals. Patient was seen in the ED less than 12 hours ago, was found to have an alcohol level 270. States that he is not drinking since then. Reports tremulousness, nausea. He is concerned for withdrawal, symptoms are moderate in severity, no other aggravating or alleviating factors.. Historical: - PMHx: 03:07 Alcoholism; Anxiety; br2 - Immunization history:: Adult Immunizations not up to date. - Infectious Disease History:: Denies. - Social history:: Smoking status: Patient reports the use of cigarette tobacco products, denies chronic smoking, but will smoke occasionally, Patient uses alcohol, patient/guardian reports recent binge of alcohol consumption. - Family history:: not pertinent. ROS: 03:22 Constitutional: Negative for fever, chills, and weight loss, Cardiovascular: Negative rt for chest pain, palpitations, and edema, Respiratory: Negative for shortness of breath, cough, wheezing, and pleuritic chest pain, MS/Extremity: Negative for injury and deformity, Skin: Negative for injury, rash, and discoloration, 03:22 Abdomen/GI: Positive for nausea, Negative for vomiting, 03:22 Neuro: Positive for tremor, Negative for altered mental status, Exam: 03:22 Head/Face: Normocephalic, atraumatic. Chest/axilla: Normal chest wall appearance and rt motion. Nontender with no deformity. No lesions are appreciated. Cardiovascular: Regular rate and rhythm with a normal S1 and S2. No gallops, murmurs, or rubs. Normal PMI, no JVD. No pulse deficits. Respiratory: Lungs have equal breath sounds bilaterally, clear to auscultation and percussion. No rales, rhonchi or wheezes noted. No increased work of breathing, no retractions or nasal flaring. Abdomen/GI: Soft, non-tender, with normal bowel sounds. No distension or tympany. No guarding or rebound. No evidence of tenderness throughout. Skin: Warm, dry with normal turgor. Normal color with no rashes, no lesions, and no evidence of cellulitis. MS/ Extremity: Pulses equal, no cyanosis. Neurovascular intact. Full, normal range of motion. 03:22 Constitutional: The patient appears Tremulous, mild distress 04:23 ECG was reviewed by the Attending Physician. rt Vital Signs: 03:01 BP 162 / 111; Pulse 112; Resp 22; Temp 98.7(TE); Pulse Ox 98% on R/A; Weight 72.57 kg; br2 Height 5 ft. 6 in. ; Pain 10/10; 03:22 BP 153 / 108; Pulse 113; Resp 20; Pulse Ox 98% on R/A; ay 04:38 BP 133 / 75; Pulse 100; Resp 20; Temp 98.7; Pulse Ox 98% ; Pain 0/10; bm8 03:01 Body Mass Index 25.82 (72.57 kg, 167.64 cm) br2 03:01 Pain Scale: Adult br2 04:38 Pain Scale: Adult bm8 [place] Coma Score: 03:22 Eye Response: spontaneous(4). Motor Response: obeys commands(6). Verbal Response: ay oriented(5). Total: 15. 04:38 Eye Response: spontaneous(4). Motor Response: obeys commands(6). Verbal Response: bm8 oriented(5). Total: 15. MDM: 03:01 Medical Screening Exam initiated rt 04:31 Differential Diagnosis Alcohol withdrawal, alcohol abuse, alcohol intoxication. Data rt reviewed: vital signs, nurses notes, lab test result(s), EKG. Consideration of Admission/Observation Escalation of care including admission/observation considered. Heart rate normalized, is no longer tremulous after 1 dose of diazepam, is requesting lower dose, will give, at this time, there are no indications for admission, will send patient home on Librium taper.. I considered the following discharge prescriptions or medication management in the emergency department Medications were administered in the Emergency Department. See MAR. Care significantly affected by the following Social Determinants of Health: Misuse of alcohol and/or drugs. Counseling: I had a detailed discussion with the patient and/or guardian regarding the historical points, exam findings, and any diagnostic results supporting the discharge/admit diagnosis, lab results, the need for outpatient follow up. Response to treatment: the patient's symptoms have markedly improved after treatment. 09/13 03:06 Order name: CBC with Diff; Complete Time: 04:15 rt 09/13 03:06 Order name: CMP; Complete Time: 03:54 rt 09/13 03:06 Order name: ETOH Level; Complete Time: 03:54 rt 09/13 04:14 Order name: CBC Smear Scan; Complete Time: 04:15 EDMS 09/13 03:06 Order name: EKG - Nurse/Tech; Complete Time: 04:38 rt EC:23 Rate is 81 beats/min. Rhythm is regular, Normal Sinus Rhythm with No ectopy, Right rt bundle branch block. Left axis deviation noted. [place] interval is normal. QRS interval is normal. QT interval is normal. No Q waves. No ST changes noted. Interpreted by me. Administered Medications: 03:21 Drug: Ondansetron IVP 4 mg IVP once; over 2 minutes Route: IVP; Site: right antecubital;ay 04:38 Follow up: Response: No adverse reaction bm8 03:21 Drug: Diazepam IVP 10 mg IVP once Route: IVP; Site: right antecubital; ay 04:38 Follow up: Response: No adverse reaction bm8 03:22 Drug: NS 0.9% IV 1000 ml IV at 1000 ml once; to be given as a bolus over 60 minutes ay Route: IV; Rate: 1000 ml; Site: right antecubital; 04:38 Follow up: Response: No adverse reaction; IV Status: Completed infusion bm8 04:38 Drug: Diazepam IVP 5 mg IVP once Route: IVP; Site: right antecubital; bm8 04:38 Follow up: Response: No adverse reaction; Medication Administered at Departure bm8 Disposition Summary: 09/13/24 04:16 Discharge Ordered Notes: Location: Home rt Problem: an acute exacerbation rt Symptoms: have improved rt Condition: Stable rt Diagnosis - Alcohol abuse rt Followup: rt - With: Private Physician - When: 2 - 3 days - Reason: Discharge Instructions: - Discharge Summary Sheet rt - Alcohol Use Disorder rt Forms: - Medication Reconciliation Form rt - Antibiotic Education rt - Prescription Opioid Use rt - Patient Portal Instructions rt - Leadership Thank You Letter rt Prescriptions: - chlordiazepoxide HCl 25 mg Oral capsule - take 2 capsule ORAL route Use as Directed; 20 capsule; Refills: 0, Product rt Selection Permitted Signatures: Dispatcher [employer] EDMS Ruy Robison MD MD rt Thanh Chacko RN RN bm8 Haylee Wells RN RN br2 Dianna Bowman RN RN ay Corrections: (The following items were deleted from the chart) 03:06 03:06 CBC+H.LAB.BRZ ordered. EDMS EDMS 03:06 03:06 COMPREHENSIVE METABOLIC PANEL+C.LAB.BRZ ordered. EDMS EDMS 03:06 03:06 ETHANOL+C.LAB.BRZ ordered. EDMS EDMS
[2024-09-13 13:37] VITALS: TEMP 98.7; O2SAT 98
[2024-09-13 13:39] VITALS: BP 133/75
--- NOTE | 2024-09-15 12:04 | EKG ---
Test Date: 2024-09-13 Test Time: 03:57:46 Smoke Tester: GABY MEASUREMENT RESULTS: Intervals: Rate: 81 WI: 130 QRSD: 96 QT: 376 QTc: 436 [place]: P: 35 WI: 130 QRS: -13 T: 32 INTERPRETIVE STATEMENTS: Normal sinus rhythm Incomplete right bundle branch block Borderline ECG Compared to ECG 09/12/2024 18:25:18 Sinus tachycardia no longer present Left-axis deviation no longer present Electronically Signed On 09-15-24 12:00:22 CURTAIN SUPERVISOR by William Beach
== END 2024-09-13 04:40 | disposition home or self-care (01) ==
LOC: ER 02:41
DX: F10.29 Alcohol dependence with unspecified alcohol-induced disorder (principal)
CPT/HCPCS: 36415; 80053; 82077; 85025; 93005; 96361; 96374; 96375; 99285; J2405; J3360; J7030

== ENCOUNTER 2024-11-06 10:28 | Emergency (ER) | payer SELFPAY ==
--- NOTE | 2024-11-06 11:11 | RAD REPORT ---
EXAM: CT brain without contrast HISTORY: PAIN COMPARISON: None TECHNIQUE: Multiple contiguous axial images were obtained and a CT of the brain without contrast. Sag ittal and coronal reformats were performed. FINDINGS: No evidence of hydrocephalus, intracranial hemorrhage, or extra-axial fluid collection. The brain is normal in morphology. The calvarium is intact. He is referred to patient bone CT of the same day regarding the facial findi ngs. The visualized paranasal sinuses and mastoid air cells are essentially clear. IMPRESSION: No evidence of acute intracranial abnormality. EXAM: CT of the cervical spine without contrast HISTORY: PAIN COMPARISON: None TECHNIQUE: Multiple contiguous axial images were obtained in a CT of the cervical spine without contr ast. Sagittal and coronal reformats were performed. FINDINGS: The vertebral bodies demonstrate normal height and alignment. No evidence of acute fracture or subluxation.. No degenerative changes are present. No prevertebral soft tissue swelling is seen. The posterior facets are well aligned. Normal alignment of the skull base with the cervical spine is seen. The lung apices are unremarkable. IMPRESSION: No evidence of acute osseous abnormality of the cervical spine.
--- NOTE | 2024-11-06 11:16 | RAD REPORT ---
EXAMINATION: CT MAXILLOFACIAL WITHOUT CONTRAST CLINICAL INDICATION: PAIN TECHNIQUE: Axial images were obtained through the facial bones and orbits without intravenous contras t. Sagittal and coronal reconstructions were created from the data. One or more of the following dose reduction techniques were used: Automated exposure control, adjustment of the mA and/or kV accor ding to patient size, and/or iterative reconstruction. Unless otherwise specified, incidental findings do not require dedicated imaging follow-up. COMPARISON: No prior exam. FINDINGS: SOFT TISSUE: Swelling and hematoma along the left infraorbital and cheek soft tissues extending to th e upper limit. Edema and possible lacerations of the lower lip with small hematoma along the right lower jaw as well. Small left premalar hematoma as well. Soft tissue thickening and several small hem atoma of the left inferior lobe.. BONES: Mildly comminuted bilateral nasal bone fractures. No other evidence of fracture, dislocation, or aggressive osseous lesions. No lesion of the visualized skull base or calvarium. ORBITS: The globes are intact. No intraorbital hemorrhage or mass. SINUSES: The paranasal sinuses and tympanomastoid cavities are predominantly clear. IMPRESSION: Soft tissue abnormalities with facial hematomas as above. Mildly comminuted bilateral nasal bone fractures.
[2024-11-06] MEDS ORDERED: TDAP (DIPHTH,PERTUSS(ACELL),TET VAC) 0.5 ML VIAL IMVAC ONE (11:26)
[2024-11-06] MEDS ORDERED: OXYMETAZOLINE HCL 0.05% 30ML NAS ONE (11:39)
[2024-11-06] MEDS ORDERED: LORAZEPAM 1 MG TABLET ONE (11:53)
[2024-11-06] MEDS ORDERED: TRANEXAMIC ACID 1,000 MG/10 ML VIAL IV ONE (15:23)
[2024-11-06] MEDS ORDERED: NA CHLORIDE 0.9% 100 ML ONE ×2 (15:24→20:45)
[2024-11-06] MEDS ORDERED: NA CHLORIDE 0.9% 1,000 ML ONE ×4 (16:00→21:02)
[2024-11-06] MEDS ORDERED: NA CHLORIDE 0.9% 500 ML ONE (16:26)
[2024-11-06 16:32] LABS: Absolute Lymphocytes (CBC) 0.8 K/uL (0.7-4.9); Absolute Monocytes 0.4 K/uL (0.1-1.3); Basophils % 0.2 % (0-1.3); Hematocrit 35.3 % (39.6-49.0); Hemoglobin 12.3 g/dL (13.6-17.9); Lymphocytes % 10.2 % (15.3-44.8); MCH 30.6 pg (27.0-35.0); MCHC 34.7 g/dL (32.0-36.0); MCV 88.3 fL (80-100); MPV 8.5 fL (7.6-11.3); Monocytes % 4.4 % (3.3-12.3); Neutrophils % 85.2 % (41.7-73.7); Platelets 33 thou/uL (152-406); Red Cell Distribution Width 14.1 % (12.1-15.2)
[2024-11-06 16:36] LABS: Anion Gap 10.7 mEq/L (5.0-15.0); Potassium 3.7 mEq/L (3.5-5.1)
[2024-11-06 16:45] LABS: PT Prothrombin Time 11.3 SECONDS (10-13.0); PTT, Activated Partial Thromb 23.9 SECONDS (27.2-37.4); Protime INR 0.99
--- NOTE | 2024-11-06 17:25 | P.CNS ---
Date of Consult: 11/06/24 CC: epistaxis Requestings MD: Jack, [facility] HPI: Patient is unable to provide history due to intoxication and AMS. It is reported that the patient was intoxicated and fell with resulting facial injury and nasal bleeding. He was brought by EMS to the ER with findings of acute intoxication and left nasal bleeding. A rhinorocket was placed in the Left nasal cavity with decreased but not resolution of bleeding, prompting ENT consultation. Unknown last PO intake, suspect recent (<8h ago) based on intoxication. PMH: Unknown, unable to obtain due to patient mental status PSH: Unknown, unable to obtain due to patient mental status Allergies: Unknown, none documented in hospital records Home Medications: Unknown, unable to obtain due to patient mental status ROS: unable to obtain due to patient mental status PE: Sedated, difficult to arose. Left nasal cavity with rhinorocket in place with active oozing around pack. Facial edema and early/developing ecchymosis. Assessment: Epistaxis, left. Uncontrolled with rhinorocket packing. Plan: Due to unknown medical history, I initially recommended treatment with TXA to help stablize clot and control bleeding. Given unknown medication history on initial evaluation with inability to consent for surgery, I recommend medication options and investigations/labs prior to surgical interventions. Recommendation for TXA was communicated with Dr Santiago via telephone at approximately 1505. My in-person exam was performed at approximately [id number], at which time, the patient had not yet received TXA due to lack of IV access and nursing staff was actively attempting to obtain IV access. I recommended lab panel and reviewed his CT scan which demonstrated nasal pack and partial opacification of L>R anterior ethmoids but no clear evidence of nasal bone fracture. The was abnormality of the left medial orbital wall that is likely a remote/healed fracture. At approximately 1700, I reviewed the patient's lab studies which demonstrated significant thrombocytopenia with plt count of 33. His INR was normal and Hgb was mildly decreased. I spoke with Dr Santiago about platelet transfusion - due to platelet count <50 with active bleeding. She stated that patient is receiving 2U PRBC due to developing hypotension and she will arrange plt transfusion KARLA. I also feel, in this setting, that FFP is likely to be helpful due to risk of coagulation factor deficiency with suspected chronic alcohol abuse. In review of records, the patient has been seen in the ER numerous times over the last 14 years with alcohol intoxication and withdrawal complains. He was last admitted in 2022 and discharged with Librium taper. He was last in the ER in Aug 2024 with intoxication and complaints of alcohol withdrawal which was controlled with a single dose of benzodiazapine and discharged with Librium taper. Based on information obtained from the chart in conjunction with exam findings, he remains at a high risk for operative intervention and will require medical optomization and strategies to control bleeding first.
--- NOTE | 2024-11-06 18:35 | ER ---
Nurse's Notes [facility] Name: Mehdi Ramos III Age: 39 yrs Sex: Male : 1985 Arrival Date: 11/06/2024 Time: 10:28 Bed 2 Private MD: Diagnosis: Epistaxis;Thrombocytopenia, unspecified;Fracture of nasal bones;Alcohol abuse Presentation: 11/06 10:30 Chief complaint: EMS states: Was at convenience store, intoxicated, fell x 2, injuries ph to face, no LOC. Coronavirus screen: Vaccine status: Patient reports being unvaccinated. Ebola Screen: No symptoms or risks identified at this time. Initial Sepsis Screen: Does the patient meet any 2 criteria? No. Patient's initial sepsis screen is negative. Does the patient have a suspected source of infection? No. Patient's initial sepsis screen is negative. Risk Assessment: Do you want to hurt yourself or someone else? Patient reports no desire to harm self or others. Onset of symptoms was November 06, 2024. 10:30 Method Of Arrival: EMS: Formerly named [facility] 10:30 Acuity: BRANDON 3 ph 11:17 Care prior to arrival: None. Mechanism of Injury: Fall from standing position. Trauma ph event details: Injury occurred in the [facility], Injury occurred: in a public building. Injury occurred: November 06, 2024. 11:45 Acuity: BRANDON 2 hb Triage Assessment: 10:35 General: Appears in no apparent distress. Behavior is cooperative, Smells of alcohol. ph Pain: Complains of pain in face. EENT: Nares with bleeding noted bleeding noted. Neuro: Level of Consciousness is awake, alert, obeys commands, Oriented to person, place, time, situation. Cardiovascular: Capillary refill < 3 seconds in bilateral fingers Patient's skin is warm and dry. Respiratory: Airway is patent Respiratory effort is even, unlabored, Respiratory pattern is regular, symmetrical. Derm: Skin is pink, warm \T\ dry. Historical: - Allergies: 11:12 No Known Allergies; ph - PMHx: 11:12 Alcoholism; Anxiety; ph Historical Immunization: - Administered Vaccines 21:19 Magnesium Sulfate IVPB 2 grams lg3 21:11 Keppra IV 1000 mg lg3 21:11 Thiamine IV 100 mg lg3 21:11 Banana Bag - (NS 0.9% IV 1000 ml, foLIC Acid IVPB 1 mg, Thiamine IV 100 mg, lg3 Multivitamin IV 1 amp) 20:52 NS 0.9% IV 1000 ml lg3 20:51 Piperacillin-Tazobactam IVPB 3.375 grams lg3 20:51 NS 0.9% IV 1000 ml lg3 20:37 morphine IVP or IV 4 mg lg3 20:37 Ondansetron IVP 4 mg lg3 16:25 tranexamic acid IV 1000 mg ph 16:25 NS 0.9% IV 1000 ml ph 11:55 Tetanus-Diphtheria Toxoid IM Adult 0.5 ml ph Half Sole Fitter: Domob; Exp: SunMar 18 2027; Lot #: [id number]; Series: ; Patient Consent: Obtained; Date/Time: ; Source Name: Mehdi Ramos III; Source Relationship: Self; Address Information: [address] [place] [address]; ; Education: Provided; VIS Presented Date: ; VIS Publication: Tetanus/Diphtheria/Pertussis (Tdap/Td) VIS 08/15/2011 (historic) 11:55 LORazepam PO 1 mg ph - Immunization history:: Adult Immunizations unknown. - Infectious Disease History:: Denies. - Immunization history: Last tetanus immunization: unknown. - Social history:: Smoking status: unknown Patient uses alcohol. Screenin:15 [facility] ED Fall Risk Assessment (Adult) History of falling in the last 3 months, ph including since admission Yes- fall prone (multiple falls) (3 pts) Confusion or Disorientation No (0 pts) Intoxicated or Sedated Yes (3 pts) Impaired Gait No (0 pts) Mobility Assist Device Used No (0 pt) Altered Elimination No (0 pt) Score/Fall Risk Level 3 or more points = High Risk Oriented to surroundings, Maintained a safe environment, Hourly rounding (assess needs \T\ fall precautionary measures) done, Used ambulatory aids as needed (educated on \T\ assisted with). Abuse screen: Denies threats or abuse. Denies injuries from another. Nutritional screening: No deficits noted. Tuberculosis screening: No symptoms or risk factors identified. Primary Survey: 11:15 NO uncontrolled hemorrhage observed. A: The client is awake and alert. The airway is ph patent. Breathing/Chest: Spontaneous respiratory effort, equal unlabored respirations, breath sounds clear bilaterally, regular pattern, symmetrical chest rise and fall. Circulation: No external hemorrhage present. Regular and strong central pulse, skin warm/dry/normal color. Disability Pupils are equal, round, reactive to light and accommodation. Exposure/Environment: Obvious injury(ies) are noted at this time: bleeding from L nare and mouth A warming method has been applied: A warm blanket has been provided to the patient. 13:20 Reassessment Alertness and Airway: Other Pt intoxicated, drowsy but awakens easily ph Breathing: Spontaneous respiratory effort, equal unlabored respirations, breath sounds clear bilaterally, regular pattern with symmetrical chest rise and fall. Circulation: No external hemorrhage noted. Regular and strong central pulse, skin warm/dry/normal color. Secondary Survey: 11:16 HEENT: Nose: bleeding noted to left nare. ph Assessment: 10:45 Reassessment: Dr Santiago at bedside, rhino-rocket placed to L nare. ph 11:30 General: Appears in no apparent distress. Behavior is cooperative. Pain: Complains of ph pain in face. Neuro: Level of Consciousness is awake, alert, obeys commands, Oriented to person, place, time, situation. Cardiovascular: Capillary refill < 3 seconds in bilateral fingers Patient's skin is warm and dry. Respiratory: Airway is patent Respiratory effort is even, unlabored. EENT: Nares with bleeding noted on left. Derm: Skin is pink, warm \T\ dry. 12:30 Reassessment: Patient appears in no apparent distress at this time. Patient and/or ph family updated on plan of care and expected duration. Pain level reassessed. L nare continues to bleed. 13:19 Reassessment: Patient appears in no apparent distress at this time. Patient and/or ph family updated on plan of care and expected duration. Pain level reassessed. Pt sleeping w/ stable VS, will continue to monitor, L nare continues to bleed. 14:45 Reassessment: Patient and/or family updated on plan of care and expected duration. Pain ph level reassessed. Pt sleeping w/ stable VS, bleeding still noted from L nare, rhino-rocket in place, ERP notified, lab orders placed. 16:24 Reassessment: Patient and/or family updated on plan of care and expected duration. Pain ph level reassessed. While attempting to obtain IV access pt began to have snoring respirations and became hypotensive, ERP notified and at bedside. 16:30 Reassessment: Emergency release blood given. ph 17:10 Reassessment: Patient appears in no apparent distress at this time. Patient and/or ph family updated on plan of care and expected duration. Pain level reassessed. Pt resting quietly w/ stable VS. 19:10 General: Appears in no apparent distress. uncomfortable, Behavior is cooperative, lg3 fussy. Pain: Complains of pain in face. Neuro: Olmos Agitation-Sedation Scale (RASS): -1 Drowsy Level of Consciousness is awake, alert, obeys commands, confused, Oriented to person, situation, Speech is normal. Cardiovascular: No deficits noted. Denies chest pain, shortness of breath, Capillary refill < 3 seconds Clubbing of nail beds is absent JVD is absent Patient's skin is warm and dry. Respiratory: No deficits noted. Airway is patent Respiratory effort is even, unlabored, Respiratory pattern is regular, symmetrical. GI: No deficits noted. No signs and/or symptoms were reported involving the gastrointestinal system. : No signs and/or symptoms were reported regarding the genitourinary system. EENT: Nares with bleeding noted on left. Derm: Skin is intact, Skin is dry, Skin is normal, Skin temperature is warm. Musculoskeletal: No deficits noted. Circulation, motion, and sensation intact. Range of motion: intact in all extremities, Swelling present in face. 19:18 Reassessment: Report [facility] to [facility] ph 20:52 General: per EMS, pt became hypotensive prior to leaving hospital grounds. EMS brought lg3 pt back in to ED. provider at bedside. pt [id number] but slow to respond. . Vital Signs: 10:30 BP 144 / 106; Pulse 97; Resp 18; Temp 97.8; Pulse Ox 98% on R/A; Weight 72.57 kg; ph Height 5 ft. 6 in. ; 12:15 BP 132 / 87; Pulse 87; Resp 18; Pulse Ox 100% on R/A; ph 13:22 BP 141 / 98; Pulse 71; Resp 18; Pulse Ox 97% on R/A; ph 13:50 BP 113 / 83; Pulse 103; Pulse Ox 95% on R/A; ph 15:00 BP 102 / 72; Pulse 110; Resp 16; Pulse Ox 100% on R/A; ph 16:15 BP 68 / 46; Pulse 110; Resp 18; Pulse Ox 98% on R/A; ph 17:21 BP 115 / 69; Pulse 90; Resp 18; Pulse Ox 98% on R/A; ph 18:15 BP 113 / 90; Pulse 98; Resp 16; Pulse Ox 100% on R/A; ph 19:01 BP 118 / 85; Pulse 116; Resp 19; Pulse Ox 97% on R/A; ph 20:52 BP 102 / 64; Pulse 64; Resp 15 S; Pulse Ox 98% on R/A; lg3 21:11 BP 100 / 66; Pulse 100; Resp 16 S; Pulse Ox 98% on R/A; lg3 21:33 BP 120 / 76; Pulse 89; Resp 16 S; Pulse Ox 100% on R/A; lg3 10:30 Body Mass Index 25.82 (72.57 kg, 167.64 cm) ph Bartlett Coma Score: 11:16 Eye Response: spontaneous(4). Motor Response: obeys commands(6). Verbal Response: ph oriented(5). Total: 15. 12:15 Eye Response: to voice(3). Motor Response: obeys commands(6). Verbal Response: ph oriented(5). Total: 14. 13:22 Eye Response: to voice(3). Motor Response: obeys commands(6). Verbal Response: ph oriented(5). Total: 14. 15:00 Eye Response: to voice(3). Motor Response: obeys commands(6). Verbal Response: ph oriented(5). Total: 14. 17:21 Eye Response: to voice(3). Motor Response: obeys commands(6). Verbal Response: ph confused(4). Total: 13. 18:15 Eye Response: to voice(3). Motor Response: obeys commands(6). Verbal Response: ph confused(4). Total: 13. 19:01 Eye Response: to voice(3). Motor Response: obeys commands(6). Verbal Response: ph oriented(5). Total: 14. 19:10 Eye Response: spontaneous(4). Motor Response: obeys commands(6). Verbal Response: lg3 confused(4). Total: 14. Trauma Score (Adult): 11:16 Eye Response: spontaneous(1); Verbal Response: oriented(1); Motor Response: obeys ph commands(2); Systolic BP: > 89 mm Hg(4); Respiratory Rate: 10 to 29 per min(4); Bartlett Score: 15; Trauma Score: 12 12:15 Eye Response: to voice(0); Verbal Response: oriented(1); Motor Response: obeys ph commands(2); Systolic BP: > 89 mm Hg(4); Respiratory Rate: 10 to 29 per min(4); Bartlett Score: 14; Trauma Score: 11 13:22 Eye Response: to voice(0); Verbal Response: oriented(1); Motor Response: obeys ph commands(2); Systolic BP: > 89 mm Hg(4); Respiratory Rate: 10 to 29 per min(4); Bartlett Score: 14; Trauma Score: 11 15:00 Eye Response: to voice(0); Verbal Response: oriented(1); Motor Response: obeys ph commands(2); Systolic BP: > 89 mm Hg(4); Respiratory Rate: 10 to 29 per min(4); Daksha Score: 14; Trauma Score: 11 16:15 Eye Response: to pain(0); Verbal Response: confused(1); Motor Response: localizes ph pain(1); Systolic BP: 76 to 89 mm Hg(3); Respiratory Rate: 10 to 29 per min(4); Bartlett Score: 11; Trauma Score: 9 17:21 Eye Response: to voice(0); Verbal Response: confused(1); Motor Response: obeys ph commands(2); Systolic BP: > 89 mm Hg(4); Respiratory Rate: 10 to 29 per min(4); Daksha Score: 13; Trauma Score: 11 18:15 Eye Response: to voice(0); Verbal Response: confused(1); Motor Response: obeys ph commands(2); Systolic BP: > 89 mm Hg(4); Respiratory Rate: 10 to 29 per min(4); Daksha Score: 13; Trauma Score: 11 19:01 Eye Response: to voice(0); Verbal Response: oriented(1); Motor Response: obeys ph commands(2); Systolic BP: > 89 mm Hg(4); Respiratory Rate: 10 to 29 per min(4); Bartlett Score: 14; Trauma Score: 11 19:10 Eye Response: spontaneous(1); Verbal Response: confused(1); Motor Response: obeys lg3 commands(2); Systolic BP: > 89 mm Hg(4); Respiratory Rate: 10 to 29 per min(4); Daksha Score: 14; Trauma Score: 12 ED Course: 10:30 Patient arrived in ED. ph 10:30 Stefanie Santiago MD is Attending Physician. sw6 10:45 Assist provider with nosebleed control using rhino rocket placed for extensive packing ph needs, Bleeding from left nare. Set up for procedure. Performed by Stefanie Santiago MD Patient tolerated well. 11:01 CT Head C Spine In Process Unspecified. EDMS 11:01 CT Facial Bones W/O Con In Process Unspecified. EDMS 11:08 Jacquelyn Lyles, RN is Primary Nurse. ph 11:12 Triage completed. ph 11:12 Arm band placed on Patient placed in an exam room, on a stretcher, on cocoa bean roaster helper, ph on pulse oximetry. 11:17 Patient has correct armband on for positive identification. Bed in low position. Call ph light in reach. Side rails up X2. Pulse ox on. NIBP on. Door closed. Noise minimized. Warm blanket given. 11:17 Patient maintains SpO2 saturation greater than 95% on room air. ph 11:17 Thermoregulation: warm blanket given to patient. ph 15:55 Missed attempt(s): 20 gauge in left antecubital area. Bleeding controlled, band aid ph applied, catheter tip intact. Missed attempt(s): 22 gauge in left antecubital area. Bleeding controlled, band aid applied, catheter tip intact. Missed attempt(s): 20 gauge in right antecubital area. Bleeding controlled, band aid applied, catheter tip intact. 15:59 Initial lab(s) drawn, by me, sent to lab. zm 15:59 Inserted saline lock: 22 gauge in right forearm, using aseptic technique. Blood zm collected. Flushed with 10 mL NS. 16:15 Inserted saline lock: 20 gauge in left forearm, using aseptic technique. Flushed with zm 10 mL NS. 17:48 Contacted [facility] to initiate transfer per Dr. Santiago, [facility] to R[facility] and states he will contact ENT doctor and pending bed assignment at this time, reports long wait time. 17:59 Contacted [facility] to initiate transfer per Dr. Santiago, spoke aa5 to Paola at 1813 and states she will call us back. 18:[address] Priyanka Obregon accepted pt 1829 admin approval to [facility] to the surgery floor bed 1614. report number [phone]. 18:45 cancelled transfer to [facility]. sp 20:27 Patient transferred, IV remains in place. cp4 20:36 Attending Physician role handed off by Stefanie Santiago MD lg3 20:48 Glenn Conteh MD is Attending Physician. nura 20:55 Initiated transfer with Melvin at [facility]. rv1 21:[address] Rebolledo to [facility] ER, Spoke with PEACE at [facility]. ETA 35 mins. Administered Medications: 11:55 Drug: Tetanus-Diphtheria Toxoid IM Adult 0.5 ml IM once; Provide Vaccine Information ph Statement (VIS). {Half Sole Fitter: Domob; Exp: SunMar 18 2027; Lot #: [id number]; Series: 1 of 1; Patient Consent: Obtained; Date/Time: ; Source Name: Mehdi Ramos III; Source Relationship: Self; Address Information: [address] [place] [id number]; ; Education: Provided; VIS Presented Date: ; VIS Publication: Tetanus/Diphtheria/Pertussis (Tdap/Td) VIS 08/15/2011 (historic)} Route: IM; Site: left deltoid; 18:03 Follow up: Response: No adverse reaction ph 11:55 Drug: LORazepam PO 1 mg PO once Route: PO; ph 18:03 Follow up: Response: No adverse reaction ph 16:25 Drug: tranexamic acid IV 1000 mg IV at calculated rate once; IV once over 20 minutes ph Route: IV; Rate: calculated rate; Site: left forearm; 16:45 Follow up: Response: No adverse reaction; IV Status: Completed infusion ph 16:25 Drug: NS 0.9% IV 1000 ml IV at 1 bolus Per protocol; to be given as a bolus over 60 ph minutes Route: IV; Rate: 1 bolus; Site: left forearm; 16:35 Follow up: Response: No adverse reaction; IV Status: Completed infusion ph 20:37 Drug: morphine IVP or IV 4 mg IVP once over 4 mins {Note: 2MG administered .} Route: lg3 IVP; Infused Over: 4 mins; Site: right forearm; 21:31 Follow up: Response: Adverse reaction, Physician notified lg3 20:37 Drug: Ondansetron IVP 4 mg IVP once; over 2 minutes Route: IVP; Site: right forearm; lg3 20:37 Follow up: Response: No adverse reaction; Medication Administered at Departure lg3 20:51 Drug: Piperacillin-Tazobactam IVPB 3.375 grams IVPB once over 60 mins; (mix in NS 100 lg3 mL) Route: IVPB; Infused Over: 60 mins; Site: right forearm; 21:31 Follow up: Response: No adverse reaction; IV Status: Completed infusion; IV Intake: lg3 100ml 20:51 Drug: NS 0.9% IV 1000 ml IV at 1000 ml once; to be given as a bolus over 60 minutes lg3 Route: IV; Rate: 1000 ml; Site: left forearm; 21:31 Follow up: Response: No adverse reaction; IV Status: Completed infusion; IV Intake: lg3 1000ml 20:52 Drug: NS 0.9% IV 1000 ml IV at 1000 ml once; to be given as a bolus over 60 minutes lg3 Route: IV; Rate: 1000 ml; Site: left forearm; 21:32 Follow up: Response: No adverse reaction; IV Status: Completed infusion; IV Intake: lg3 1000ml 21:11 Drug: Keppra IV 1000 mg IV at per protocol once Route: IV; Rate: per protocol; Site: 3 right forearm; 21:32 Follow up: Response: No adverse reaction; IV Status: Completed infusion; IV Intake: lg3 100ml 21:11 Drug: Thiamine IV 100 mg IV at per protocol once Route: IV; Rate: per protocol; Site: lg3 right forearm; 21:32 Follow up: Response: No adverse reaction; IV Status: Completed infusion; IV Intake: 2ml lg3 21:11 Drug: Banana Bag - (Multivitamin IV 1 amp, NS 0.9% IV 1000 ml, Thiamine IV 100 mg, lg3 foLIC Acid IVPB 1 mg) IV at calculated rate once Route: IV; Rate: calculated rate; Site: right forearm; 21:32 Follow up: IV Status: Infusion continued upon transfer lg3 21:19 Drug: Magnesium Sulfate IVPB 2 grams IVPB once over 2 hrs Route: IVPB; Infused Over: 2 lg3 hrs; Site: right forearm; 21:32 Follow up: IV Status: Infusion continued upon transfer lg3 Medication: 13:20 VIS not applicable for this client. ph Intake: 21:31 IV: 100ml; Total: 100ml. lg3 21:31 IV: 1000ml; Total: 1100ml. lg3 21:32 IV: 1000ml; Total: 2100ml. lg3 21:32 IV: 100ml; Total: 2200ml. lg3 21:32 IV: 2ml; Total: 2202ml. lg3 Outcome: 18:34 ER care complete, transfer ordered by . sw6 20:26 Transferred by ground EMS to [facility], Transfer form completed. cp4 20:26 Condition: stable 20:26 Instructed on the need for transfer, 20:27 Patient left the ED. cp4 20:38 Patient left the ED. lg3 21:30 Patient's length of stay in the Emergency Department was greater than 2 hours. lg3 22:14 Transferred by helicopter to [facility], Transfer form completed. lg3 22:14 Condition: stable 22:14 Instructed on the need for transfer, 22:14 Patient left the ED. lg3 Signatures: Dispatcher [employer] EDGlenn Jimenez MD MD cha Pinkerton, Shawna sp Calderon, Audri, RN RN aa5 Jacquelyn Lyles RN RN ph Baxter, Heather, RN RN hb Able, Lacie, RN RN lg3 Massiel Lopez Rebecca rv1 Potter, Christina cp4 Stefanie Santiago MD MD sw6 Corrections: (The following items were deleted from the chart) 16:15 16:15 Inserted saline lock: 22 gauge in right forearm, using aseptic technique. Blood zm collected. Flushed with 10 mL NS zm 17:11 13:19 Reassessment: Patient appears in no apparent distress at this time. Patient ph and/or family updated on plan of care and expected duration. Pain level reassessed. Pt sleeping w/ stable VS, will continue to monitor ph 17:20 17:19 NS 0.9% IV 1000 ml IV at 1 bolus in left forearm ph ph 20:49 20:37 morphine IVP or IV 4 mg IVP in right forearm over 4 mins lg3 lg3 20:49 20:37 Response: No adverse reaction; Medication Administered at Departure lg3 lg3
--- NOTE | 2024-11-06 18:35 | EDPHYS ---
Physician Documentation [facility] Name: Mehdi Ramos III Age: 39 yrs Sex: Male : 1985 Arrival Date: 11/06/2024 Time: 10:28 Bed 2 Private MD: ED Physician Glenn Conteh HPI: 11/06 10:42 This 39 yrs old Male presents to ER via Unassigned with complaints of Fall sw6 Injury, ETOH Abuse. 10:42 The patient presents with EMS for evaluation after 2 witnessed falls at a convenience [employer] store just prior to arrival. The patient went there to buy alcohol and was denied any alcohol. He then had 2 falls after which EMS was called. He has bleeding from his mouth as well as his nose. He was given 4 mg of IM Zofran prior to arrival. When asked if he has any pain he shakes his head. He has garbled speech and appears intoxicated and is unable to provide further information. 10:54 Details of fall: The patient fell from an upright position, while walking. Onset: The sw6 symptoms/episode began/occurred just prior to arrival. Unable to obtain HPI due to Intoxicated. Historical: - Allergies: 11:12 No Known Allergies; ph - PMHx: 11:12 Alcoholism; Anxiety; ph - Immunization history:: Adult Immunizations unknown. - Infectious Disease History:: Denies. - Immunization history: Last tetanus immunization: unknown. - Social history:: Smoking status: unknown Patient uses alcohol. ROS: 10:52 Unable to obtain ROS due to intoxicated, 6 18:34 Constitutional: Negative for fever, chills, and weight loss, sw6 Exam: 10:52 Constitutional: This is a well developed, well nourished patient who is awake, alert, sw6 and in no acute distress. Neck: Trachea midline, no thyromegaly or masses palpated, and no cervical lymphadenopathy. Supple, full range of motion without nuchal rigidity, or vertebral point tenderness. No Meningismus. Chest/axilla: Normal chest wall appearance and motion. Nontender with no deformity. No lesions are appreciated. Cardiovascular: Regular rate and rhythm with a normal S1 and S2. No gallops, murmurs, or rubs. Normal PMI, no JVD. No pulse deficits. Respiratory: Lungs have equal breath sounds bilaterally, clear to auscultation and percussion. No rales, rhonchi or wheezes noted. No increased work of breathing, no retractions or nasal flaring. Abdomen/GI: Soft, non-tender, with normal bowel sounds. No distension or tympany. No guarding or rebound. No evidence of tenderness throughout. MS/ Extremity: Pulses equal, no cyanosis. Neurovascular intact. Full, normal range of motion. 10:52 Head/face: Bleeding from left nare. Blood in mouth but no loose or missing teeth.. 10:52 Eyes: Pupils: equal, round, and reactive to light and accomodation, Extraocular movements: intact throughout, 10:52 Neuro: The patient mumbles answers to questions but I am unable to understand what he states. He does have full and active range of motion of all extremities x 4, Vital Signs: 10:30 BP 144 / 106; Pulse 97; Resp 18; Temp 97.8; Pulse Ox 98% on R/A; Weight 72.57 kg; ph Height 5 ft. 6 in. ; 12:15 BP 132 / 87; Pulse 87; Resp 18; Pulse Ox 100% on R/A; ph 13:22 BP 141 / 98; Pulse 71; Resp 18; Pulse Ox 97% on R/A; ph 13:50 BP 113 / 83; Pulse 103; Pulse Ox 95% on R/A; ph 15:00 BP 102 / 72; Pulse 110; Resp 16; Pulse Ox 100% on R/A; ph 16:15 BP 68 / 46; Pulse 110; Resp 18; Pulse Ox 98% on R/A; ph 17:21 BP 115 / 69; Pulse 90; Resp 18; Pulse Ox 98% on R/A; ph 18:15 BP 113 / 90; Pulse 98; Resp 16; Pulse Ox 100% on R/A; ph 19:01 BP 118 / 85; Pulse 116; Resp 19; Pulse Ox 97% on R/A; ph 20:52 BP 102 / 64; Pulse 64; Resp 15 S; Pulse Ox 98% on R/A; lg3 21:11 BP 100 / 66; Pulse 100; Resp 16 S; Pulse Ox 98% on R/A; lg3 21:33 BP 120 / 76; Pulse 89; Resp 16 S; Pulse Ox 100% on R/A; lg3 10:30 Body Mass Index 25.82 (72.57 kg, 167.64 cm) ph [place]sha Coma Score: 11:16 Eye Response: spontaneous(4). Motor Response: obeys commands(6). Verbal Response: ph oriented(5). Total: 15. 12:15 Eye Response: to voice(3). Motor Response: obeys commands(6). Verbal Response: ph oriented(5). Total: 14. 13:22 Eye Response: to voice(3). Motor Response: obeys commands(6). Verbal Response: ph oriented(5). Total: 14. 15:00 Eye Response: to voice(3). Motor Response: obeys commands(6). Verbal Response: ph oriented(5). Total: 14. 17:21 Eye Response: to voice(3). Motor Response: obeys commands(6). Verbal Response: ph confused(4). Total: 13. 18:15 Eye Response: to voice(3). Motor Response: obeys commands(6). Verbal Response: ph confused(4). Total: 13. 19:01 Eye Response: to voice(3). Motor Response: obeys commands(6). Verbal Response: ph oriented(5). Total: 14. 19:10 Eye Response: spontaneous(4). Motor Response: obeys commands(6). Verbal Response: lg3 confused(4). Total: 14. Trauma Score (Adult): 11:16 Eye Response: spontaneous(1); Verbal Response: oriented(1); Motor Response: obeys ph commands(2); Systolic BP: > 89 mm Hg(4); Respiratory Rate: 10 to 29 per min(4); [place] Score: 15; Trauma Score: 12 12:15 Eye Response: to voice(0); Verbal Response: oriented(1); Motor Response: obeys ph commands(2); Systolic BP: > 89 mm Hg(4); Respiratory Rate: 10 to 29 per min(4); [place] Score: 14; Trauma Score: 11 13:22 Eye Response: to voice(0); Verbal Response: oriented(1); Motor Response: obeys ph commands(2); Systolic BP: > 89 mm Hg(4); Respiratory Rate: 10 to 29 per min(4); [place] Score: 14; Trauma Score: 11 15:00 Eye Response: to voice(0); Verbal Response: oriented(1); Motor Response: obeys ph commands(2); Systolic BP: > 89 mm Hg(4); Respiratory Rate: 10 to 29 per min(4); [place] Score: 14; Trauma Score: 11 16:15 Eye Response: to pain(0); Verbal Response: confused(1); Motor Response: localizes ph pain(1); Systolic BP: 76 to 89 mm Hg(3); Respiratory Rate: 10 to 29 per min(4); [place] Score: 11; Trauma Score: 9 17:21 Eye Response: to voice(0); Verbal Response: confused(1); Motor Response: obeys ph commands(2); Systolic BP: > 89 mm Hg(4); Respiratory Rate: 10 to 29 per min(4); [place] Score: 13; Trauma Score: 11 18:15 Eye Response: to voice(0); Verbal Response: confused(1); Motor Response: obeys ph commands(2); Systolic BP: > 89 mm Hg(4); Respiratory Rate: 10 to 29 per min(4); [place] Score: 13; Trauma Score: 11 19:01 Eye Response: to voice(0); Verbal Response: oriented(1); Motor Response: obeys ph commands(2); Systolic BP: > 89 mm Hg(4); Respiratory Rate: 10 to 29 per min(4); [place] Score: 14; Trauma Score: 11 19:10 Eye Response: spontaneous(1); Verbal Response: confused(1); Motor Response: obeys lg3 commands(2); Systolic BP: > 89 mm Hg(4); Respiratory Rate: 10 to 29 per min(4); [place] Score: 14; Trauma Score: 12 Procedures: 10:52 Epistaxis treatment: A moderate amount of bleeding noted from left nare. Treated using 6 rhino rocket, Bleeding stopped. MDM: 10:38 Medical Screening Exam initiated 10:52 Differential diagnosis: abrasion, closed head injury, contusion, fracture, laceration, sw6 multiple trauma, sprain, strain. Data reviewed: vital signs, nurses notes, EMS record. 16:17 ED course: CT of the head and c-spine show no acute traumatic injuries. The CT face sw6 shows a nasal bone fracture but no other acute traumatic injuries. He initially had an anterior Rhino Rocket placed into his left nare however the bleeding did not subside. Therefore this was removed and a posterior Rhino Rocket was placed after administration of Afrin. The bleeding improved but did not subside. Orders were placed for TXA and a consult was made to ENT for continued management. The patient continued to bleed from his left nare and eventually became hypotensive with systolic blood pressures in the 70s. He was given IV fluids and placed in Trendelenburg which did help his blood pressure. His conjunctiva were noted to be very pale and decision was made to give the patient stat blood.. 17:51 ED course: His blood pressure did improve after administration of 2 units of packed red [facility] blood cells. His laboratory studies show he has thrombocytopenia with a platelet count of 33. As he still has an active bleed from his left nose he does require platelet transfusion however there are no platelets available at this campus. Therefore he does require transfer for continued management.. 18:32 ED course: Spoke with Dr. Obregon with the internal medicine service at [facility] in the [address] as well as Dr. Nevarez with the ENT service and the patient was accepted for admission for continued management. He is pending transportation.. 11/06 15:03 Order name: Basic Metabolic Panel; Complete Time: 17:04 [facility] 11/06 17:04 Interpretation: Within normal limits. [facility] 11/06 15:03 Order name: CBC with Diff [facility] 11/06 17:04 Interpretation: Abnormal: Thrombocytopenia. [facility] 11/06 15:03 Order name: Type And Screen [facility] 11/06 15:03 Order name: PT-INR; Complete Time: 17:04 [facility] 11/06 17:04 Interpretation: Within normal limits. [facility] 11/06 15:03 Order name: Ptt, Activated; Complete Time: 17:04 [facility] 11/06 17:04 Interpretation: Within normal limits. [facility] 11/06 16:09 Order name: LAB Add On sp 11/06 16:19 Order name: Packed RBC Leukored EDMN 11/06 10:39 Order name: CT Head C Spine; Complete Time: 11:25 [facility] 11/06 11:26 Interpretation: No acute disease. [facility] 11/06 10:39 Order name: CT Facial Bones W/O Con; Complete Time: 11:25 11/06 11:26 Interpretation: Abnormal: Nasal bone fracture. 11/06 15:03 Order name: Labs collected and sent; Complete Time: 16:16 11/06 17:37 Order name: Transfer - Initiate; Complete Time: 17:53 11/06 20:54 Order name: NPO; Complete Time: 20:55 nura Administered Medications: 11:55 Drug: Tetanus-Diphtheria Toxoid IM Adult 0.5 ml IM once; Provide Vaccine Information ph Statement (VIS). {Job Interviewer: [email or web address]; Exp: SunMar 18 2027; Lot #: [id number]; Series: ; Patient Consent: Obtained; Date/Time: ; Source Name: Mehdi Ramos III; Source Relationship: Self; Address Information: [address] [place] [address]; ; Education: Provided; VIS Presented Date: ; VIS Publication: Tetanus/Diphtheria/Pertussis (Tdap/Td) VIS 08/15/2011 (historic)} Route: IM; Site: left deltoid; 18:03 Follow up: Response: No adverse reaction ph 11:55 Drug: LORazepam PO 1 mg PO once Route: PO; ph 18:03 Follow up: Response: No adverse reaction ph 16:25 Drug: tranexamic acid IV 1000 mg IV at calculated rate once; IV once over 20 minutes ph Route: IV; Rate: calculated rate; Site: left forearm; 16:45 Follow up: Response: No adverse reaction; IV Status: Completed infusion ph 16:25 Drug: NS 0.9% IV 1000 ml IV at 1 bolus Per protocol; to be given as a bolus over 60 ph minutes Route: IV; Rate: 1 bolus; Site: left forearm; 16:35 Follow up: Response: No adverse reaction; IV Status: Completed infusion ph 20:37 Drug: morphine IVP or IV 4 mg IVP once over 4 mins {Note: 2MG administered .} Route: lg3 IVP; Infused Over: 4 mins; Site: right forearm; 21:31 Follow up: Response: Adverse reaction, Physician notified lg3 20:37 Drug: Ondansetron IVP 4 mg IVP once; over 2 minutes Route: IVP; Site: right forearm; lg3 20:37 Follow up: Response: No adverse reaction; Medication Administered at Departure lg3 20:51 Drug: Piperacillin-Tazobactam IVPB 3.375 grams IVPB once over 60 mins; (mix in NS 100 lg3 mL) Route: IVPB; Infused Over: 60 mins; Site: right forearm; 21:31 Follow up: Response: No adverse reaction; IV Status: Completed infusion; IV Intake: lg3 100ml 20:51 Drug: NS 0.9% IV 1000 ml IV at 1000 ml once; to be given as a bolus over 60 minutes lg3 Route: IV; Rate: 1000 ml; Site: left forearm; 21:31 Follow up: Response: No adverse reaction; IV Status: Completed infusion; IV Intake: lg3 1000ml 20:52 Drug: NS 0.9% IV 1000 ml IV at 1000 ml once; to be given as a bolus over 60 minutes lg3 Route: IV; Rate: 1000 ml; Site: left forearm; 21:32 Follow up: Response: No adverse reaction; IV Status: Completed infusion; IV Intake: lg3 1000ml 21:11 Drug: Keppra IV 1000 mg IV at per protocol once Route: IV; Rate: per protocol; Site: lg3 right forearm; 21:32 Follow up: Response: No adverse reaction; IV Status: Completed infusion; IV Intake: lg3 100ml 21:11 Drug: Thiamine IV 100 mg IV at per protocol once Route: IV; Rate: per protocol; Site: 3 right forearm; 21:32 Follow up: Response: No adverse reaction; IV Status: Completed infusion; IV Intake: 2ml lg3 21:11 Drug: Banana Bag - (Multivitamin IV 1 amp, NS 0.9% IV 1000 ml, Thiamine IV 100 mg, lg3 foLIC Acid IVPB 1 mg) IV at calculated rate once Route: IV; Rate: calculated rate; Site: right forearm; 21:32 Follow up: IV Status: Infusion continued upon transfer lg3 21:19 Drug: Magnesium Sulfate IVPB 2 grams IVPB once over 2 hrs Route: IVPB; Infused Over: 2 lg3 hrs; Site: right forearm; 21:32 Follow up: IV Status: Infusion continued upon transfer lg3 Disposition Summary: 11/06/24 18:34 Transfer Ordered Notes: Reason: Higher level of care sw6 Condition: Serious sw6 Problem: new sw6 Symptoms: are unchanged sw6 Transfer Location: [facility](11/06/24 20:51) [facility] Accepting Physician: TO ATKINSON(11/06/24 22:14) formerly [facility] Diagnosis - Epistaxis sw6 - Thrombocytopenia, unspecified sw6 - Fracture of nasal bones sw6 - Alcohol abuse sw6 Forms: - Medication Reconciliation Form sw6 - SBAR form sw6 Signatures: Dispatcher [employer] EDMS Glenn Conteh MD MD cha Hall, Patricia RN RN Mine Mosquera RN RN lg3 Francia Mckeon 4 Stefanie Santiago MD MD 6 Corrections: (The following items were deleted from the chart) 10:56 10:42 The patient presents with EMS for evaluation after 2 witnessed falls at a [facility] convenience store just prior to arrival. The patient went there to buy alcohol and was denied any alcohol. He then had 2 falls after which EMS was called. He has bleeding from his mouth as well as his nose. He was given 4 mg of IM Zofran prior to arrival.. [facility] 20:27 18:34 Dr. Obregon [facility] 20:38 20:27 Dr. Obregon 4 lg3 20:51 18:[address] 20:51 20:38 Dr. Obregon 3 [facility] 22:14 20:51 [place] [id number]
[2024-11-06 20:31] VITALS: TEMP 97.8
[2024-11-06] MEDS ORDERED: ONDANSETRON 4 MG/2 ML VIAL ONE (20:32)
[2024-11-06] MEDS ORDERED: MORPHINE 4 MG/ML SYR ONE (20:32)
[2024-11-06] MEDS ORDERED: PIPERACIL/TAZO 3.375 GM VIAL IV ONE (20:46)
[2024-11-06] MEDS ORDERED: MULTIVITAMINS 10 ML VIAL (INJ) IV ONE (21:01)
[2024-11-06] MEDS ORDERED: THIAMINE 200 MG/2 ML INJ ONE (21:01)
[2024-11-06] MEDS ORDERED: LEVETIRACETAM 500 MG/5 ML VIAL IV ONE (21:01)
[2024-11-06] MEDS ORDERED: FOLIC ACID 5 MG/ML VIAL ONE (21:02)
[2024-11-06] MEDS ORDERED: Magnesium Sulfate 2gm IVPB 2 G/50 ML BAG IV ONE (21:18)
[2024-11-06 23:10] VITALS: BP 120/76; O2SAT 100
[2024-11-06 23:18] LABS: Band Neutrophils 12 % (0-1); Blood Morphology Comment NOT SEEN (NOT SEEN); Differential Total Cells Count 100; Lymphocytes 11 % (15-42); Monocytes 2 % (0-10); Platelet Estimate DECR; Reactive Lymphocytes 3 %; Segmented Neutrophils 71 % (40-80)
== END 2024-11-06 22:14 | disposition short-term general hospital (02) ==
LOC: ER 10:28
PROC: 2Y41X5Z Packing of Nasal Region using Packing Material (ICD-10-PCS; principal; 2024-11-06)
DX: S02.2XXA Fracture of nasal bones, initial encounter for closed fracture (principal); R04.0 Epistaxis; D69.6 Thrombocytopenia, unspecified; F10.20 Alcohol dependence, uncomplicated
CPT/HCPCS: 36415; 70450; 70486; 72125; 76377; 80048; 85025; 85610; 85730; 86850; 86900; 86901; 86920; 90715; J1953; J2405; J2543; J3411; J3475; J7030; J7050; P9016

== ENCOUNTER 2024-12-12 21:10 | Emergency (ER) | payer SELFPAY ==
[2024-12-12] MEDS ORDERED: AMOX/K CLAV 875 MG TAB ONE (22:29)
[2024-12-12] MEDS ORDERED: BUPIVACAINE 0.5% PF 10 ML VIAL ONE ×2 (22:29→23:42)
--- NOTE | 2024-12-12 23:05 | EDPHYS ---
Physician Documentation [facility] Name: Mehdi Ramos III Age: 39 yrs Sex: Male : 1985 Arrival Date: 12/12/2024 Time: 21:10 Bed 19 Private MD: ED Physician Steven Walters HPI: 12/12 22:27 This 39 yrs old Male presents to ER via Ambulatory with complaints of sb4 Toothache. 22:27 Patient states he broke his tooth a few months back. States that he was getting get it sb4 fixed 2 months ago, but the pain went away. States that the pain returned a few days ago. He did have an appointment with his dentist today but he got called into work so he is unable to go. States he has an appointment for next Sunday but is going to try to go to a different dentist in the morning. States he is in severe pain and cannot get comfortable no matter what he does. Denies any fever. States the pain radiates up his face. Historical: - Allergies: 21:29 No Known Allergies; dd2 - PMHx: 21:29 Alcoholism; Anxiety; Hypertensive disorder; dd2 - PSHx: 21:29 HERNIA REPAIR; LT LEG SX; dd2 - Immunization history:: Adult Immunizations up to date. - Infectious Disease History:: Denies. - Social history:: Smoking status: Patient denies any tobacco usage or history of. ROS: 22:27 Constitutional: Negative for fever, chills, and weight loss, sb4 22:27 ENT: Positive for dental pain, 22:27 All other systems are negative, Exam: 22:27 Head/Face: Normocephalic, atraumatic. Eyes: Extra-ocular motions intact. Periorbital sb4 areas with no swelling, redness, or edema. ENT: Mucous membranes moist. Respiratory: No increased work of breathing, no retractions or nasal flaring. Skin: Warm, dry with normal turgor. Normal color with no rashes, no lesions, and no evidence of cellulitis. 22:27 Constitutional: The patient appears alert, awake, uncomfortable, 22:27 ENT: Dental exam: fractured teeth are noted, specifically the lower left second bicuspid, Vital Signs: 21:25 BP 148 / 95; Pulse 67; Resp 16; Temp 98.3; Pulse Ox 100% on R/A; Weight 72.57 kg; dd2 Height 5 ft. 6 in. ; Pain 10/10; 12/13 00:44 BP 137 / 89; Pulse 69; Resp 17; Pulse Ox 100% ; cp4 12/12 21:25 Body Mass Index 25.82 (72.57 kg, 167.64 cm) dd2 12/12 21:25 Pain Scale: Adult dd2 Procedures: 12/12 23:05 Performed Left lower dental block, left inferior alveolar dental block. Marcaine 0.5% sp4 used total 10 mL to administer dental block.. MDM: 21:43 Medical Screening Exam initiated sb4 23:05 Data reviewed: vital signs, nurses notes, I have discussed the patient's sb4 presentation/case with the attending Emergency Department Physician; and as a result, I will discharge patient. Counseling: I had a detailed discussion with the patient and/or guardian regarding the historical points, exam findings, and any diagnostic results supporting the discharge/admit diagnosis, the presence of at least one elevated blood pressure reading (>120/80) during this emergency department visit, the need for outpatient follow up, a dentist, to return to the emergency department if symptoms worsen or persist or if there are any questions or concerns that arise at home. Administered Medications: 22:30 Drug: Amoxicillin-Clavulanate PO 875 mg PO once Route: PO; cp4 23:07 Follow up: Response: No adverse reaction cp4 23:06 Drug: Bupivacaine Infiltration (0.5 %) 10 ml 10 ml Infiltration once {Note: Given by cp4 provider.} Volume: 10 ml; Route: Infiltration; 12/13 00:22 Drug: Ketorolac IM 60 mg IM once Route: IM; Site: left deltoid; cp4 00:45 Follow up: Response: No adverse reaction cp4 Disposition: 06:40 Co-signature as Attending Physician, Steven Walters MD I agree with the assessment sp4 and plan of care. I reviewed the patient's care provided by Advanced Practice Provider \T\ agree w/ the diagnosis \T\ care plan. I personally saw the pt \T\ performed a substantive portion of the visit, incldng all aspects of the (History/Exam/Medical Decision Making). Disposition Summary: 12/12/24 23:05 Discharge Ordered Notes: Location: Home sb4 Problem: new sb4 Symptoms: have improved sb4 Condition: Stable sb4 Diagnosis - Dental pain, cracked tooth sb4 Followup: sb4 - With: Avni Farfan DDS - When: As needed - Reason: Recheck today's complaints, Re-evaluation by your physician Discharge Instructions: - Discharge Summary Sheet sb4 - Dental Pain, [id number] sb4 - Tooth Injuries, [id number] sb4 Forms: - Antibiotic Education sb4 - Patient Portal Instructions sb4 - Leadership Thank You Letter sb4 Prescriptions: - Cephalexin 500 mg Oral Capsule - take 1 capsule ORAL route every 6 hours for 10 days; 40 capsule; Refills: 0, sb4 Product Selection Permitted Signatures: [place] PA-C PA-C sb4 Steven Walters MD MD sp4 Francia Mckeon cp4 MILTON CONDON RN RN dd2
--- NOTE | 2024-12-12 23:05 | ER ---
Nurse's Notes [facility] Name: Mehdi Ramos III Age: 39 yrs Sex: Male : 1985 Arrival Date: 12/12/2024 Time: 21:10 Bed 19 Private MD: Diagnosis: Dental pain, cracked tooth Presentation: 12/12 21:25 Chief complaint: Patient states: TOOTHACHE FROM A BROKEN TOOTH ON THE LOWER LEFT SIDE. dd2 PT REPORTS ATTEMPTING TO GET IN TO DENTIST TOMORROW. Coronavirus screen: At this time, the client does not indicate any symptoms associated with coronavirus-19. Ebola Screen: No symptoms or risks identified at this time. Initial Sepsis Screen: Does the patient meet any 2 criteria? No. Patient's initial sepsis screen is negative. Does the patient have a suspected source of infection? No. Patient's initial sepsis screen is negative. Risk Assessment: Do you want to hurt yourself or someone else? Patient reports no desire to harm self or others. Onset of symptoms was December 09, 2024. 21:25 Method Of Arrival: Ambulatory dd2 21:25 Acuity: BRANDON 4 dd2 Triage Assessment: 21:29 General: Appears in no apparent distress. uncomfortable, Behavior is calm, cooperative, dd2 appropriate for age. Pain: Complains of pain in lower left second bicuspid. EENT: Reports pain in lower left second bicuspid Pain is 10 out of 10 on a pain scale. Historical: - Allergies: 21:29 No Known Allergies; dd2 - PMHx: 21:29 Alcoholism; Anxiety; Hypertensive disorder; dd2 - PSHx: 21:29 HERNIA REPAIR; LT LEG SX; dd2 - Immunization history:: Adult Immunizations up to date. - Infectious Disease History:: Denies. - Social history:: Smoking status: Patient denies any tobacco usage or history of. Screenin:12 [facility] ED Fall Risk Assessment (Adult) History of falling in the last 3 months, cp4 including since admission No falls in past 3 months (0 pts) Confusion or Disorientation No (0 pts) Intoxicated or Sedated No (0 pts) Impaired Gait No (0 pts) Mobility Assist Device Used No (0 pt) Altered Elimination No (0 pt) Score/Fall Risk Level 0 - 2 = Low Risk Oriented to surroundings, Maintained a safe environment, Assessed \T\ reinforced patient's understanding of fall precautions, Hourly rounding (assess needs \T\ fall precautionary measures) done. Abuse screen: Denies threats or abuse. Denies injuries from another. Nutritional screening: No deficits noted. Tuberculosis screening: No symptoms or risk factors identified. Never had TB. Assessment: 23:12 General: Appears in no apparent distress. uncomfortable, Behavior is calm, cooperative, cp4 appropriate for age. Pain: Complains of pain in mouth and lower left second bicuspid Pain does not radiate. Pain currently is 10 out of 10 on a pain scale. Neuro: Level of Consciousness is awake, alert, obeys commands, Oriented to person, place, time, situation. Cardiovascular: Patient's skin is warm and dry. Respiratory: Airway is patent Respiratory effort is even, unlabored. GI: No signs and/or symptoms were reported involving the gastrointestinal system. : No signs and/or symptoms were reported regarding the genitourinary system. EENT: No signs and/or symptoms were reported regarding the EENT system. Derm: No signs and/or symptoms reported regarding the dermatologic system. Musculoskeletal: No signs and/or symptoms reported regarding the musculoskeletal system. 23:15 Reassessment: Discharge on hold per provider. cp4 23:39 Reassessment: Patient still in pain. Provider notified. cp4 Vital Signs: 21:25 BP 148 / 95; Pulse 67; Resp 16; Temp 98.3; Pulse Ox 100% on R/A; Weight 72.57 kg; dd2 Height 5 ft. 6 in. ; Pain 10/10; 12/13 00:44 BP 137 / 89; Pulse 69; Resp 17; Pulse Ox 100% ; cp4 12/12 21:25 Body Mass Index 25.82 (72.57 kg, 167.64 cm) dd2 12/12 21:25 Pain Scale: Adult dd2 ED Course: 12/12 21:13 Patient arrived in ED. im 21:29 Triage completed. dd2 21:29 Arm band placed on right wrist. dd2 21:43 La Uri[facility] sb4 21:43 Steven Walters MD is Attending Physician. sb4 22:25 Francia Mckeon is Primary Nurse. cp4 23:04 Avni Farfan DDS is Referral Physician. sb4 23:12 Bed in low position. Call light in reach. Side rails up X 1. cp4 23:12 No provider procedures requiring assistance completed. Patient did not have IV access cp4 during this emergency room visit. 12/13 00:44 Provided Education on: dental pain. cp4 Administered Medications: 12/12 22:30 Drug: Amoxicillin-Clavulanate PO 875 mg PO once Route: PO; cp4 23:07 Follow up: Response: No adverse reaction cp4 23:06 Drug: Bupivacaine Infiltration (0.5 %) 10 ml 10 ml Infiltration once {Note: Given by cp4 provider.} Volume: 10 ml; Route: Infiltration; 12/13 00:22 Drug: Ketorolac IM 60 mg IM once Route: IM; Site: left deltoid; cp4 00:45 Follow up: Response: No adverse reaction cp4 Medication: 12/12 23:12 VIS not applicable for this client. cp4 Outcome: 23:05 Discharge ordered by MD. sb4 12/13 00:44 Discharged to home ambulatory, cp4 Condition: stable Discharge instructions given to patient, Instructed on discharge instructions, follow up and referral plans. medication usage, Demonstrated understanding of instructions, follow-up care, medications, Prescriptions given X 1, 00:45 Patient left the ED. cp4 Signatures: La Urias PA-C PA-C sb4 Alondra Avery Christina cp4 MILTON CONDON RN RN dd2
[2024-12-13] MEDS ORDERED: KETOROLAC 30 MG/ML INJ ONE (00:19)
[2024-12-13 00:56] VITALS: TEMP 98.3; O2SAT 100
[2024-12-13 00:58] VITALS: BP 137/89
== END 2024-12-13 00:45 | disposition home or self-care (01) ==
LOC: ER 21:10
DX: K03.81 Cracked tooth (principal)
CPT/HCPCS: 96372; 99284